=== PATIENT | female | born 1950 | race Caucasian/White ===

== ENCOUNTER 2018-08-27 13:45 | Observation (INO) | payer OTHER, MEDICARE, SELFPAY ==
[2018-08-27] VITALS (12 sets, daily range): BP systolic 111–147; BP diastolic 58–86; PULSE 69–89; RESP 11–21; TEMP 36.6–36.8; O2SAT 93–100; BMI 26.9
--- NOTE | 2018-08-27 15:24 | ED.SYNCOPE ---
HPI - Syncope General Chief Complaint: Syncope Stated Complaint: fainted Time Seen by Provider: 08/27/18 14:19 Source: patient and family Mode of arrival: ambulatory Limitations: no limitations History of Present Illness HPI narrative: Patient comes emergency department complaining of a syncopal episode early this afternoon. Patient states she has not been feeling well for the last 3 weeks, and has been noticing feeling generally more tired, as well as being winded going up stairs. Patient states she has not had any chest pain or generalized shortness of breath, but that the dyspnea with stairs is unusual for her. She denies cough or fevers. No abdominal pain, nausea, or vomiting. No diarrhea. Patient does note that she probably does not drink enough, but that after seeing her provider yesterday, and being told she needed to drink more, she did drink quite a bit of water last night. Related Data Home Medications Medication Instructions Recorded Confirmed Calcium Tablet 1 tab PO DAILY 08/27/18 08/27/18 Unknown Supplements 1 dose PO DAILY 08/27/18 08/27/18 alprazolam 0.25 mg PO Q8H PRN 08/27/18 08/27/18 aspirin 81 mg PO DAILY 08/27/18 08/27/18 atenolol 25 mg PO QPM 08/27/18 08/27/18 clopidogrel 75 mg PO QPM 08/27/18 08/27/18 ezetimibe [Zetia] 10 mg PO DAILY 08/27/18 08/27/18 Allergies Allergy/AdvReac Type Severity Reaction Status Date / Time No Known Allergies Allergy Unknown Unverified 05/28/17 13:04 [NO KNOWN ALLERGIES] Review of Systems Constitutional Reports fatigue Comments: Fatigue Eyes Denies change in vision, Denies eye discharge, Denies irritation and Denies loss of vision ENT Ears, Nose, Mouth, and Throat: Denies change in voice, Denies neck pain and Denies sore throat Cardiovascular Denies chest pain, Reports syncope, Denies irregular heart rhythm, Denies lightheadedness, Denies palpitations, Reports dyspnea on exertion and Denies orthopnea Respiratory Denies cough, Reports dyspnea on exertion and Denies wheezing Gastrointestinal Gastrointestinal: Denies abdominal pain, Denies change in bowel habits, Denies diarrhea, Denies nausea and Denies vomiting Genitourinary Denies hematuria, Denies flank pain, Denies urinary incontinence and Denies urinary urgency Musculoskeletal Denies neck pain Integumentary/Breasts Denies pruritus, Denies erythema, Denies rash and Denies wounds Neurologic Denies confusion, Reports syncope and Denies loss of vision Psychiatric Denies anxiety, Denies confusion, Denies depression, Denies homicidal ideation and Denies suicidal ideation Endocrine Reports fatigue and Denies palpitations Hematologic/Lymphatic Denies easy bruising Allergic/Immunologic Denies wheezing [facility] Medical History Hyperlipidemia (Acute) TIA (transient ischemic attack) (Acute) HTN (hypertension) (Acute) Surgical History No pertinent past surgical history (Acute) Social History Smoking Status: Never smoker Social History Smoking Status: Never smoker Exam Initial Vital Signs Initial Vital Signs: Vital Signs Temperature 98.2 F 08/27/18 13:50 Pulse Rate 77 08/27/18 13:50 Respiratory Rate 15 08/27/18 13:50 Blood Pressure 146/77 H 08/27/18 13:50 Pulse Oximetry 99 08/27/18 13:50 Const General: cooperative and well developed Nutritional Appearance: well nourished Orientation: alert, awake, oriented x3 and not confused [facility] Head: normocephalic and atraumatic Ears: external ears normal Nose: external nose normal and No nasal discharge Face and sinus: face symmetric and No dry mucous membranes Mouth: oral mucosae normal and moist mucous membranes Teeth and gingiva: dentition normal Eyes General: appearance normal, both eyes and all related structures Eyelids: eyelids normal Conjunctivae: conjunctivae normal Sclera: sclerae normal Pupils: PERRL EOM: EOM intact bilaterally Neck Neck: normal visual inspection, trachea midline, No lymphadenopathy, No midline deformity and No JVD Lymphatic: No lymphedema Chest Chest: normal inspection of the chest Resp Effort & Inspection: normal respiratory effort, able to speak in complete sentences, no respiratory distress and no use of accessory muscles Auscultation: clear to auscultation bilaterally, no rales, no rhonchi and no wheezes Cardio Rate: regular rate Rhythm: regular rhythm Heart Sounds: no click, no gallops, no murmurs and no rubs Pulses: normal peripheral pulses GI Inspection: non-distended Palpation: soft, no hepatosplenomegaly, No guarding, No pulsatile mass and No tender Auscultation: normal bowel sounds Back/Spine/Pelvis Back: No CVA tenderness Cervical Spine: cervical ROM normal and No pain with cervical ROM Thoracic/Lumbar Spine: thoracic and lumbar spine normal to inspection Skin General: no rashes or lesions noted, No jaundice and No petechiae Neuro General: alert, oriented x3, gait normal and no focal motor deficits Speech: speech normal Extrem General: full ROM, no clubbing, cyanosis or edema, no pedal edema and no calf tenderness Psych Appearance: well kempt Mental Status: mental status grossly normal Attitude: cooperative Thought Content: normal and suicidality Judgment: judgment good Course Course Narrative: Patient is worked up in the emergency department, and workup was found to be negative. I consulted with Dr. Alberto of Cardiology, and he did state that the patient could be observed on telemetry overnight here at our hospital and ruled out. He stated that Cardiology would follow up the patient in an expedited fashion after her discharge. I spoke with Dr. Penn, who felt that this was reasonable, and agree to admit the patient to his service. He stated that the patient could have a stress test tomorrow after her rule out. Patient was agreeable to this plan. Orders Ordered: ED Orders 08/27/18 14:03 EKG-12 Lead Routine 08/27/18 14:35 B Type Natriuretic Peptide Stat Complete Blood Count AUTO DIFF Stat Comprehensive Metabolic Panel Stat Free T4 Free Thyroxine Stat T4 Total Thyroxine Stat Thyroid Stimulating Hormone Stat Triiodothyronine T3 Free Stat 08/27/18 16:53 Urinalysis and Microscopic Stat 08/27/18 18:27 Troponin & CK Cardiac Panel Stat Discontinued Medications Sodium Chloride (Normal Saline 0.9%) 1,000 mls @ 1,000 mls/hr IV BOLUS ONE Stop: 08/27/18 16:19 Last Infusion: 08/27/18 16:46 Dose: 0 mls/hr Admin: 08/27/18 15:38 Dose: 1,000 mls/hr Vital Signs - 8 hr 08/27/18 13:50 08/27/18 14:02 08/27/18 15:30 Temperature 98.2 F Pulse Rate 77 77 72 Respiratory Rate 15 15 18 Blood Pressure 146/77 H Blood Pressure [Left Arm] 146/77 H 122/70 Pulse Oximetry 99 99 100 08/27/18 16:00 08/27/18 16:44 08/27/18 17:00 Temperature Pulse Rate 69 74 75 Respiratory Rate 11 L 19 14 Blood Pressure Blood Pressure [Left Arm] 132/71 129/73 127/65 Pulse Oximetry 99 97 93 08/27/18 17:30 08/27/18 18:00 08/27/18 18:30 Temperature Pulse Rate 73 72 70 Respiratory Rate 12 15 20 Blood Pressure Blood Pressure [Left Arm] 128/66 147/66 H 129/86 Pulse Oximetry 97 98 98 08/27/18 20:30 Temperature Pulse Rate 89 Respiratory Rate 21 Blood Pressure Blood Pressure [Left Arm] 132/67 Pulse Oximetry 94 MDM - Syncope Medical Records Attestation: I reviewed the patient's medical records. Lab Data Attestation: I reviewed the patient's lab results. Result diagrams: 08/27/18 14:35 08/27/18 14:35 Lab Results 08/27/18 08/27/18 08/27/18 Range/Units 14:35 14:35 14:35 WBC 2.8 L (4.5-11.0) X10^3/uL RBC 3.79 L (4.0-5.2) X10^6/uL Hgb 13.2 (12.0-16.0) g/dL Hct 38.2 (36-46) % MCV 100.8 H (80-100) fL MCH 34.9 H (26-34) PG MCHC 34.7 (30-36) % RDW 14.3 (11.6-14.8) % Plt Count 42 L (150-400) X10^3/uL Neut % (Auto) 43.1 L (50-75) % Lymph % (Auto) 48.4 H (25-40) % [place] % (Auto) 7.5 (3-14) % Eos % (Auto) 0.7 L (2-4) % Baso % (Auto) 0.3 (0-2) % Neut # (Auto) 1200 L (9611-3604) /uL Lymph # (Auto) 1400 (1252-3250) /uL [place] # (Auto) 200 (0-900) /uL Eos # (Auto) 0 (0-450) /uL Baso # (Auto) 0 (0-100) /uL Sodium 141 (137-145) mmol/L Potassium 4.3 (3.4-5.1) mmol/L Chloride 105 (98-107) mmol/L Carbon Dioxide 25 (22-32) mmol/L BUN 22 H (7-17) mg/dL Creatinine 0.90 (0.52-1.04) mg/dL Estimated GFR > 60.0 (>60) mL/min BUN/Creatinine Ratio 24.4 H (6-22) Glucose 85 (80-110) mg/dL Calcium 9.8 (8.4-10.2) mg/dL Total Bilirubin 0.8 (0.2-1.3) mg/dL AST 42 H (14-36) IU/L ALT 57 H (9-52) IU/L Alkaline Phosphatase 83 (38-126) U/L Total Creatine Kinase (30-135) U/L CK-MB (CK-2) CK-MB (CK-2) Rel Index Troponin I (0.01-0.034) ng/mL B-Natriuretic Peptide < 100 (<100) Total Protein 7.9 (6.3-8.2) g/dL Albumin 4.8 (3.5-5.0) g/dL Globulin 3.1 (1.7-4.1) g/dL Albumin/Globulin Ratio 1.5 (1.0-2.8) TSH 2.55 (0.47-4.68) uIU/mL Free T4 0.98 (0.78-2.19) ng/dL Thyroxine (T4) 8.18 (5.5-11.0) ug/dL Free T3 3.96 (2.77-5.27) pg/mL Urine Color Urine Appearance Urine pH (4.5-8.0) Ur Specific [place] (1.000-1.035) Urine Protein (Negative) Urine Glucose (UA) (Negative) g/dL Urine Ketones (NEGATIVE) Urine Occult Blood (Negative) Urine Nitrate (Negative) Urine Bilirubin (NEGATIVE) Urine Urobilinogen (0.2) E.U./dL Ur Leukocyte Esterase (NEGATIVE) Urine RBC (0-5/HPF) Urine WBC (0-5/HPF) Ur Squamous Epith Cells (0-5/HPF) Urine Bacteria (None) Ur Culture Indicated? 08/27/18 08/27/18 Range/Units 16:53 18:27 WBC (4.5-11.0) X10^3/uL RBC (4.0-5.2) X10^6/uL Hgb (12.0-16.0) g/dL Hct (36-46) % MCV (80-100) fL MCH (26-34) PG MCHC (30-36) % RDW (11.6-14.8) % Plt Count (150-400) X10^3/uL Neut % (Auto) (50-75) % Lymph % (Auto) (25-40) % [place] % (Auto) (3-14) % Eos % (Auto) (2-4) % Baso % (Auto) (0-2) % Neut # (Auto) (3178-5551) /uL Lymph # (Auto) (6875-0324) /uL [place] # (Auto) (0-900) /uL Eos # (Auto) (0-450) /uL Baso # (Auto) (0-100) /uL Sodium (137-145) mmol/L Potassium (3.4-5.1) mmol/L Chloride (98-107) mmol/L Carbon Dioxide (22-32) mmol/L BUN (7-17) mg/dL Creatinine (0.52-1.04) mg/dL Estimated GFR (>60) mL/min BUN/Creatinine Ratio (6-22) Glucose (80-110) mg/dL Calcium (8.4-10.2) mg/dL Total Bilirubin (0.2-1.3) mg/dL AST (14-36) IU/L ALT (9-52) IU/L Alkaline Phosphatase (38-126) U/L Total Creatine Kinase 46 (30-135) U/L CK-MB (CK-2) TNP CK-MB (CK-2) Rel Index TNP Troponin I < 0.012 (0.01-0.034) ng/mL B-Natriuretic Peptide (<100) Total Protein (6.3-8.2) g/dL Albumin (3.5-5.0) g/dL Globulin (1.7-4.1) g/dL Albumin/Globulin Ratio (1.0-2.8) TSH (0.47-4.68) uIU/mL Free T4 (0.78-2.19) ng/dL Thyroxine (T4) (5.5-11.0) ug/dL Free T3 (2.77-5.27) pg/mL Urine Color Yellow Urine Appearance Clear Urine pH 6.5 (4.5-8.0) Ur Specific [place] <=1.005 (1.000-1.035) Urine Protein Negative (Negative) Urine Glucose (UA) Negative (Negative) g/dL Urine Ketones Negative (NEGATIVE) Urine Occult Blood 1+ H (Negative) Urine Nitrate Negative (Negative) Urine Bilirubin Negative (NEGATIVE) Urine Urobilinogen 0.2 (0.2) E.U./dL Ur Leukocyte Esterase Negative (NEGATIVE) Urine RBC 0-1/hpf (0-5/HPF) Urine WBC None seen (0-5/HPF) Ur Squamous Epith Cells 1-5 /hpf (0-5/HPF) Urine Bacteria None seen (None) Ur Culture Indicated? Cult not indicated ECG Data Attestation: I personally reviewed and interpreted this ECG as follows: (See below) Interpretation: Twelve lead EKG performed August 27, 2018, at 2:03 p.m., as follows: Regular ventricular rhythm with a rate of 72 beats per minute Peer interval 172 millisecond QRS duration 74 millisecond QTC interval [address] T wave changes No ectopy Interpretation: Normal sinus rhythm; no signs of acute ischemia; normal EKG as interpreted by ED MD. Discharge Plan Departure Patient Disposition: Admitted as Observation Clinical Impression: Syncope Qualifiers: Syncope type: unspecified Qualified Code(s): R55 - Syncope and collapse Interventions: ED Discharge Assessment Last Done: 08/27/18 20:02 Admit Date/Time: 08/27/18 20:06 Admit Provider: Beau Stacy
[2018-08-27 15:30] LABS: Add Manual Diff / Slide Review NO; Basophils Absolute Auto 0 /uL (0-100); Basophils Percent Auto 0.3 % (0-2); Eosinophils Absolute Auto 0 /uL (0-450); Eosinophils Percent Auto 0.7 % (2-4); Hematocrit 38.2 % (36-46); Hemoglobin 13.2 g/dL (12.0-16.0); Lymphocytes Absolute Auto 1400 /uL (1100-4500); Lymphocytes Percent Auto 48.4 % (25-40); Mean Corpuscular HGB Conc 34.7 % (30-36); Mean Corpuscular Hemoglobin 34.9 PG (26-34); Mean Corpuscular Volume 100.8 fL (80-100); Monocytes Absolute Auto 200 /uL (0-900); Monocytes Percent Auto 7.5 % (3-14); Neutrophils Absolute Auto 1200 /uL (1500-7000); Neutrophils Percent Auto 43.1 % (50-75); Platelet Count 42 X10^3/uL (150-400); Red Blood Cell Count 3.79 X10^6/uL (4.0-5.2); Red Cell Distribution Width 14.3 % (11.6-14.8); White Blood Cell Count 2.8 X10^3/uL (4.5-11.0)
[2018-08-27 15:38] LABS: Alanine Aminotransferase 57 IU/L (9-52); Albumin 4.8 g/dL (3.5-5.0); Albumin Globulin Ratio 1.5 (1.0-2.8); Alkaline Phosphatase 83 U/L (38-126); Aspartate Aminotransferase 42 IU/L (14-36); BUN Creatinine Ratio 24.4 (6-22); Bilirubin Total 0.8 mg/dL (0.2-1.3); Blood Urea Nitrogen 22 mg/dL (7-17); Calcium 9.8 mg/dL (8.4-10.2); Carbon Dioxide 25 mmol/L (22-32); Chloride 105 mmol/L (98-107); Estimated Glomerular Filt Rate > 60.0 mL/min (>60); Globulin 3.1 g/dL (1.7-4.1); Glucose 85 mg/dL (80-110); HEMOLYSIS 23 (0-50); Potassium 4.3 mmol/L (3.4-5.1); Sodium 141 mmol/L (137-145); Total Protein 7.9 g/dL (6.3-8.2)
[2018-08-27] MEDS: SODIUM CHLORIDE 0.9% 1,000 ML 1000 ML IV (15:38)
[2018-08-27 15:54] LABS: B Type Natriuretic Peptide < 100 (<100)
[2018-08-27 15:55] LABS: Free T3, Triiodothyronine Free 3.96 pg/mL (2.77-5.27); Free T4, Direct Thyroxine 0.98 ng/dL (0.78-2.19); T4 Total Thyroxine 8.18 ug/dL (5.5-11.0)
[2018-08-27 16:08] LABS: Thyroid Stimulating Hormone 2.55 uIU/mL (0.47-4.68)
[2018-08-27 18:40] LABS: Creatine Kinase 46 U/L (30-135)
[2018-08-27 18:53] LABS: Troponin I < 0.012 ng/mL (0.01-0.034)
[2018-08-27 19:53] LABS: Bacteria Urine None Seen; WBC Urine None Seen (0-5/HPF)
[2018-08-27 19:54] LABS: Appearance Urine UA CLEAR; Bilirubin Urine UA NEGATIVE (NEGATIVE); Color Urine UA YELLOW; Glucose Urine UA NEGATIVE (Negative); Ketones Urine UA NEGATIVE (NEGATIVE); Leukocyte Esterase Urine UA NEGATIVE (NEGATIVE); Nitrite Urine UA NEGATIVE (Negative); Occult Blood Urine UA 1+ (Negative); Protein Urine UA NEGATIVE (Negative); Specific Gravity Urine UA <=1.005 (1.000-1.035); Urobilinogen Urine UA 0.2 E.U./dL (0.2); pH Urine UA 6.5 (4.5-8.0)
[2018-08-27 20:07] LABS: Culture Indicated Urine Cult Not Indicated; RBC Urine 0-1/HPF (0-5/HPF); Squamous Epithelial Cell Urine 1-5 /HPF (0-5/HPF)
[2018-08-27] MEDS: SODIUM CHLORIDE 0.9% 1,000 ML 100 ML IV (21:54)
--- NOTE | 2018-08-27 22:04 | PC.ADMIT ---
[id number] Admission Note: The patient,Kristen Cho,68 y/o, was given written information regarding hospital policies, unit procedures and contact persons. Patient's smoking status: Never smoker. Vital Signs - 8 hr 08/27/18 15:30 08/27/18 16:00 08/27/18 16:44 Pulse Rate 72 69 74 Respiratory Rate 18 11 L 19 Blood Pressure [Left Arm] 122/70 132/71 129/73 Pulse Oximetry 100 99 97 08/27/18 17:00 08/27/18 17:30 08/27/18 18:00 Pulse Rate 75 73 72 Respiratory Rate 14 12 15 Blood Pressure [Left Arm] 127/65 128/66 147/66 H Pulse Oximetry 93 97 98 08/27/18 18:30 08/27/18 20:30 Pulse Rate 70 89 Respiratory Rate 20 21 Blood Pressure [Left Arm] 129/86 132/67 Pulse Oximetry 98 94 Admit to room 226 from ED, awake, pleasant and cooperative. No c/o chest pain, SOB, or dizziness. Neurological check WNL. Oriented to room, environment, and plan of care. Aware of NPO status after midnight. Call light within reach.
--- NOTE | 2018-08-27 22:57 | PC.NURSE ---
Camilla shift note: Refused SCD's.
--- NOTE | 2018-08-27 23:21 | PM.HP.1 ---
History of Present Illness Date Patient Seen: 08/27/18 Time Patient Seen: 19:50 Chief complaint: fainted Narrative: Ms. Kristen Cho is a 68-year-old female patient with history significant for hypertension, hyperlipidemia, small stroke, breast cancer and chemo related neuropathy who presents to the ER today following a syncopal episode. The patient was at the pharmacy standing in line when she suddenly began feeling warm than hot. She states she turned to her daughter telling her that she needed to go outside under daughter describes that she became altered with garbled speech and began to fall and was caught by her daughter and helped to the ground. Her daughter states that she does not believe she actually loss consciousness but became briefly unresponsive. The patient states that she does not recall being helped to the floor. The patient had been to see her primary care provider yesterday and was to have laboratory studies today. The patient's daughter stayed with her and encouraged to drink fluids for her lab draw today. The patient had been complaining of multiple nonspecific symptoms that had developed since early July. The patient describes left headache with no visual changes but has been having disequilibrium. She reports insomnia, increased fatigue and shortness of breath with bilateral thigh pain but no chest pain when ascending stairs at home when she had previously had no exertional dyspnea. She denies recent illness, fevers or chills, diaphoresis or visual changes. She denies cough or wheezing. She reports no abdominal pain nausea vomiting, diarrhea or constipation or dysuria. Upon arrival in the ER the patient was afebrile with a temperature of 98.2? heart rate 77, blood pressure of 146/77, respirations of 15 and oxygen saturation 98% on room air. An EKG was obtained viewed by myself which shows sinus rhythm with a heart rate of 72 without ectopy, block, ST or T-wave changes. She had laboratory studies completed which showed a white blood cell count low at 2.8 hemoglobin 13.2 and hematocrit 38.2 with platelets of 42. On chemistries her electrolytes are within normal range however her BUN is 22 with a creatinine 0.9 with BUN creatinine ratio of 24.9 with an EGFR of greater than 60. She has a nonfasting glucose of 85. Liver function is within normal limits with a total bilirubin of 0.8, AST of 42, ALT of 57 and alkaline phosphatase of 83. CK and troponin are both negative at 46 and less than 0.012 respectively. BNP is negative at less than 100 and thyroid panel was evaluated which was unremarkable. The patient was give 1 L saline in the emergency department and Cardiology was consulted by the ER provider. The patient is admitted the hospital for further evaluation and monitoring. Patient History Medical History (Updated 08/27/18 @ 23:39 by POOJA Lindsey) Hyperlipidemia (Acute) TIA (transient ischemic attack) (Acute) HTN (hypertension) (Acute) Breast cancer (Acute) CVA (cerebrovascular accident) (Acute) Neuropathy (Acute) Sinus headache (Acute) Surgical History (Updated 08/27/18 @ 23:39 by POOJA Lindsey) History of appendectomy (Acute) History of bilateral cataract extraction (Acute) No pertinent past surgical history (Acute) S/P breast lumpectomy (Acute) Family History (Updated 08/27/18 @ 23:42 by POOJA Lindsey) Father Coronary artery disease Mother Stroke Coronary artery disease Brother Coronary artery disease Social History household members: none Smoking Status: Never smoker alcohol intake: current Family & Social History Family History (Updated 08/27/18 @ 23:42 by POOJA Lindsey) Father Coronary artery disease Mother Stroke Coronary artery disease Brother Coronary artery disease Social History: household members none Prior Living Arrangements House Safety & Behavioral: Feels Safe in Current Yes Environment Been Physically Hurt or No Threatened By a Person Suicide Plan Description No Plan Tobacco & Substance use: Smoking Status Never smoker alcohol intake current alcohol intake frequency 0-2 drinks per day Substance Use Type does not use Comment: The patient presently lives alone on [address]. She was for 25 years and 10 years ago. [place] Her parents are both and she has 1 brother. 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 Alcohol: Patient typically will consume 1 drink per night. Substance use: Patient denies recreation pharmaceuticals does use tincture of cannabis nightly to help her sleep. Advanced directives: In a lengthy discussion with the patient she chooses to be a full code but expresses wishes to not have life support or feeding tubes. She states she does not want to burden her children with making a life or physician for her and is unable to state a surrogate decision maker at this time. Meds Home Medications Medication Instructions Recorded Confirmed Type Calcium Tablet 1 tab PO DAILY 08/27/18 08/27/18 History Unknown Supplements 1 dose PO DAILY 08/27/18 08/27/18 History alprazolam 0.25 mg PO Q8H PRN 08/27/18 08/27/18 History aspirin 81 mg PO DAILY 08/27/18 08/27/18 History atenolol 25 mg PO QPM 08/27/18 08/27/18 History clopidogrel 75 mg PO QPM 08/27/18 08/27/18 History ezetimibe [Zetia] 10 mg PO DAILY 08/27/18 08/27/18 History Allergies Allergy/AdvReac Type Severity Reaction Status Date / Time No Known Allergies Allergy Unknown Unverified 05/28/17 13:04 [NO KNOWN ALLERGIES] Review of Systems Review of Systems All systems reviewed & are unremarkable except as noted in HPI and below Exam Vital Signs (past 8 hours): - 08/27/18 15:30 08/27/18 16:00 08/27/18 16:44 Temperature Pulse Rate 72 69 74 Respiratory Rate 18 11 L 19 Blood Pressure Blood Pressure [Left Arm] 122/70 132/71 129/73 Pulse Oximetry 100 99 97 08/27/18 17:00 08/27/18 17:30 08/27/18 18:00 Temperature Pulse Rate 75 73 72 Respiratory Rate 14 12 15 Blood Pressure Blood Pressure [Left Arm] 127/65 128/66 147/66 H Pulse Oximetry 93 97 98 08/27/18 18:30 08/27/18 20:30 08/27/18 21:50 Temperature 98 F Pulse Rate 70 89 78 Respiratory Rate 20 21 18 Blood Pressure 111/58 L Blood Pressure [Left Arm] 129/86 132/67 Pulse Oximetry 98 94 95 Oxygen Delivery Method Room Air Narrative Exam Narrative: GENERAL APPEARANCE: Well kempt, articulate well developed, well nourished, in no acute distress. HEAD: Normocephalic, atraumatic, no scalp lesions. EYES: pupils equal, round, reactive to light and accommodation, sclera non-icteric, extraocular movement intact without nystagmus. EARS: normal external structures, no ear pain NOSE: sinuses non tender to percussion, no rhinorrhea ORAL CAVITY: mucosa moist without lesions or exudate, own dentition, palate normal, tongue in midline. THROAT: normal, no erythema, no exudate, posterior pharynx normal, uvula midline. NECK/THYROID: neck supple, no jugular venous distention, no carotid bruit, no thyromegaly, trachea midline. LYMPH NODES: no cervical or supraclavicular lymphadenopathy. SKIN: warm and dry, no suspicious lesions, no rashes, good turgor. HEART: regular rate and rhythm, S1-S2 without murmur, no rubs or gallops, brisk capillary refill, no edema LUNGS: clear to auscultation bilaterally, no coarseness crackles or wheezing, no cough present CHEST: Symmetrical movement, no accessory muscle use, no pain to AP and lateral compression. ABDOMEN: Soft, no distention, no epigastric or abdominal tenderness on palpation, no guarding or peritoneal signs, no organomegaly, no flank or suprapubic tenderness, active bowel tones. BACK: Normal curvature, nontender to palpation, no CVA tenderness on percussion EXTREMITIES: moves all extremities, strength is 5/5 and symmetrical, no deformities or joint effusions. NEUROLOGIC: AAO x4, no focal neurologic deficits, cranial nerves II-XII grossly intact, NIH score 0, ABCD2 score is 2, motor strength normal upper and lower extremities, neuropathy fingertips and toes, hearing grossly normal to speech. PSYCH: alert, articulate, cognitive function intact, good eye contact, appropriate with stable behavior Objective Labs Result Diagrams: 08/27/18 14:35 08/27/18 14:35 Labs: Laboratory Results - last 24 hr 08/27/18 08/27/18 08/27/18 14:35 14:35 14:35 WBC 2.8 L RBC 3.79 L Hgb 13.2 Hct 38.2 MCV 100.8 H MCH 34.9 H MCHC 34.7 RDW 14.3 Plt Count 42 L Neut % (Auto) 43.1 L Lymph % (Auto) 48.4 H Story % (Auto) 7.5 Eos % (Auto) 0.7 L Baso % (Auto) 0.3 Neut # (Auto) 1200 L Lymph # (Auto) 1400 Story # (Auto) 200 Eos # (Auto) 0 Baso # (Auto) 0 Sodium 141 Potassium 4.3 Chloride 105 Carbon Dioxide 25 BUN 22 H Creatinine 0.90 Estimated GFR > 60.0 BUN/Creatinine Ratio 24.4 H Glucose 85 Calcium 9.8 Total Bilirubin 0.8 AST 42 H ALT 57 H Alkaline Phosphatase 83 Total Creatine Kinase CK-MB (CK-2) CK-MB (CK-2) Rel Index Troponin I B-Natriuretic Peptide < 100 Total Protein 7.9 Albumin 4.8 Globulin 3.1 Albumin/Globulin Ratio 1.5 TSH 2.55 Free T4 0.98 Thyroxine (T4) 8.18 Free T3 3.96 Urine Color Urine Appearance Urine pH Ur Specific [place] Urine Protein Urine Glucose (UA) Urine Ketones Urine Occult Blood Urine Nitrate Urine Bilirubin Urine Urobilinogen Ur Leukocyte Esterase Urine RBC Urine WBC Ur Squamous Epith Cells Urine Bacteria Ur Culture Indicated? 08/27/18 08/27/18 16:53 18:27 WBC RBC Hgb Hct MCV MCH MCHC RDW Plt Count Neut % (Auto) Lymph % (Auto) Story % (Auto) Eos % (Auto) Baso % (Auto) Neut # (Auto) Lymph # (Auto) Story # (Auto) Eos # (Auto) Baso # (Auto) Sodium Potassium Chloride Carbon Dioxide BUN Creatinine Estimated GFR BUN/Creatinine Ratio Glucose Calcium Total Bilirubin AST ALT Alkaline Phosphatase Total Creatine Kinase 46 CK-MB (CK-2) TNP CK-MB (CK-2) Rel Index TNP Troponin I < 0.012 B-Natriuretic Peptide Total Protein Albumin Globulin Albumin/Globulin Ratio TSH Free T4 Thyroxine (T4) Free T3 Urine Color Yellow Urine Appearance Clear Urine pH 6.5 Ur Specific [place] <=1.005 Urine Protein Negative Urine Glucose (UA) Negative Urine Ketones Negative Urine Occult Blood 1+ H Urine Nitrate Negative Urine Bilirubin Negative Urine Urobilinogen 0.2 Ur Leukocyte Esterase Negative Urine RBC 0-1/hpf Urine WBC None seen Ur Squamous Epith Cells 1-5 /hpf Urine Bacteria None seen Ur Culture Indicated? Cult not indicated Assessment & Plan Assessment & Plan narrative: The patient is admitted to the hospital following is syncopal episode of unclear etiology. 1. Witnessed syncopal episode, resolved upon arrival -patient has sustained a syncopal episode witnessed by her daughter to which she is amnesic to some events -no prior history of syncope but recent change in health status over the last 3 weeks. -differential diagnosis: -neurologic: patient with history of prior left hemispheric CVA treated at [facility], recent disequilibrium and headache and mumbling speech at onset of syncope. -neurochecks every 4 hours -will obtain MRI stroke protocol -cardiogenic, arrhythmia: Patient with strong family history cardiac disease, risk factors of hypertension and hyperlipidemia, no complaints of chest pain or palpitations. -troponin the ER is negative, no complaints of chest pain will recheck troponin. -NPO at midnight for cardiac stress test. -dehydration: Patient reports being told she needs to drink more when seen by primary care yesterday. Patient presents dehydrated with BUN of 22 and creatinine 0.9 with BUN creatinine ratio of 24.4. -patient given saline 1 L in the ER, no complaints of orthostatic dizziness. -IV normal saline 100 cc/hour -will continue home medications of aspirin 81 mg daily and clopidogrel 75 mg nightly. 2. Chronic hypertension, active -patient with a blood pressure 146/77 upon admission to the ER. -will continue home medication of atenolol 25 mg nightly. 3. Hyperlipidemia, active -patient reports intolerant to statins and recently started on Zetia -will continue home dose of Zetia 10 mg daily. 4. Left hemispheric CVA, stable. -patient reports having right-sided deficits and being treated at [facility] with MRI showing left hemisphere stroke. 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 5. Breast cancer, stable -patient has residual neuropathy post chemotherapy and has completed tamoxifen therapy. -no evidence of recurrence The patient is admitted to the hospital due to the severity of her symptoms and need for further monitoring, evaluation and risk of adverse events. Patient will be observation status with expected length of stay to be less than 2 midnights. Scores GCS [place] coma scale eye opening: Spontaneous [place] coma scale verbal response: Orientated [place] coma scale motor response: Obey commands Adrienne coma scale total score: 15 ABCD2 Age >= 60 years: yes Initial BP. Either SBP >= 140 or DBP >= 90.: yes Clinical features of the TIA: other symptoms Duration of symptoms: < 10 minutes History of diabetes: no ABCD2 Score: 2 NIHSS Level of Conciousness: Alert, keenly responsive Ask month/age: Answers both questions correctly. Open/close eyes, close hand: Performs both tasks correctly Best gaze horizontal: Normal Visual bhandari: No visual loss Facial palsy: Normal symetrical movement Left arm drift: No drift for full 10 sec Right arm drift: No drift for full 10 sec Left leg drift: No drift for full 10 sec Right leg drift: No drift for full 10 sec Limb ataxia: Absent Sensory on face/arms/legs: Normal, no sensory loss (Patient with baseline neuropathy secondary to chemotherapy without change) Best language: No aphasia, normal Dysarthria: Normal Extinction or inattention: No abnormality Total NIH Stroke scale score: 0 Quality VTE Deep Vein Thrombosis/Pulmonary Embolism Present on Admission: No
[2018-08-28] VITALS (10 sets, daily range): BP systolic 121–148; BP diastolic 66–82; PULSE 73–84; RESP 15–18; TEMP 36.6–36.9; O2SAT 96–99
[2018-08-28 05:53] LABS: Add Manual Diff / Slide Review NO; Basophils Absolute Auto 0 /uL (0-100); Basophils Percent Auto 0.2 % (0-2); Eosinophils Absolute Auto 0 /uL (0-450); Eosinophils Percent Auto 1.2 % (2-4); Hematocrit 30.1 % (36-46); Hemoglobin 10.7 g/dL (12.0-16.0); Lymphocytes Absolute Auto 1400 /uL (1100-4500); Lymphocytes Percent Auto 63.2 % (25-40); Mean Corpuscular HGB Conc 35.5 % (30-36); Mean Corpuscular Volume 101.3 fL (80-100); Monocytes Absolute Auto 200 /uL (0-900); Monocytes Percent Auto 7.7 % (3-14); Neutrophils Absolute Auto 600 /uL (1500-7000); Neutrophils Percent Auto 27.7 % (50-75); Red Blood Cell Count 2.97 X10^6/uL (4.0-5.2); Red Cell Distribution Width 14.3 % (11.6-14.8); White Blood Cell Count 2.2 X10^3/uL (4.5-11.0)
[2018-08-28 05:54] LABS: BUN Creatinine Ratio 23.3 (6-22); Blood Urea Nitrogen 21 mg/dL (7-17); Calcium 8.7 mg/dL (8.4-10.2); Carbon Dioxide 24 mmol/L (22-32); Chloride 113 mmol/L (98-107); Cholesterol 268 mg/dL (140-199); Estimated Glomerular Filt Rate > 60.0 mL/min (>60); Glucose 100 mg/dL (80-110); HDL Cholesterol 42 mg/dL (40-60); HEMOLYSIS < 15 (0-50); LDL Cholesterol Calculated 191 mg/dL (<100); Potassium 4.2 mmol/L (3.4-5.1); Sodium 143 mmol/L (137-145); Triglycerides 176 mg/dL (35-150)
[2018-08-28 06:06] LABS: Troponin I < 0.012 ng/mL (0.01-0.034)
[2018-08-28 06:08] LABS: Platelet Count 30 X10^3/uL (150-400)
--- NOTE | 2018-08-28 06:12 | PC.NURSE ---
Critical lab platelet count of 30; advised POOJA Stacy at 0610. Pt slept all shift; denied pain nausea and dizziness.
[2018-08-28 06:43] LABS: RBC Morphology Normal Morphology; Vitamin B12 277 pg/mL (239-931)
--- NOTE | 2018-08-28 08:51 | PM.PN.1 ---
Subjective Date Patient Seen: 08/28/18 Time Patient Seen: 08:51 Interval history: She is seen today to follow up the syncope, anxiety, pancytopenia. Other than the pancytopenia no other direct cause of the syncope has been found. She has been monitored with telemetry, has a normal chest x-ray, has a normal for age MRI, etc. Her white blood count has dropped from 2.8 down to 2.2. The platelets have dropped from 42 down to 30 and hemoglobin has dropped from 13.2 down to 10.7. She describes 2 weeks of vague somewhat random symptoms leading up to this episode of syncope. I have spoken about her case with Hematology today. Exam Vital Signs (past 8 hours): - 08/28/18 04:00 08/28/18 08:28 Temperature 97.9 F 98.0 F Pulse Rate 78 83 Respiratory Rate 18 16 Blood Pressure 121/71 148/76 H Pulse Oximetry 97 98 Oxygen Delivery Method Room Air Oxygen Flow Rate 0 Narrative Exam Narrative: She is alert, oriented x3, quite anxious. Heart is regular rate and rhythm without a murmur. Lungs are clear to auscultation bilaterally. Extremities have no ankle edema. Objective Labs Result Diagrams: 08/28/18 05:20 08/28/18 05:20 Labs: Laboratory Results - last 24 hr 08/27/18 08/27/18 08/27/18 14:35 14:35 14:35 WBC 2.8 L RBC 3.79 L Hgb 13.2 Hct 38.2 MCV 100.8 H MCH 34.9 H MCHC 34.7 RDW 14.3 Plt Count 42 L Neut % (Auto) 43.1 L Lymph % (Auto) 48.4 H [place] % (Auto) 7.5 Eos % (Auto) 0.7 L Baso % (Auto) 0.3 Neut # (Auto) 1200 L Lymph # (Auto) 1400 [place] # (Auto) 200 Eos # (Auto) 0 Baso # (Auto) 0 Platelet Estimate RBC Morphology Sodium 141 Potassium 4.3 Chloride 105 Carbon Dioxide 25 BUN 22 H Creatinine 0.90 Estimated GFR > 60.0 BUN/Creatinine Ratio 24.4 H Glucose 85 Calcium 9.8 Total Bilirubin 0.8 AST 42 H ALT 57 H Alkaline Phosphatase 83 Total Creatine Kinase CK-MB (CK-2) CK-MB (CK-2) Rel Index Troponin I B-Natriuretic Peptide < 100 Total Protein 7.9 Albumin 4.8 Globulin 3.1 Albumin/Globulin Ratio 1.5 Triglycerides Cholesterol LDL Cholesterol, Calc HDL Cholesterol Vitamin B12 TSH 2.55 Free T4 0.98 Thyroxine (T4) 8.18 Free T3 3.96 Urine Color Urine Appearance Urine pH Ur Specific [place] Urine Protein Urine Glucose (UA) Urine Ketones Urine Occult Blood Urine Nitrate Urine Bilirubin Urine Urobilinogen Ur Leukocyte Esterase Urine RBC Urine WBC Ur Squamous Epith Cells Urine Bacteria Ur Culture Indicated? 08/27/18 08/27/18 08/28/18 16:53 18:27 05:20 WBC 2.2 L RBC 2.97 L Hgb 10.7 L Hct 30.1 L MCV 101.3 H MCH 36.0 H MCHC 35.5 RDW 14.3 Plt Count 30 L* Neut % (Auto) 27.7 L Lymph % (Auto) 63.2 H [place] % (Auto) 7.7 Eos % (Auto) 1.2 L Baso % (Auto) 0.2 Neut # (Auto) 600 L Lymph # (Auto) 1400 [place] # (Auto) 200 Eos # (Auto) 0 Baso # (Auto) 0 Platelet Estimate . RBC Morphology Normal morphology Sodium Potassium Chloride Carbon Dioxide BUN Creatinine Estimated GFR BUN/Creatinine Ratio Glucose Calcium Total Bilirubin AST ALT Alkaline Phosphatase Total Creatine Kinase 46 CK-MB (CK-2) TNP CK-MB (CK-2) Rel Index TNP Troponin I < 0.012 B-Natriuretic Peptide Total Protein Albumin Globulin Albumin/Globulin Ratio Triglycerides Cholesterol LDL Cholesterol, Calc HDL Cholesterol Vitamin B12 TSH Free T4 Thyroxine (T4) Free T3 Urine Color Yellow Urine Appearance Clear Urine pH 6.5 Ur Specific [place] <=1.005 Urine Protein Negative Urine Glucose (UA) Negative Urine Ketones Negative Urine Occult Blood 1+ H Urine Nitrate Negative Urine Bilirubin Negative Urine Urobilinogen 0.2 Ur Leukocyte Esterase Negative Urine RBC 0-1/hpf Urine WBC None seen Ur Squamous Epith Cells 1-5 /hpf Urine Bacteria None seen Ur Culture Indicated? Cult not indicated 08/28/18 08/28/18 05:20 05:20 WBC RBC Hgb Hct MCV MCH MCHC RDW Plt Count Neut % (Auto) Lymph % (Auto) [place] % (Auto) Eos % (Auto) Baso % (Auto) Neut # (Auto) Lymph # (Auto) [place] # (Auto) Eos # (Auto) Baso # (Auto) Platelet Estimate RBC Morphology Sodium 143 Potassium 4.2 Chloride 113 H Carbon Dioxide 24 BUN 21 H Creatinine 0.90 Estimated GFR > 60.0 BUN/Creatinine Ratio 23.3 H Glucose 100 Calcium 8.7 Total Bilirubin AST ALT Alkaline Phosphatase Total Creatine Kinase CK-MB (CK-2) CK-MB (CK-2) Rel Index Troponin I < 0.012 B-Natriuretic Peptide Total Protein Albumin Globulin Albumin/Globulin Ratio Triglycerides 176 H Cholesterol 268 H LDL Cholesterol, Calc 191 H HDL Cholesterol 42 Vitamin B12 277 TSH Free T4 Thyroxine (T4) Free T3 Urine Color Urine Appearance Urine pH Ur Specific [place] Urine Protein Urine Glucose (UA) Urine Ketones Urine Occult Blood Urine Nitrate Urine Bilirubin Urine Urobilinogen Ur Leukocyte Esterase Urine RBC Urine WBC Ur Squamous Epith Cells Urine Bacteria Ur Culture Indicated? Assessment & Plan Assessment & Plan narrative: 1. Witnessed syncopal episode, resolved upon arrival -patient has sustained a syncopal episode witnessed by her daughter to which she is amnesic to some events -no prior history of syncope but recent change in health status over the last 3 weeks. -differential diagnosis: -neurologic: MRI brain today is normal for age -cardiogenic, arrhythmia: Patient with strong family history cardiac disease, risk factors of hypertension and hyperlipidemia, no complaints of chest pain or palpitations. -troponin the ER is negative, no complaints of chest pain will recheck troponin. -no current symptoms to suggest stress test. -check a D-dimer -dehydration: Patient reports being told she needs to drink more when seen by primary care yesterday. Patient presents dehydrated with BUN of 22 and creatinine 0.9 with BUN creatinine ratio of 24.4. -patient given saline 1 L in the ER, no complaints of orthostatic dizziness. -IV normal saline 100 cc/hour -will continue home medications of aspirin 81 mg daily and clopidogrel 75 mg nightly. -despite the lack of any easy direct line the finding of pancytopenia, which is new, would appear to suggest some relationship to the syncope. - 2. Chronic hypertension, active -patient with a blood pressure 146/77 upon admission to the ER. -will continue home medication of atenolol 25 mg nightly. 3. Hyperlipidemia, active -patient reports intolerant to statins and recently started on Zetia -will continue home dose of Zetia 10 mg daily. 4. Left hemispheric CVA, stable. -patient reports having right-sided deficits and being treated at [facility] with MRI showing left hemisphere stroke. 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 5. Breast cancer, stable -patient has residual neuropathy post chemotherapy and has completed tamoxifen therapy. -no evidence of recurrence -Her oncologist was Dr. Nicholson at [facility] 6. Significant pancytopenia -discussed with Dr. Walton, who recommends office follow-up next week. He also is doubtful that these numbers are related to the syncope. -will repeat CBC in the morning, which if stabilizing may lead to discharge or if worsening may need platelet transfusion or transfer. Quality VTE Deep Vein Thrombosis/Pulmonary Embolism Present on Admission: No
[2018-08-28] MEDS: ASPIRIN EC 81 MG TABLET PO (10:07)
[2018-08-28] MEDS: ALPRAZolam 0.25 MG TABLET PO ×2 (10:07→22:43)
--- NOTE | 2018-08-28 10:21 | PT.IIE ---
Surgical History (Last Updated 08/27/18 @ 23:39 by POOJA Lindsey) History of appendectomy (Acute) History of bilateral cataract extraction (Acute) No pertinent past surgical history (Acute) S/P breast lumpectomy (Acute) Medical History (Last Updated 08/27/18 @ 23:39 by POOJA Lindsey) Hyperlipidemia (Acute) TIA (transient ischemic attack) (Acute) HTN (hypertension) (Acute) Breast cancer (Acute) CVA (cerebrovascular accident) (Acute) Neuropathy (Acute) Sinus headache (Acute) Physical Therapy Inpatient Evaluation/Re-Eval M1 PT/OT-IP Prior Functional Status Start: 08/28/18 12:23 Freq: NEEDED Status: Active Protocol: Document 08/28/18 10:21 AB (Rec: 08/28/18 12:48 AB [id number]) Medical Review Prior Functional Status Medical History Reviewed Yes Communication able to make needs known Mobility and Gait pt stated that she is independent with all mobilities and ambulation without AD Prior Functional Level (Other details) pt stated that she has not been feeling well for ~ 3 weeks. stated that she has a dull headache since then and feels unsteady when up and walking but is aware of it and able to self correct. Social History Household Members none Living Arrangements House Number of Floors (Floors) 3 or More Floors Number of Stairs To Enter/Railing? pt lives in [facility]. does not use the 2nd floor but goes to the basement for her laundry and gardening. has 3 steps to enter without rails. has 16 steps to get to the basement with R rail descending. pt's daughter stated the steps to the basement are steep. 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 stated that she has ~ 2 flights of steps with bilateral wide rails and can only hold on to one rail at a time to get into the classrooms where she works. M2 PT-IP Current Condition Start: 08/28/18 12:23 Freq: NEEDED Status: Active Protocol: Document 08/28/18 10:21 AB (Rec: 08/28/18 12:48 AB [id number]) Physical Therapy Current Condition Current Condition Evaluation Date 08/28/18 Treatment Diagnosis syncope; difficulty in walking Onset Date 08/27/18 Precautions Other Precautions falls M3 PT-IP Subjective Start: 08/28/18 12:23 Freq: NEEDED Status: Active Protocol: Document 08/28/18 10:21 AB (Rec: 08/28/18 12:48 AB [id number]) Subjective Physical Therapy Visit Type Type Initial Evaluation Visit Start Time 10:21 Visit Stop Time 10:50 Total Visit Minutes 29 Number of DATA WAREHOUSING SPECIALIST Visits 0 Physical Therapy Visit Comments Patient Comments pt agreeable to do PT Therapy Pain Assessment Pain When Pain Assessed At Rest Pain Present Pain Present Pain Reported Location Head Intensity 1 Description Dull M4 PT-IP Mobility and Gait Start: 08/28/18 12:23 Freq: NEEDED Status: Active Protocol: Document 08/28/18 10:21 AB (Rec: 08/28/18 12:48 AB [id number]) PT-Bed Mobility Assessment Supine to Sit Supine to Sit Independent Sit to Supine Sit to Supine Independent PT-Transfer Assessment Sit to and From Stand Sit to and from Stand Contact Guard Assistance Equipment Transfer Assistive Device Gait Belt Orthotic/Prosthetic Devices or Brace: No Transfers Transfer Destination Bed Transfer Technique Stand Step Pivot Transfer Ability Level of Assist Contact Guard Assistance 1 Person Assistance Use of Upper Extremities Gait Assessment Gait Gait Assistance Required: Contact Guard Assist Distance (Feet) 100 Assistive Devices Assistive Device None Gait Belt Straight Cane Front Wheeled Walker Orthotic/Prosthetic Devices or Brace: No Gait Deviations General Gait Pattern Antalgic Decreased Stride Length Decreased Feet Clearance Factors Limiting Gait Function Factors Limiting Gait Function Decreased Strength Poor Balance Comments Gait Comments pt completed ambulation without AD ~ 100 ft requiring CGA. pt with unsteady gait and increase lateral leaning to the L but occasionally to the R as well but pt able to correct. Needs cues to stop and recenter self for rebalancing. educated pt on safety and AD options. assessed mobility using SPC. pt educated on how to use SPC and pt able to ambulate ~ 40 ft with cues. pt is steadier with ambulation using SPC but requires more training for sequencing. Also assessed use of FWW and pt completed SBA ~ 30 ft. pt prefers to use a SPC. PT-Balance Assessment Sitting Balance and Reactions Static Sitting Balance Ability Good Dynamic Sitting Balance Ability Good Standing Balance and Reactions Static Standing Balance Ability Fair Dynamic Standing Balance Ability Fair Device Used without AD M5 PT-IP Objective Assessments Start: 08/28/18 12:23 Freq: NEEDED Status: Active Protocol: Document 08/28/18 10:21 AB (Rec: 08/28/18 12:48 AB [id number]) Orientation Orientation/Cognition Level of Alertness Alert Orientation Name Age Birthday Month Date Year Day of Week Place Situation Language Function Ability No Deficits Noted Safety Awareness Understands Safety Issues Memory Description No Deficits Noted Gross Range of Motion Lower Extremity ROM Assessment Within Functional Limits Strength Lower Extremity Strength Assessment Bilaterally Impaired Hip 4-/5 Knee 3+/5 Coordination Assessment Gross Coordination Gross Coordination WNL Sensation Assessment Sensation Gross Sensation WNL Muscle Tone Muscle Tone WNL Yes M6 PT-IP Treatment Start: 08/28/18 12:23 Freq: NEEDED Status: Active Protocol: Document 08/28/18 10:21 AB (Rec: 08/28/18 12:48 AB [id number]) Physical Therapy Treatment Education Education Provided Safety M7 PT-IP Assessment and Plan Start: 08/28/18 12:23 Freq: NEEDED Status: Active Protocol: Document 08/28/18 10:21 AB (Rec: 08/28/18 12:48 AB [id number]) PT Summary Assessment and Plan Potential Rehabilitation Potential Fair Status of Condition at Evaluation Stable Summary Impairments Strength Balance Bed Mobility Transfers Gait Activity Tolerance Assessment Summary pt requiring CGA with mobility and presents with decrease standing balance affecting transfers and ambulation. pt and pt's daughter stated that they do not have a d/c plan for right now and is awaiting for diagnosis and what procedures/test to be done. will continue to assess pt and work on balance, ambulation and stair climbing. Goals Bed Mobility Goal Independent Transfer Goal Independent Cane Gait Goal Independent Cane Gait Distance 200 Other Goals up/down 3 steps without rails SBA up/down 16 steps with R rail descending SBA Days to Meet Goals 5 Frequency of Treatment Frequency Of Treatment Once a Day Treatment Plan Physical Therapy Treatment Plan Bed Mobility Training Transfer Training Gait Training Therapeutic Exercise Balance Retraining Discharge Planning Hot or Cold Pack Neuromuscular Re-ed Coordination Retraining Manual Therapy Recommendations To Nursing Amount of Assist Needed 1 Person Assist Discharge Recommendations PT Discharge Recommendations Home with Assistance Equipment Needed for Home Before SPC Discharge
--- NOTE | 2018-08-28 10:41 | DI.RAD.S_ITS ---
PROCEDURE: XR CHEST 2V INDICATIONS: Syncope TECHNIQUE: 2 views of the chest were acquired. COMPARISON: None. FINDINGS: Surgical changes and devices: Clips are present overlying the lateral chest meyer bilaterally. Lungs and pleura: Lungs are clear. No pleural effusions or pneumothorax. Mediastinum: Mediastinal contours are normal. Heart size is normal. Bones and chest wall: No suspicious bony abnormalities. Soft tissues appear unremarkable. IMPRESSION: No acute pulmonary process. Dictated by: Kim Cardoza M.D. on 08/28/2018 at 11:22 Approved by: Kim Cardoza M.D. on 08/28/2018 at 11:23
--- NOTE | 2018-08-28 10:42 | DI.MRI.S_ITS ---
PROCEDURE: MR HEAD/BRAIN WO CON INDICATIONS: Syncope TECHNIQUE: Non-contrast axial T1 spin echo, axial T2 fast spin echo, sagittal and axial FLAIR, coronal T2 fast spin echo, axial gradient echo, axial diffusion and ADC through the brain. COMPARISON: None. FINDINGS: Image quality: Artifact is present obscuring portions of the brainstem and cervical cord. CSF spaces: Ventricles appear symmetric in size and shape. Basal cisterns are patent. No extra-axial fluid collections. Brain: No intracranial bleeds or mass effects. There is cerebral volume loss for age. There are periventricular and deep white matter chronic small vessel ischemic changes. Brainstem appears normal. Diffusion-weighted images show no acute ischemic insults. No chronic ischemic insults. Normal intravascular flow voids are present. Skull and face: Calvarial bone marrow is normal in signal. Orbits are normal. Sinuses: Sinuses demonstrate minimal scattered areas of mucosal thickening. Minimal fluid is present within the right mastoid air cells. IMPRESSION: 1. No acute intracranial process. 2. Moderate atrophy and chronic microvascular ischemic changes. Dictated by: Kim Cardoza M.D. on 08/28/2018 at 11:24 Approved by: Kim Cardoza M.D. on 08/28/2018 at 11:26
[2018-08-28] MEDS: ATENOLOL 25 MG TABLET PO (11:26)
--- NOTE | 2018-08-28 15:06 | CM.DPC ---
Discharge Planning/Care Management DCP: assessment: case received, EMR reviewed, discussed this morning in Team Rounds. Dr. Cárdenas's progress note is now available. Reviewed this and then met with pt, her daughter Valencia/[place] and son Vazquez/[place]. Son Asif is also in [place] but at work today. 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 She lives independently but daughter Valencia lives about 5 minutes away and will stay with her mother for a few days when she is ok'd for d/c home. Pt wondering about her POC going forward: Went over the information re this that Dr. Cárdenas outlined in his note today and she and her family said they found this very helpful. Pt is aware that Dr. Cárdenas did speak with Dr. Walton re her case and she says she expects to followup on the hematology issues as an outpt. P: Labs will be checked again tomorrow and with probable d/c if pt is stable vs a need for a transfusion vs consideration of a transfer... Pt and family at this point appear at ease with the POC and uncertainty re tomorrow. PT Anca saw pt today and they trialed a FWW and a SP cane. Pt says she prefers the cane if an AD is needed. She has access to an old wooden one that her mother had but says it is not likely the right size. Will check in with Anca to see if one can be issued from the consignment closet or what her recommendation might be. Will follow up tomorrow. CM Discharge Assessment Start: 08/28/18 15:02 Freq: Status: Active Protocol: Document 08/28/18 15:02 ITV (Rec: 08/28/18 15:05 IT [id number]) Discharge Planning Assessment Advance Directives? No History Provided By Patient Family Member Medical Record Has Patient been admitted in last 30 No days? Prior Living Arrangements House Household Members none Comment daughter Valencia lives close by and plans to stay with pt after d/c for a few days. Independent with ADL's Yes Is patient alert and oriented? Yes Whiteboard Updated in Patient Room with Yes name and ext. # of Rn Medical Inpatient Services Review Status In Process
[2018-08-28] MEDS: CLOPIDOGREL 75 MG TABLET PO (16:55)
--- NOTE | 2018-08-28 18:23 | OT.IP.EVAL ---
Past Medical History (Last Updated 08/27/18 @ 23:39 by POOJA Lindsey) Hyperlipidemia (Acute) TIA (transient ischemic attack) (Acute) HTN (hypertension) (Acute) Breast cancer (Acute) CVA (cerebrovascular accident) (Acute) Neuropathy (Acute) Sinus headache (Acute) Surgical History (Last Updated 08/27/18 @ 23:39 by POOJA Lindsey) History of appendectomy (Acute) History of bilateral cataract extraction (Acute) No pertinent past surgical history (Acute) S/P breast lumpectomy (Acute) Occupational Therapy Inpatient Evaluation/Re-Eval M1 PT/OT-IP Prior Functional Status Start: 08/28/18 18:02 Freq: NEEDED Status: Active Protocol: Document 08/28/18 18:03 [facility] (Rec: 08/28/18 18: [facility] [id number]) Medical Review Prior Functional Status Medical History Reviewed Yes Diet/Fluid Consistency Regular Thin Liquids Communication able to make needs known Mobility and Gait pt stated that she is independent with all mobilities and ambulation without AD Activities of Daily Living and IADL's Completely independent with ADL's, IADL's, 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 Prior Functional Level (Other details) pt stated that she has not been feeling well for ~ 3 weeks. stated that she has a dull headache since then and feels unsteady when up and walking but is aware of it and able to self correct. Social History Household Members none Living Arrangements House Number of Floors (Floors) 3 or More Floors Number of Stairs To Enter/Railing? pt lives in [facility]. does not use the 2nd floor but goes to the basement for her laundry and gardening. has 3 steps to enter without rails. has 16 steps to get to the basement with R rail descending. pt's daughter stated the steps to the basement are steep. 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 M2 OT-IP Current Condition Start: 08/28/18 18:02 Freq: Status: Active Protocol: Document 08/28/18 18:03 [facility] (Rec: 08/28/18 18:23 [facility] [id number]) Occupational Therapy Current Condition Current Condition Evaluation Date 08/28/18 Treatment Diagnosis Syncope, weakness Diagnosis Onset Date 08/27/18 Weight Bearing Status Weight Bearing Status Weight Bear as Tolerated M3 OT- IP Subjective and Pain Start: 08/28/18 18:02 Freq: Status: Active Protocol: Document 08/28/18 18:03 [facility] (Rec: 08/28/18 18:23 [facility] [id number]) OT- Subjective Occupational Therapy Visit Type Type Initial Evaluation Visit Start Time 17:00 Visit Stop Time 17:45 Total Visit Minutes 45 Occupational Therapy Visit Comments Patient Comments Pt agreeable to do OT eval, pt 's son present and in the room. Patient/Caregiver Goals To go home. M4 OT- IP ADL's Start: 08/28/18 18:02 Freq: Status: Active Protocol: Document 08/28/18 18:03 [facility] (Rec: 08/28/18 18:23 [facility] [id number]) OT OGM-Tgyz-[id number] General Evaluation Self-Feeding Ability Independent OT ADL-Bathing Comments OT Bathing Comments To assess tomorrow. Pt states uses towel fowler edge to help to hold onto in order to step into the tub and does not feel that she needs a shower chair yet or grab bar placed M5 OT- IP IADL's Start: 08/28/18 18:02 Freq: Status: Active Protocol: Document 08/28/18 18:03 [facility] (Rec: 08/28/18 18:23 [facility] [id number]) OT-Instrumental Activities of Daily Living Home Safety Awareness Ability to Problem Solve Emergency Able to Problem Solve Situations Home Safety Comments Pt able to answer all safety questions accurately, however at times needing extra time to come up with her answers or narrow down to the correct answer. Medication Management Medication Management No Deficits Identified Money Management Money Management No Deficits Identified M6 OT- IP Functional Cognition Start: 08/28/18 18:02 Freq: Status: Active Protocol: Document 08/28/18 18:03 [facility] (Rec: 08/28/18 18:23 [facility] [id number]) Cognitive Factors Limiting Selfcare Function Cognitive Ability Level of Alertness Alert Patient Orientation Name Age Birthday Month Date Year Day of Week Place Situation Attention Span Ability Capable of Focused Attention Capable of Sustained Attention Ability to Follow Commands Able to Follow Multi-Step Commands Memory Description Short Term Impaired Safety Awareness Underestimates Need for Assistance Problem Solving Ability Needs Assist to Identify Solutions Cognitive Tests SLUMS Pt scored 22 /30 , normal score is 27/30. Pt having most difficulty with short term memory items, able to recall 2 /5 words, unable to state 4 digit number backwards, and not able to recall answers to 2/4 question safter short paragraph read. Pt states that she has to wrist things down often at home. Prior to assessments, pt tends to say, Oh I am not good at this, I will not get this right ,and needing encouragement to try. Cognitive Comments Cognitive Assessment Comments Pt score 153 seconds on [place] [employer] and needing a cue to identify half way that she missed a sequence, connecting the number 6-H versus 6-F. [place] [employer] assesses visual attention, executive thinking, mental flexibility and her time implies significant deficits at this time and suggest not to drive at this time. OT- Vision and Hearing OT- Hearing Assessment OT- Hearing Assessment WFL OT- Vision Assessment Visual Acuity WFL Visual Attentiveness WFL Occular Pursuits WFL M7 OT- IP Mobility and Balance Start: 08/28/18 18:02 Freq: Status: Active Protocol: Document 08/28/18 18:03 [facility] (Rec: 08/28/18 18:23 [facility] [id number]) OT- Bed Mobility Assessment Rolling Type of Rolling Roll to Left Supine to Sit Supine to Sit Assist Independent Sit to Supine Sit to Supine Assist Independent OT-Transfer Assessment Sit to and From Stand Sit to and from Stand Standby Assistance OT- Balance Assessment Sitting Balance and Reactions Static Sitting Balance Ability Normal M8 OT- IP Objective Assessments Start: 08/28/18 18:02 Freq: Status: Active Protocol: Document 08/28/18 18:03 [facility] (Rec: 08/28/18 18:23 [facility] [id number]) OT Gross Range of Motion Upper Extremity Range of Motion Assessment Within Functional Limits OT Strength Comments Strength Comments BUE 4/5 OT- Coordination Assessment Upper Extremity Finger to Nose Test Left UE Impaired Comments Coordination Comments Intact for finger-thumb coordination and able to open all items on her tray. OT-Muscle Tone Assessment Muscle Tone WNL Yes OT Sensation Assessment Comments Summary Comments To assess sensation tomorrow. M9 OT- IP Assessment and Plan Start: 08/28/18 18:02 Freq: Status: Active Protocol: Document 08/28/18 18:03 [facility] (Rec: 08/28/18 18:23 [facility] [id number]) OT Summary Assessment and Plan Potential Rehabilitation Potential Good Analytic Complexity at Evaluation Moderate Summary OT Impairments Functional Cognition Dressing Toileting Bathing Toilet Transfers Shower Transfers Progress Towards Goals Slow Progress due to Medical Issues Slow Progress due to Cognition Assessment Summary Pt MOD complexity, still awaiting a diagnosis, per PT pt needing CGA with SPC, per cognitive assessments pt having difficulty with STM implying mild cognitive deficits. Suggest if going home to have assist and someone to stay with her initially. Goals Grooming Goal Independent Dressing Goal Independent Toileting Goal Independent Bathing Goal Standby Assistance Toilet Transfer Goal Independent Shower Transfer Goal Standby Assistance Patient/Caregiver Education Goal Demonstrate Energy Conservation and Pacing Caregiver Independent Assisting Patient Days to Meet Goals 5 Frequency of Treatment Frequency Of Treatment Once a Day Treatment Plan OT Treatment Plan ADL Training Functional Cognition Training Functional Mobility Patient/Family Education Discharge Planning Other Treatment Recommendations and Next Shower, ACL Treatment Focus Discharge Recommendations OT Discharge Recommendations Home with 24/7 Assist Home Equipment Needs SPC, shower chair
[2018-08-28] MEDS: EZETIMIBE 10 MG TABLET PO (20:55)
[2018-08-29 05:09] VITALS: BP 143/83; PULSE 61; RESP 15; TEMP 36.3; O2SAT 97
[2018-08-29 05:16] LABS: Hematocrit 32.4 % (36-46); Hemoglobin 11.4 g/dL (12.0-16.0); Mean Corpuscular HGB Conc 35.3 % (30-36); Mean Corpuscular Hemoglobin 35.7 PG (26-34); Mean Corpuscular Volume 101.1 fL (80-100); Red Cell Distribution Width 14.3 % (11.6-14.8); White Blood Cell Count 2.7 X10^3/uL (4.5-11.0)
[2018-08-29 05:24] LABS: Add Manual Diff / Slide Review YES
[2018-08-29 05:25] LABS: Platelet Count 30 X10^3/uL (150-400)
--- NOTE | 2018-08-29 05:34 | PC.NURSE ---
Advised Verónica Garner that patient's platelet count from this am lab draw is 30.
[2018-08-29 05:52] LABS: Neutrophils Absolute Manual 513 /uL (3000-5900); Total Cells Counted 100
[2018-08-29 05:53] LABS: RBC Morphology Normal Morphology
[2018-08-29 07:58] VITALS: BP 147/75; PULSE 68; RESP 15; TEMP 36.4; O2SAT 97
[2018-08-29] MEDS: ATENOLOL 25 MG TABLET PO (08:27)
[2018-08-29] MEDS: ASPIRIN EC 81 MG TABLET PO (08:27)
--- NOTE | 2018-08-29 09:02 | P.DS_ITS ---
History of Present Illness Date Patient Seen: 08/29/18 Time Patient Seen: 10:37 Chief complaint: fainted Narrative: Ms. Kristen Cho is a 68-year-old female patient with history significant for hypertension, hyperlipidemia, small stroke, breast cancer and chemo related neuropathy who presents to the ER today following a syncopal episode. The patient was at the pharmacy standing in line when she suddenly began feeling warm than hot. She states she turned to her daughter telling her that she needed to go outside under daughter describes that she became altered with garbled speech and began to fall and was caught by her daughter and helped to the ground. Her daughter states that she does not believe she actually loss consciousness but became briefly unresponsive. The patient states that she does not recall being helped to the floor. The patient had been to see her primary care provider yesterday and was to have laboratory studies today. The patient's daughter stayed with her and encouraged to drink fluids for her lab draw today. The patient had been complaining of multiple nonspecific symptoms that had developed since early July. The patient describes left headache with no visual changes but has been having disequilibrium. She reports insomnia, increased fatigue and shortness of breath with bilateral thigh pain but no chest pain when ascending stairs at home when she had previously had no exertional dyspnea. She denies recent illness, fevers or chills, diaphoresis or visual changes. She denies cough or wheezing. She reports no abdominal pain nausea vomiting, diarrhea or constipation or dysuria. Upon arrival in the ER the patient was afebrile with a temperature of 98.2? heart rate 77, blood pressure of 146/77, respirations of 15 and oxygen saturatio n 98% on room air. An EKG was obtained viewed by myself which shows sinus rhythm with a heart rate of 72 without ectopy, block, ST or T-wave changes. She had laboratory studies completed which showed a white blood cell count low at 2.8 hemoglobin 13.2 and hematocrit 38.2 with platelets of 42. On chemistries her electrolytes are within normal range however her BUN is 22 with a creatinine 0.9 with BUN creatinine ratio of 24.9 with an EGFR of greater than 60. She has a nonfasting glucose of 85. Liver function is within normal limits with a total bilirubin of 0.8, AST of 42, ALT of 57 and alkaline phosphatase of 83. CK and troponin are both negative at 46 and less than 0.012 respectively. BNP is negative at less than 100 and thyroid panel was evaluated which was unremarkable. The patient was give 1 L saline in the emergency department and Cardiology was consulted by the ER provider. The patient is admitted the hospital for further evaluation and monitoring. Discharge Providers Date of admission: 08/27/18 20:06 Discharge Date: 08/29/18 Primary care physician: Abhinav Forte MD Consults: 08/27/18 21:05 Consult to Discharge Planning Routine Comment: Consult to Physical Therapy Evaluate & Treat Comment: Dysequalibrium, hx CVA Physician Instructions: Evaluate and Treat 08/27/18 21:08 Consult to Occupational Therapy Evaluate & Treat Comment: dysequilibrium, Hx CVA Physician Instructions: Evaluate and treat Discharge provider: Sanjana Cárdenas MD Summary Discharge Diagnosis: 1. Witnessed syncopal episode, resolved upon arrival 2. Chronic hypertension, active 3. Hyperlipidemia, active 4. Left hemispheric CVA, stable. 5. Breast cancer, stable 6. Significant pancytopenia Hospital Course: 1. Witnessed syncopal episode, resolved upon arrival -she sustained a syncopal episode that was witnessed by her daughter -no prior history of syncope but recent change in health status over the last 3 weeks. -differential diagnosis: -neurologic: MRI brain is normal for age -cardiogenic, arrhythmia: No arrythmia reported on Telemetry -no current symptoms to suggest stress test. -D-dimer ordered yesterday but no results found. No symptoms to suggest an occult PE. -dehydration: She came in mildly dehydrated with BU of 22 and a creatinine 0.9 with BUN creatinine ratio of 24.4. -patient given saline 1 L in the ER, no complaints of orthostatic dizziness. -despite the lack of any easy direct line, the finding of pancytopenia, which is new, would appear to suggest some relationship to the syncope. 2. Chronic hypertension, active -patient with a blood pressure 146/77 upon admission to the ER. -continue atenolol 25 mg nightly. 3. Hyperlipidemia, active -patient reports intolerant to statins and recently started on Zetia -will continue home dose of Zetia 10 mg daily. 4. Left hemispheric CVA, stable. -patient reports having right-sided deficits and being treated at [facility] with MRI showing left hemisphere stroke. 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 -PT reports mild instability that is apparently near her baseline and will be treated with a cane. -ST reports mild cognitive problems on SLUMS testing 5. Breast cancer, stable -patient has residual neuropathy post chemotherapy and has completed tamoxifen therapy. -no evidence of recurrence -Her oncologist was Dr. Nicholson at [facility] 6. Significant pancytopenia -discussed with Dr. Walton, who recommends office follow-up next week. He also is doubtful that these numbers are related to the syncope. -CBC this morning is stable with a HGB of 12.1, WBC of 2.7 and Platelets of 30. -she will repeat the CBC in 2 days, see the plan below, and will follow up with Oncology soon. This is coordinated extensively with her family. The aspirin and the Plavix will be held. Consider holding Ezetimibe due to possible relationship to Thrombocytopenia. Status at Discharge Cognitive/behavioral status at discharge: at baseline, oriented Functional status at discharge: uses cane/walker Overall status at discharge: patient is back to baseline Time Spent with Patient Greater than 30 minutes Exam Vital Signs (past 8 hours): - 08/29/18 05:09 08/29/18 07:58 Temperature 97.3 F L 97.5 F L Pulse Rate 61 68 Respiratory Rate 15 15 Blood Pressure 143/83 H 147/75 H Pulse Oximetry 97 97 Oxygen Delivery Method Room Air Oxygen Flow Rate 0 Narrative Exam Narrative: Alert and oriented x3, in no apparent distress. She is much calmer today as the details of her situation have begun to sink in and the plans for moving forward with the diagnosis and treatment have coalesced. She is also receiving a lot of support from her son and daughter. Speech therapy reports that she has cognitive problems that are not immediately evident. On a slums testing her decision-making deteriorated rapidly Heart is regular rate and rhythm without murmur. Lungs are clear to auscultation bilaterally. Abdomen is nontender Extremities have no ankle edema. Objective Labs Result Diagrams: 08/29/18 04:44 08/28/18 05:20 Labs: Laboratory Results - last 24 hr 08/29/18 04:44 WBC 2.7 L RBC 3.20 L Hgb 11.4 L Hct 32.4 L MCV 101.1 H MCH 35.7 H MCHC 35.3 RDW 14.3 Plt Count 30 L* Neut % (Auto) Not Reportable Lymph % (Auto) Not Reportable Harrison % (Auto) Not Reportable Eos % (Auto) Not Reportable Baso % (Auto) Not Reportable Lymph # (Auto) Not Reportable Harrison # (Auto) Not Reportable Baso # (Auto) Not Reportable Total Counted 100 Seg Neutrophils % 19.0 L Lymphocytes % (Manual) 69.0 H Atypical Lymphs % 4.0 H Monocytes % (Manual) 7.0 Eosinophils % (Manual) 1.0 L Neutrophils # (Manual) 513 L Platelet Estimate . RBC Morphology Normal morphology Discharge Plan Discharge Plan Patient Disposition: Home Discharge comment: Return to the lab on Friday for a repeat CBC, stay in the area until you get clearance from Dr. Forte that your platelets are stable. Make appointment with Dr. Walton as soon as possible. Discharge Med Rec/Prescriptions Prescriptions: Continued atenolol 50 mg tablet 25 mg PO QPM RF: 0 alprazolam 0.25 mg Tablet 0.25 mg PO Q8H PRN (Reason: Anxiety) RF: 0 ezetimibe [Zetia] 10 mg Tablet 10 mg PO DAILY RF: 0 Calcium Tablet 1 tab PO DAILY RF: 0 Unknown Supplements 1 dose PO DAILY RF: 0 Discontinued clopidogrel 75 mg tablet 75 mg PO QPM RF: 0 aspirin 81 mg Tablet,Delayed Release (Dr/Ec) 81 mg PO DAILY RF: 0 Other Ambulatory Orders: Complete Blood Count MAN DIFF (Routine) Timeframe: 2 Days Location: Laboratory Ordered By: Sanjana Cárdenas Follow up/Referrals: Edgar Walton MD [Physician] - 1 Week Abhinav Forte MD [Primary Care Provider] - Visit Report/Discharge Packet Instructions: DI for Syncope in Adults (Fainting), DI for Pancytopenia Discharge Data Primary Care Provider: Abhinav Forte Attending Provider: Beau Stacy Admit Date/Time: 08/27/18 20:06 Quality VTE Deep Vein Thrombosis/Pulmonary Embolism Present on Admission: No
[2018-08-29 09:10] VITALS: O2SAT 94
--- NOTE | 2018-08-29 10:22 | PT.IPTN ---
Current Diagnoses Other pancytopenia (08/27/18) Physical Therapy Treatment Note M2 PT-IP Current Condition Start: 08/28/18 12:23 Freq: NEEDED Status: Active Protocol: Document 08/28/18 10:21 AB (Rec: 08/28/18 12:48 AB [id number]) Physical Therapy Current Condition Current Condition Evaluation Date 08/28/18 Treatment Diagnosis syncope; difficulty in walking Onset Date 08/27/18 Precautions Other Precautions falls M3 PT-IP Subjective Start: 08/28/18 12:23 Freq: NEEDED Status: Active Protocol: Document 08/29/18 10:18 GGD (Rec: 08/29/18 10:22 GGD [id number]) Subjective Physical Therapy Visit Type Type Treatment Note Visit Start Time 10:00 Visit Stop Time 10:15 Total Visit Minutes 15 Number of [employer] Visits 1 Physical Therapy Visit Comments Patient Comments Pt feels much better. M4 PT-IP Mobility and Gait Start: 08/28/18 12:23 Freq: NEEDED Status: Active Protocol: Document 08/29/18 10:18 GGD (Rec: 08/29/18 10:22 GGD [id number]) PT-Transfer Assessment Sit to and From Stand Sit to and from Stand Independent Equipment Transfer Assistive Device Gait Belt Orthotic/Prosthetic Devices or Brace: No Transfers Transfer Destination Chair Transfer Ability Level of Assist Standby Assistance Use of Upper Extremities Gait Assessment Gait Gait Assistance Required: Standby Assistance Contact Guard Assist Distance (Feet) 250 Assistive Devices Assistive Device None Gait Belt Orthotic/Prosthetic Devices or Brace: No Gait Deviations General Gait Pattern Antalgic Decreased Stride Length Decreased Feet Clearance Factors Limiting Gait Function Factors Limiting Gait Function Decreased Strength Poor Balance Comments Gait Comments Pt ambulated with dynamic gait WNL, except with right head turn she had mild gait deviation. M5 PT-IP Objective Assessments Start: 08/28/18 12:23 Freq: NEEDED Status: Active Protocol: Document 08/28/18 10:21 AB (Rec: 08/28/18 12:48 AB [id number]) Orientation Orientation/Cognition Level of Alertness Alert Orientation Name Age Birthday Month Date Year Day of Week Place Situation Language Function Ability No Deficits Noted Safety Awareness Understands Safety Issues Memory Description No Deficits Noted Gross Range of Motion Lower Extremity ROM Assessment Within Functional Limits Strength Lower Extremity Strength Assessment Bilaterally Impaired Hip 4-/5 Knee 3+/5 Coordination Assessment Gross Coordination Gross Coordination WNL Sensation Assessment Sensation Gross Sensation WNL Muscle Tone Muscle Tone WNL Yes M6 PT-IP Treatment Start: 08/28/18 12:23 Freq: NEEDED Status: Active Protocol: Document 08/28/18 10:21 AB (Rec: 08/28/18 12:48 AB [id number]) Physical Therapy Treatment Education Education Provided Safety M7 PT-IP Assessment and Plan Start: 08/28/18 12:23 Freq: NEEDED Status: Active Protocol: Document 08/29/18 10:18 GGD (Rec: 08/29/18 10:22 GGD [id number]) PT Summary Assessment and Plan Summary Assessment Summary Pt improving with mobility, gait and balance. She was able to progress gait without LOB or unsteadiness. She is safe for home D/C when medically stable. Frequency of Treatment Frequency Of Treatment Once a Day Recommendations To Nursing Amount of Assist Needed 1 Person Assist Discharge Recommendations PT Discharge Recommendations Home with Assistance
--- NOTE | 2018-08-29 10:39 | PC.NURSE ---
Day shift: Pt left unit at approx 1045. Paperwork signed and all questions answered. 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 Have PB for [employer]. Has all personal belongings. No new MD scrips. Pt told to not take her Plavix or baby asprin. Has F/U on Friday here at hospital. Script to have labs drawn is with Pt as well.
--- NOTE | 2018-08-29 10:43 | CM.DPC ---
DCP: continued: case discussed in Team Rounds. Dr. Cárdenas noted pt doing well for a d/c to home and will be following up with Dr. Marquez and making an appt with Dr. Walton/oncology. PT Anca confirms that pt did well today, no assistive device is recommended.
--- NOTE | 2018-08-29 12:59 | OT.IP.TRT ---
Current Diagnoses Other pancytopenia (08/27/18) Occupational Therapy Treatment Note M3 OT- IP Subjective and Pain Start: 08/28/18 18:02 Freq: Status: Active Protocol: Document 08/29/18 12:42 [facility] (Rec: 08/29/18 12:58 [facility] [id number]) OT- Subjective Occupational Therapy Visit Type Type Treatment Note Visit Start Time 09:15 Visit Stop Time 09:45 Total Visit Minutes 30 Occupational Therapy Visit Comments Patient Comments Pt agreeable to shower. OT Pain Assessment Pain When Pain Assessed At Rest Pain Present Pain Present Denied Pain M4 OT- IP ADL's Start: 08/28/18 18:02 Freq: Status: Active Protocol: Document 08/29/18 12:42 [facility] (Rec: 08/29/18 12:58 [facility] [id number]) OT ADL-Dressing General Eval Upper Body Dressing Ability Independent Lower Body Dressing Ability Independent Comments OT Dressing Comments Good safety to sit to do LB dressing needs. Independent with dressing. OT ADL-Toileting General Evaluation Toileting Ability Independent OT ADL-Bathing Bathing Type Bathing Type Shower General Evaluation Bathing Ability Standby Assistance Comments OT Bathing Comments Distant SBA for showering, and occasional use of hand on the walk for balance. Pt tripped over threshold of shower but able to catch herself. M6 OT- IP Functional Cognition Start: 08/28/18 18:02 Freq: Status: Active Protocol: Document 08/29/18 12:42 [facility] (Rec: 08/29/18 12:58 [facility] [id number]) Cognitive Factors Limiting Selfcare Function Cognitive Ability Level of Alertness Alert Patient Orientation Name Age Birthday Month Date Year Day of Week Place Situation Attention Span Ability Capable of Focused Attention Capable of Sustained Attention Ability to Follow Commands Able to Follow Multi-Step Commands Memory Description Short Term Impaired Safety Awareness No Deficits Noted Cognitive Comments Cognitive Assessment Comments Today [place] Making B score of 109 seconds which implies mild to moderate deficits greatly improved from yesterday. Still recommend overall initially to have someone stay with her to mainly provide supervision and assist as needed. M7 OT- IP Mobility and Balance Start: 08/28/18 18:02 Freq: Status: Active Protocol: Document 08/29/18 12:42 [facility] (Rec: 08/29/18 12:58 [facility] [id number]) OT- Bed Mobility Assessment Rolling Type of Rolling Roll to Left Supine to Sit Supine to Sit Assist Independent Sit to Supine Sit to Supine Assist Independent OT-Transfer Assessment Sit to and From Stand Sit to and from Stand Independent Transfers Transfer Ability Independent Technique Transfer Destination Bed Chair Shower Stall Comments Mobility Comments Pt moving much better today and not needing a device to walk around the room and into the shower. Pt also able to reach the floor to pick her shoes. OT- Balance Assessment Sitting Balance and Reactions Static Sitting Balance Ability Normal Dynamic Sitting Balance Ability Normal Standing Balance and Reactions Static Standing Balance Ability Normal Dynamic Standing Balance Ability Good M9 OT- IP Assessment and Plan Start: 08/28/18 18:02 Freq: Status: Active Protocol: Document 08/29/18 12:42 [facility] (Rec: 08/29/18 12:58 [facility] [id number]) OT Summary Assessment and Plan Summary Progress Towards Goals Safe For Discharge Assessment Summary Pt doing much better today and going home, pt given energy conservaton and work simplification suggestions. Pt has very supportive family to be able to assist pt as needed. Frequency of Treatment Frequency Of Treatment Discharge Discharge Recommendations OT Discharge Recommendations Home with Assistance Other Discharge Recommendations Suggest to have someone stay with her initially.
[2018-08-31 10:21] LABS: Hepatitis A Antibody IgM NONREACTIVE (NONREACTIVE); Hepatitis B Core Antibody IgM NONREACTIVE (NONREACTIVE); Hepatitis B Surface Antigen NONREACTIVE (NONREACTIVE); Hepatitis C Antibody NONREACTIVE
--- NOTE | 2018-09-01 08:21 | PC.NURSE ---
Late entry: Sodium chloride 0.9% stopped 08/28 629
== END 2018-08-29 11:31 | disposition home or self-care (01) ==
LOC: ED 14:19 → AC 20:07
PROVIDERS: Family Medicine; Admitting Provider Nurse Practitioner Adult Health; Emergency Provider Emergency Medicine; PCP Family Medicine; Visit Provider Nurse Practitioner Adult Health
DX: R55 Syncope and collapse (principal); D61.818 Other pancytopenia; I10 Essential (primary) hypertension; E78.5 Hyperlipidemia, unspecified; Z86.73 Personal history of transient ischemic attack (TIA), and cerebral infarction without residual deficits; E86.0 Dehydration; F41.9 Anxiety disorder, unspecified
CPT/HCPCS: 36415; 36591; 70551; 71046; 80048; 80053; 80061; 80074; 81001; 82550; 82607; 83880; 84436; 84439; 84443; 84481; 84484; 85025; 93005; 93041; 96360; 96361; 97116; 97161; 97166; 97530; 97535; 99284; 99285; G0378

== ENCOUNTER → 2018-08-31 09:16 | Outpatient (CLI) | payer OTHER, MEDICARE, SELFPAY ==
[2018-08-27 21:14] VITALS: BMI 26.9
[2018-08-31 09:52] LABS: Hematocrit 36.9 % (36-46); Hemoglobin 12.7 g/dL (12.0-16.0); Mean Corpuscular HGB Conc 34.5 % (30-36); Mean Corpuscular Volume 101.4 fL (80-100); Platelet Count 37 X10^3/uL (150-400); Red Blood Cell Count 3.64 X10^6/uL (4.0-5.2); Red Cell Distribution Width 14.4 % (11.6-14.8); White Blood Cell Count 3.2 X10^3/uL (4.5-11.0)
[2018-08-31 10:32] LABS: Neutrophils Absolute Manual 1280 /uL (3000-5900); Total Cells Counted 100
[2018-08-31 10:33] LABS: RBC Morphology Normal Morphology
[2018-08-31 10:34] LABS: Platelet Estimate Decreased on smear
--- NOTE | 2018-08-31 12:07 | PC.NURSE ---
This nurse contacted office of Dr. Forte with today's CBC results. Dr. Forte's instructions that no transfusion necessary today and patient could return home was communicated to patient and daughter in person. They were also instructed to make an appt with one of our oncologist's at the next available time for follow up to the results of labs at the ER visit and hospitalization of this past weekend.
== END ==
PROVIDERS: PCP Family Medicine; Visit Provider Family Medicine
DX: D61.818 Other pancytopenia (principal)
CPT/HCPCS: 36415; 85025

== ENCOUNTER → 2018-09-16 13:11 | Outpatient (CLI) | payer OTHER, SELFPAY ==
[2018-08-27 21:14] VITALS: BMI 26.9
[2018-09-16 13:34] LABS: Hematocrit 33.2 % (36-46); Hemoglobin 11.5 g/dL (12.0-16.0); Mean Corpuscular HGB Conc 34.5 % (30-36); Mean Corpuscular Hemoglobin 35.7 PG (26-34); Mean Corpuscular Volume 103.2 fL (80-100); Red Blood Cell Count 3.22 X10^6/uL (4.0-5.2); Red Cell Distribution Width 14.2 % (11.6-14.8); White Blood Cell Count 2.6 X10^3/uL (4.5-11.0)
[2018-09-16 13:37] LABS: Add Manual Diff / Slide Review YES; Platelet Count 30 X10^3/uL (150-400)
[2018-09-16 14:30] LABS: Neutrophils Absolute Manual 546 /uL (3000-5900); Total Cells Counted 100
[2018-09-16 14:31] LABS: Anisocytosis 1+; Macrocytosis 1+; Platelet Estimate Decreased on smear
== END ==
PROVIDERS: PCP Family Medicine
DX: D69.6 Thrombocytopenia, unspecified (principal)
CPT/HCPCS: 36415; 85025

== ENCOUNTER 2018-10-29 15:16 | Emergency (ER) | payer OTHER, SELFPAY ==
[2018-08-27 21:14] VITALS: BMI 26.9
[2018-10-29 15:20] VITALS: BP 115/95; PULSE 77; RESP 12; TEMP 36.4; O2SAT 100; BMI 24.5
[2018-10-29 16:00] VITALS: BP 114/52; PULSE 72; RESP 12; O2SAT 100
--- NOTE | 2018-10-29 16:29 | DI.RAD.S_ITS ---
PROCEDURE: XR CHEST 1V INDICATIONS: dyspnea TECHNIQUE: One view of the chest was acquired. COMPARISON: [facility], CR, XR CHEST 2V, 08/28/2018, 11:10. FINDINGS: Surgical changes and devices: Bilateral axillary clips. Lungs and pleura: Mild appearance of increased pulmonary vascularity. Mediastinum: Mediastinal contours appear normal. Heart size is normal. Bones and chest wall: No suspicious bony lesions. Overlying soft tissues appear unremarkable. IMPRESSION: Mild increased vascularity suggestive of edema. Dictated by: Kim Cardoza M.D. on 10/29/2018 at 16:49 Approved by: Kim Cardoza M.D. on 10/29/2018 at 16:50
--- NOTE | 2018-10-29 16:32 | ED.SOB ---
HPI - SOB/Dyspnea General Chief Complaint: Shortness of Breath/Dyspnea Stated Complaint: SOB and not feeling right after infusion Time Seen by Provider: 10/29/18 15:27 Source: patient and family Mode of arrival: ambulatory Limitations: no limitations History of Present Illness HPI Narrative: Patient comes emergency department complaining of progressive generalized weakness, shortness of breath, and deconditioning over the last month or so. Patient was diagnosed with leukemia approximately a month ago, and states that since then, she has noticed a steady decline in her ability to tolerate simple activity. 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 Patient states she has not been very active, and does not know if her weakness is simply due to deconditioning from this. Patient states that is gotten to the point where she often has to sit down in his stool and rest when walking between the living room in kitchen. However, she states she does not feel short of breath just sitting in the bed. Patient denies any bleeding from anywhere. She has not had any chest pain. No nausea vomiting. She has not yet on chemotherapy, though she is scheduled to start in several days. Patient was seen by Dr. Walton yesterday and he recommended a transfusion of platelets and a unit of packed red cells. Patient was transfused yesterday, and stayed in a hotel here in town last night. The patient seemed to be doing better, according to her daughter, after the transfusion, but today, seemed as though she was right back to where she had been before the transfusion. Daughter states they called the oncology clinic, who told them to come to the emergency department and get ?checked out?. Patient denies any swelling in her calves. No calf pain. No other complaints at this time. Related Data Home Medications Medication Instructions Recorded Confirmed Calcium Tablet 1 tab PO DAILY 08/27/18 09/16/18 Unknown Supplements 1 dose PO DAILY 08/27/18 09/16/18 alprazolam 0.25 mg PO Q8H PRN 08/27/18 09/16/18 atenolol 25 mg PO QPM 08/27/18 09/16/18 ezetimibe [Zetia] 10 mg PO DAILY 08/27/18 09/16/18 Previous Rx's Medication Instructions Recorded venetoclax [Venclexta] See Rx Instructions .ROUTE 10/14/18 .COMPLEX #120 tab Allergies Allergy/AdvReac Type Severity Reaction Status Date / Time No Known Allergies Allergy Unknown Verified 10/29/18 15:29 [NO KNOWN ALLERGIES] Review of Systems Constitutional Constitutional: Denies chills, Denies fatigue, Denies fever(s), Denies frequent falls and Denies lethargy Eyes Eyes: Denies change in vision, Denies eye discharge, Denies irritation and Denies loss of vision ENT Ears, Nose, Mouth, and Throat: Denies change in voice, Denies dizziness, Denies neck pain, Denies sore throat and Denies throat swelling Cardiovascular Cardiovascular: Denies chest pain, Denies irregular heart rhythm, Denies lightheadedness, Denies palpitations, Reports dyspnea, Reports dyspnea on exertion and Denies orthopnea Respiratory Respiratory: Denies cough, Reports dyspnea, Reports dyspnea on exertion and Denies wheezing Gastrointestinal Gastrointestinal: Denies abdominal pain, Denies change in bowel habits, Denies diarrhea, Denies nausea and Denies vomiting Genitourinary Genitourinary: Denies hematuria, Denies flank pain, Denies urinary incontinence and Denies urinary urgency Musculoskeletal Musculoskeletal: Denies back pain, Denies muscle weakness, Denies neck pain, Denies numbness and Denies tingling Integumentary/Breasts Skin/Breast: Denies pruritus, Denies erythema, Denies rash and Denies wounds Neurologic Neurologic: Denies behavioral changes, Denies confusion, Denies dizziness, Denies frequent falls, Denies loss of vision, Denies numbness and Denies tingling Comments: Generalized weakness Psychiatric Psychiatric: Denies anxiety, Denies behavioral changes, Denies confusion, Denies depression, Denies homicidal ideation and Denies suicidal ideation Endocrine Endocrine: Denies fatigue, Denies flushing and Denies palpitations Hematologic/Lymphatic Hematologic/Lymphatic: Denies easy bruising Allergic/Immunologic Allergic/Immunologic: Denies urticaria, Denies throat swelling and Denies wheezing [facility] Medical History Breast cancer (Acute) CVA (cerebrovascular accident) (Acute) HTN (hypertension) (Acute) Hyperlipidemia (Acute) Neuropathy (Acute) Sinus headache (Acute) TIA (transient ischemic attack) (Acute) Surgical History History of appendectomy (Acute) History of bilateral cataract extraction (Acute) No pertinent past surgical history (Acute) S/P breast lumpectomy (Acute) Family History (Updated 08/27/18 @ 23:42 by POOJA Lindsey) Father Coronary artery disease Mother Stroke Coronary artery disease Brother Coronary artery disease Social History household members: none Smoking Status: Never smoker alcohol intake: current Family History Father Coronary artery disease Mother Stroke Coronary artery disease Brother Coronary artery disease Social History household members: none Smoking Status: Never smoker alcohol intake: current Exam Initial Vital Signs Initial Vital Signs: Vital Signs Temperature 97.5 F L 10/29/18 15:20 Pulse Rate 77 10/29/18 15:20 Respiratory Rate 12 10/29/18 15:20 Blood Pressure 115/95 H 10/29/18 15:20 Pulse Oximetry 100 10/29/18 15:20 Const General: cooperative and well developed Nutritional Appearance: well nourished Orientation: alert, awake, oriented x3 and not confused [facility] Head: normocephalic and atraumatic Ears: external ears normal Nose: external nose normal and No nasal discharge Face and sinus: face symmetric and No dry mucous membranes Mouth: oral mucosae normal and moist mucous membranes Teeth and gingiva: dentition normal Eyes General: appearance normal, both eyes and all related structures Eyelids: eyelids normal Conjunctivae: conjunctivae normal Sclera: sclerae normal Pupils: PERRL EOM: EOM intact bilaterally Neck Neck: normal visual inspection, trachea midline, No lymphadenopathy, No midline deformity and No JVD Lymphatic: No lymphedema Chest Chest: normal inspection of the chest Resp Effort & Inspection: normal respiratory effort, able to speak in complete sentences, no respiratory distress and no use of accessory muscles Auscultation: clear to auscultation bilaterally, no rales, no rhonchi and no wheezes Cardio Rate: regular rate Rhythm: regular rhythm Heart Sounds: no click, no gallops, no murmurs and no rubs Pulses: normal peripheral pulses GI Inspection: non-distended Palpation: soft, no hepatosplenomegaly, No guarding, No pulsatile mass and No tender Auscultation: normal bowel sounds Back/Spine/Pelvis Back: No CVA tenderness Cervical Spine: cervical ROM normal and No pain with cervical ROM Thoracic/Lumbar Spine: thoracic and lumbar spine normal to inspection Skin General: no rashes or lesions noted, No jaundice and No petechiae Neuro General: alert, oriented x3, gait normal and no focal motor deficits Speech: speech normal Extrem General: full ROM, no clubbing, cyanosis or edema, no pedal edema and no calf tenderness Psych Appearance: well kempt Mental Status: mental status grossly normal Attitude: cooperative Thought Content: normal and suicidality Judgment: judgment good Course Course Course Narrative: Patient was worked up with laboratory studies, EKG, and chest x-ray. The patient was fairly well-appearing in the emergency department. Her labs showed drastic improvement of her platelet count after transfusion, though platelets were still low at 82. Post transfusion hemoglobin was 9.2, which was 0.8 higher than her previous level. White blood cell count was at baseline at 1.8. I spoke with the patient her daughter further and advised her that her blood counts have not worsened, and in the case of her hemoglobin and platelets, have improved. The patient upon questioning did state that her oncologist has informed her that she has an acute form of leukemia. This was not readily evident in the notes, as Dr. Walton is most recent visit note was not available in [facility]. The patient stated that she may want to delay chemo and till she is feeling better. However, I have discussed with her that she should discuss this with Dr. Walton 1st, as acute leukemia tends to be more aggressive. We have discussed that this may be the reason that she has noticed steady decline in her energy level. I have advised her strongly to continue her plans to at least go to her appointment on Friday, and if she has any further questions she may ask Dr. Walton. We have discussed the usual indications for return, including severe shortness of breath, fever, or any other severe worsening of symptoms or concerns. Patient and daughter are agreeable to this plan. Orders Ordered: ED Orders 10/29/18 15:27 EKG-12 Lead Routine 10/29/18 16:29 XR chest 1V Stat Complete Blood Count AUTO DIFF Stat 10/29/18 16:32 Comprehensive Metabolic Panel Stat Vital Signs Vital signs: Vital Signs - 8 hr 10/29/18 15:20 10/29/18 16:00 Temperature 97.5 F L Pulse Rate 77 72 Respiratory Rate 12 12 Blood Pressure 115/95 H Blood Pressure [Right Arm] 114/52 L Pulse Oximetry 100 100 MDM - SOB/Dyspnea Medical Records Attestation: I reviewed the patient's medical records. Lab Data Attestation: I reviewed the patient's lab results. Result diagrams: 10/29/18 16:50 10/29/18 16:50 Labs: Lab Results 10/29/18 10/29/18 10/29/18 Range/Units 16:50 16:50 16:50 WBC 1.8 L* (4.5-11.0) X10^3/uL RBC 2.49 L (4.0-5.2) X10^6/uL Hgb 9.2 L (12.0-16.0) g/dL Hct 26.0 L (36-46) % MCV 104.5 H D (80-100) fL MCH 36.8 H (26-34) PG MCHC 35.2 (30-36) % RDW 18.0 H (11.6-14.8) % Plt Count 82 L (150-400) X10^3/uL Neut % (Auto) Not Reportable Lymph % (Auto) Not Reportable [place] % (Auto) Not Reportable Eos % (Auto) Not Reportable Baso % (Auto) Not Reportable Lymph # (Auto) Not Reportable [place] # (Auto) Not Reportable Baso # (Auto) Not Reportable Total Counted 50 Seg Neutrophils % 12.0 L D (38-70) % Lymphocytes % (Manual) 72.0 H (25-45) % Atypical Lymphs % 10.0 H ( - 0) % Monocytes % (Manual) 6.0 (2-11) % Neutrophils # (Manual) 216 L (3516-5411) /uL RBC Morphology See below Polychromasia 1+ H Anisocytosis 1+ H Macrocytosis 1+ H Sodium 139 (137-145) mmol/L Potassium 3.9 (3.4-5.1) mmol/L Chloride 106 (98-107) mmol/L Carbon Dioxide 25 (22-32) mmol/L BUN 18 H (7-17) mg/dL Creatinine 0.70 (0.52-1.04) mg/dL Estimated GFR > 60.0 (>60) mL/min BUN/Creatinine Ratio 25.7 H (6-22) Glucose 80 (80-110) mg/dL Calcium 9.3 (8.4-10.2) mg/dL Total Bilirubin 0.6 (0.2-1.3) mg/dL AST 27 (14-36) IU/L ALT 20 (9-52) IU/L Alkaline Phosphatase 54 (38-126) U/L Total Protein 7.3 (6.3-8.2) g/dL Albumin 4.4 (3.5-5.0) g/dL Globulin 2.9 (1.7-4.1) g/dL Albumin/Globulin Ratio 1.5 (1.0-2.8) Blood Type A Positive Antibody Screen Negative Imaging Data Chest x-ray: Radiologist's impression: PROCEDURE: XR CHEST 1V INDICATIONS: dyspnea TECHNIQUE: One view of the chest was acquired. COMPARISON: [facility], , XR CHEST 2V, 08/28/2018, 11:10. FINDINGS: Surgical changes and devices: Bilateral axillary clips. Lungs and pleura: Mild appearance of increased pulmonary vascularity. Mediastinum: Mediastinal contours appear normal. Heart size is normal. Bones and chest wall: No suspicious bony lesions. Overlying soft tissues appear unremarkable. IMPRESSION: Mild increased vascularity suggestive of edema. Dictated by: Kim Cardoza M.D. on 10/29/2018 at 16:49 Approved by: Kim Cardoza M.D. on 10/29/2018 at 16:50 ECG Data Attestation: I personally reviewed and interpreted this ECG as follows: (See below) Interpretation: Twelve lead EKG performed October 29, 2018 1527, follows: Regular ventricular rhythm with a rate of 71 beats per minute ME interval 163 millisecond QRS duration 78 milliseconds QTC interval 412 millisecond No ectopy No significant ST T wave changes Interpretation: Normal sinus rhythm; no signs acute ischemia; normal EKG as interpreted by ED MD. Discharge Plan Departure Patient Disposition: Home Clinical Impression: Weakness Chronic CHF Qualifiers: Heart failure type: unspecified Qualified Code(s): I50.9 - Heart failure, unspecified Discharge Date/Time: 10/29/18 18:51 Instructions: Leukemia -- Adult Activity Restrictions/Additional Instructions: Your labs show improved platelets and red blood cell indices. Your chest x-ray shows findings consistent with chronic congestive heart failure, but no acute abnormalities. Please call Dr. Walton office tomorrow morning to see if he needs see you in before your chemotherapy initiation, and to discuss further concerns about your weakness with him. Prescriptions: No Action atenolol 50 mg tablet 25 mg PO QPM RF: 0 alprazolam 0.25 mg Tablet 0.25 mg PO Q8H PRN (Reason: Anxiety) RF: 0 ezetimibe [Zetia] 10 mg Tablet 10 mg PO DAILY RF: 0 Calcium Tablet 1 tab PO DAILY RF: 0 Unknown Supplements 1 dose PO DAILY RF: 0 Venclexta 100 mg Tablet See Rx Instructions .ROUTE .COMPLEX Qty: 120 RF: 0 Referrals: Edgar Walton MD [Physician] - Abhinav Forte MD [Primary Care Provider] -
[2018-10-29 17:00] LABS: Hemoglobin 9.2 g/dL (12.0-16.0); Mean Corpuscular HGB Conc 35.2 % (30-36); Mean Corpuscular Hemoglobin 36.8 PG (26-34); Mean Corpuscular Volume 104.5 fL (80-100); Platelet Count 82 X10^3/uL (150-400); Red Blood Cell Count 2.49 X10^6/uL (4.0-5.2)
[2018-10-29 17:06] LABS: Add Manual Diff / Slide Review YES; White Blood Cell Count 1.8 X10^3/uL (4.5-11.0)
[2018-10-29 17:12] LABS: Alanine Aminotransferase 20 IU/L (9-52); Albumin 4.4 g/dL (3.5-5.0); Albumin Globulin Ratio 1.5 (1.0-2.8); Alkaline Phosphatase 54 U/L (38-126); Aspartate Aminotransferase 27 IU/L (14-36); BUN Creatinine Ratio 25.7 (6-22); Bilirubin Total 0.6 mg/dL (0.2-1.3); Blood Urea Nitrogen 18 mg/dL (7-17); Calcium 9.3 mg/dL (8.4-10.2); Carbon Dioxide 25 mmol/L (22-32); Chloride 106 mmol/L (98-107); Estimated Glomerular Filt Rate > 60.0 mL/min (>60); Globulin 2.9 g/dL (1.7-4.1); Glucose 80 mg/dL (80-110); HEMOLYSIS 15 (0-50); Potassium 3.9 mmol/L (3.4-5.1); Sodium 139 mmol/L (137-145); Total Protein 7.3 g/dL (6.3-8.2)
[2018-10-29 17:27] LABS: Neutrophils Absolute Manual 216 /uL (3000-5900); Total Cells Counted 50
[2018-10-29 17:28] LABS: Anisocytosis 1+; Macrocytosis 1+
[2018-10-29 17:29] LABS: Polychromasia 1+
[2018-10-29 18:40] VITALS: BP 110/58; PULSE 75; RESP 15; O2SAT 99
== END 2018-10-29 18:51 | disposition home or self-care (01) ==
PROVIDERS: Emergency Provider Emergency Medicine; PCP Family Medicine
DX: I50.9 Heart failure, unspecified (principal); R53.1 Weakness
CPT/HCPCS: 36591; 71045; 80053; 85025; 86850; 86900; 86901; 93005; 93010; 99282; 99285

== ENCOUNTER 2018-11-02 10:12 | Inpatient (IN) | payer OTHER, MEDICARE, SELFPAY ==
[2018-08-27 21:14] VITALS: BMI 26.9
[2018-11-02 10:15] VITALS: BP 139/77; PULSE 78; RESP 18; TEMP 36.1; O2SAT 100
--- NOTE | 2018-11-02 11:40 | DI.RAD.S_ITS ---
PROCEDURE: XR CHEST FOR PICC 1V INDICATIONS: PICC placement COMPARISON: [facility], , XR CHEST 1V, 10/29/2018, 16:35. FINDINGS: PICC was placed by the intravenous therapy team from the right side. Fluoroscopic spot film demonstrates the tip of PICC projecting to the area of cavoatrial junction. IMPRESSION: Tip of PICC projects to the area of the cavoatrial junction.. Dictated by: Brie James M.D. on 11/02/2018 at 13:18 Approved by: Brie James M.D. on 11/02/2018 at 13:18
[2018-11-02 12:00] VITALS: BMI 26.7
[2018-11-02 12:27] LABS: Hemoglobin 8.3 g/dL (12.0-16.0); Mean Corpuscular HGB Conc 36.1 % (30-36); Mean Corpuscular Hemoglobin 37.3 PG (26-34); Mean Corpuscular Volume 103.5 fL (80-100); Red Blood Cell Count 2.22 X10^6/uL (4.0-5.2); Red Cell Distribution Width 16.9 % (11.6-14.8)
[2018-11-02 12:30] LABS: Add Manual Diff / Slide Review YES; Platelet Count 33 X10^3/uL (150-400); White Blood Cell Count 1.4 X10^3/uL (4.5-11.0)
[2018-11-02 12:44] LABS: Alanine Aminotransferase 23 IU/L (9-52); Albumin Globulin Ratio 1.7 (1.0-2.8); Alkaline Phosphatase 56 U/L (38-126); Aspartate Aminotransferase 21 IU/L (14-36); BUN Creatinine Ratio 21.7 (6-22); Bilirubin Total 0.4 mg/dL (0.2-1.3); Blood Urea Nitrogen 13 mg/dL (7-17); Carbon Dioxide 24 mmol/L (22-32); Chloride 105 mmol/L (98-107); Estimated Glomerular Filt Rate > 60.0 mL/min (>60); Globulin 2.4 g/dL (1.7-4.1); Glucose 76 mg/dL (80-110); HEMOLYSIS < 15 (0-50); Potassium 3.6 mmol/L (3.4-5.1); Sodium 140 mmol/L (137-145); Total Protein 6.4 g/dL (6.3-8.2)
[2018-11-02 12:49] LABS: Magnesium 1.9 mg/dL (1.6-2.3); Uric Acid 4.7 mg/dL (2.5-6.2)
[2018-11-02 12:50] LABS: Neutrophils Absolute Manual 126 /uL (3000-5900); Total Cells Counted 100
[2018-11-02 12:51] LABS: Anisocytosis 1+; Rouleaux 1+
[2018-11-02] MEDS: SODIUM CHLORIDE 0.9% 1,000 ML 75 ML IV (13:31)
[2018-11-02] MEDS: RASBURICASE 7.5 MG in SODIUM CHLORIDE 0.9% 50 ML 100 ML IV (13:32)
--- NOTE | 2018-11-02 13:48 | PC.NURSE ---
Chemotherapy Education: Pt provided written information on all topics discussed. Written materials printed from www.[facility].com and www.[facility].org. Pt was given an overview of cancer and mechanism of action of cancer cells, that cancer is caused by cells that are dividing rapidly, and out of control. Traditional chemotherapy works by targeting the fast dividing cells and killing them. Chemotherapy affecting healthy cells dividing quickly causes many of the side effects (hair follicles, bone marrow, mucus membranes). Overview of blood cell functions of white cells to fight infection, red cells to carry oxygen, and platelets to stop bleeding was discussed, and that when bone marrow is affected by chemo, there is a decrease in production of these cells. Home care of the patient following chemotherapy was discussed. Body fluids will be contaminated for 48 hours following treatment, and any body fluids handled by caregivers should be handled wearing gloves, surfaces need to be cleaned with soap and water, any soiled linens or clothing need to be washed separately in hot water, toilet lid should be closed when flushing, person cleaning the toilet should wear gloves. How chemotherapy is administered by the RN?s in the clinic, that orders are double checked by pharmacy and checked again by two RN?s prior to administration. Nurses wear protective gear to prevent exposure to them of the chemotherapy agents which can also cause cancer. Cancer center information discussed and written hand out provided listing on-call oncologist available weekends and after hours triage R.N. hours and infusion room guide. New patient folder given to pt, which includes clinic names, phone numbers, clinic information, calendar, cancer glossary, and list of resources. Handout on advanced directives Common side effects of chemotherapy were discussed with self care tips for prevention of complications. Information also provided in writing. These included: Low blood counts (anemia, thrombocytopenia, neutropenia) Hair loss (alopecia) Nausea and vomiting Decreased appetite Loss of fertility Diarrhea Mouth sores Constipation Peripheral neuropathy Chemo brain/cognitive changes Fatigue Instructions on when to call your healthcare team or on-call physician immediately: Fever of 100.4 or higher, chills, any signs of infection Shortness of breath, wheezing, difficulty breathing, closing of throat, swelling of face, hives (signs of possible allergic reaction) Chest pain, fast heart beat or feelings of a different heart rhythm Swelling of an extremity with or without pain signs of stroke Instructions on when to call your healthcare team within the next 24 hours Nausea that interferes with ability to eat and unrelieved with prescribed medication Diarrhea (4-6 episodes in 24 hour period). Unusual bleeding or bruising Black or tarry stools, or blood in your stools Blood in the urine pain or burning with urination Extreme fatigue (unable to perform self-care activities) Mouth sores or sore areas in your mouth Bad headache Dizziness or lightheadedness Large weight gain over a short period of time General self-care tips while undergoing treatment discussed were as follows. Written materials were provided covering in detail and additional self care tips. Drink at least 2-3 quarts (8-10 glasses) of no-caffeinated beverages daily unless you are instructed otherwise and empty your bladder frequently Report any concerning symptoms to your healthcare team Avoid crowds and sick people, wash your hands frequently Use a soft bristled toothbrush, rinse three times a day with 1 tsp baking soda or 1 tsp salt mixed with warm water Avoid any mouthwashes or oral and skin products containing alcohol or fragrances Use electric razors to avoid cutting yourself Avoid contact sports or activities that could cause head injury or bleeding Avoid sun exposure, wear SPF 15 or higher, wear protective clothing Get plenty of rest, meter your activities Maintain good nutrition Avoid alcoholic beverages Attend your scheduled appointments and lab draws Treatment regimen reviewed and medications were discussed with attention to specific side effects and self care for the pt?s treatment regimen. Pt encouraged to keep a list of questions that may arise after this teaching session and bring back to next clinic visit to address. All pt's questions answered at this time. Pt verbalizes understanding of treatment plan.
[2018-11-02] MEDS: ONDANSETRON 16 MG in SODIUM CHLORIDE 0.9% 50 ML 232 ML IV (14:38)
[2018-11-02] MEDS: AZACITIDINE IV (15:19)
[2018-11-02] MEDS: SODIUM CHLORIDE 0.9% IV (15:19)
[2018-11-02 15:58] VITALS: BP 136/69; PULSE 87; RESP 18; TEMP 36.1; O2SAT 99
[2018-11-02 16:17] VITALS: BMI 26.7
--- NOTE | 2018-11-02 17:21 | P.HP_ITS ---
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 The patient recently was diagnosed with myelodysplastic syndrome after presenting with new onset pancytopenia in August 2018. She reports her symptoms began in mid July in which she noticed increasing fatigue, weakness, and dyspnea on exertion. She also had poor appetite and began to lose weight approximately 10-15 lbs. 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 She was found to have pancytopenia but did not receive transfusions. She followed up with Oncology and had a bone marrow biopsy performed with aspiration which demonstrated myelodysplastic syndrome. [facility] who she reports have told her that she has converted to AML, however, outside notes refer to her having MDS. The patient was admitted for i nduction chemotherapy and to observe for tumor lysis syndrome. Today the patient is resting in bed comfortably. She has no complaints other than fatigue and generalized weakness in which her knees feel that they are going to give out at times. She denies headache, chest pain, shortness of breath, abdominal pain, nausea, vomiting, fever, chills, dysuria, diarrhea or constipation. Patient History Medical History Breast cancer (Acute) CVA (cerebrovascular accident) (Acute) HTN (hypertension) (Acute) Hyperlipidemia (Acute) Neuropathy (Acute) Sinus headache (Acute) TIA (transient ischemic attack) (Acute) Surgical History History of appendectomy (Acute) History of bilateral cataract extraction (Acute) No pertinent past surgical history (Acute) S/P breast lumpectomy (Acute) Family History Father Coronary artery disease Mother Stroke Coronary artery disease Brother Coronary artery disease Social History household members: none Smoking Status: Never smoker alcohol intake: current Family & Social History Family History Father Coronary artery disease Mother Stroke Coronary artery disease Brother Coronary artery disease Social History: household members none Prior Living Arrangements House Safety & Behavioral: Feels Safe in Current Yes Environment Been Physically Hurt or No Threatened By a Person Suicidal Ideation Description None Suicide Plan Description No Plan Tobacco & Substance use: Smoking Status Never smoker alcohol intake current alcohol intake frequency 0-2 drinks per day Substance Use Type does not use Meds Home Medications and Allergies Home Medications Medication Instructions Recorded Confirmed Type alprazolam 0.25 mg PO Q8H PRN 08/27/18 11/02/18 History atenolol 25 mg PO QPM 08/27/18 11/02/18 History ezetimibe [Zetia] 10 mg PO DAILY 08/27/18 11/02/18 History venetoclax [Venclexta] See Rx Instructions .ROUTE 10/14/18 Rx .COMPLEX #120 tab Allergies Allergy/AdvReac Type Severity Reaction Status Date / Time No Known Allergies Allergy Unknown Verified 10/29/18 15:29 [NO KNOWN ALLERGIES] Review of Systems Review of Systems Narrative: A 10 system comprehensive review of systems was conducted with the patient and found to be negative except as above in the History of Present Illness. Exam Vital Signs (past 8 hours): - 11/02/18 10:15 11/02/18 15:58 Temperature 96.9 F L 97.0 F L Pulse Rate 78 87 Respiratory Rate 18 18 Blood Pressure 139/77 136/69 Pulse Oximetry 100 99 Narrative Exam Narrative: General: Older female sitting in bed and in no acute distress, well-developed, well-nourished, appropriately interactive. HEENT: Normocephalic, atraumatic. External ears without defect. Pupils equal, round, and reactive to light. Anicteric sclerae, moist conjunctivae, and no lid lag. Oropharynx free of erythema and cobble stoning with moist mucosa. Neck: Supple with full range of motion. No jugular venous distension. No bruits. No lymphadenopathy or thyromegaly. Cardiovascular: Regular rate and rhythm without murmurs, rubs, or gallops appreciated. Pulmonary: Clear to auscultation bilaterally without crackles, wheezes, or rhonchi. Normal respiratory effort with no use of accessory muscles. Abdomen: Soft, bowel sounds present, nontender, nondistended. No hepatosplenomegaly or masses appreciated. Extremities: No clubbing, cyanosis, or edema. Skin: Normal temperature, turgor, and texture; no rash, ulcers, or subcutaneous nodules appreciated. Neurological: Cranial nerves grossly intact. Normal muscle strength, tone, and bulk. Reflexes, coordination, and sensory function within normal limits. No known gait impairment. Psychiatric: Normal mood and affect. Alert and oriented to person, place, and time. Objective Labs Result Diagrams: 11/02/18 12:00 11/02/18 12:00 Labs: Laboratory Results - last 24 hr 11/02/18 11/02/18 11/02/18 12:00 12:00 12:00 WBC 1.4 L* RBC 2.22 L Hgb 8.3 L Hct 23.0 L MCV 103.5 H MCH 37.3 H MCHC 36.1 H RDW 16.9 H Plt Count 33 L* Neut % (Auto) Not Reportable Lymph % (Auto) Not Reportable [place] % (Auto) Not Reportable Eos % (Auto) Not Reportable Baso % (Auto) Not Reportable Lymph # (Auto) Not Reportable [place] # (Auto) Not Reportable Baso # (Auto) Not Reportable Total Counted 100 Seg Neutrophils % 9.0 L Lymphocytes % (Manual) 72.0 H Atypical Lymphs % 18.0 H Eosinophils % (Manual) 1.0 L Neutrophils # (Manual) 126 L RBC Morphology Not Reportable Anisocytosis 1+ H Rouleaux 1+ H Sodium 140 Potassium 3.6 Chloride 105 Carbon Dioxide 24 BUN 13 Creatinine 0.60 Estimated GFR > 60.0 BUN/Creatinine Ratio 21.7 Glucose 76 L Uric Acid 4.7 Calcium 9.0 Magnesium 1.9 Total Bilirubin 0.4 AST 21 ALT 23 Alkaline Phosphatase 56 Total Protein 6.4 Albumin 4.0 Globulin 2.4 Albumin/Globulin Ratio 1.7 Assessment & Plan Assessment & Plan narrative: Kristen Cho is a 68-year-old female with a past medical history significant for hypertension, hyperlipidemia, bilateral breast cancer status post lumpectomy, chemo and radiation, 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 1. AML undergoing induction chemotherapy, present on admission. Active. -Patient was admitted for induction chemotherapy and to observe for tumor lysis syndrome. -Oncology consulted and will perform induction chemotherapy with vidaza and venetoclax over the next week. -Continue to monitor CBC, CMP, and uric acid every 6 hours for 24 hours then may decrease to every 12 hours if no change. -Continue IV fluids with normal saline at 75 mL/hr. -Ordered Zofran every 6 hours as needed for nausea. May consider lorazepam and/or dexamethasone if nausea persistent and not amenable to Zofran. -Ordered Tylenol 625 mg every 6 hours as needed for fever, pain, or headache. 2. Pancytopenia, secondary to AML, present on admission. Active. -Initial WBC 1.4, hemoglobin 8.3 and hematocrit 23.0, and platelets 33. -Continue to monitor CBC daily. If platelets less than 20 will plan to transfuse. 3. Hypertension, chronic, present on admission. Stable. -Continue atenolol 25 mg daily at bedtime. 4. Hyperlipidemia, chronic, present on admission. Stable. -Continue ezetimibe 10 mg daily. 5. Anxiety, chronic, present on admission. Stable. -Continue alprazolam 0.25 mg every 8 hours as needed for anxiety. Patient is admitted under inpatient status with expected length of stay greater than 2 midnights due to severity of presenting symptoms, risk of adverse event, and complexity of treatment plan.
[2018-11-02 18:30] VITALS: O2SAT 97
[2018-11-02] MEDS: ACETAMINOPHEN 325 MG TABLET 650 MG PO (19:01)
[2018-11-02 19:07] LABS: Alanine Aminotransferase 15 IU/L (9-52); Albumin 3.8 g/dL (3.5-5.0); Albumin Globulin Ratio 1.5 (1.0-2.8); Alkaline Phosphatase 57 U/L (38-126); Aspartate Aminotransferase 26 IU/L (14-36); BUN Creatinine Ratio 16.7 (6-22); Bilirubin Total 0.3 mg/dL (0.2-1.3); Blood Urea Nitrogen 15 mg/dL (7-17); Calcium 8.7 mg/dL (8.4-10.2); Carbon Dioxide 24 mmol/L (22-32); Chloride 106 mmol/L (98-107); Estimated Glomerular Filt Rate > 60.0 mL/min (>60); Globulin 2.6 g/dL (1.7-4.1); Glucose 154 mg/dL (80-110); HEMOLYSIS < 15 (0-50); Potassium 3.7 mmol/L (3.4-5.1); Sodium 138 mmol/L (137-145); Total Protein 6.4 g/dL (6.3-8.2)
[2018-11-02 19:10] LABS: Hematocrit 22.6 % (36-46); Hemoglobin 7.9 g/dL (12.0-16.0); Mean Corpuscular Hemoglobin 36.8 PG (26-34); Mean Corpuscular Volume 105.2 fL (80-100); Red Blood Cell Count 2.15 X10^6/uL (4.0-5.2); Red Cell Distribution Width 17.2 % (11.6-14.8)
[2018-11-02 19:18] LABS: White Blood Cell Count 0.6 X10^3/uL (4.5-11.0)
[2018-11-02 19:19] LABS: Add Manual Diff / Slide Review YES
[2018-11-02 19:37] LABS: Neutrophils Absolute Manual 192 /uL (3000-5900); Total Cells Counted 25
[2018-11-02 19:38] LABS: Anisocytosis 1+; Macrocytosis 1+
[2018-11-02 19:40] LABS: Platelet Count 28 X10^3/uL (150-400)
[2018-11-02 19:44] LABS: Uric Acid < 0.5 mg/dL (2.5-6.2)
[2018-11-02 20:05] VITALS: BP 140/66; PULSE 90; RESP 18; TEMP 36.3; O2SAT 94
--- NOTE | 2018-11-02 20:31 | PC.NURSE ---
Addendum entered by Monique De Oliveira R.N. 11/03/18 00:22: New order for one unit of PRBC's. I called lab to see if blood was ready, they said the patient needs irradiated cells and that [facility] would have to deliver them which will take 2-3 hours. I notified patient of order for transfusion, I also notified her of her 1800 lab draw results. Teaching explained regarding Neutropenic Precautions in addition to Chemo Precautions. Patient given alprazolam 0.25 mg tonight to help her sleep. She is ambulating to with SBA, continues to deny dizziness, lightheadedness or any new symptoms. She reports dull BATRES pain tonight 04/26, given TYlenol which she said helped for a while--but it's back. Said she is tolerating the pain, refused ice pack or other intervention. Full patient report handed off to NOC RN, they are aware of precautions & new order for PRBC transfusion. Original Note: Evening notes: Kristen is awake, alert, ox3 and situation. VS are stable, RA oxygen 97% Denies SOB when ambulating to , told me she gets really winded if I take too long of a walk. Skin very pale. She denies dizziness or lightheadedness. Had IV and PO chemo at 1530, infused/given by Oncology radiology services manager Deisy. Since that time patient denies new symptoms except for feeling gassy but I am wondering if that isn't from eating meal. Blood drawn from RUE PICC line at 1800--CBC, CMP & Uric acid. Critical results just now called to me by rn hemodialysis charge via Walter in lab, WBC 0.6, platelets 28 and uric acid is <0.5. I immediately told Yusef PATTON. No new verbal orders given at this time. Kristen is somewhat anxious, expressing concerns & needs well. I talked with her about what medications are available for her, she is aware she can have Xanax at any time if needed. She told me she will most likely want it later to help me sleep. Supportive daughter Valencia is rooming in with patient tonight. Patient is on Chemo & Reverse Isolation. I discussed bathroom use & chemo precautions with daughter & instructed her to not use patient bathroom, but to use public bathroom by main nurse station/elevator. Patient & daughter expressed understanding of chemo precautions. Fall precautions in place, pt instructed to call nurse before getting out of bed.
--- NOTE | 2018-11-02 21:01 | PM.EVENT ---
Event Note Date Patient Seen: 11/02/18 Time Patient Seen: 20:23 Event Note: 2019, RN notifying of abnormal/repeat labs Labs reviewed at 6:35 p.m. and at 12:09 a.m. STABLE Patient with a history of AML, undergoing induction chemotherapy w/ vidaza and venetoclax over the next week. Patient is being monitored for tumor lysis syndrome. WBC 1.4 --> 0.6 --> 0.5 Hgb 8.3 --> 7.9 --> 7.6 HCT 23 --> 22.6 --> 21.4 Plt 33 --> 28 --> 27 Na 140 --> 138 --> 137 K 3.6 --> 3.7 --> 4.1 Mg 1.9 --> not repeated Cl 105 --> 106 --> 105 Ca 9.0 --> 8.7 --> 8.8 Phos --> not available, (2.9 @ 1835) Alb 4.0 --> 3.8 --> 3.7 BUN 24 --> 24 --> 19 Cr 0.6 --> 0.9 (baseline 0.6-0.9) --> 0.7 Glu 76 --> 154 --> 152 Uric Acid 4.7 --> < 0.5, < 0.5 AST 21 --> 26 ALT 23 --> 15 Alk Phos 56 --> 57 T.BILI 0.4 --> 0.3 Assessment / Plan - Worsened leukopenia, will continue to monitor Place on neutropenic precautions if not done already - There is a slight decrease in hemoglobin, 8.3 to 7.9 Oncology requested for transfusion of HGB less than 8. Will type and screen and transfuse 1 unit of IRRADIATED PRBCs - Electrolytes are stable. No overt elevation potassium. No phosphorus ordered, will add on and follow up when results are available - Slight decrease in calcium from 9 - 8.7, albumin stable. - Uric acid is DECREASE from 4.7 to less than 0.5 / minimally detectable levels. Patient is not on hypo-uricemia agents. Drastic decrease in uric acid is not entirely clear. Typically there is HYPERURICEMIA in TLS. I will ask lab to repeat via manual stick vs line draw. - No evidence of tumor lysis syndrome at this time. Continue previously outlined plan. Will continue to monitor labs. Next lab due at midnight and 6:00 a.m. Patient received 1 unit of irradiated PRBCs, transfusion finished at approximately 5:30 a.m., tolerated well without complications
[2018-11-02 21:15] LABS: Phosphorous 2.9 mg/dL (2.8-4.1)
[2018-11-02 21:35] LABS: Uric Acid < 0.5 mg/dL (2.5-6.2)
[2018-11-02] MEDS: ALPRAZolam 0.25 MG TABLET PO (22:55)
[2018-11-02 23:00] VITALS: O2SAT 97
[2018-11-03] VITALS (13 sets, daily range): BP systolic 114–138; BP diastolic 60–79; PULSE 69–86; RESP 16–20; TEMP 36.4–37; O2SAT 93–99
[2018-11-03 00:37] LABS: Add Manual Diff / Slide Review NO; Basophils Absolute Auto 0 /uL (0-100); Basophils Percent Auto 0.4 % (0-2); Eosinophils Absolute Auto 0 /uL (0-450); Hematocrit 21.4 % (36-46); Hemoglobin 7.6 g/dL (12.0-16.0); Lymphocytes Absolute Auto 200 /uL (1100-4500); Lymphocytes Percent Auto 49.8 % (25-40); Mean Corpuscular HGB Conc 35.7 % (30-36); Mean Corpuscular Hemoglobin 37.1 PG (26-34); Mean Corpuscular Volume 103.9 fL (80-100); Monocytes Absolute Auto 0 /uL (0-900); Monocytes Percent Auto 8.8 % (3-14); Neutrophils Absolute Auto 200 /uL (1500-7000); Red Blood Cell Count 2.06 X10^6/uL (4.0-5.2); Red Cell Distribution Width 16.9 % (11.6-14.8)
[2018-11-03 00:41] LABS: White Blood Cell Count 0.5 X10^3/uL (4.5-11.0)
[2018-11-03 00:42] LABS: Platelet Count 27 X10^3/uL (150-400)
[2018-11-03 00:43] LABS: Alanine Aminotransferase 20 IU/L (9-52); Albumin 3.7 g/dL (3.5-5.0); Albumin Globulin Ratio 1.4 (1.0-2.8); Alkaline Phosphatase 48 U/L (38-126); Aspartate Aminotransferase 31 IU/L (14-36); BUN Creatinine Ratio 27.1 (6-22); Bilirubin Total 0.4 mg/dL (0.2-1.3); Blood Urea Nitrogen 19 mg/dL (7-17); Calcium 8.8 mg/dL (8.4-10.2); Carbon Dioxide 22 mmol/L (22-32); Chloride 105 mmol/L (98-107); Estimated Glomerular Filt Rate > 60.0 mL/min (>60); Globulin 2.6 g/dL (1.7-4.1); Glucose 152 mg/dL (80-110); HEMOLYSIS < 15 (0-50); Potassium 4.1 mmol/L (3.4-5.1); Sodium 137 mmol/L (137-145); Total Protein 6.3 g/dL (6.3-8.2)
--- NOTE | 2018-11-03 00:43 | PC.NURSE ---
Laboratory called with critical labs WBC 0.5, Platelets 27.
[2018-11-03 00:44] LABS: Uric Acid < 0.5 mg/dL (2.5-6.2)
[2018-11-03 04:36] LABS: Anisocytosis 1+; Macrocytosis 1+; Platelet Estimate Decreased on smear
[2018-11-03] MEDS: ACETAMINOPHEN 325 MG TABLET 650 MG PO (05:17)
[2018-11-03] MEDS: SODIUM CHLORIDE 0.9% 1,000 ML 75 ML IV (05:18)
[2018-11-03 06:17] LABS: Alanine Aminotransferase 23 IU/L (9-52); Albumin 3.7 g/dL (3.5-5.0); Albumin Globulin Ratio 1.4 (1.0-2.8); Alkaline Phosphatase 51 U/L (38-126); Aspartate Aminotransferase 25 IU/L (14-36); BUN Creatinine Ratio 24.3 (6-22); Bilirubin Total 0.7 mg/dL (0.2-1.3); Blood Urea Nitrogen 17 mg/dL (7-17); Carbon Dioxide 23 mmol/L (22-32); Chloride 105 mmol/L (98-107); Estimated Glomerular Filt Rate > 60.0 mL/min (>60); Globulin 2.6 g/dL (1.7-4.1); Glucose 135 mg/dL (80-110); HEMOLYSIS < 15 (0-50); Potassium 3.8 mmol/L (3.4-5.1); Sodium 136 mmol/L (137-145); Total Protein 6.3 g/dL (6.3-8.2)
[2018-11-03 06:21] LABS: Basophils Absolute Auto 0 /uL (0-100); Basophils Percent Auto 0.5 % (0-2); Eosinophils Absolute Auto 0 /uL (0-450); Lymphocytes Absolute Auto 300 /uL (1100-4500); Lymphocytes Percent Auto 51.1 % (25-40); Mean Corpuscular HGB Conc 35.9 % (30-36); Mean Corpuscular Hemoglobin 35.8 PG (26-34); Mean Corpuscular Volume 99.7 fL (80-100); Monocytes Absolute Auto 100 /uL (0-900); Monocytes Percent Auto 8.9 % (3-14); Neutrophils Absolute Auto 200 /uL (1500-7000); Neutrophils Percent Auto 39.5 % (50-75); Red Blood Cell Count 2.52 X10^6/uL (4.0-5.2); Red Cell Distribution Width 19.2 % (11.6-14.8)
[2018-11-03 06:25] LABS: Uric Acid < 0.5 mg/dL (2.5-6.2)
[2018-11-03 06:41] LABS: White Blood Cell Count 0.6 X10^3/uL (4.5-11.0)
[2018-11-03 06:42] LABS: Hematocrit 25.1 % (36-46); Platelet Count 24 X10^3/uL (150-400)
[2018-11-03 06:43] LABS: Add Manual Diff / Slide Review SLIDE REVIEW
[2018-11-03 07:00] LABS: Platelet Estimate Decreased on smear
[2018-11-03 07:01] LABS: Anisocytosis 1+
[2018-11-03] MEDS: EZETIMIBE 10 MG TABLET PO (10:05)
[2018-11-03] MEDS: ONDANSETRON 16 MG in SODIUM CHLORIDE 0.9% 50 ML 232 ML IV (11:20)
[2018-11-03] MEDS: SODIUM CHLORIDE 0.9% IV (12:32)
[2018-11-03] MEDS: AZACITIDINE IV (12:32)
--- NOTE | 2018-11-03 13:02 | PC.NURSE ---
This sports writer administered Chemo to pt on floor today and yesterday. Pt tolerated well, no acute s/s of distress noted. Speech clear, RR equal and unlabored. Denies N/V. Eating well. Tolerated oral chemo w/o issue as well as IV chemo. Pt's daughter in room at time of each infusion. All questions answered during Chemo teaching yesterday. Pt agrees to alert nursing staff with any issue that may present. Call light w/i reach.
[2018-11-03 14:18] LABS: Uric Acid < 0.5 mg/dL (2.5-6.2)
[2018-11-03 15:16] LABS: HEMOLYSIS < 15 (0-50); Potassium 3.8 mmol/L (3.4-5.1)
[2018-11-03 15:18] LABS: Alanine Aminotransferase 24 IU/L (9-52); Albumin Globulin Ratio 1.7 (1.0-2.8); Alkaline Phosphatase 56 U/L (38-126); Aspartate Aminotransferase 35 IU/L (14-36); BUN Creatinine Ratio 22.9 (6-22); Bilirubin Total 0.6 mg/dL (0.2-1.3); Blood Urea Nitrogen 16 mg/dL (7-17); Calcium 9.3 mg/dL (8.4-10.2); Carbon Dioxide 22 mmol/L (22-32); Chloride 105 mmol/L (98-107); Estimated Glomerular Filt Rate > 60.0 mL/min (>60); Globulin 2.4 g/dL (1.7-4.1); Glucose 169 mg/dL (80-110); Sodium 138 mmol/L (137-145); Total Protein 6.4 g/dL (6.3-8.2)
--- NOTE | 2018-11-03 15:20 | PM.PN.1 ---
Subjective Subjective Date Patient Seen: 11/03/18 Interval history: The patient is a delightful 68-year-old female admitted to the hospital for induction therapy for AML. Patient reports having a difficult night sleeping. She did receive a transfusion overnight. In addition she was receiving labs drawn every 6 hours. She continues to have a poor appetite. She reports about a 20 lb weight loss over the past 4 months. She denies any shortness of breath. She has no pain. She is tolerating her treatment and therapy without incident. Exam Vital Signs (past 8 hours): - 11/03/18 08:30 11/03/18 08:42 11/03/18 10:54 Temperature 97.8 F 98.6 F Pulse Rate 69 83 Respiratory Rate 20 16 Blood Pressure 132/65 126/69 Pulse Oximetry 96 95 98 11/03/18 11:04 Temperature 98.6 F Pulse Rate 83 Respiratory Rate 16 Blood Pressure 126/69 Pulse Oximetry 98 Oxygen Delivery Method Room Air Oxygen Flow Rate 0 Narrative Exam Narrative: Pleasant female in no obvious distress Lungs: Clear to auscultation Cardiac exam: Regular rate and rhythm normal S1-S2 Abdomen: Soft nontender nondistended Extremities: No edema Objective Labs Result Diagrams: 11/03/18 05:50 11/03/18 13:40 Labs: Laboratory Results - last 24 hr 11/02/18 11/02/18 11/02/18 18:35 18:35 18:35 WBC 0.6 L* D RBC 2.15 L Hgb 7.9 L Hct 22.6 L MCV 105.2 H MCH 36.8 H MCHC 35.0 RDW 17.2 H Plt Count 28 L* Neut % (Auto) Not Reportable Lymph % (Auto) Not Reportable [place] % (Auto) Not Reportable Eos % (Auto) Not Reportable Baso % (Auto) Not Reportable Neut # (Auto) Lymph # (Auto) Not Reportable [place] # (Auto) Not Reportable Eos # (Auto) Baso # (Auto) Not Reportable Total Counted 25 Seg Neutrophils % 32.0 L D Lymphocytes % (Manual) 60.0 H Monocytes % (Manual) 8.0 Neutrophils # (Manual) 192 L Platelet Estimate RBC Morphology See below Anisocytosis 1+ H Macrocytosis 1+ H Sodium 138 Potassium 3.7 Chloride 106 Carbon Dioxide 24 BUN 15 Creatinine 0.90 Estimated GFR > 60.0 BUN/Creatinine Ratio 16.7 Glucose 154 H Uric Acid < 0.5 L Calcium 8.7 Phosphorus Total Bilirubin 0.3 AST 26 ALT 15 Alkaline Phosphatase 57 Total Protein 6.4 Albumin 3.8 Globulin 2.6 Albumin/Globulin Ratio 1.5 Blood Type Antibody Screen Crossmatch 11/02/18 11/02/18 11/02/18 18:35 21:15 21:15 WBC RBC Hgb Hct MCV MCH MCHC RDW Plt Count Neut % (Auto) Lymph % (Auto) [place] % (Auto) Eos % (Auto) Baso % (Auto) Neut # (Auto) Lymph # (Auto) [place] # (Auto) Eos # (Auto) Baso # (Auto) Total Counted Seg Neutrophils % Lymphocytes % (Manual) Monocytes % (Manual) Neutrophils # (Manual) Platelet Estimate RBC Morphology Anisocytosis Macrocytosis Sodium Potassium Chloride Carbon Dioxide BUN Creatinine Estimated GFR BUN/Creatinine Ratio Glucose Uric Acid < 0.5 L Calcium Phosphorus 2.9 D Total Bilirubin AST ALT Alkaline Phosphatase Total Protein Albumin Globulin Albumin/Globulin Ratio Blood Type A Positive Antibody Screen Negative Crossmatch See Detail 11/03/18 11/03/18 11/03/18 00:09 00:09 00:09 WBC 0.5 L* RBC 2.06 L Hgb 7.6 L Hct 21.4 L MCV 103.9 H MCH 37.1 H MCHC 35.7 RDW 16.9 H Plt Count 27 L* Neut % (Auto) 41.0 L Lymph % (Auto) 49.8 H [place] % (Auto) 8.8 Eos % (Auto) 0.0 L Baso % (Auto) 0.4 Neut # (Auto) 200 L Lymph # (Auto) 200 L [place] # (Auto) 0 Eos # (Auto) 0 Baso # (Auto) 0 Total Counted Seg Neutrophils % Lymphocytes % (Manual) Monocytes % (Manual) Neutrophils # (Manual) Platelet Estimate Decreased on smear RBC Morphology See below Anisocytosis 1+ H Macrocytosis 1+ H Sodium 137 Potassium 4.1 Chloride 105 Carbon Dioxide 22 BUN 19 H Creatinine 0.70 Estimated GFR > 60.0 BUN/Creatinine Ratio 27.1 H Glucose 152 H Uric Acid < 0.5 L Calcium 8.8 Phosphorus Total Bilirubin 0.4 AST 31 ALT 20 Alkaline Phosphatase 48 Total Protein 6.3 Albumin 3.7 Globulin 2.6 Albumin/Globulin Ratio 1.4 Blood Type Antibody Screen Crossmatch 11/03/18 11/03/18 11/03/18 05:50 05:50 05:50 WBC 0.6 L* RBC 2.52 L Hgb 9.0 L Hct 25.1 L MCV 99.7 D MCH 35.8 H MCHC 35.9 RDW 19.2 H Plt Count 24 L* Neut % (Auto) 39.5 L Lymph % (Auto) 51.1 H [place] % (Auto) 8.9 Eos % (Auto) 0.0 L Baso % (Auto) 0.5 Neut # (Auto) 200 L Lymph # (Auto) 300 L [place] # (Auto) 100 Eos # (Auto) 0 Baso # (Auto) 0 Total Counted Seg Neutrophils % Lymphocytes % (Manual) Monocytes % (Manual) Neutrophils # (Manual) Platelet Estimate Decreased on smear RBC Morphology See below Anisocytosis 1+ H Macrocytosis Sodium 136 L Potassium 3.8 Chloride 105 Carbon Dioxide 23 BUN 17 Creatinine 0.70 Estimated GFR > 60.0 BUN/Creatinine Ratio 24.3 H Glucose 135 H Uric Acid < 0.5 L Calcium 9.0 Phosphorus Total Bilirubin 0.7 AST 25 ALT 23 Alkaline Phosphatase 51 Total Protein 6.3 Albumin 3.7 Globulin 2.6 Albumin/Globulin Ratio 1.4 Blood Type Antibody Screen Crossmatch 11/03/18 11/03/18 13:40 13:40 WBC RBC Hgb Hct MCV MCH MCHC RDW Plt Count Neut % (Auto) Lymph % (Auto) [place] % (Auto) Eos % (Auto) Baso % (Auto) Neut # (Auto) Lymph # (Auto) [place] # (Auto) Eos # (Auto) Baso # (Auto) Total Counted Seg Neutrophils % Lymphocytes % (Manual) Monocytes % (Manual) Neutrophils # (Manual) Platelet Estimate RBC Morphology Anisocytosis Macrocytosis Sodium 138 Potassium 3.8 Chloride 105 Carbon Dioxide 22 BUN 16 Creatinine 0.70 Estimated GFR > 60.0 BUN/Creatinine Ratio 22.9 H Glucose 169 H Uric Acid < 0.5 L Calcium 9.3 Phosphorus Total Bilirubin 0.6 AST 35 ALT 24 Alkaline Phosphatase 56 Total Protein 6.4 Albumin 4.0 Globulin 2.4 Albumin/Globulin Ratio 1.7 Blood Type Antibody Screen Crossmatch Assessment & Plan Assessment & Plan narrative: 1. Acute myelogenous leukemia, patient admitted to the hospital for induction chemotherapy. She is being monitor closely for tumor lysis syndrome. She has received CBC, CMP, uric acid every 6 hours. She has had no elevation of her uric acid or change in her renal function. She is continuing on IV fluids at 75 mg daily. She is tolerating treatment accordingly. Given full 24 hours at Q 6 lab draws will decrease to twice daily. 2. Pancytopenia, secondary to AML, patient received 2 units of blood last evening. She has had improvement in her hemoglobin and hematocrit. White count is still markedly low. Will continue to monitor closely. 3. Hypertension, present on admission. Continue her atenolol 4. Hyperlipidemia, present on admission. Will continue CTs 5. Anxiety, continue as needed benzodiazepine. Will continue to monitor the patient closely.
[2018-11-03 15:32] LABS: Add Manual Diff / Slide Review YES; Hematocrit 25.9 % (36-46); Hemoglobin 9.3 g/dL (12.0-16.0); Mean Corpuscular HGB Conc 35.8 % (30-36); Mean Corpuscular Hemoglobin 35.7 PG (26-34); Mean Corpuscular Volume 99.7 fL (80-100); Red Blood Cell Count 2.59 X10^6/uL (4.0-5.2); Red Cell Distribution Width 19.2 % (11.6-14.8)
[2018-11-03 15:37] LABS: Platelet Count 24 X10^3/uL (150-400); White Blood Cell Count 0.7 X10^3/uL (4.5-11.0)
[2018-11-03 15:59] LABS: Neutrophils Absolute Manual 350 /uL (3000-5900); Total Cells Counted 50
[2018-11-03 16:00] LABS: Anisocytosis 1+; Platelet Estimate Decr; Platelet Morphology Comment NOTE
--- NOTE | 2018-11-03 16:29 | CM.DANOTE ---
Discharge Planning/Care Management DCP: assessment: initiated: Case received and discussed in Team Rounds this morning. Dr. Jha noted that pt was expected to be here about a week. She is under care of oncology clinic and clinic RN did come to her hospital room today to administer chemotherapy. 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 She was last here in August and did d/c home with prn family support and a plan to follow up with oncology. At that point she was functionally independent at baseline and ok'd for home by PT without an assistive device. She did live alone with daughter Valencia close by. Payer: Off & Away and Medicare. PCP: Dr. Gage Jha has consulted oncology. RADHA Emerson has been assisting pt in the ONC clinic setting. Due to lateness of hour and expected length of stay will defer the to DCP team tomorrow to continue the assessment process and follow for d/c issues and options as these unfold. CM Discharge Assessment Start: 11/03/18 16:26 Freq: Status: Active Protocol: Document 11/03/18 16:26 ITV (Rec: 11/03/18 16:29 ITV [id number]) Discharge Planning Assessment Advance Directives? Yes History Provided By Medical Record Has Patient been admitted in last 30 No days? Comment last admission here was in 2018 and pt went home to [place] with plan to see oncology. Prior Living Arrangements House Comment daughter Valencia lives 5 minutes away from pt. Independent with ADL's Yes Is patient alert and oriented? Yes Review Status In Process
[2018-11-03] MEDS: ALPRAZolam 0.25 MG TABLET PO (16:42)
[2018-11-03] MEDS: ATENOLOL 25 MG TABLET PO (16:42)
--- NOTE | 2018-11-03 17:44 | PC.NURSE ---
Addendum entered by Monique De Oliveira R.N. 11/03/18 23:27: Lab called senior investigator Jeanne with critical lab results (WBC and Platelets.) Eve Garner notified of critical labs, she said she would look them over. Stat order for one unit of Platelets to be transfused, they are being delivered by [facility], it will be 3-4 hours until they arrive. Patient report handed off to Cheryl MATTHEWS RN, she is aware of this order. PICC drsg changed tonight, small amt sang drainage under old drsg. PICC draws back blood well, infusing NS with no difficulty. Original Note: Evening notes: Kristen resting in bed, Ox3 and to situation. Slightly anxious, very conversive, somewhat hypervigilant about placement of things in her room & of course her new diagnosis & hospitalization. She denies any symptoms post-chemo, saying I expected horrible nausea & diarrhea but so far I feel fine. She denies pain. She is ambulating in room to BR, back to bed with SBA from her daughter. Gait steady & she denies dizziness when up. I talked with her about Alprazolam prn, at first she said yes I will need that tonight, when reminded that she could have a dose now and again at midnight per q8 prn schedule, she looked at her daughter & said well, that might be a good idea. Daughter nodding yes and also verbalized I think you should Mom. Alprazolam 0.25 mg given. She reports ambulating to BR every 1-2 hours to void, denies feeling puffy & has no peripheral edema. IV infusing to PICC RUE which is patent & intact. Fall precautions in place, pt reminded to call nurse for any needs/concerns. I clarified next lab draw times with Dr Jha, she said to do one more of the q6 series & then to go to q12 series. She said to time next lab draw 6 hrs after the actual time it was drawn last which was 1330 per day nurse Abby LOPEZ report. Dr Jha told me she is aware of the 1500 CBC results. I then cancelled previous orders, and reordered CBC w/auto diff, CMP & Uric Acid for 1930 and to continue q12 as series. I clarified this with Davy in the lab as well, he is aware that per handle sander operator instruction we need to put uric acid tube on ice & then deliver to lab.
[2018-11-03 19:50] LABS: Hematocrit 24.5 % (36-46); Hemoglobin 8.6 g/dL (12.0-16.0); Mean Corpuscular HGB Conc 35.2 % (30-36); Mean Corpuscular Hemoglobin 35.4 PG (26-34); Mean Corpuscular Volume 100.6 fL (80-100); Red Blood Cell Count 2.44 X10^6/uL (4.0-5.2); Red Cell Distribution Width 19.2 % (11.6-14.8)
[2018-11-03 19:52] LABS: Add Manual Diff / Slide Review YES
[2018-11-03 19:53] LABS: White Blood Cell Count 0.6 X10^3/uL (4.5-11.0)
[2018-11-03 19:54] LABS: Platelet Count 18 X10^3/uL (150-400)
[2018-11-03 20:04] LABS: Alanine Aminotransferase 29 IU/L (9-52); Albumin 3.8 g/dL (3.5-5.0); Albumin Globulin Ratio 1.6 (1.0-2.8); Alkaline Phosphatase 41 U/L (38-126); Aspartate Aminotransferase 40 IU/L (14-36); BUN Creatinine Ratio 22.5 (6-22); Bilirubin Total 0.5 mg/dL (0.2-1.3); Blood Urea Nitrogen 18 mg/dL (7-17); Calcium 9.3 mg/dL (8.4-10.2); Carbon Dioxide 19 mmol/L (22-32); Chloride 105 mmol/L (98-107); Estimated Glomerular Filt Rate > 60.0 mL/min (>60); Globulin 2.4 g/dL (1.7-4.1); Glucose 164 mg/dL (80-110); HEMOLYSIS < 15 (0-50); Potassium 4.1 mmol/L (3.4-5.1); Sodium 138 mmol/L (137-145); Total Protein 6.2 g/dL (6.3-8.2)
[2018-11-03 20:06] LABS: Uric Acid < 0.5 mg/dL (2.5-6.2)
[2018-11-03 20:23] LABS: Anisocytosis 1+; Macrocytosis 1+; Neutrophils Absolute Manual 288 /uL (3000-5900); Total Cells Counted 50
[2018-11-03 20:24] LABS: Platelet Estimate Decr
--- NOTE | 2018-11-03 20:27 | PM.EVENT ---
Event Note Date Patient Seen: 11/03/18 Time Patient Seen: 20:28 Event Note: Most recent set of labs reviewed. Platelets now down to 18,000 from 24,000. Will order 2 units of irradiated platelets. These come from [facility] and it will take 3-4 hours. Will anticipate to transfuse 1 unit and may potentially need a 2nd unit later in the night.
--- NOTE | 2018-11-03 21:18 | PC.NURSE ---
Pt JESSA PICC dsg changed per protocol. Some bruising noted. Tolerated w/o incidence.
[2018-11-04] VITALS (12 sets, daily range): BP systolic 120–135; BP diastolic 56–69; PULSE 59–77; RESP 16–18; TEMP 36.3–36.8; O2SAT 96–98
[2018-11-04] MEDS: ALPRAZolam 0.25 MG TABLET PO ×2 (00:23→22:25)
--- NOTE | 2018-11-04 06:56 | PC.NURSE ---
Pt VSS, lung sounds clear bilaterally. No complaints of pain or nausea. Pt had 1 unit platelets transfused and finished at 0402. Throughout transfusion vital signs remained stable.
[2018-11-04] MEDS: EZETIMIBE 10 MG TABLET PO (08:04)
[2018-11-04 08:29] LABS: Alanine Aminotransferase 39 IU/L (9-52); Albumin 3.6 g/dL (3.5-5.0); Albumin Globulin Ratio 1.4 (1.0-2.8); Alkaline Phosphatase 47 U/L (38-126); Aspartate Aminotransferase 35 IU/L (14-36); BUN Creatinine Ratio 27.1 (6-22); Bilirubin Total 0.5 mg/dL (0.2-1.3); Blood Urea Nitrogen 19 mg/dL (7-17); Calcium 9.4 mg/dL (8.4-10.2); Carbon Dioxide 22 mmol/L (22-32); Chloride 108 mmol/L (98-107); Estimated Glomerular Filt Rate > 60.0 mL/min (>60); Globulin 2.5 g/dL (1.7-4.1); Glucose 114 mg/dL (80-110); HEMOLYSIS < 15 (0-50); Hemoglobin 8.3 g/dL (12.0-16.0); Mean Corpuscular HGB Conc 36.1 % (30-36); Mean Corpuscular Hemoglobin 35.9 PG (26-34); Mean Corpuscular Volume 99.3 fL (80-100); Platelet Count 65 X10^3/uL (150-400); Potassium 3.7 mmol/L (3.4-5.1); Red Blood Cell Count 2.32 X10^6/uL (4.0-5.2); Red Cell Distribution Width 18.9 % (11.6-14.8); Sodium 138 mmol/L (137-145); Total Protein 6.1 g/dL (6.3-8.2)
[2018-11-04 08:31] LABS: Add Manual Diff / Slide Review YES; White Blood Cell Count 0.6 X10^3/uL (4.5-11.0)
[2018-11-04 08:39] LABS: Uric Acid < 0.5 mg/dL (2.5-6.2)
[2018-11-04 09:04] LABS: Neutrophils Absolute Manual 270 /uL (3000-5900); RBC Morphology Normal Morphology; Rouleaux 1+; Total Cells Counted 100
--- NOTE | 2018-11-04 10:19 | CM.DANOTE ---
Addendum entered by RADHA Lim 11/04/18 14:43: ADD: Per Onc ERICK Idania, she is working on setting up home infusion with [facility] for the pt for her ongoing treatment needs. ERICK updated her that attempt will be made to set up HH through [facility]. Return call from [facility] stating that they can open the pt to service but unsure duration of service but will meet with pt in the home after discharge and requesting the Beatrice, prog note from today, and MD orders. ERICK faxed all 3 to [facility] to review. Plan: SW to follow for likely pt d/c home with [facility] to start pt to service and Oncology working on setting up [facility] in the home. RADHA Lim Original Note: Per , pt is being followed by Dr. Walton at [facility] and is here to be monitored during her initial chemo and likely here through if no complications arise. SW met bedside with pt and adult Dtr Valencia ([phone]) and explained role and updated white board. 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 Pt's Dtr Valencia lives nearby and available for assist quite readily although also has a job of her own. Pt also has 3 other adult children who live down by [place] and are supportive but busy. Pt states that she does not have official DPOA or Living Will but has begun discussing these things with her children and are beginning to identify who would be DPOA and financial POA. Pt denies any hx of HH or SNF but states that she would like HH RN if possible to help with her PICC and new medications and maybe OT if she weakens. ERICK provided the HH Choice List but [facility] is the only agency that covers the [employer] health and pt is agreeable. signed F2F. Pt trying to remain very organized and has already met with Marshal and confirmed that now that she is retired they helped get pt enrolled in Medicare Part B as well as her A. Pt now working on getting supplemental insurance to help cover her 2 new chemo medications and will continue to try to work with the [facility]. Pt also met with Social Security and they state she should start getting monthly checks and back pay from August 2018. Pt had questions regarding transportation for ongoing [facility] appointments and SW discussed possible use of [employer] and pt also has plans to contact the [facility] to determine if their medical van can be utilized for some of her appointments. Pt aware of ERICK Emerson from Oncology, and requests SW to contact her to meet with her bedside or talk over the phone to answer some of her other questions regarding her treatment and resources. ERICK called Idania [phone] and left msg. BETO Thompson kindly faxed referral packet with clinicals to Jeremy DWYER for review. Plan: SW to follow closely to determine how well pt tolerates her new chemo medications to confirm pt will be safe for d/c home via Dtmeghan POV and jammie DWYER RN at d/c. RADHA Lim
[2018-11-04] MEDS: ONDANSETRON 16 MG in SODIUM CHLORIDE 0.9% 50 ML 232 ML IV (11:01)
--- NOTE | 2018-11-04 11:54 | PM.CHAP ---
Good visit w/ patient. Talkative and open in sharing life and health hx. Youngest daughter present. Scripture and encouragement. Pt lupe tamez receptive.
[2018-11-04] MEDS: SODIUM CHLORIDE 0.9% IV (11:59)
[2018-11-04] MEDS: AZACITIDINE IV (11:59)
--- NOTE | 2018-11-04 12:50 | P.PN_ITS ---
Subjective Subjective Date Patient Seen: 11/04/18 Interval history: Patient appears to be tolerating chemotherapy well. She remains pancytopenic. Platelet count dropped to 18,000 last night and she received a 6 pack of platelets. Per her daughter she had complaints of a headache last night. She was somewhat groggy from Xanax. The had Tylenol and did not seem to help. She currently is headache free. She denies any shortness of breath. She was able to get up and ambulate and walk more than she had in some time. She is hopeful that she will be discharged home on . Exam Vital Signs (past 8 hours): - 11/04/18 07:00 11/04/18 08:00 11/04/18 12:21 Temperature 98.2 F 97.8 F Pulse Rate 77 68 Respiratory Rate 18 17 Blood Pressure 135/69 128/68 Pulse Oximetry 96 97 98 Oxygen Delivery Method Room Air Oxygen Flow Rate 0 Narrative Exam Narrative: Pleasant female resting comfortably, cheeks flushed bilaterally Lungs: Clear to auscultation Cardiac exam: Regular rate rhythm normal S1-S2 with a 2/6 systolic ejection Abdomen: Soft nontender nondistended Extremities: No edema Objective Labs Result Diagrams: 11/04/18 08:00 11/04/18 08:00 Labs: Laboratory Results - last 24 hr 11/02/18 11/03/18 11/03/18 21:15 13:40 13:40 WBC 0.7 L* RBC 2.59 L Hgb 9.3 L Hct 25.9 L MCV 99.7 MCH 35.7 H MCHC 35.8 RDW 19.2 H Plt Count 24 L* Neut % (Auto) Not Reportable Lymph % (Auto) Not Reportable [place] % (Auto) Not Reportable Eos % (Auto) Not Reportable Baso % (Auto) Not Reportable Lymph # (Auto) Not Reportable [place] # (Auto) Not Reportable Baso # (Auto) Not Reportable Total Counted 50 Seg Neutrophils % 44.0 Band Neutrophils % 6.0 Lymphocytes % (Manual) 42.0 Atypical Lymphs % 2.0 H Monocytes % (Manual) 6.0 Neutrophils # (Manual) 350 L Platelet Estimate Decr Plt Morphology Comment Note RBC Morphology See below Anisocytosis 1+ H Macrocytosis Rouleaux Sodium Potassium Chloride Carbon Dioxide BUN Creatinine Estimated GFR BUN/Creatinine Ratio Glucose Uric Acid < 0.5 L Calcium Total Bilirubin AST ALT Alkaline Phosphatase Total Protein Albumin Globulin Albumin/Globulin Ratio Blood Type A Positive Antibody Screen Negative Crossmatch See Detail 11/03/18 11/03/18 11/03/18 13:40 19:30 19:30 WBC 0.6 L* RBC 2.44 L Hgb 8.6 L Hct 24.5 L MCV 100.6 H MCH 35.4 H MCHC 35.2 RDW 19.2 H Plt Count 18 L* Neut % (Auto) Not Reportable Lymph % (Auto) Not Reportable [place] % (Auto) Not Reportable Eos % (Auto) Not Reportable Baso % (Auto) Not Reportable Lymph # (Auto) Not Reportable [place] # (Auto) Not Reportable Baso # (Auto) Not Reportable Total Counted 50 Seg Neutrophils % 44.0 Band Neutrophils % 4.0 Lymphocytes % (Manual) 48.0 H Atypical Lymphs % Monocytes % (Manual) 4.0 Neutrophils # (Manual) 288 L Platelet Estimate Decr Plt Morphology Comment RBC Morphology See below Anisocytosis 1+ H Macrocytosis 1+ H Rouleaux Sodium 138 Potassium 3.8 Chloride 105 Carbon Dioxide 22 BUN 16 Creatinine 0.70 Estimated GFR > 60.0 BUN/Creatinine Ratio 22.9 H Glucose 169 H Uric Acid < 0.5 L Calcium 9.3 Total Bilirubin 0.6 AST 35 ALT 24 Alkaline Phosphatase 56 Total Protein 6.4 Albumin 4.0 Globulin 2.4 Albumin/Globulin Ratio 1.7 Blood Type Antibody Screen Crossmatch 11/03/18 11/04/18 11/04/18 19:30 07:30 08:00 WBC 0.6 L* RBC 2.32 L Hgb 8.3 L Hct 23.0 L MCV 99.3 MCH 35.9 H MCHC 36.1 H RDW 18.9 H Plt Count 65 L Neut % (Auto) Not Reportable Lymph % (Auto) Not Reportable [place] % (Auto) Not Reportable Eos % (Auto) Not Reportable Baso % (Auto) Not Reportable Lymph # (Auto) Not Reportable [place] # (Auto) Not Reportable Baso # (Auto) Not Reportable Total Counted 100 Seg Neutrophils % 45.0 Band Neutrophils % Lymphocytes % (Manual) 40.0 Atypical Lymphs % 5.0 H Monocytes % (Manual) 10.0 Neutrophils # (Manual) 270 L Platelet Estimate Plt Morphology Comment RBC Morphology Normal morphology Anisocytosis Macrocytosis Rouleaux 1+ H Sodium 138 Potassium 4.1 Chloride 105 Carbon Dioxide 19 L BUN 18 H Creatinine 0.80 Estimated GFR > 60.0 BUN/Creatinine Ratio 22.5 H Glucose 164 H Uric Acid < 0.5 L Calcium 9.3 Total Bilirubin 0.5 AST 40 H ALT 29 Alkaline Phosphatase 41 Total Protein 6.2 L Albumin 3.8 Globulin 2.4 Albumin/Globulin Ratio 1.6 Blood Type Antibody Screen Crossmatch 11/04/18 08:00 WBC RBC Hgb Hct MCV MCH MCHC RDW Plt Count Neut % (Auto) Lymph % (Auto) [place] % (Auto) Eos % (Auto) Baso % (Auto) Lymph # (Auto) [place] # (Auto) Baso # (Auto) Total Counted Seg Neutrophils % Band Neutrophils % Lymphocytes % (Manual) Atypical Lymphs % Monocytes % (Manual) Neutrophils # (Manual) Platelet Estimate Plt Morphology Comment RBC Morphology Anisocytosis Macrocytosis Rouleaux Sodium 138 Potassium 3.7 Chloride 108 H Carbon Dioxide 22 BUN 19 H Creatinine 0.70 Estimated GFR > 60.0 BUN/Creatinine Ratio 27.1 H Glucose 114 H Uric Acid Calcium 9.4 Total Bilirubin 0.5 AST 35 ALT 39 Alkaline Phosphatase 47 Total Protein 6.1 L Albumin 3.6 Globulin 2.5 Albumin/Globulin Ratio 1.4 Blood Type Antibody Screen Crossmatch Assessment & Plan Assessment & Plan narrative: Impression 1. Acute myelogenous leukemia, here for induction chemotherapy. Continue induction chemotherapy per Oncology. 2. Pancytopenia received 2 units of packed RBCs night before last, and a 6 pack of platelets last night. The patient's platelet count is 65 currently. Will use a transfusion goal of a hemoglobin less than 8 before further packed RBCs. 3. Hypertension, continue atenolol 4. Hyperlipidemia, continue statin 5. Anxiety, continue as needed anxiolytics 6. . Headache Tylenol as needed will monitor closely given thrombocytopenia.
--- NOTE | 2018-11-04 12:54 | ONC.MSW ---
Description: Inpt Care Coordination Activity: WAISTLINE JOINER OVERLOCK spoke with pt earlier on the phone to help with oncology questions relating to traveling to her upcoming outpatient visits, cost and insurance concerns, Medicare plan decision making, and plan after discharge for routine, weekly PICC line flushes and dressing changes. WAISTLINE JOINER OVERLOCK discussed the availability of [facility] here at to assist with her need to choose a Medigap and Plan D plan that would be the most beneficial in covering her current chemotherapy and drug medication needs. Explained the availability of [employer] to garbage pick up man and return her to the [facility], free of charge for our patients who choose to walk-on. Finally, WAISTLINE JOINER OVERLOCK called a few different agencies to determine options for her PICC line needs while she is at home during non-treatment weeks. Her current plan for chemo regime is 7-consecutive days in a row per month, with also titrating up to therapeutic levels with an oral chemo. She will most likely need ongoing blood products transfused as needed while on active treatment. Plan: We will plan to refer to [facility] for initial PICC dressing change and flush, and the plan will be for the RN to teach pt's dtr how to perform this weekly task, per pt/dtr request. This WAISTLINE JOINER OVERLOCK will fax [facility] the referral once a firm d/c plan is in place when she finishes this inpt chemo round. Pt will contact MIKE to schedule an appt.
--- NOTE | 2018-11-04 14:14 | PC.NURSE ---
1335 Pt c/o itching between mfingers, bilat hands. Pt had chemo PO l& IV infusion mthis afternoon. 1340 mCall out to oncology to report. [id number] ,In formed Dr Jha as well of c/o itchiness, Inst pt not to scratch at her hands, I do not see any redness on the hands. 1410 Call back from [facility], oncology, Dr Maravilla wants a one x 50 mg dose benadryl IVP. Pt informed and agrees to TX.
[2018-11-04] MEDS: diphenhydrAMINE 50 MG/ML VIAL IV (14:26)
[2018-11-04] MEDS: MAGNESIUM HYDROXIDE 30 ML UDC PO (14:38)
[2018-11-04] MEDS: ATENOLOL 25 MG TABLET PO (19:32)
[2018-11-04 20:48] LABS: Uric Acid 0.7 mg/dL (2.5-6.2)
[2018-11-04 23:17] LABS: Alanine Aminotransferase 50 IU/L (9-52); Albumin 3.8 g/dL (3.5-5.0); Albumin Globulin Ratio 1.7 (1.0-2.8); Alkaline Phosphatase 53 U/L (38-126); Aspartate Aminotransferase 39 IU/L (14-36); BUN Creatinine Ratio 28.6 (6-22); Bilirubin Total 0.4 mg/dL (0.2-1.3); Blood Urea Nitrogen 20 mg/dL (7-17); Calcium 9.4 mg/dL (8.4-10.2); Carbon Dioxide 21 mmol/L (22-32); Chloride 106 mmol/L (98-107); Estimated Glomerular Filt Rate > 60.0 mL/min (>60); Globulin 2.3 g/dL (1.7-4.1); Glucose 165 mg/dL (80-110); HEMOLYSIS < 15 (0-50); Potassium 4.1 mmol/L (3.4-5.1); Sodium 138 mmol/L (137-145); Total Protein 6.1 g/dL (6.3-8.2)
[2018-11-05] VITALS (8 sets, daily range): BP systolic 108–144; BP diastolic 54–81; PULSE 67–85; RESP 16–20; TEMP 36.3–37; O2SAT 96–99
[2018-11-05 00:35] LABS: White Blood Cell Count 0.5 X10^3/uL (4.5-11.0)
[2018-11-05 00:36] LABS: Hematocrit 22.1 % (36-46); Mean Corpuscular Volume 100.2 fL (80-100); Platelet Count 52 X10^3/uL (150-400); Red Blood Cell Count 2.21 X10^6/uL (4.0-5.2)
[2018-11-05 00:39] LABS: Add Manual Diff / Slide Review NO
--- NOTE | 2018-11-05 00:42 | PC.NURSE ---
Shift note: Received pt from evening shift. Pt AxO, can make needs known, VSS and on RA. Lab requested a re-draw, lab called with critical value WBC: 0.5, FINISHING MACHINE OPERATOR notified. Pt is a moderate fall risk but is independent in the room with daughters assist.
[2018-11-05] MEDS: SODIUM CHLORIDE 0.9% 1,000 ML 75 ML IV (03:12)
[2018-11-05] MEDS: EZETIMIBE 10 MG TABLET PO (09:41)
--- NOTE | 2018-11-05 11:40 | PC.NURSE ---
Addendum entered by Leah Oscar R.N. 11/05/18 14:43: Patient resting post chemo treatment, refuses SCD's at this time, they exacerbate the neuropathy in her legs per patient. IV running at 75mls/hour, patent without redness or swelling. The site has some blood and bruising underneath the dressing, patient denies pain at the site. Patient denies further needs at this time. Original Note: Patient resting in bed with daughter at bedside. A/O x4, amicable and communicative. Patient up to shower, PICC site covered, patient able to ambulate independently. Denies SOB, dizziness, chest pain or pain at this time. Oncology pre meds hung. Will continue to follow.
[2018-11-05] MEDS: diphenhydrAMINE 50 MG/ML VIAL IV (12:00)
[2018-11-05] MEDS: ONDANSETRON 16 MG in SODIUM CHLORIDE 0.9% 50 ML 232 ML IV (12:01)
[2018-11-05] MEDS: SODIUM CHLORIDE 0.9% IV (12:45)
[2018-11-05] MEDS: AZACITIDINE IV (12:45)
--- NOTE | 2018-11-05 13:04 | PC.NURSE ---
Vidaza infusing. pt reported pins and needles increasing in intensity since Friday. This RN checked with maggie LOPEZ prior to Venclexta and Vidaza administration. pt able to ambulate to bathroom without issues. Lab results reviewed with pt and daughter, Valencia. Bottle of Venclexta given to pt/daughter for home use and informed pt's nurse, Shahzad.
[2018-11-05 13:09] LABS: Hematocrit 24.4 % (36-46); Hemoglobin 8.7 g/dL (12.0-16.0); Mean Corpuscular HGB Conc 35.6 % (30-36); Mean Corpuscular Volume 101.1 fL (80-100); Platelet Count 52 X10^3/uL (150-400); Red Blood Cell Count 2.41 X10^6/uL (4.0-5.2); Red Cell Distribution Width 18.8 % (11.6-14.8)
[2018-11-05 13:16] LABS: Add Manual Diff / Slide Review YES; Alanine Aminotransferase 40 IU/L (9-52); Albumin 3.7 g/dL (3.5-5.0); Albumin Globulin Ratio 1.6 (1.0-2.8); Alkaline Phosphatase 45 U/L (38-126); Aspartate Aminotransferase 26 IU/L (14-36); BUN Creatinine Ratio 28.6 (6-22); Bilirubin Total 0.6 mg/dL (0.2-1.3); Blood Urea Nitrogen 20 mg/dL (7-17); Calcium 9.3 mg/dL (8.4-10.2); Carbon Dioxide 22 mmol/L (22-32); Chloride 102 mmol/L (98-107); Estimated Glomerular Filt Rate > 60.0 mL/min (>60); Globulin 2.3 g/dL (1.7-4.1); Glucose 160 mg/dL (80-110); HEMOLYSIS < 15 (0-50); Potassium 3.9 mmol/L (3.4-5.1); Sodium 136 mmol/L (137-145); White Blood Cell Count 0.6 X10^3/uL (4.5-11.0)
[2018-11-05 13:41] LABS: Neutrophils Absolute Manual 324 /uL (3000-5900); Nucleated Red Blood Cells 1 #/Diff; Total Cells Counted 50
[2018-11-05 13:45] LABS: Anisocytosis 1+; Macrocytosis 1+
--- NOTE | 2018-11-05 18:42 | P.PN_ITS ---
Subjective Subjective Date Patient Seen: 11/05/18 Interval history: Patient is a 68-year-old female with acute myelogenous leukemia here for induction chemotherapy. We are observing her to rule out the possibility of tumor lysis syndrome. She has had pt pancytopenia. She has required transfusion of both platelets and packed RBCs. She has no complaints of shortness of breath or pain today. Patient is anxious to discharge home. Exam Vital Signs (past 8 hours): - 11/05/18 17:00 Temperature 97.8 F Pulse Rate 85 Respiratory Rate 20 Blood Pressure 144/81 H Pulse Oximetry 98 Oxygen Delivery Method Room Air Oxygen Flow Rate 0 Narrative Exam Narrative: Pleasant female resting comfortably in no obvious distress Lungs: Clear to auscultation Cardiac exam: Regular rate and rhythm normal S1-S2 Abdomen: Soft nontender nondistended Extremities: No edema Skin: Multiple small bruises on the forearms bilaterally Objective Labs Result Diagrams: 11/05/18 10:05 11/05/18 10:05 Labs: Laboratory Results - last 24 hr 11/04/18 11/04/18 11/04/18 20:17 20:17 23:55 WBC 0.5 L* RBC 2.21 L Hgb 8.0 L Hct 22.1 L MCV 100.2 H MCH 36.0 H MCHC 36.0 RDW 19.0 H Plt Count 52 L Neut % (Auto) Not Reportable Lymph % (Auto) Not Reportable [place] % (Auto) Not Reportable Eos % (Auto) Not Reportable Baso % (Auto) Not Reportable Lymph # (Auto) Not Reportable [place] # (Auto) Not Reportable Baso # (Auto) Not Reportable Total Counted Seg Neutrophils % Band Neutrophils % Lymphocytes % (Manual) Atypical Lymphs % Monocytes % (Manual) Neutrophils # (Manual) Nucleated RBCs RBC Morphology Anisocytosis Macrocytosis Sodium 138 Potassium 4.1 Chloride 106 Carbon Dioxide 21 L BUN 20 H Creatinine 0.70 Estimated GFR > 60.0 BUN/Creatinine Ratio 28.6 H Glucose 165 H Uric Acid 0.7 L Calcium 9.4 Total Bilirubin 0.4 AST 39 H ALT 50 Alkaline Phosphatase 53 Total Protein 6.1 L Albumin 3.8 Globulin 2.3 Albumin/Globulin Ratio 1.7 11/05/18 11/05/18 11/05/18 10:05 10:05 10:05 WBC 0.6 L* RBC 2.41 L Hgb 8.7 L Hct 24.4 L MCV 101.1 H MCH 36.0 H MCHC 35.6 RDW 18.8 H Plt Count 52 L Neut % (Auto) Not Reportable Lymph % (Auto) Not Reportable [place] % (Auto) Not Reportable Eos % (Auto) Not Reportable Baso % (Auto) Not Reportable Lymph # (Auto) Not Reportable [place] # (Auto) Not Reportable Baso # (Auto) Not Reportable Total Counted 50 Seg Neutrophils % 52.0 Band Neutrophils % 2.0 L Lymphocytes % (Manual) 32.0 Atypical Lymphs % 4.0 H Monocytes % (Manual) 10.0 Neutrophils # (Manual) 324 L Nucleated RBCs 1 H RBC Morphology See below Anisocytosis 1+ H Macrocytosis 1+ H Sodium 136 L Potassium 3.9 Chloride 102 Carbon Dioxide 22 BUN 20 H Creatinine 0.70 Estimated GFR > 60.0 BUN/Creatinine Ratio 28.6 H Glucose 160 H Uric Acid 1.0 L Calcium 9.3 Total Bilirubin 0.6 AST 26 ALT 40 Alkaline Phosphatase 45 Total Protein 6.0 L Albumin 3.7 Globulin 2.3 Albumin/Globulin Ratio 1.6 Assessment & Plan Assessment & Plan narrative: Impression 1. 68-year-old female with acute myelogenous leukemia here for induction chemotherapy. Patient has tolerated it well. We have observed her for tumor lysis syndrome with no evidence at this time. 2. Pancytopenia, patient still has a low white count. Her hemoglobin and hematocrit as well as platelet count have been steady since her transfusion e joeer this week 3. Hypertension, continue usual medication 4. Hyperlipidemia, continue Her statin Plan anticipate discharge home tomorrow. The patient lives on [address] therefore will need to determine whether transfusion is warranted prior to discharge. Will Hep-Lock IV fluids this evening.
[2018-11-05] MEDS: ATENOLOL 25 MG TABLET PO (19:05)
[2018-11-05 21:29] LABS: Uric Acid 2.1 mg/dL (2.5-6.2)
[2018-11-05] MEDS: ALPRAZolam 0.25 MG TABLET PO (23:33)
[2018-11-06 05:00] VITALS: BP 142/79; PULSE 63; RESP 18; TEMP 36.7; O2SAT 99
[2018-11-06 08:30] VITALS: O2SAT 99
[2018-11-06] MEDS: EZETIMIBE 10 MG TABLET PO (08:33)
[2018-11-06 08:37] LABS: Hematocrit 25.1 % (36-46); Mean Corpuscular HGB Conc 35.7 % (30-36); Mean Corpuscular Hemoglobin 35.5 PG (26-34); Mean Corpuscular Volume 99.3 fL (80-100); Platelet Count 47 X10^3/uL (150-400); Red Blood Cell Count 2.53 X10^6/uL (4.0-5.2); Red Cell Distribution Width 18.6 % (11.6-14.8)
[2018-11-06 08:41] LABS: Add Manual Diff / Slide Review YES; White Blood Cell Count 0.7 X10^3/uL (4.5-11.0)
[2018-11-06 08:45] LABS: Alanine Aminotransferase 37 IU/L (9-52); Albumin 3.8 g/dL (3.5-5.0); Albumin Globulin Ratio 1.5 (1.0-2.8); Alkaline Phosphatase 44 U/L (38-126); Aspartate Aminotransferase 20 IU/L (14-36); Bilirubin Total 0.7 mg/dL (0.2-1.3); Blood Urea Nitrogen 21 mg/dL (7-17); Calcium 9.1 mg/dL (8.4-10.2); Carbon Dioxide 25 mmol/L (22-32); Chloride 102 mmol/L (98-107); Estimated Glomerular Filt Rate > 60.0 mL/min (>60); Globulin 2.5 g/dL (1.7-4.1); Glucose 101 mg/dL (80-110); HEMOLYSIS < 15 (0-50); Potassium 3.7 mmol/L (3.4-5.1); Sodium 137 mmol/L (137-145); Total Protein 6.3 g/dL (6.3-8.2)
[2018-11-06 08:54] LABS: Uric Acid 2.2 mg/dL (2.5-6.2)
[2018-11-06 08:55] LABS: Neutrophils Absolute Manual 322 /uL (3000-5900); Rouleaux 1+; Total Cells Counted 100
[2018-11-06 09:00] VITALS: BP 150/73; PULSE 61; RESP 16; TEMP 36.4; O2SAT 98
--- NOTE | 2018-11-06 12:18 | PC.NURSE ---
Discharge Pt denied pain. States she took all belongings with her. Daughter packed up her belongings. D/c instructions provided to pt and her daughter. Aware of chemo precautions to continue at home. Pt states she has apt on friday in cancer center. PICC line dressed with gauze netting. PICC line to remain for chemo admin. Daughter states she has an apt with to teach her how to care for line. Pt and daughter state they took all belongings home with them. They did receive bottle of chemo meds to take with them yesterday and they have those. Spoke with pharmacist and she has pt's home xanax. Called pt and let her know, she will pick them up friday when she goes to chemo. Pt left via w/c with RN and PRESERVATIONIST escort.
--- NOTE | 2018-11-06 14:00 | CM.DPC ---
DCP: note: case was received and noted oncology LEATHER COLORER Idania Jenkins involvement with pt. As she is working today in CM dept in role of LEATHER COLORER/Janener she readily agreed to check in on pt and provide information re the ongoing POC collaboration with oncology clinic and need for chemotherapy in the INPT hospital setting due to complexity of her disease process and need for INPT monitoring. She has confirmed now that pt did go home today and is expected to return next week. Her notes are pending and will be available in this section later today. Her expertise in understanding and outlining the POC details is greatly appreciated.
--- NOTE | 2018-11-06 14:17 | CM.SWNOTE ---
Pt was discharged back home today after initial inpt chemo cycle 1. She will require at least a few more inpt chemo administrations over the next couple of months, which consists of 7-days inpt chemo to monitor for high risk tumor lysis syndrome. Pt tolerated this round of treatment very well. She will return next Friday, 11/09 for 3-more inpt chemo treatments, with the plan to d/c most likely next . Oncology staff continue to monitor and oversee her treatment daily. This ENGINE INSTALLER is managing pt's plan for Home Health plan for PICC flush and dressing changes once she is discharged home at the end of next week. She will not need HH to come out until the following week, at which time the plan is for the RN to provide teaching for pt and her dtr to learn how to flush and change the PICC dressings themselves. No other HH needs indicated outside of this. Please contact Oncology should anyone from the inpt team have questions about this process.
--- NOTE | 2018-11-06 19:59 | PM.DS.1 ---
History of Present Illness History of Present Illness Date Patient Seen: 11/06/18 Time Patient Seen: 11:00 Chief complaint: MDS Leukemia Narrative: As Per Dr. 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 The patient recently was diagnosed with myelodysplastic syndrome after presenting with new onset pancytopenia in August 2018. She reports her symptoms began in mid July in which she noticed increasing fatigue, weakness, and dyspnea on exertion. She also had poor appetite and began to lose weight approximately 10-15 lbs. 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 She was found to have pancytopenia but did not receive transfusions. She followed up with Oncology and had a bone marrow biopsy performed with aspiration which demonstrated myelodysplastic syndrome. She was referred to [facility] who she reports have told her that she has converted to AML, however, outside notes refer to her having MDS. The patient was admitted for induction chemotherapy and to observe for tumor lysis syndrome. Today the patient is resting in bed comfortably. She has no complaints other than fatigue and generalized weakness in which her knees feel that they are going to give out at times. She denies headache, chest pain, shortness of breath, abdominal pain, nausea, vomiting, fever, chills, dysuria, diarrhea or constipation. Discharge Providers Provider Date of admission: 11/02/18 10:12 Discharge Date: 11/06/18 Primary care physician: Abhinav Forte MD Consults: 11/02/18 14:00 Consult to Dietitian, Adult Routine Comment: Reason For Exam: mini nutrition score upon admit screening 11/04/18 14:24 Consult to Home Health Routine Comment: Leukemia, low platelets, chem, PICC, med manage Reason For Exam: Set up HH RN/PT or OT for discharge home Discharge provider: Beau Sharif DO Summary Hospital Course Discharge Diagnosis: 1. Acute myelogenous Leukemia, present on admission. 2. Pancytopenia, acute, stable 3. Hypertension, chronic 4. Hyperlipidemia, chronic Hospital Course: 1. 68-year-old female with acute myelogenous leukemia here for induction chemotherapy with Venclexta. Patient has tolerated it well and was taking the full dosage upon discharge. We have observed her for tumor lysis syndrome with no evidence during her hospital stay. Case was discussed with on-call oncologist Dr. Lynne and she can be discharged home. Patient did complain pruritus on her fingers on the full dosage of her oral chemotherapy agent. This improved with Benadryl. It was recommended that she can try udbf-jel-lglceih antihistamines, and if those are ineffective she can resume Benadryl. 2. Pancytopenia, patient still has a low white count. Her hemoglobin and hematocrit as well as platelet count have been steady since her transfusion earlier this week. These were stable upon discharge. 3. Hypertension, no changes were made to her home medications. 4. Hyperlipidemia, continue Her statin Status at Discharge Cognitive/behavioral status at discharge: oriented Functional status at discharge: independent ambulation Overall status at discharge: patient is back to baseline Time Spent with Patient Time spent: Less than 30 minutes Exam Vital Signs (past 8 hours): Oxygen Delivery Method Room Air Oxygen Flow Rate 0 Narrative Exam Narrative: GENERAL APPEARANCE: Well developed, well nourished, in no acute distress. SKIN: Inspection of the skin reveals no rashes, ulcerations or petechiae. HEENT: The sclerae were anicteric and conjunctivae were pink and moist. Extraocular movements were intact and pupils were equal, round with normal accommodation. External inspection of the ears and nose showed no scars, lesions, or masses. Lips, teeth, and gums showed normal mucosa. The oral mucosa, hard and soft palate, tongue and posterior pharynx were unremarkable. NECK: Supple and symmetric. There was no thyroid enlargement, and no tenderness, or masses were felt. CHEST: Normal AP diameter and normal contour without any kyphoscoliosis. LUNGS: Auscultation of the lungs revealed no wheezes, rhonchi, or rales. CARDIOVASCULAR: There was a regular rate and rhythm without any murmurs, gallops, rubs. Peripheral pulses were 2+ and symmetric. ABDOMEN: Soft and nontender with normal bowel sounds. No ascites was noted. MUSCULOSKELETAL: There was no tenderness or effusions noted. Muscle strength and tone were normal. EXTREMITIES: No cyanosis, clubbing or edema. NEUROLOGIC: Alert and oriented x 3. Normal affect. Gait was normal. Strength is +5/5 in the Upper Extremities and Lower Extremities Bilaterally. Sensation to touch was normal. Objective Labs Result Diagrams: 11/06/18 08:15 11/06/18 08:15 Labs: Laboratory Results - last 24 hr 11/05/18 11/06/18 11/06/18 21:05 08:15 08:15 WBC 0.7 L* RBC 2.53 L Hgb 9.0 L Hct 25.1 L MCV 99.3 MCH 35.5 H MCHC 35.7 RDW 18.6 H Plt Count 47 L Neut % (Auto) Not Reportable Lymph % (Auto) Not Reportable [place] % (Auto) Not Reportable Eos % (Auto) Not Reportable Baso % (Auto) Not Reportable Lymph # (Auto) Not Reportable [place] # (Auto) Not Reportable Baso # (Auto) Not Reportable Total Counted 100 Seg Neutrophils % 46.0 Lymphocytes % (Manual) 34.0 Atypical Lymphs % 6.0 H Monocytes % (Manual) 14.0 H Neutrophils # (Manual) 322 L RBC Morphology Not Reportable [place] 1+ H Sodium Potassium Chloride Carbon Dioxide BUN Creatinine Estimated GFR BUN/Creatinine Ratio Glucose Uric Acid 2.1 L 2.2 L Calcium Total Bilirubin AST ALT Alkaline Phosphatase Total Protein Albumin Globulin Albumin/Globulin Ratio 11/06/18 08:15 WBC RBC Hgb Hct MCV MCH MCHC RDW Plt Count Neut % (Auto) Lymph % (Auto) [place] % (Auto) Eos % (Auto) Baso % (Auto) Lymph # (Auto) [place] # (Auto) Baso # (Auto) Total Counted Seg Neutrophils % Lymphocytes % (Manual) Atypical Lymphs % Monocytes % (Manual) Neutrophils # (Manual) RBC Morphology [place] Sodium 137 Potassium 3.7 Chloride 102 Carbon Dioxide 25 BUN 21 H Creatinine 0.70 Estimated GFR > 60.0 BUN/Creatinine Ratio 30.0 H Glucose 101 Uric Acid Calcium 9.1 Total Bilirubin 0.7 AST 20 ALT 37 Alkaline Phosphatase 44 Total Protein 6.3 Albumin 3.8 Globulin 2.5 Albumin/Globulin Ratio 1.5 Discharge Plan Discharge Plan Patient Disposition: Home Discharge comment: You were admitted to the hospital to monitor blood work while starting a new chemotherapy regimen. You were given transfusions during her hospital stay for low blood counts, but these have improved now and are stable. He should follow up with your oncologist as previously scheduled and continue your previous medications. For the itching, you may take [id number]-[id number] Benadryl at 25 mg, or 50 mg. You can also try whai-vmc-aokgcug [place] or Zyrtec daily to see if these help with your symptoms. Discharge Med Rec/Prescriptions Prescriptions: Continued atenolol 50 mg tablet 25 mg PO QPM RF: 0 alprazolam 0.25 mg Tablet 0.25 mg PO Q8H PRN (Reason: Anxiety) RF: 0 ezetimibe [Zetia] 10 mg Tablet 10 mg PO DAILY RF: 0 Venclexta 100 mg Tablet See Rx Instructions .ROUTE .COMPLEX Qty: 120 RF: 0 Follow up/Referrals: Abhinav Forte MD [Primary Care Provider] - Provider Discharge Instructions Diet: Diet as Tolerated Activity: No restrictions Visit Report/Discharge Packet Instructions: DI for Heart Failure, DI for Chemotherapy -- Adult Discharge Data Primary Care Provider: Abhinav Forte Discharges patient from system. Discharge Date/Time: 11/06/18 12:05
--- NOTE | 2018-11-07 18:00 | DI.RAD.S_ITS ---
PROCEDURE: XR ACUTE ABDOMEN SERIES INDICATIONS: Abdominal pain TECHNIQUE: One view chest and two views of the abdomen were acquired. COMPARISON: [facility], CR, XR CHEST 2V, 08/28/2018, 11:10. [facility], CR, XR CHEST 1V, 10/29/2018, 16:35. FINDINGS: Surgical changes and devices: Bilateral breast clips are seen. Chest: An incomplete inspiratory result is noted, causing a crowded appearance to the lung markings. No focal infiltrates are seen. No pneumothorax or significant pleural effusions are seen. Heart size is normal. No pleural effusions. No pneumoperitoneum. Abdomen: Bowel gas pattern is normal. No suspicious calcifications. Visualized solid organ contours appear normal. Bones: No suspicious bony lesions. Age-appropriate bony degenerative changes are seen. IMPRESSION: A nonobstructive bowel gas pattern is seen. As clinically appropriate, please consider a repeat plain film study or a dedicated CT of the abdomen and pelvis, if the patient's symptoms persist or worsen. Dictated by: Cholo Villar M.D. on 11/07/2018 at 19:06 Approved by: Cholo Villar M.D. on 11/07/2018 at 19:07
[2018-11-07 18:03] VITALS: BP 133/66; PULSE 76; RESP 12; O2SAT 98
--- NOTE | 2018-11-07 18:08 | ED_ITS ---
HPI - Abdominal Pain General Chief Complaint: Abdominal Pain Stated Complaint: Fever Time Seen by Provider: 11/07/18 18:06 Source: EMS Mode of arrival: EMS Limitations: no limitations History of Present Illness HPI narrative: Patient is a 68-year-old female who was just discharged from the hospital yesterday after she was admitted for several days for induction chemotherapy secondary to myelodysplastic syndrome that has transitioned into AML. She states that this morning she was feeling relatively well. As the day went on she started have vague abdominal pain. She states that she felt like she had to have a bowel movement but was unable to. She states that she had the urge to go to the bathroom and had an episode where she became very lightheaded. There was a question of whether not she actually lost consciousness. She states she did have an episode of diarrhea however she does not remember this. They then called 911 because she was told that if she ever became lightheaded or dizzy or started not feel well she should return to the emergency department. Related Data Home Medications Medication Instructions Recorded Confirmed alprazolam 0.25 mg PO Q8H PRN 08/27/18 11/07/18 atenolol 25 mg PO QPM 08/27/18 11/07/18 ezetimibe [Zetia] 10 mg PO DAILY 08/27/18 11/07/18 Benadryl 50 mg PO DAILY 11/07/18 11/07/18 Previous Rx's Medication Instructions Recorded Venclexta See Rx Instructions .ROUTE 10/14/18 .COMPLEX #120 tab Allergies Allergy/AdvReac Type Severity Reaction Status Date / Time No Known Allergies Allergy Unknown Verified 11/07/18 18:05 [NO KNOWN ALLERGIES] Review of Systems Constitutional Constitutional: Reports fatigue, Denies fever(s) and Reports lethargy ENT Ears, Nose, Mouth, and Throat: Denies vertigo and Denies dizziness Cardiovascular Cardiovascular: Denies chest pain and Denies dyspnea Respiratory Respiratory: Denies dyspnea Gastrointestinal Gastrointestinal: Reports abdominal pain, Reports diarrhea and Reports nausea Genitourinary Genitourinary: Denies dysuria Musculoskeletal Musculoskeletal: Denies myalgias and Denies arthralgias Integumentary/Breasts Skin/Breast: Denies rash Neurologic Neurologic: Denies vertigo and Denies dizziness Endocrine Endocrine: Reports fatigue Hematologic/Lymphatic Hematologic/Lymphatic: Denies easy bleeding and Denies easy bruising [facility] Medical History Breast cancer (Acute) CVA (cerebrovascular accident) (Acute) HTN (hypertension) (Acute) Hyperlipidemia (Acute) Neuropathy (Acute) Sinus headache (Acute) TIA (transient ischemic attack) (Acute) Surgical History History of appendectomy (Acute) History of bilateral cataract extraction (Acute) No pertinent past surgical history (Acute) S/P breast lumpectomy (Acute) Family History Father Coronary artery disease Mother Stroke Coronary artery disease Brother Coronary artery disease Social History household members: none Smoking Status: Never smoker alcohol intake: current Family History Father Coronary artery disease Mother Stroke Coronary artery disease Brother Coronary artery disease Social History household members: none Smoking Status: Never smoker alcohol intake: current Exam Initial Vital Signs Initial Vital Signs: Vital Signs Pulse Rate 76 11/07/18 18:03 Respiratory Rate 12 11/07/18 18:03 Blood Pressure 133/66 11/07/18 18:03 Pulse Oximetry 98 11/07/18 18:03 Const General: cooperative, comfortable, well developed and well groomed Orientation: alert, awake and oriented x3 HENMT Head: normal to inspection and normocephalic Resp Effort & Inspection: normal respiratory effort Auscultation: clear to auscultation bilaterally Cardio Rate: regular rate Rhythm: regular rhythm GI Inspection: non-distended Palpation: soft, No firm and tender (Diffuse tenderness) Skin Lesions: no lesions Rashes: no rashes Neuro General: alert and awake Extrem General: normal to inspection and capillary refill normal Psych Appearance: grossly normal and well kempt Course Orders Ordered: ED Orders 11/07/18 18:00 XR acute abdomen series Stat 11/07/18 18:20 Blood Culture Stat Complete Blood Count AUTO DIFF Stat Comprehensive Metabolic Panel Stat Lactate (Lactic Acid) Stat Procalcitonin Stat 11/07/18 19:23 CT abdomen pelvis w con Stat Acetaminophen (Tylenol) 650 mg PO Q6HR PRN PRN Reason: As Needed for Fever/Mild Pain Al Hydrox/Mg Hydrox/Simethicone (Maalox Plus) 30 ml PO Q6HR PRN PRN Reason: Dyspepsia Alprazolam (Xanax) 0.25 mg PO Q8H PRN PRN Reason: Anxiety Atenolol (Tenormin) 12.5 mg PO QPM [facility] Bisacodyl (Dulcolax) 10 mg NE DAILY PRN PRN Reason: Constipation Calcium Carbonate (Tums) 1,000 mg PO Q4HR PRN PRN Reason: Dyspepsia Diphenhydramine HCl (Benadryl) 25 mg PO DAILY [facility] Docusate Sodium (Colace) 100 mg PO BID [facility] Ezetimibe (Zetia) 10 mg PO DAILY [facility] Hydromorphone HCl (Dilaudid) 0.5 mg IV Q6H PRN PRN Reason: Pain, Moderate (4-6) Hydromorphone HCl (Dilaudid) 1 mg IV Q6HR PRN PRN Reason: Pain, Severe (7-10) Lactated Ringer's (Lactated Ringers) 1,000 mls @ 150 mls/hr IV CONT [facility] Last Admin: 11/07/18 23:35 Dose: 150 mls/hr Documented by: JAMILAH Cefepime HCl 2 gm/ Sodium (Chloride) 100 mls @ 200 mls/hr IV Q12H [facility] Metronidazole (Flagyl) 500 mg in 100 mls @ 100 mls/hr IV Q6H [facility] Magnesium Hydroxide (Milk Of Magnesia) 30 ml PO DAILY PRN PRN Reason: Constipation Non-Formulary Medication (Venetoclax [Venclexta]) 4 tab PO DAILY [facility] Ondansetron HCl (Zofran) 4 mg IV Q6HR PRN PRN Reason: Nausea And Vomiting Pantoprazole Sodium (Protonix) 20 mg PO 0700 [facility] Sennosides (Senna) 17.2 mg PO BEDTIME PRN PRN Reason: Constipation Discontinued Medications Atenolol (Tenormin) 25 mg PO QPM [facility] Sodium Chloride (Normal Saline 0.9%) 1,000 mls @ 200 mls/hr IV CONT [facility] Last Infusion: 11/07/18 22:35 Dose: 200 mls/hr Documented by: Admin: 11/07/18 18:39 Dose: 200 mls/hr Documented by: KAT Sodium Chloride (Normal Saline 0.9%) 1,000 mls @ 150 mls/hr IV CONT [facility] Last Admin: 11/07/18 19:27 Dose: Not Given Documented by: JUAN JOSE Cefepime HCl 2 gm/ Sodium (Chloride) 100 mls @ 200 mls/hr IV NOW ONE Stop: 11/07/18 19:24 Last Infusion: 11/07/18 20:23 Dose: 0 mls/hr Documented by: Admin: 11/07/18 19:50 Dose: 200 mls/hr Documented by: JUAN JOSE Metronidazole (Flagyl) 500 mg in 100 mls @ 100 mls/hr IV NOW ONE Stop: 11/07/18 22:28 Last Infusion: 11/07/18 22:08 Dose: 0 mls/hr Documented by: JUAN JOSE Admin: 11/07/18 21:34 Dose: 100 mls/hr Documented by: JUAN JOSE Morphine Sulfate (Morphine) 4 mg IV NOW ONE Stop: 11/07/18 18:26 Last Admin: 11/07/18 18:39 Dose: 4 mg Documented by: KAT Vital Signs Vital signs: Vital Signs - 8 hr 11/07/18 18:03 11/07/18 18:22 11/07/18 20:17 Temperature 97.9 F Pulse Rate 76 55 L Respiratory Rate 12 18 Blood Pressure 133/66 Blood Pressure [Left Arm] 136/56 L Pulse Oximetry 98 99 11/07/18 21:17 11/07/18 22:00 Temperature Pulse Rate 79 75 Respiratory Rate 13 13 Blood Pressure Blood Pressure [Left Arm] 129/63 121/58 L Pulse Oximetry 97 99 MDM - Abdominal Pain Medical Records Attestation: I reviewed the patient's medical records. Lab Data Attestation: I reviewed the patient's lab results. Result diagrams: 11/07/18 18:20 11/07/18 18:20 Labs: Lab Results 11/07/18 11/07/18 11/07/18 Range/Units 18:20 18:20 18:20 WBC 0.9 L* (4.5-11.0) X10^3/uL RBC 2.82 L (4.0-5.2) X10^6/uL Hgb 9.9 L (12.0-16.0) g/dL Hct 28.1 L (36-46) % MCV 99.7 (80-100) fL MCH 35.2 H (26-34) PG MCHC 35.3 (30-36) % RDW 18.5 H (11.6-14.8) % Plt Count 39 L (150-400) X10^3/uL Neut % (Auto) Not Reportable Lymph % (Auto) Not Reportable [place] % (Auto) Not Reportable Eos % (Auto) Not Reportable Baso % (Auto) Not Reportable Lymph # (Auto) Not Reportable [place] # (Auto) Not Reportable Baso # (Auto) Not Reportable Total Counted 100 Seg Neutrophils % 33.0 L (38-70) % Lymphocytes % (Manual) 62.0 H (25-45) % Monocytes % (Manual) 5.0 (2-11) % Neutrophils # (Manual) 297 L (4672-9825) /uL RBC Morphology See below Poikilocytosis 1+ H Anisocytosis 2+ H Sodium 136 L (137-145) mmol/L Potassium 3.4 (3.4-5.1) mmol/L Chloride 101 (98-107) mmol/L Carbon Dioxide 23 (22-32) mmol/L BUN 30 H (7-17) mg/dL Creatinine 0.90 (0.52-1.04) mg/dL Estimated GFR > 60.0 (>60) mL/min BUN/Creatinine Ratio 33.3 H (6-22) Glucose 99 (80-110) mg/dL Lactate (0.7-2.1) mmol/L Calcium 9.2 (8.4-10.2) mg/dL Total Bilirubin 0.7 (0.2-1.3) mg/dL AST 24 (14-36) IU/L ALT 35 (9-52) IU/L Alkaline Phosphatase 57 (38-126) U/L Total Protein 6.1 L (6.3-8.2) g/dL Albumin 3.7 (3.5-5.0) g/dL Globulin 2.4 (1.7-4.1) g/dL Albumin/Globulin Ratio 1.5 (1.0-2.8) Procalcitonin 0.78 H (<0.5) ng/mL 11/07/18 11/07/18 Range/Units 18:20 21:10 WBC (4.5-11.0) X10^3/uL RBC (4.0-5.2) X10^6/uL Hgb (12.0-16.0) g/dL Hct (36-46) % MCV (80-100) fL MCH (26-34) PG MCHC (30-36) % RDW (11.6-14.8) % Plt Count (150-400) X10^3/uL Neut % (Auto) Lymph % (Auto) [place] % (Auto) Eos % (Auto) Baso % (Auto) Lymph # (Auto) [place] # (Auto) Baso # (Auto) Total Counted Seg Neutrophils % (38-70) % Lymphocytes % (Manual) (25-45) % Monocytes % (Manual) (2-11) % Neutrophils # (Manual) (6722-6123) /uL RBC Morphology Poikilocytosis Anisocytosis Sodium (137-145) mmol/L Potassium (3.4-5.1) mmol/L Chloride (98-107) mmol/L Carbon Dioxide (22-32) mmol/L BUN (7-17) mg/dL Creatinine (0.52-1.04) mg/dL Estimated GFR (>60) mL/min BUN/Creatinine Ratio (6-22) Glucose (80-110) mg/dL Lactate 3.6 H 2.6 H (0.7-2.1) mmol/L Calcium (8.4-10.2) mg/dL Total Bilirubin (0.2-1.3) mg/dL AST (14-36) IU/L ALT (9-52) IU/L Alkaline Phosphatase (38-126) U/L Total Protein (6.3-8.2) g/dL Albumin (3.5-5.0) g/dL Globulin (1.7-4.1) g/dL Albumin/Globulin Ratio (1.0-2.8) Procalcitonin (<0.5) ng/mL Point of care testing: Urine Dip Bedside Urine Glucose Negative Bedside Urine Bilirubin - Negative Bedside Urine Ketone - Negative Urine Specific [place] 1.005 Bedside Urine Occult Blood - Negative Bedside Urine pH 7.0 Bedside Urine Protein - Negative Bedside Urine Urobilinogen - Negative Bedside Urine Nitrite - Negative Bedside Urine Leukocytes - Negative Esterase Imaging Data CT scan - abdomen: Radiologist's impression: [address] [address] [address] Scan Report Signed Patient: Kristen Cho [facility]#: [id number] : 9Acct:[id number] Age/Sex: 68 / FDate of Service: 11/07/18 Loc: ED Accession Number: [id number] Procedure: CT abdomen pelvis w con Ordering Provider: Shemar East D.O. PROCEDURE: CT ABDOMEN PELVIS W CON INDICATIONS: Abdominal pain TECHNIQUE: After the administration of intravenous contrast, 5 mm thick sections acquired from the diaphragm to the symphysis. 5 mm coronal and sagittal reformats were acquired. For radiation dose reduction, the following was used: automated exposure control, adjustment of mA and/or kV according to patient size. COMPARISON: [facility], CR, XR ACUTE ABDOMEN SERIES, 11/07/2018, 18:49. FINDINGS: Image quality: Excellent. ABDOMEN: Lung bases: Lung bases are clear. Heart size is normal. Right breast clips are seen. Solid organs: Liver is normal in size and enhancement. Diffuse fatty liver infiltration is noted. Gallbladder has been removed. Biliary system is non dilated. Pancreas enhances normally. Spleen is normal in size and enhancement. No adrenal nodules. Kidneys demonstrate normal size and enhancement, without hydronephrosis. Peritoneum and bowel: Diffuse colonic wall thickening is seen, which begins at the level of the distal transverse colon continues through at least the mid sigmoid colon. There is mild surrounding inflammatory change. No findings of perforation or abscess can be seen. Liquid stool can be seen within the proximal colon. No dilated loops of small bowel are seen. No significant free fluid can be seen. Nodes and vessels: No retroperitoneal or mesenteric adenopathy by size criteria. Aorta and inferior vena cava are normal in size. Miscellaneous: No ventral hernias. PELVIS: Genitourinary: Bladder wall thickness is normal. Miscellaneous: No inguinal hernias or adenopathy. Bones: No suspicious bony lesions. No vertebral body compression fractures. Age-appropriate bony degenerative changes are seen. IMPRESSION: Diffuse distal colitis. Please correlate with potential infectious and inflammatory causes. Ischemia is possible, yet considered to be less likely. No findings of perforation or abscess can be seen. Incidental note is made of: Right breast postoperative change Cholecystectomy Fatty liver infiltration Dictated by: Cholo Villar M.D. on 11/07/2018 at 20:25 Approved by: Cholo Villar M.D. on 11/07/2018 at 20:29 [place] Narrative Medical decision making narrative: Patient is relatively well-appearing however has diffuse abdominal tenderness. She is leukopenic and thrombocytopenic. CT scan does show distal colitis. She is afebrile does have an elevated lactate elevated procalcitonin. She was given antibiotics here in the emergency department. I did discuss the case with on-call Oncology who recommended adding Flagyl and admitting the patient for IV antibiotics and fluids until the cultures are resulted. I did discuss the case with DAVID Stacy the [facility] spitalist who accepts the patient. Discussed admission with the patient expressed understanding and agreement. Discharge Plan Departure Patient Disposition: Admitted As Inpatient Clinical Impression: Neutropenia Qualifiers: Neutropenia type: unspecified Qualified Code(s): D70.9 - Neutropenia, unspecified Syncope Qualifiers: Syncope type: unspecified Qualified Code(s): R55 - Syncope and collapse AML (acute myeloblastic leukemia) Qualifiers: Leukemia Active/Remission status: without remission Qualified Code(s): C92.00 - Acute myeloblastic leukemia, not having achieved remission Discharge Date/Time: 11/07/18 22:37 Admit Date/Time: 11/07/18 22:06 Admit Provider: Beau Stacy
[2018-11-07 18:22] VITALS: TEMP 36.6
[2018-11-07] MEDS: SODIUM CHLORIDE 0.9% 1,000 ML 200 ML IV (18:39)
[2018-11-07] MEDS: MORPHINE 4 MG/ML INJ IV (18:39)
[2018-11-07 18:41] LABS: Alanine Aminotransferase 35 IU/L (9-52); Albumin 3.7 g/dL (3.5-5.0); Albumin Globulin Ratio 1.5 (1.0-2.8); Alkaline Phosphatase 57 U/L (38-126); Aspartate Aminotransferase 24 IU/L (14-36); BUN Creatinine Ratio 33.3 (6-22); Bilirubin Total 0.7 mg/dL (0.2-1.3); Blood Urea Nitrogen 30 mg/dL (7-17); Calcium 9.2 mg/dL (8.4-10.2); Carbon Dioxide 23 mmol/L (22-32); Chloride 101 mmol/L (98-107); Estimated Glomerular Filt Rate > 60.0 mL/min (>60); Globulin 2.4 g/dL (1.7-4.1); Glucose 99 mg/dL (80-110); HEMOLYSIS < 15 (0-50); Potassium 3.4 mmol/L (3.4-5.1); Sodium 136 mmol/L (137-145); Total Protein 6.1 g/dL (6.3-8.2)
[2018-11-07 18:42] LABS: Lactate (Lactic Acid) 3.6 mmol/L (0.7-2.1)
[2018-11-07 19:02] LABS: Hematocrit 28.1 % (36-46); Hemoglobin 9.9 g/dL (12.0-16.0); Mean Corpuscular HGB Conc 35.3 % (30-36); Mean Corpuscular Hemoglobin 35.2 PG (26-34); Mean Corpuscular Volume 99.7 fL (80-100); Red Blood Cell Count 2.82 X10^6/uL (4.0-5.2); Red Cell Distribution Width 18.5 % (11.6-14.8)
[2018-11-07 19:07] LABS: Add Manual Diff / Slide Review YES; Platelet Count 39 X10^3/uL (150-400); White Blood Cell Count 0.9 X10^3/uL (4.5-11.0)
[2018-11-07 19:10] LABS: Procalcitonin 0.78 ng/mL (<0.5)
--- NOTE | 2018-11-07 19:10 | PC.NURSE ---
Critical Lab WBC 0.[address] East notified
--- NOTE | 2018-11-07 19:23 | DI.CT.S_ITS ---
PROCEDURE: CT ABDOMEN PELVIS W CON INDICATIONS: Abdominal pain TECHNIQUE: After the administration of intravenous contrast, 5 mm thick sections acquired from the diaphragm to the symphysis. 5 mm coronal and sagittal reformats were acquired. For radiation dose reduction, the following was used: automated exposure control, adjustment of mA and/or kV according to patient size. COMPARISON: [facility], CR, XR ACUTE ABDOMEN SERIES, 11/07/2018, 18:49. FINDINGS: Image quality: Excellent. ABDOMEN: Lung bases: Lung bases are clear. Heart size is normal. Right breast clips are seen. Solid organs: Liver is normal in size and enhancement. Diffuse fatty liver infiltration is noted. Gallbladder has been removed. Biliary system is non dilated. Pancreas enhances normally. Spleen is normal in size and enhancement. No adrenal nodules. Kidneys demonstrate normal size and enhancement, without hydronephrosis. Peritoneum and bowel: Diffuse colonic wall thickening is seen, which begins at the level of the distal transverse colon continues through at least the mid sigmoid colon. There is mild surrounding inflammatory change. No findings of perforation or abscess can be seen. Liquid stool can be seen within the proximal colon. No dilated loops of small bowel are seen. No significant free fluid can be seen. Nodes and vessels: No retroperitoneal or mesenteric adenopathy by size criteria. Aorta and inferior vena cava are normal in size. Miscellaneous: No ventral hernias. PELVIS: Genitourinary: Bladder wall thickness is normal. Miscellaneous: No inguinal hernias or adenopathy. Bones: No suspicious bony lesions. No vertebral body compression fractures. Age-appropriate bony degenerative changes are seen. IMPRESSION: Diffuse distal colitis. Please correlate with potential infectious and inflammatory causes. Ischemia is possible, yet considered to be less likely. No findings of perforation or abscess can be seen. Incidental note is made of: Right breast postoperative change Cholecystectomy Fatty liver infiltration Dictated by: Cholo Villar M.D. on 11/07/2018 at 20:25 Approved by: Cholo Villar M.D. on 11/07/2018 at 20:29
[2018-11-07] MEDS: CEFEPIME 2 GM in SODIUM CHLORIDE 0.9% 100 ML 200 ML IV (19:50)
[2018-11-07 20:17] VITALS: BP 136/56; PULSE 55; RESP 18; O2SAT 99
[2018-11-07 20:26] LABS: Neutrophils Absolute Manual 297 /uL (3000-5900); Reflexed Lactate in 2 Hours Y; Total Cells Counted 100
[2018-11-07 20:27] LABS: Anisocytosis 2+; Poikilocytosis 1+
[2018-11-07 21:17] VITALS: BP 129/63; PULSE 79; RESP 13; O2SAT 97
[2018-11-07 21:27] LABS: Lactate 2HR (Lactic Acid Rflx) 2.6 mmol/L (0.7-2.1)
[2018-11-07] MEDS: metroNIDAZOLE 500 MG/100 ML PIGGYBACK 100 MG IV (21:34)
[2018-11-07 22:00] VITALS: BP 121/58; PULSE 75; RESP 13; O2SAT 99
--- NOTE | 2018-11-07 22:30 | PC.NURSE ---
report called to domonique khan
--- NOTE | 2018-11-07 22:43 | P.HP_ITS ---
History of Present Illness History of Present Illness Date Patient Seen: 11/07/18 Time Patient Seen: 22:09 Chief complaint: Fever Narrative: Ms. Kristen Cho is a 68-year-old female with a history significant for breast cancer, AML, breast cancer, hypertension, CVA, TIA, hyperlipidemia and neuropathy who presents today following discharge from the hospital yeste rday with a syncopal episode. Patient admitted to the hospital for induction of chemotherapy for treatment AML. The patient had been pancytopenic however her blood counts stabilized following transfusion during her previous previous hospitalization and demonstrated blood count stability upon discharge. Today the patient states she woke up today she was feeling ?pretty good?. She subsequently developed abdominal discomfort that she felt was gas and that she would feel better passing gas or moving her bowels. Patient was on the commode and she states that her discomfort escalated in intensity becoming painful over span of approximately 20 minutes. She called for her daughter with whom she is staying to help her at which time her daughter reports noting her mother slumping over and being briefly unresponsive with no breathing and when she did was more of a gurgling gasp. The patient recovered spontaneously. She passed a diarrhea stool. She describes no prodromal symptoms with no fevers or chills, headaches or dizziness. She reports no nasal congestion or sore throat. She has had no chest pain or palpitations and denies shortness of breath cough or wheezing. She complains of lower abdominal pain with no nausea vomiting. She reports no difficulty ambulating but does acknowledge neuropathy bilateral toes. The patient was transported from the [facility] via helicopter arriving in the ER and found to be afebrile with temperature 97.9?, heart rate 55, blood pressure 136/56, respirations of 18 with an oxygen saturation 99% room air. Twelve lead EKG finds normal sinus rhythm with a ventricular rate of [address] or T-wave changes. X-ray of the chest and abdomen is taking which shows nonobstructive gas pattern. Abdominal CT finds diffuse fatty liver infiltrates, diffuse colonic wall thickening in the transverse to mid sigmoid colon with mild surrounding inflammatory changes, thickening of the bladder wall. On laboratory analysis the patient has a white count of 0.9, hemoglobin of 9.9 and hematocrit of 28.1 and platelets of 39. On chemistry she has a borderline potassium of 3.4 and has a BUN of 30 and creatinine of 0.9. Her nonfasting glucose is 99. She h ad a procalcitonin of 0.78 and lactic acid initially of 3.6 reduced to 2.6 with IV fluid. The ER physician spoke with Dr. Walton, on-call oncologist for Dr. Lynne who recommended admitting the patient for antibiotic therapy as well as rehydration. He recommends transfusion for an H&H less than 8 and 24 or platelets less than 20. Patient History Medical History Breast cancer (Acute) CVA (cerebrovascular accident) (Acute) HTN (hypertension) (Acute) Hyperlipidemia (Acute) Neuropathy (Acute) Sinus headache (Acute) TIA (transient ischemic attack) (Acute) Surgical History History of appendectomy (Acute) History of bilateral cataract extraction (Acute) No pertinent past surgical history (Acute) S/P breast lumpectomy (Acute) Family History Father Coronary artery disease Mother Stroke Coronary artery disease Brother Coronary artery disease Social History household members: none Smoking Status: Never smoker alcohol intake: current Family & Social History Family History Father Coronary artery disease Mother Stroke Coronary artery disease Brother Coronary artery disease Social History: household members none Safety & Behavioral: Feels Safe in Current Yes Environment Been Physically Hurt or No Threatened By a Person Tobacco & Substance use: Smoking Status Never smoker alcohol intake current alcohol intake frequency 0-2 drinks per day Substance Use Type does not use Meds Home Medications and Allergies Home Medications Medication Instructions Recorded Confirmed Type alprazolam 0.25 mg PO Q8H PRN 08/27/18 11/07/18 History atenolol 25 mg PO QPM 08/27/18 11/07/18 History ezetimibe [Zetia] 10 mg PO DAILY 08/27/18 11/07/18 History Venclexta See Rx Instructions .ROUTE 10/14/18 11/07/18 Rx .COMPLEX #120 tab Benadryl 50 mg PO DAILY 11/07/18 11/07/18 History Allergies Allergy/AdvReac Type Severity Reaction Status Date / Time No Known Allergies Allergy Unknown Verified 11/07/18 18:05 [NO KNOWN ALLERGIES] Review of Systems Review of Systems ROS Unobtainable: All systems reviewed & are unremarkable except as noted in HPI and below Exam Vital Signs (past 8 hours): - 11/07/18 18:03 11/07/18 18:22 11/07/18 20:17 Temperature 97.9 F Pulse Rate 76 55 L Respiratory Rate 12 18 Blood Pressure 133/66 Blood Pressure [Left Arm] 136/56 L Pulse Oximetry 98 99 11/07/18 21:17 11/07/18 22:00 Temperature Pulse Rate 79 75 Respiratory Rate 13 13 Blood Pressure Blood Pressure [Left Arm] 129/63 121/58 L Pulse Oximetry 97 99 Oxygen Delivery Method Room Air Narrative Exam Narrative: GENERAL APPEARANCE: Well developed, well nourished, in no acute distress. SKIN: Inspection of the skin reveals no rashes, ulcerations or petechiae. HEENT: PERRL, conjunctiva and sclera are clear and anicteric, EOMs intact without nystagmus, no rhinorrhea, oral mucosa is pink and moist without erythema or lesions, posterior pharynx is unremarkable. NECK: Supple, nontender, no thyromegaly, trachea midline. LYMPH NODES: no cervical or supraclavicular lymphadenopathy. HEART: regular rate and rhythm, S1-S2, no murmur, no rubs or gallops, brisk capillary refill, trace bilateral lower extremity edema LUNGS: clear to auscultation bilaterally, no coarseness crackles or wheezing, no cough present CHEST: Symmetrical movement, no accessory muscle use, no pain to AP and lateral compression. ABDOMEN: Soft, no distention, no epigastric or abdominal tenderness on palpation, no guarding or peritoneal signs, no organomegaly, no flank or suprapubic tenderness, active bowel tones. BACK: Normal curvature, bilateral lumbar paraspinal tenderness on palpation without bruising or muscle spasms, no CVA tenderness EXTREMITIES: moves all extremities, strength is 5/5 and symmetrical, no deformi ties or joint effusions. NEUROLOGIC: AAO x4, no focal neurologic deficits, cranial nerves II-XII grossly intact, neuropathy bilateral lower toes. PSYCH: alert, cognitive function intact, good eye contact, appropriate with stable behavior Objective Labs Result Diagrams: 11/07/18 18:20 11/07/18 18:20 Labs: Laboratory Results - last 24 hr 11/07/18 11/07/18 11/07/18 18:20 18:20 18:20 WBC 0.9 L* RBC 2.82 L Hgb 9.9 L Hct 28.1 L MCV 99.7 MCH 35.2 H MCHC 35.3 RDW 18.5 H Plt Count 39 L Neut % (Auto) Not Reportable Lymph % (Auto) Not Reportable Sherman % (Auto) Not Reportable Eos % (Auto) Not Reportable Baso % (Auto) Not Reportable Lymph # (Auto) Not Reportable Sherman # (Auto) Not Reportable Baso # (Auto) Not Reportable Total Counted 100 Seg Neutrophils % 33.0 L Lymphocytes % (Manual) 62.0 H Monocytes % (Manual) 5.0 Neutrophils # (Manual) 297 L RBC Morphology See below Poikilocytosis 1+ H Anisocytosis 2+ H Sodium 136 L Potassium 3.4 Chloride 101 Carbon Dioxide 23 BUN 30 H Creatinine 0.90 Estimated GFR > 60.0 BUN/Creatinine Ratio 33.3 H Glucose 99 Lactate Calcium 9.2 Total Bilirubin 0.7 AST 24 ALT 35 Alkaline Phosphatase 57 Total Protein 6.1 L Albumin 3.7 Globulin 2.4 Albumin/Globulin Ratio 1.5 Procalcitonin 0.78 H 11/07/18 11/07/18 18:20 21:10 WBC RBC Hgb Hct MCV MCH MCHC RDW Plt Count Neut % (Auto) Lymph % (Auto) Sherman % (Auto) Eos % (Auto) Baso % (Auto) Lymph # (Auto) Sherman # (Auto) Baso # (Auto) Total Counted Seg Neutrophils % Lymphocytes % (Manual) Monocytes % (Manual) Neutrophils # (Manual) RBC Morphology Poikilocytosis Anisocytosis Sodium Potassium Chloride Carbon Dioxide BUN Creatinine Estimated GFR BUN/Creatinine Ratio Glucose Lactate 3.6 H 2.6 H Calcium Total Bilirubin AST ALT Alkaline Phosphatase Total Protein Albumin Globulin Albumin/Globulin Ratio Procalcitonin Assessment & Plan Assessment & Plan narrative: This is an 68-year-old female patient who returns to the hospital following discharge yesterday having had a syncopal episode witnessed by her daughter while on the commode with chief complaint of abdominal pain. 1. Syncopal episode, acute, resolved upon arrival, active. -patient had witnessed syncopal episode while on the commode complaining of abdominal pain. -the patient was found to be unresponsive with what sounds to be in agonal respiration that recovered spontaneously. -12 lead EKG finds sinus rhythm with ventricular rate of 71 without ectopy, block, ST or T-wave changes. -syncope appears pain mediated and most likely represents a vasovagal response with bradycardic syncope. -will continue atenolol but a reduced dose 12.5 mg daily. -will monitor the patient on telemetry. 2. AML undergoing chemotherapy, present on admission. Active. -Patient had been admitted to the hospital for induction chemotherapy and discharged with stable blood counts -the patient is on escalating dose of venclexta and yesterday started her maintenance dose off 4 tablets daily. Continue present dose of venclexta. -CT finds diffuse colonic wall thickening in the transverse and mid sigmoid colon with mild surrounding inflammatory changes. -the ER physician discussed these findings with Oncology who indicates this is not an unexpected finding. 3. Colitis, acute, present on admission, active -findings of colonic inflammation in the transverse to mid sigmoid colon surrounding inflammation on CT. Patient with ongoing abdominal pain. -patient is unable to Iker inflammatory response with neutropenia at 0.9 but presents with a procalcitonin of 0.78 and initial lactic acid of 3.6 improved to 2.6. -patient started on cefepime 2 g q.12 hours and metronidazole 500 mg every 6 hours. -patient with an elevated BUN of 30 and creatinine 0.9 will continue rehydration with lactated Ringer's at 150 cc/hour. -Ordered Zofran every 6 hours as needed for nausea. -pain marginally controlled with morphine will escalate to hydromorphone 0.5-1 mg IV every 4 hours as needed for abdominal pain 4. Pancytopenia, secondary to AML, present on admission. Active. -WBCs 0.9, hemoglobin 9.9 and hematocrit 28.1, and platelets 39. No no reports of or evidence of bleeding. -Continue to monitor CBC daily. If H&H is less than 8 or 24, or platelets less than 20 will plan to transfuse. 5. Hypertension, chronic, present on admission. Stable. -will reduce atenolol 12.5 mg daily at bedtime do to prevent possible potentiate solorzano of syncope. -will trend blood pressures 6. Hyperlipidemia, chronic, present on admission. Stable. -Continue ezetimibe 10 mg daily. 7. Anxiety, chronic, present on admission. Stable. -Continue alprazolam 0.25 mg every 8 hours as needed for anxiety. Patient is admitted to the hospital related to severity of complaints, risk of complications and adverse events. The patient will be admitted as inpatient with expected length of stay greater than 2 midnights.
[2018-11-07 22:45] VITALS: BP 135/69; PULSE 71; RESP 17; TEMP 36.9; O2SAT 98
[2018-11-07 23:17] VITALS: BMI 26.2
[2018-11-07] MEDS: LACTATED RINGERS 1,000 ML 150 ML IV (23:35)
[2018-11-08] MEDS: metroNIDAZOLE 500 MG/100 ML PIGGYBACK 100 MG IV ×3 (03:54→17:53)
[2018-11-08 03:58] VITALS: BP 134/67; PULSE 70; RESP 16; TEMP 36.7; O2SAT 98
[2018-11-08 05:41] LABS: Blood Urea Nitrogen 21 mg/dL (7-17); Calcium 8.3 mg/dL (8.4-10.2); Carbon Dioxide 23 mmol/L (22-32); Chloride 105 mmol/L (98-107); Estimated Glomerular Filt Rate > 60.0 mL/min (>60); Glucose 73 mg/dL (80-110); HEMOLYSIS < 15 (0-50); Potassium 3.2 mmol/L (3.4-5.1); Sodium 136 mmol/L (137-145)
[2018-11-08 05:58] LABS: Procalcitonin 0.67 ng/mL (<0.5)
[2018-11-08 06:13] LABS: Hemoglobin 8.4 g/dL (12.0-16.0); Mean Corpuscular HGB Conc 34.7 % (30-36); Mean Corpuscular Hemoglobin 34.9 PG (26-34); Mean Corpuscular Volume 100.4 fL (80-100); Red Blood Cell Count 2.42 X10^6/uL (4.0-5.2); Red Cell Distribution Width 18.6 % (11.6-14.8)
[2018-11-08 06:14] LABS: Add Manual Diff / Slide Review YES; Hematocrit 24.3 % (36-46)
[2018-11-08 06:23] LABS: Platelet Count 28 X10^3/uL (150-400)
[2018-11-08 07:07] LABS: Neutrophils Absolute Manual 160 /uL (3000-5900); Platelet Estimate N; Total Cells Counted 100
[2018-11-08 07:08] LABS: Anisocytosis 1+
[2018-11-08 08:00] VITALS: BP 134/76; PULSE 80; RESP 16; TEMP 36.5; O2SAT 98
[2018-11-08] MEDS: POTASSIUM CHLORIDE 20 MEQ/15 ML UDC 40 MEQ PO (08:28)
[2018-11-08] MEDS: PANTOPRAZOLE 20 MG TABLET PO (08:28)
[2018-11-08] MEDS: DOCUSATE 100 MG CAPSULE PO (08:29)
[2018-11-08] MEDS: CEFEPIME 2 GM in SODIUM CHLORIDE 0.9% 100 ML 200 ML IV ×2 (08:57→20:40)
[2018-11-08] MEDS: EZETIMIBE 10 MG TABLET PO (08:59)
[2018-11-08] MEDS: LACTATED RINGERS 1,000 ML 150 ML IV (09:01)
--- NOTE | 2018-11-08 11:36 | PC.NURSE ---
Day Shift- Primary RN requested the removal of LEft AC PIV, not using at this time, IVF infusing to [facility] PICC. Groshong with blue line dressing dated for 11/03, pt stated was inserted on Thursday 11/02. Dressing is bloody at insertion site, no leaking noted. Pt's daughter at bedside questioned and hesitant to have PIV removed due to pt having a hard time with IV starts. Pt stated she did not know what is the best to do. Instructed pt and her daughter and son that the PIV can be another source of infection, we are not using at this time. Family wanted to leave in at his time while the plan of care is decided. Explained to pt the RN will re-assess the need. Primary RN Abby aware. Left AC PIV flushed with NS, S/L'd, mesh netting placed over.
[2018-11-08 12:00] VITALS: BP 125/68; PULSE 85; RESP 16; TEMP 36.7; O2SAT 98
--- NOTE | 2018-11-08 13:41 | P.PN_ITS ---
Subjective Subjective Date Patient Seen: 11/08/18 Time Patient Seen: 10:15 Interval history: Kristen Cho is a 68-year-old female with a history significant for breast cancer, AML, breast cancer, hypertension, CVA, TIA, hyperlipidemia and neuropathy who presented with a syncopal episode yesterday but also complained of abdominal pain and an episode of diarrhea. She was noted to have some distal colonic wall thickening and her neutrophil count was low. She was started empirically on antibiotics of cefepime and flagyl. Her labs are similar to discharge labs from a few days ago. Exam Vital Signs (past 8 hours): - 11/08/18 08:00 11/08/18 12:00 Temperature 97.7 F 98.1 F Pulse Rate 80 85 Respiratory Rate 16 16 Blood Pressure 134/76 125/68 Pulse Oximetry 98 98 Oxygen Delivery Method Room Air Oxygen Flow Rate 0 Narrative Exam Narrative: GENERAL APPEARANCE: Well developed, well nourished, in no acute distress. SKIN: Inspection of the skin reveals no rashes, ulcerations or petechiae. HEENT: The sclerae were anicteric and conjunctivae were pink and moist. Extraocular movements were intact and pupils were equal, round with normal accommodation. External inspection of the ears and nose showed no scars, lesions, or masses. Lips, teeth, and gums showed normal mucosa. The oral mucosa, hard and soft palate, tongue and posterior pharynx were unremarkable. NECK: Supple and symmetric. There was no thyroid enlargement, and no tenderness, or masses were felt. CHEST: Normal AP diameter and normal contour without any kyphoscoliosis. LUNGS: Auscultation of the lungs revealed no wheezes, rhonchi, or rales. CARDIOVASCULAR: There was a regular rate and rhythm without any murmurs, gallops, rubs. Peripheral pulses were 2+ and symmetric. ABDOMEN: Soft and nontender with normal bowel sounds. No ascites was noted. MUSCULOSKELETAL: There was no tenderness or effusions noted. Muscle strength and tone were normal. EXTREMITIES: No cyanosis, clubbing or edema. NEUROLOGIC: Alert and oriented x 3. Normal affect. Gait was normal. Strength is +5/5 in the Upper Extremities and Lower Extremities Bilaterally. Sensation to touch was normal. Objective Labs Result Diagrams: 11/08/18 05:14 11/08/18 05:14 Labs: Laboratory Results - last 24 hr 11/07/18 11/07/18 11/07/18 18:20 18:20 18:20 WBC 0.9 L* RBC 2.82 L Hgb 9.9 L Hct 28.1 L MCV 99.7 MCH 35.2 H MCHC 35.3 RDW 18.5 H Plt Count 39 L Neut % (Auto) Not Reportable Lymph % (Auto) Not Reportable Otero % (Auto) Not Reportable Eos % (Auto) Not Reportable Baso % (Auto) Not Reportable Lymph # (Auto) Not Reportable Otero # (Auto) Not Reportable Baso # (Auto) Not Reportable Total Counted 100 Seg Neutrophils % 33.0 L Lymphocytes % (Manual) 62.0 H Monocytes % (Manual) 5.0 Eosinophils % (Manual) Neutrophils # (Manual) 297 L Platelet Estimate RBC Morphology See below Poikilocytosis 1+ H Anisocytosis 2+ H Sodium 136 L Potassium 3.4 Chloride 101 Carbon Dioxide 23 BUN 30 H Creatinine 0.90 Estimated GFR > 60.0 BUN/Creatinine Ratio 33.3 H Glucose 99 Lactate Calcium 9.2 Total Bilirubin 0.7 AST 24 ALT 35 Alkaline Phosphatase 57 Total Protein 6.1 L Albumin 3.7 Globulin 2.4 Albumin/Globulin Ratio 1.5 Procalcitonin 0.78 H 11/07/18 11/07/18 11/08/18 18:20 21:10 05:14 WBC 1.0 L* RBC 2.42 L Hgb 8.4 L Hct 24.3 L MCV 100.4 H MCH 34.9 H MCHC 34.7 RDW 18.6 H Plt Count 28 L* Neut % (Auto) Not Reportable Lymph % (Auto) Not Reportable Otero % (Auto) Not Reportable Eos % (Auto) Not Reportable Baso % (Auto) Not Reportable Lymph # (Auto) Not Reportable Otero # (Auto) Not Reportable Baso # (Auto) Not Reportable Total Counted 100 Seg Neutrophils % 16.0 L D Lymphocytes % (Manual) 82.0 H Monocytes % (Manual) Eosinophils % (Manual) 2.0 Neutrophils # (Manual) 160 L Platelet Estimate N RBC Morphology See below Poikilocytosis Anisocytosis 1+ H Sodium Potassium Chloride Carbon Dioxide BUN Creatinine Estimated GFR BUN/Creatinine Ratio Glucose Lactate 3.6 H 2.6 H Calcium Total Bilirubin AST ALT Alkaline Phosphatase Total Protein Albumin Globulin Albumin/Globulin Ratio Procalcitonin 11/08/18 11/08/18 05:14 05:14 WBC RBC Hgb Hct MCV MCH MCHC RDW Plt Count Neut % (Auto) Lymph % (Auto) Otero % (Auto) Eos % (Auto) Baso % (Auto) Lymph # (Auto) Otero # (Auto) Baso # (Auto) Total Counted Seg Neutrophils % Lymphocytes % (Manual) Monocytes % (Manual) Eosinophils % (Manual) Neutrophils # (Manual) Platelet Estimate RBC Morphology Poikilocytosis Anisocytosis Sodium 136 L Potassium 3.2 L Chloride 105 Carbon Dioxide 23 BUN 21 H Creatinine 0.70 Estimated GFR > 60.0 BUN/Creatinine Ratio 30.0 H Glucose 73 L Lactate Calcium 8.3 L Total Bilirubin AST ALT Alkaline Phosphatase Total Protein Albumin Globulin Albumin/Globulin Ratio Procalcitonin 0.67 H Assessment & Plan Assessment & Plan narrative: This is an 68-year-old female patient who returns to the hospital following discharge yesterday having had a syncopal episode witnessed by her daughter while on the commode with chief complaint of abdominal pain admitted for colonic thickening in setting of recent chemotherapy concerning for infectious etiology. 1. Syncopal episode, acute, resolved upon arrival, active. - from history syncopal episode consistent with reflex syncope. -patient had witnessed syncopal episode while on the commode complaining of abdominal pain and diarrheal episode. -the patient was found to be unresponsive with what sounds to be in agonal respiration that recovered spontaneously. -12 lead EKG finds sinus rhythm with ventricular rate of 71 without ectopy, block, ST or T-wave changes. -will continue atenolol but a reduced dose 12.5 mg daily. -will monitor the patient on telemetry. 2. AML undergoing chemotherapy, present on admission. Active. -Patient had been admitted to the hospital for induction chemotherapy with venetoclax and vidaza and discharged with stable blood counts - Continue present dose of venclexta. Discussed with the cash applications representative oncologist. -CT finds diffuse colonic wall thickening in the transverse and mid sigmoid colon with mild surrounding inflammatory changes. 3. Colitis, acute, present on admission, active - will continue with plan for 7 day course of antibiotics at this time. Plan for discharge once tolerating PO without significant abdominal pain. -findings of colonic inflammation in the transverse to mid sigmoid colon surrounding inflammation on CT. Patient with ongoing abdominal pain that is somewhat improved. -patient started on cefepime 2 g q.12 hours and metronidazole 500 mg every 6 hours, will continue cefepime and flaygl but on q8 hr dosing. -patient with an elevated BUN of 30 and creatinine 0.9 will continue rehydration with lactated Ringer's at 150 cc/hour. -Zofran every 6 hours as needed for nausea. -pain marginally controlled with morphine will escalate to hydromorphone 0.5-1 mg IV every 4 hours as needed for abdominal pain 4. Pancytopenia, secondary to AML, present on admission. Active. -WBCs 0.9, hemoglobin 9.9 and hematocrit 28.1, and platelets 39. No no reports of or evidence of bleeding. -Continue to monitor CBC daily. If H&H is less than 8 or 24, or platelets less than 20 will plan to transfuse. 5. Hypertension, chronic, present on admission. Stable. -will reduce atenolol 12.5 mg daily at bedtime do to prevent possible potentiate solorzano of syncope. -will trend blood pressures 6. Hyperlipidemia, chronic, present on admission. Stable. -Continue ezetimibe 10 mg daily. 7. Anxiety, chronic, present on admission. Stable. -Continue alprazolam 0.25 mg every 8 hours as needed for anxiety. Patient is admitted to the hospital related to severity of complaints, risk of complications and adverse events. The patient will be admitted as inpatient with expected length of stay greater than 2 midnights.
[2018-11-08] MEDS: diphenhydrAMINE 25 MG TABLET PO (13:52)
[2018-11-08] MEDS: VENETOCLAX 4 EACH PO (13:53)
--- NOTE | 2018-11-08 15:38 | CM.DANOTE ---
Patient is a 68 year old female who is a READMIT on 11/07/18 for Fever. Pt has MCR for insurance and her PCP is Dr. Abhinav Forte. EMR was reviewed. Per MD, pt was admitted for IV-Abx as a complication from her new chemo tx. Pt was scheduled to admit tomorrow 11/09/18 for her next cycle of chemo tx inpt for observation for complications but pt needed to be admitted sooner for medical complications. SW met bedside with pt and adult Dtr Valencia ([phone]) and explained role and pt remembered this SW from her previous admit and confirms following information from previous admit a couple days ago. 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 Pt's Dtr Valencia lives nearby and available for assist quite readily although also has a job of her own. Pt also has 3 other adult children who live down by [address] and are supportive but busy. Pt states that she does not have official DPOA or Living Will but has begun discussing these things with her children and are beginning to identify who would be DPOA and financial POA. Pt denies any hx of HH or SNF but confirms that Onc ERICK Idania helped to set up HH RN with [facility] although they had not started service yet. Pt has been very active with getting her Medicare A and B now that she is not working and getting the PRE DIM from her job and has been pursuing a supplemental insurance. [place] [facility] [place] [facility] to determine if they need Resume orders or if they had not started care yet and do not require anything further from the hospital. Plan: SW to follow closely for return call from [facility] and to contact Oncology ERICK Idania to update her that pt was admitted over the weekend prior to her schedule plan of admit tomorrow Friday. RADHA Lim Discharge Planning/Care Management CM Discharge Assessment Start: 11/08/18 15:35 Freq: Status: Active Protocol: Document 11/08/18 15:36 BF (Rec: 11/08/18 15:38 BF [id number]) Discharge Planning Assessment Assigned Silo Erector RADHA Quinn DPOA/Assigned Designee Name pt working on pwk with family Advance Directives? Yes History Provided By Patient,Family Member,Medical Record Has Patient been admitted in last 30 Yes days? Comment Readmit with recent d/c home Prior Living Arrangements House Household Members none Type of transporation used prior to Drives own vehicle admit Independent with ADL's Yes Is patient alert and oriented? Yes Caregiver for Another No Community Services used prior to IV Therapy admission: Patient/Family Preference Home with Home Health Barriers to Discharge No Discharge Plan Home with Home Health Transportation Arrangement Dtr bedside and likely can provide transport back to the [facility]. Review Status In Process Please Provide Date Initial DC 11/08/18 Assessment Was Performed Next Review Type Continued Stay Review
[2018-11-08 16:35] VITALS: BP 131/68; PULSE 95; RESP 16; TEMP 36.3; O2SAT 95
[2018-11-08] MEDS: ATENOLOL 25 MG TABLET 12.5 MG PO (17:52)
--- NOTE | 2018-11-08 18:56 | PC.NURSE ---
Assumed care of pt at 1500. Pt sitting up in bed during bedside hand-off. Denies pain or discomfort. IV removed to L. FA for risk of infection as pt already has function PICC line. PICC with bruising and old blood under tegaderm drsg. Pt states she plan to have chemo infusion tomorrow and PICC drsg will be changed. Refused drsg change at this time. Steady on feet to bathroom. SBA by family or staff. Chemo and reverse isolation remains in effect.
[2018-11-08 20:20] VITALS: BP 136/66; PULSE 81; RESP 18; TEMP 36.4; O2SAT 98
[2018-11-08] MEDS: ALPRAZolam 0.25 MG TABLET PO (20:43)
[2018-11-09 00:30] VITALS: BP 142/71; PULSE 92; RESP 16; TEMP 36.9; O2SAT 97
[2018-11-09] MEDS: LACTATED RINGERS 1,000 ML 150 ML IV (00:54)
[2018-11-09] MEDS: metroNIDAZOLE 500 MG/100 ML PIGGYBACK 100 MG IV ×2 (01:58→10:30)
[2018-11-09 05:48] VITALS: BP 125/56; PULSE 89; RESP 18; TEMP 36.7; O2SAT 100
[2018-11-09] MEDS: PANTOPRAZOLE 20 MG TABLET PO (06:40)
[2018-11-09 07:00] VITALS: BP 139/76; PULSE 77; RESP 14; TEMP 36.8; O2SAT 97
[2018-11-09] MEDS: CEFEPIME 2 GM in SODIUM CHLORIDE 0.9% 100 ML 200 ML IV (08:56)
[2018-11-09] MEDS: EZETIMIBE 10 MG TABLET PO (08:57)
[2018-11-09] MEDS: VENETOCLAX 4 EACH PO (08:57)
[2018-11-09] MEDS: diphenhydrAMINE 25 MG TABLET PO (08:57)
[2018-11-09 11:00] VITALS: BP 134/77; PULSE 96; RESP 15; TEMP 36.2; O2SAT 97
[2018-11-09 12:05] VITALS: BMI 26.2
--- NOTE | 2018-11-09 12:49 | P.PN_ITS ---
Subjective Subjective Date Patient Seen: 11/09/18 Time Patient Seen: 09:00 Interval history: Kristen Cho is a 68-year-old female with a history significant for breast cancer, AML, breast cancer, hypertension, CVA, TIA, hyperlipidemia and neuropathy who presented with a syncopal episode now two days ago but also complained of abdominal pain and an episode of diarrhea. She was noted to have some distal colonic wall thickening and her neutrophil count was low. She was started empirically on antibiotics of cefepime and flagyl. Her labs are similar to discharge labs from a few days ago, her neutrophil count and platelet count have decreased slightly. She has clinically improved and no longer has abdominal pain. She is tolerating her diet without nausea or vo miting. Exam Vital Signs (past 8 hours): - 11/09/18 05:48 11/09/18 07:00 Temperature 98.1 F 98.2 F Pulse Rate 89 77 Respiratory Rate 18 14 Blood Pressure 125/56 L 139/76 Pulse Oximetry 100 97 Oxygen Delivery Method Room Air Oxygen Flow Rate 0 Narrative Exam Narrative: GENERAL APPEARANCE: Well developed, well nourished, in no acute distress. SKIN: Inspection of the skin reveals no rashes, ulcerations or petechiae. HEENT: The sclerae were anicteric and conjunctivae were pink and moist. Extraocular movements were intact and pupils were equal, round with normal accommodation. External inspection of the ears and nose showed no scars, lesions, or masses. Lips, teeth, and gums showed normal mucosa. The oral mucosa, hard and soft palate, tongue and posterior pharynx were unremarkable. NECK: Supple and symmetric. There was no thyroid enlargement, and no tenderness, or masses were felt. CHEST: Normal AP diameter and normal contour without any kyphoscoliosis. LUNGS: Auscultation of the lungs revealed no wheezes, rhonchi, or rales. CARDIOVASCULAR: There was a regular rate and rhythm without any murmurs, gallops, rubs. Peripheral pulses were 2+ and symmetric. ABDOMEN: Soft and nontender with normal bowel sounds. No ascites was noted. MUSCULOSKELETAL: There was no tenderness or effusions noted. Muscle strength and tone were normal. EXTREMITIES: No cyanosis, clubbing or edema. NEUROLOGIC: Alert and oriented x 3. Normal affect. Gait was normal. Strength is +5/5 in the Upper Extremities and Lower Extremities Bilaterally. Sensation to touch was normal. Objective Labs Result Diagrams: 11/08/18 05:14 11/08/18 05:14 Assessment & Plan Assessment & Plan narrative: This is an 68-year-old female patient who returns to the hospital following discharge yesterday having had a syncopal episode witnessed by her daughter while on the commode with chief complaint of abdominal pain admitted for colonic thickening in setting of recent chemotherapy concerning for infectious etiology. 1. Syncopal episode, acute, resolved upon arrival, active. - from history syncopal episode consistent with reflex syncope. -patient had witnessed syncopal episode while on the commode complaining of abdominal pain and diarrheal episode. -the patient was found to be unresponsive with what sounds to be in agonal respiration that recovered spontaneously. -12 lead EKG finds sinus rhythm with ventricular rate of 71 without ectopy, block, ST or T-wave changes. -can resume atenolol at 25 mg. -will monitor the patient on telemetry. 2. AML undergoing chemotherapy, present on admission. Active. -Patient had been admitted to the hospital for induction chemotherapy with venetoclax and vidaza and discharged with stable blood counts - Continue present dose of venclexta. Discussed with her oncologist Dr. Walton today. -CT finds diffuse colonic wall thickening in the transverse and mid sigmoid colon with mild surrounding inflammatory changes. 3. Colitis, acute, present on admission, active - will continue with plan for 7 day course of antibiotics at this time. Plan for discharge once tolerating PO without significant abdominal pain. -findings of colonic inflammation in the transverse to mid sigmoid colon surrounding inflammation on CT. Patient with ongoing abdominal pain that is somewhat improved. -patient started on cefepime 2 g q.12 hours and metronidazole 500 mg every 6 hours, will continue cefepime and flaygl but on q8 hr dosing. -patient with an elevated BUN of 30 and creatinine 0.9 will continue rehydration with lactated Ringer's at 150 cc/hour. -Zofran every 6 hours as needed for nausea. -pain marginally controlled with morphine will escalate to hydromorphone 0.5-1 mg IV every 4 hours as needed for abdominal pain 4. Pancytopenia, secondary to AML and chemotherapy, present on admission. Acti ve. -counts are stable, but neutrophils are lower by count, as are her platelets. If continuing to fall will discuss with Dr. Walton re: starting filgrastim. -Continue to monitor CBC daily. If H&H is less than 8 or 24, or platelets less than 20 will plan to transfuse. 5. Hypertension, chronic, present on admission. Stable. -continue atenolol 25 mg today. -will trend blood pressures 6. Hyperlipidemia, chronic, present on admission. Stable. -Continue ezetimibe 10 mg daily. 7. Anxiety, chronic, present on admission. Stable. -Continue alprazolam 0.25 mg every 8 hours as needed for anxiety. Dispo: Pending further clinical stability in this patient with severe neutropenia and active malignancy on chemotherapy. Possibly stable for discharge tomorrow. DVT: SCD given thrombocytopenia Code: Full
--- NOTE | 2018-11-09 12:52 | CM.DPC ---
DCP/Assessment: Reviewed chart. Received notification in AM rounds that patient would be starting on po abx today. MD hopeful patient will be able to discharge home within the next 24-48hrs. MEND WORKER notified ONC/MEND WORKER of patient's hospitalization. Patient's son requesting information for patient's disability be printed for him. MEND WORKER printed off requested information and provided to son. Per MEND WORKER hand off, patient currently on service with [facility]. Will need to confirm and obtain resume order if needed prior to d/c. P: CM team to continue to follow closely. RADHA Vieyra
[2018-11-09 15:00] VITALS: BP 134/74; PULSE 92; RESP 15; TEMP 37.2; O2SAT 100
--- NOTE | 2018-11-09 15:26 | PC.NURSE ---
Pt reports having 3-5 loose, brown BMs today but states it is much less than yesterday and they are starting to become formed. She denies pain. She denies n/v. She is voiding in the toilet. She is hopeful for d/c soon. She is using the call light appropriately and performing most of her ADLs independently or with family assist. VSS.
[2018-11-09] MEDS: ATENOLOL 25 MG TABLET PO (17:40)
[2018-11-09] MEDS: CIPROFLOXACIN 500 MG TABLET PO (20:16)
[2018-11-09] MEDS: ALPRAZolam 0.25 MG TABLET PO (20:16)
[2018-11-09] MEDS: metroNIDAZOLE 500 MG TABLET PO (20:16)
[2018-11-09 20:28] VITALS: BP 116/59; PULSE 81; RESP 18; TEMP 36.6; O2SAT 97
[2018-11-10] VITALS (10 sets, daily range): BP systolic 110–137; BP diastolic 54–70; PULSE 78–97; RESP 15–20; TEMP 36.2–36.9; O2SAT 93–98
[2018-11-10] MEDS: PANTOPRAZOLE 20 MG TABLET PO (06:08)
[2018-11-10] MEDS: CIPROFLOXACIN 500 MG TABLET PO ×2 (06:08→21:05)
[2018-11-10] MEDS: SODIUM CHLORIDE 0.9% FLUSH 10 ML IV ×2 (09:50→21:07)
[2018-11-10] MEDS: VENETOCLAX 4 EACH PO (09:54)
[2018-11-10] MEDS: EZETIMIBE 10 MG TABLET PO (09:54)
[2018-11-10] MEDS: metroNIDAZOLE 500 MG TABLET PO ×3 (09:54→21:07)
[2018-11-10] MEDS: diphenhydrAMINE 25 MG TABLET PO (09:54)
[2018-11-10 11:21] LABS: Hemoglobin 8.5 g/dL (12.0-16.0); Mean Corpuscular HGB Conc 35.3 % (30-36); Mean Corpuscular Hemoglobin 35.3 PG (26-34); Mean Corpuscular Volume 99.9 fL (80-100); Red Cell Distribution Width 18.2 % (11.6-14.8)
[2018-11-10 11:24] LABS: White Blood Cell Count 0.7 X10^3/uL (4.5-11.0)
[2018-11-10 11:25] LABS: Add Manual Diff / Slide Review YES; Platelet Count 15 X10^3/uL (150-400)
[2018-11-10 11:51] LABS: Neutrophils Absolute Manual 126 /uL (3000-5900); Total Cells Counted 50
[2018-11-10 11:52] LABS: Anisocytosis 2+
[2018-11-10 11:53] LABS: Platelet Estimate Decreased on smear; Poikilocytosis 1+
--- NOTE | 2018-11-10 13:02 | P.PN_ITS ---
Subjective Subjective Date Patient Seen: 11/10/18 Time Patient Seen: 10:05 Interval history: Kristen Cho is a 68-year-old female with a history significant for breast cancer, AML, breast cancer, hypertension, CVA, TIA, hyperlipidemia and neuropathy who presented with a syncopal episode now two days ago but also complained of abdominal pain and an episode of diarrhea. She was noted to have some distal colonic wall thickening and her neutrophil count was low. She was started empirically on antibiotics of cefepime and flagyl. Yesterday she was transition to oral antibiotics in anticipation of discharge home, however today her platelet count was low requiring a transfusion. She is profoundly neutropenic, however after discussion with Dr. Walton today, this is expected and she will be neutropenic for some time he did not recommend filgrastim at this time. today she had an episode of loose stool, but denies any abdominal pain, nausea, vomiting, fever, chills. Exam Vital Signs (past 8 hours): - 11/10/18 09:00 Temperature 98.5 F Pulse Rate 88 Respiratory Rate 15 Blood Pressure 119/70 Pulse Oximetry 98 Oxygen Delivery Method Room Air Oxygen Flow Rate 0 Narrative Exam Narrative: GENERAL APPEARANCE: Well developed, well nourished, in no acute distress. SKIN: Inspection of the skin reveals no rashes, ulcerations or petechiae. HEENT: The sclerae were anicteric and conjunctivae were pink and moist. Extraocular movements were intact and pupils were equal, round with normal accommodation. External inspection of the ears and nose showed no scars, lesions, or masses. Lips, teeth, and gums showed normal mucosa. The oral mucosa, hard and soft palate, tongue and posterior pharynx were unremarkable. NECK: Supple and symmetric. There was no thyroid enlargement, and no tenderness, or masses were felt. CHEST: Normal AP diameter and normal contour without any kyphoscoliosis. LUNGS: Auscultation of the lungs revealed no wheezes, rhonchi, or rales. CARDIOVASCULAR: There was a regular rate and rhythm without any murmurs, gallops, rubs. Peripheral pulses were 2+ and symmetric. ABDOMEN: Soft and nontender with normal bowel sounds. No ascites was noted. MUSCULOSKELETAL: There was no tenderness or effusions noted. Muscle strength and tone were normal. EXTREMITIES: No cyanosis, clubbing or edema. NEUROLOGIC: Alert and oriented x 3. Normal affect. Gait was normal. Strength is +5/5 in the Upper Extremities and Lower Extremities Bilaterally. Sensation to touch was normal. Objective Labs Result Diagrams: 11/10/18 11:10 11/08/18 05:14 Labs: Laboratory Results - last 24 hr 11/10/18 11:10 WBC 0.7 L* RBC 2.40 L Hgb 8.5 L Hct 24.0 L MCV 99.9 MCH 35.3 H MCHC 35.3 RDW 18.2 H Plt Count 15 L* Neut % (Auto) Not Reportable Lymph % (Auto) Not Reportable Buchanan % (Auto) Not Reportable Eos % (Auto) Not Reportable Baso % (Auto) Not Reportable Lymph # (Auto) Not Reportable Buchanan # (Auto) Not Reportable Baso # (Auto) Not Reportable Total Counted 50 Seg Neutrophils % 18.0 L Lymphocytes % (Manual) 72.0 H Atypical Lymphs % 8.0 H Monocytes % (Manual) 2.0 Neutrophils # (Manual) 126 L Platelet Estimate Decreased on smear RBC Morphology See below Poikilocytosis 1+ H Anisocytosis 2+ H Assessment & Plan Assessment & Plan narrative: This is an 68-year-old female patient who returns to the hospital following discharge yesterday having had a syncopal episode witnessed by her daughter while on the commode with chief complaint of abdominal pain admitted for colonic thickening in setting of recent chemotherapy concerning for infectious etiology. 1. Syncopal episode, acute, resolved upon arrival, active. - from history sync opal episode consistent with reflex syncope. -patient had witnessed syncopal episode while on the commode complaining of abdominal pain and diarrheal episode. -the patient was found to be unresponsive with what sounds to be in agonal respiration that recovered spontaneously. -12 lead EKG finds sinus rhythm with ventricular rate of 71 without ectopy, block, ST or T-wave changes. -can resume atenolol at 25 mg. -no need for further telemetry 2. AML undergoing chemotherapy, present on admission. Active. -Patient had been admitted to the hospital for induction chemotherapy with venetoclax and vidaza and discharged with stable blood counts - Continue present dose of venclexta. Discussed with her oncologist Dr. Walton today. -CT finds diffuse colonic wall thickening in the transverse and mid sigmoid colon with mild surrounding inflammatory changes. 3. Colitis, acute, present on admission, active - will continue with plan for 7 day course of antibiotics at this time. Plan for discharge once tolerating PO without significant abdominal pain. -findings of colonic inflammation in the transverse to mid sigmoid colon surrounding inflammation on CT. Patient with ongoing abdominal pain that is resolved now. -patient started on cefepime and Flagyl, she was transitioned to oral Cipro and Flagyl yesterday in anticipation of possible discharge however this was held today due to thrombocytopenia. She should complete a total course of 5-7 days. -Zofran every 6 hours as needed for nausea. 4. Pancytopenia, secondary to AML and chemotherapy, present on admission. Active. - patient's platelets dropped today, will transfuse. -counts are stable, but neutrophils are lower by count, as are her platelets. Dr. Walton does not recommend starting filgrastim at this time for neutropenia. He is in agreement with platelet transfusion today. -Continue to monitor CBC daily. If H&H is less than 8 or 24, or platelets less than 20 will plan to transfuse. -patient should continue ciprofloxacin for neutropenic fever prophylaxis following 5-7 day course for colitis noted above as patient is expected to have prolonged neutropenia. 5. Hypertension, chronic, present on admission. Stable. -continue atenolol 25 mg today. -will trend blood pressures 6. Hyperlipidemia, chronic, present on admission. Stable. -Continue ezetimibe 10 mg daily. 7. Anxiety, chronic, present on admission. Stable. -Continue alprazolam 0.25 mg every 8 hours as needed for anxiety. Dispo: Pending further clinical stability in this patient with severe neutropenia and active malignancy on chemotherapy. DVT: SCD given thrombocytopenia Code: Full
[2018-11-10] MEDS: ONDANSETRON 16 MG in SODIUM CHLORIDE 0.9% 50 ML 232 ML IV (14:30)
[2018-11-10] MEDS: AZACITIDINE IV (15:02)
[2018-11-10] MEDS: SODIUM CHLORIDE 0.9% IV (15:02)
--- NOTE | 2018-11-10 15:28 | PC.NURSE ---
Day Shift- Pt A&OX4, able to make needs known using call light. OOB with SBA with steady gait. Pt tolerating diet, no nausea, denies pain. States having 1 loose brown granulated BM today. Voiding qs. In CHemo/neutropenic precautions. Pt's daughter was able to return demonstrate proper flushing technique using pt's PICC line with NS flush with this RN supervision. As Daughter Valencia will be flushing PICC line at home for pt, she wanted to demonstrate. Pt's PICC line flushes well with brisk blood return, pt did need to lift arm 2X to get blood for blood draw. Spoke with Meghna in lab at 1123 for critical WBC of 0.[address] Sharif notified at 1155 of critical lab values. Type and cross sent to lab. Per Dr. Sharif, pt is to receive 1 unit of Platelets today for platelet level of 15. Evening RN aware. Pt given pre-medications of Dexamethasone and Zofran prior to her IV chemo, coordinated timing of meds with Caro Aguayo RN at cancer center. Plan for IV Chemo of Vidaza today and tomorrow, unsure of 3rd dose/day at this time.
[2018-11-10] MEDS: ATENOLOL 25 MG TABLET PO (16:05)
--- NOTE | 2018-11-10 16:20 | PC.NURSE ---
administered Vidaza IV. +blood return. pt tolerated well and verbalizes she is glad to be getting treatment.
--- NOTE | 2018-11-10 22:50 | PC.NURSE ---
picc dressing changed by Cleve Almonte. pt denied pain. independent in room. still having some loose stool, but improving. call light in reach.
[2018-11-10] MEDS: ALPRAZolam 0.25 MG TABLET PO (23:24)
[2018-11-11 04:45] VITALS: BP 122/71; PULSE 96; RESP 18; TEMP 36.2; O2SAT 96
[2018-11-11] MEDS: PANTOPRAZOLE 20 MG TABLET PO (06:04)
[2018-11-11] MEDS: CIPROFLOXACIN 500 MG TABLET PO (06:04)
[2018-11-11 06:29] LABS: Blood Urea Nitrogen 18 mg/dL (7-17); Calcium 9.2 mg/dL (8.4-10.2); Carbon Dioxide 22 mmol/L (22-32); Chloride 103 mmol/L (98-107); Estimated Glomerular Filt Rate > 60.0 mL/min (>60); Glucose 144 mg/dL (80-110); HEMOLYSIS < 15 (0-50); Magnesium 1.8 mg/dL (1.6-2.3); Potassium 3.8 mmol/L (3.4-5.1); Sodium 137 mmol/L (137-145)
[2018-11-11 06:32] LABS: Hematocrit 23.6 % (36-46); Hemoglobin 8.3 g/dL (12.0-16.0); Mean Corpuscular Hemoglobin 34.9 PG (26-34); Mean Corpuscular Volume 99.7 fL (80-100); Platelet Count 70 X10^3/uL (150-400); Red Blood Cell Count 2.36 X10^6/uL (4.0-5.2); Red Cell Distribution Width 18.2 % (11.6-14.8)
[2018-11-11 06:36] LABS: Add Manual Diff / Slide Review SLIDE REVIEW
[2018-11-11 06:38] LABS: White Blood Cell Count 0.5 X10^3/uL (4.5-11.0)
[2018-11-11 07:11] LABS: Anisocytosis 1+
[2018-11-11 08:00] VITALS: BP 132/74; PULSE 94; RESP 18; TEMP 36.9; O2SAT 99
[2018-11-11] MEDS: diphenhydrAMINE 25 MG TABLET PO (08:45)
[2018-11-11] MEDS: metroNIDAZOLE 500 MG TABLET PO ×2 (08:45→14:38)
[2018-11-11] MEDS: EZETIMIBE 10 MG TABLET PO (08:45)
[2018-11-11] MEDS: VENETOCLAX 4 EACH PO (09:59)
[2018-11-11] MEDS: ONDANSETRON 16 MG in SODIUM CHLORIDE 0.9% 50 ML 232 ML IV (10:01)
[2018-11-11] MEDS: SODIUM CHLORIDE 0.9% FLUSH 10 ML IV (10:01)
--- NOTE | 2018-11-11 10:28 | CM.DPC ---
DCP Discharge Home Per MD, consulted with Oncologist Dr. Walton and confirmed that pt stable to d/c home later today after chemo dose and will d/c with Flagyl and Cipro oral for a few days and return to Oncology outpt tomorrow for last chemo dose in this cycle with return to [facility] next month for her inpt chemo cycle and observation. SW notified Onc ERICK Emerson who will follow for coordination with [facility] for home support. Plan: Patient to d/c home via Dtr POV later today to [facility] with outpt follow up at [facility]. RADHA Lim
--- NOTE | 2018-11-11 10:46 | P.DS_ITS ---
History of Present Illness History of Present Illness Date Patient Seen: 11/07/18 Chief complaint: Fever Narrative: Written by Beau PATTON: Ms. Kristen Cho is a 68-year-old female with a history significant for breast cancer, AML, breast cancer, hypertension, CVA, TIA, hyperlipidemia and neuropathy who presents today following discharge from the hospital yesterday with a syncopal episode. Patient admitted to the hospital for induction of chemotherapy for treatment AML. The patient had been pancytopenic however her blood counts stabilized following transfusion during her previous previous hospitalization and demonstrated blood count stability upon discharge. Today the patient states she woke up today she was feeling ?pretty good?. She subsequently developed abdominal discomfort that she felt was gas and that she would feel better passing gas or moving her bowels. Patient was on the commode and she states that her discomfort escalated in intensity becoming painful over span of approximately 20 minutes. She called for her daughter with whom she is staying to help her at which time her daughter reports noting her mother slumping over and being briefly unresponsive with no breathing and when she did was more of a gurgling gasp. The patient recovered spontaneously. She passed a diarrhea stool. She describes no prodromal symptoms with no fevers or chills, headaches or dizziness. She reports no nasal congestion or sore throat. She has had no chest pain or palpitations and denies shortness of breath cough or wheezing. She complains of lower abdominal pain with no nausea vomiting. She reports no difficulty ambulating but does acknowledge neuropathy bilateral toes. The patient was transported from the [facility] via helicopter arriving in the ER and found to be afebrile with temperature 97.9?, heart rate 55, blood pressure 136/56, respirations of 18 with an oxygen saturation 99% room air. Twelve lead EKG finds normal sinus rhythm with a ventricular rate of [address] or T-wave changes. X-ray of the chest and abdomen is taking which shows nonobstructive gas pattern. Abdominal CT finds diffuse fatty liver infiltrates, diffuse colonic wall thickening in the transverse to mid sigmoid colon with mild surrounding inflammatory changes, thickening of the bladder wall. On laboratory analysis the patient has a white count of 0.9, hemoglobin of 9.9 and hematocrit of 28.1 and platelets of 39. On chemistry she has a borderline potassium of 3.4 and has a BUN of 30 and creatinine of 0.9. Her nonfasting glucose is 99. She h ad a procalcitonin of 0.78 and lactic acid initially of 3.6 reduced to 2.6 with IV fluid. The ER physician spoke with Dr. Walton, on-call oncologist for Dr. Lynne who recommended admitting the patient for antibiotic therapy as well as rehydration. He recommends transfusion for an H&H less than 8 and 24 or platelets less than 20. Discharge Providers Provider Date of admission: 11/07/18 22:06 Discharge Date: 11/11/18 Primary care physician: Abhinav Forte MD Consults: 11/07/18 22:35 Consult to Dietitian, Adult Routine Comment: Reason For Exam: On chemo, pancytopenic Consult to Discharge Planning Routine Comment: Discharge provider: Eli Hunter DO Summary Hospital Course Discharge Diagnosis: 1. Syncopal episode, acute, not present on admission. Resolved prior to arrival. 2. AML undergoing chemotherapy, present on admission. Active. 3. Acute colitis, present on admission. Resolving. 4. Pancytopenia, secondary to AML and chemotherapy, present on admission. Active. 5. Hypertension, chronic, present on admission. Stable. 6. Hyperlipidemia, chronic, present on admission. Stable. 7. Anxiety, chronic, present on admission. Stable. 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 1. Syncopal episode, acute, not present on admission. Resolved prior to arrival. -Patient with witnessed syncopal episode while on the commode complaining of abdominal pain and diarrhea consistent with reflex syncope. Patient transiently unresponsive with what sounds to be in agonal respiration that recovered spontaneously. -EKG demonstrated sinus rhythm with ventricular rate of 71 without ectopy, block, ST or T-wave changes. -Continued atenolol at 25 mg. -No need for further telemetry. 2. AML undergoing chemotherapy, present on admission. Active. -Patient recently admitted to the hospital for induction chemotherapy with venetoclax and vidaza. Discharged with stable blood counts and no TLS. -Continued venclexta per oncologist Dr. Walton. 3. Acute colitis, present on admission. Resolving. -Presented with syncopal episode and abdominal pain and diarrhea found to have colitis. -CT finds diffuse colonic wall thickening in the transverse and mid sigmoid colon with mild surrounding inflammatory changes possibly business office representative of typhlitis. -Started on cefepime and Flagyl. Continued ciprofloxacin 500 mg twice daily and metronidazole 500 three times daily and discharged with 10 additional days to complete a total of 14 days at recommendation of ID from [facility]. No longer having significant abdominal pain. -Ordered Zofran every 6 hours as needed for nausea. 4. Pancytopenia, secondary to AML and chemotherapy, present on admission. Active. -Platelets dropped and received 6 pack of platelets per oncology. -Neutrophils are lower by count but Dr. Walton does not recommend starting filgrastim at this time for neutropenia. -Continued to monitor CBC daily. Goal transfusion H&H is less than 8 or 2 4 and platelets less than 20. 5. Hypertension, chronic, present on admission. Stable. -Continued atenolol 25 mg today. 6. Hyperlipidemia, chronic, present on admission. Stable. -Continued ezetimibe 10 mg daily. 7. Anxiety, chronic, present on admission. Stable. -Continued alprazolam 0.25 mg every 8 hours as needed for anxiety. Exam Vital Signs (past 8 hours): - 11/11/18 04:45 11/11/18 08:00 Temperature 97.2 F L 98.4 F Pulse Rate 96 H 94 H Respiratory Rate 18 18 Blood Pressure 122/71 132/74 Pulse Oximetry 96 99 Oxygen Delivery Method Room Air Oxygen Flow Rate 0 Narrative Exam Narrative: General: Older female sitting in bed and in no acute distress, pale, appears chronically ill, well-developed, well-nourished, appropriately interactive. HEENT: Normocephalic, atraumatic. External ears without defect. Pupils equal, round, and reactive to light. Anicteric sclerae, moist conjunctivae, and no lid lag. Oropharynx free of erythema and cobble stoning with moist mucosa. Neck: Supple with full range of motion. No jugular venous distension. No bruits. No lymphadenopathy or thyromegaly. Cardiovascular: Regular rate and rhythm without murmurs, rubs, or gallops appreciated. Pulmonary: Clear to auscultation bilaterally without crackles, wheezes, or rhonchi. Normal respiratory effort with no use of accessory muscles. Abdomen: Soft, bowel sounds present, nontender, nondistended. No hepatosplenomegaly or masses appreciated. Extremities: No clubbing, cyanosis, or edema. Skin: Normal temperature, turgor, and texture; no rash, ulcers, or subcutaneous nodules appreciated. Neurological: Cranial nerves grossly intact. Generalized weakness. Psychiatric: Normal mood and affect. Alert and oriented to person, place, and time. Objective Labs Result Diagrams: 11/11/18 06:10 11/11/18 06:10 Labs: Laboratory Results - last 24 hr 11/10/18 11/10/18 11/11/18 11:10 12:45 06:10 WBC 0.7 L* 0.5 L* RBC 2.40 L 2.36 L Hgb 8.5 L 8.3 L Hct 24.0 L 23.6 L MCV 99.9 99.7 MCH 35.3 H 34.9 H MCHC 35.3 35.0 RDW 18.2 H 18.2 H Plt Count 15 L* 70 L Neut % (Auto) Not Reportable Not Reportable Lymph % (Auto) Not Reportable Not Reportable Luce % (Auto) Not Reportable Not Reportable Eos % (Auto) Not Reportable Not Reportable Baso % (Auto) Not Reportable Not Reportable Lymph # (Auto) Not Reportable Not Reportable Luce # (Auto) Not Reportable Not Reportable Baso # (Auto) Not Reportable Not Reportable Total Counted 50 Seg Neutrophils % 18.0 L Lymphocytes % (Manual) 72.0 H Atypical Lymphs % 8.0 H Monocytes % (Manual) 2.0 Neutrophils # (Manual) 126 L Platelet Estimate Decreased on smear RBC Morphology See below See below Poikilocytosis 1+ H Anisocytosis 2+ H 1+ H Sodium Potassium Chloride Carbon Dioxide BUN Creatinine Estimated GFR BUN/Creatinine Ratio Glucose Calcium Magnesium Blood Type A Positive 11/11/18 06:10 WBC RBC Hgb Hct MCV MCH MCHC RDW Plt Count Neut % (Auto) Lymph % (Auto) Luce % (Auto) Eos % (Auto) Baso % (Auto) Lymph # (Auto) Luce # (Auto) Baso # (Auto) Total Counted Seg Neutrophils % Lymphocytes % (Manual) Atypical Lymphs % Monocytes % (Manual) Neutrophils # (Manual) Platelet Estimate RBC Morphology Poikilocytosis Anisocytosis Sodium 137 Potassium 3.8 Chloride 103 Carbon Dioxide 22 BUN 18 H Creatinine 0.60 Estimated GFR > 60.0 BUN/Creatinine Ratio 30.0 H Glucose 144 H Calcium 9.2 Magnesium 1.8 Blood Type Discharge Plan Discharge Plan Patient Disposition: Home Discharge comment: You are being discharged home. You have been prescribed ciprofloxacin 500 mg twice daily and metronidazole 500 mg three times daily for 10 days to complete a total of 14 days of antibiotics. Please [facility] up at [facility] tomorrow for your last dose of Vidaza. Please follow-up with your primary care provider, Dr. Forte, in the next 1 week regarding your hospitalization. Discharge Med Rec/Prescriptions Prescriptions: New ciprofloxacin HCl [Cipro] 500 mg Tablet 500 mg PO 0700,2100 Qty: 20 RF: 0 metronidazole 500 mg Tablet 500 mg PO TID Qty: 30 RF: 0 Continued atenolol 50 mg tablet 25 mg PO QPM RF: 0 alprazolam 0.25 mg Tablet 0.25 mg PO Q8H PRN (Reason: Anxiety) RF: 0 ezetimibe [Zetia] 10 mg Tablet 10 mg PO DAILY RF: 0 Venclexta 100 mg Tablet See Rx Instructions .ROUTE .COMPLEX Qty: 120 RF: 0 Benadryl 25 mg tablet 50 mg PO DAILY RF: 0 Follow up/Referrals: Edgar Walton MD [Physician] - 11/12/18 Abhinav Forte MD [Primary Care Provider] - 1 Week Provider Discharge Instructions Diet: Diet as Tolerated Activity: Activity as tolerated Visit Report/Discharge Packet Instructions: DI for Syncope in Adults (Fainting), Blood Transfusion, DI for Blood Transfusion, DI for Acute Abdomen, How to Prevent Falls, Peripherally Inserted Central Catheter, DI for Neutropenia Discharge Data Primary Care Provider: Abhinav Forte Discharges patient from system. Discharge Date/Time: 11/11/18 14:40
[2018-11-11] MEDS: SODIUM CHLORIDE 0.9% IV (11:00)
[2018-11-11] MEDS: AZACITIDINE IV (11:00)
--- NOTE | 2018-11-11 11:17 | PC.NURSE ---
Addendum entered by Elsa Aguillon R.N. 11/11/18 14:49: Discharge summary packet reviewed with pt. Pt aware to follow up at Dr. Walton's office tomorrow for chemotherapy treatment. JESSA PICC line flushed by Chemo RN. Dressing CDI. Pt states has all belongings. Pt left unit via wheelchair in no distress at 1440 with her friend present to drive her home to [facility]. PRE KINDERGARTEN TEACHER escort to main entrance. Addendum entered by Elsa Aguillon R.N. 11/11/18 14:05: Pt given back her own medication of Xanax bottle that was left from previous visit and her chemo medication bottle Venetoclax. Pt given a priority boarding pass for [address] to [facility]. Her friend is picking her up to take her home. Original Note: Day Shift- Pt A&OX4, able to make needs known using call light, very appropriate. Around breakfast, pt stated feeling on the verge of light nausea. Ate breakfast slowly, had potatoes and milk. Pre-medications given prior to chemo Rn given IV chemo. Spoke with JOHN Elizondo at [facility]. JESSA PICC line flushes well with brisk blood return. Dressing intact, changed 11/10, purple bruising noted around insertion site.
== END 2018-11-11 14:40 | disposition home or self-care (01) | DRG 392 ==
PROVIDERS: Emergency Medicine; Internal Medicine; Nurse Practitioner Adult Health; Admitting Provider Nurse Practitioner Gerontology; PCP Family Medicine; Visit Provider Internal Medicine
DX: K52.9 Noninfective gastroenteritis and colitis, unspecified (principal); C92.00 Acute myeloblastic leukemia, not having achieved remission; D61.818 Other pancytopenia; R55 Syncope and collapse; I10 Essential (primary) hypertension; E78.5 Hyperlipidemia, unspecified; F41.9 Anxiety disorder, unspecified
CPT/HCPCS: 36415; 36430; 36569; 36592; 74022; 74177; 80048; 80053; 81003; 83605; 83735; 84100; 84145; 84550; 85025; 86850; 86900; 86901; 86945; 87040; 96365; 96367; 96375; 99284; P9016; P9040; J0692; J1100; J1200; J1642; J2270; J2405; J2783; J9025; P9035; Q9967

== ENCOUNTER 2018-11-26 18:42 | Inpatient (IN) | payer MEDICARE, OTHER, SELFPAY ==
[2018-11-26] VITALS (10 sets, daily range): BP systolic 91–135; BP diastolic 45–80; PULSE 100–112; RESP 14–20; TEMP 36.9–38.1; O2SAT 97–100; BMI 25.4; BMI 25.0
--- NOTE | 2018-11-26 18:56 | DI.RAD.S_ITS ---
PROCEDURE: XR CHEST 1V INDICATIONS: fever/weakness TECHNIQUE: One view of the chest was acquired. COMPARISON: [facility], CR, XR CHEST FOR PICC 1V, 11/02/2018, 11:51. FINDINGS: Surgical changes and devices: Right-sided central venous line with the tip at the cavoatrial junction. Surgical clips project over both breasts. Overlying cardiac monitoring wires are present. Lungs and pleura: Lung volumes are low. The visible lung bhandari are clear. Mediastinum: Mediastinal contours appear normal. Heart size is normal. Bones and chest wall: Bones are diffusely demineralized. There is a healed fracture of the right humeral neck. IMPRESSION: 1. Given low lung volumes, no focal consolidations to suggest pneumonia. 2. Indwelling right PICC line line. Dictated by: Brie James M.D. on 11/26/2018 at 19:45 Approved by: Brie James M.D. on 11/26/2018 at 19:47
--- NOTE | 2018-11-26 19:02 | ED.WEAKNESS ---
HPI - Weakness General Chief complaint: Weakness Stated complaint: weakness Time Seen by Provider: 11/26/18 19:02 Source: patient and family (daughter) Mode of arrival: Ambulatory Limitations: no limitations History of Present Illness HPI Narrative: This is a 68-year-old female comes to the emergency department with complaint of fever the last 24 hours. 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 She last received blood 1 unit packed red blood cells and 1 unit of platelets on the 1st. She has felt shaky increasingly weak and increasingly dyspneic with exertion. Patient has had sore throat with white spots in her mouth. She has had some left ear pain but states it radiates up from her throat to her ear. No discharge from the ear. She has not been eating or drinking much because of this. She denies any chest pain or pressure. She chronically has nausea but does not typically actively vomit. She chronically has diarrhea and states sort of a reddish morning she yellow color. This is not a new change for her. States no changes with urination. She denies any swelling in her extremities. Patient sees Dr. Walton as her oncologist. Related Data Home Medications Medication Instructions Recorded Confirmed alprazolam 0.25 mg PO Q8H PRN 08/27/18 11/07/18 atenolol 25 mg PO QPM 08/27/18 11/07/18 ezetimibe [Zetia] 10 mg PO DAILY 08/27/18 11/07/18 Benadryl 50 mg PO DAILY 11/07/18 11/07/18 Previous Rx's Medication Instructions Recorded Venclexta See Rx Instructions .ROUTE 10/14/18 .COMPLEX #120 tab ciprofloxacin HCl [Cipro] 500 mg PO 0700,2100 #20 tab 11/11/18 metronidazole 500 mg PO TID #30 tab 11/11/18 Allergies Allergy/AdvReac Type Severity Reaction Status Date / Time No Known Allergies Allergy Unknown Verified 11/26/18 18:51 [NO KNOWN ALLERGIES] Review of Systems Review of Systems ROS Unobtainable: All systems reviewed & are unremarkable except as noted in HPI and below PFSH Medical History Breast cancer (Acute) CVA (cerebrovascular accident) (Acute) HTN (hypertension) (Acute) Hyperlipidemia (Acute) Neuropathy (Acute) Sinus headache (Acute) TIA (transient ischemic attack) (Acute) Surgical History History of appendectomy (Acute) History of bilateral cataract extraction (Acute) No pertinent past surgical history (Acute) S/P breast lumpectomy (Acute) Family History Father Coronary artery disease Mother Stroke Coronary artery disease Brother Coronary artery disease Social History household members: family, children and none Smoking Status: Never smoker alcohol intake: current Family History Father Coronary artery disease Mother Stroke Coronary artery disease Brother Coronary artery disease Social History household members: family, children and none Smoking Status: Never smoker alcohol intake: current Exam Narrative Exam Narrative: GEN: Pale female, alert and oriented x 3, patient appears to be in mild distress. HEENT: Atraumatic, pupils are equal round reactive to light, extraocular movements are intact, nares are clear, TMs cerumen bilaterally, no erythema. Throat has multiple white circular lesions on her upper palate as well as white plaque on her tongue, no swelling. no erythema, tonsillar enlargement or uvular deviation. No meningeal signs. Negative Kernig's. HEART: Tachycardic but Regular rate and rhythm without murmur, clicks, rubs. Pulses are equal in upper and lower extremities LUNGS:Lungs clear to auscultation, no wheezes, rales, crackles, chest moves symmetrically, no tachypnea or accessory muscle use ABD:bowel sounds normal, soft, non-tender, no guarding, rebound, rigidity, no masses noted, no hepatosplenomegaly :No CVA tenderness MSCL: Non-tender, no muscle atrophy, full range of motion NEURO:CN 2-12 intact, sensation normal SKIN: No rash or skin changes noted. Initial Vital Signs Initial Vital Signs: Vital Signs Temperature 99.4 F 11/26/18 18:51 Pulse Rate 111 H 11/26/18 18:51 Respiratory Rate 16 11/26/18 18:51 Blood Pressure 125/62 11/26/18 18:51 Pulse Oximetry 100 11/26/18 18:51 Course Orders Ordered: ED Orders 11/26/18 21:46 Urinalysis and Microscopic Urgent 11/26/18 21:47 Consult to Dietitian, Adult Routine Consult to Discharge Planning Routine Consult to Physical Therapy Evaluate & Treat Consult to Physician Routine 11/26/18 21:48 GI Panel (Film Array) Stat Respiratory Panel (Film Array) Stat 11/27/18 05:09 Basic Metabolic Panel Routine Complete Blood Count AUTO DIFF Routine Acetaminophen (Tylenol) 650 mg PO Q6HR PRN PRN Reason: As Needed for Fever/Mild Pain Last Admin: 11/27/18 02:38 Dose: 650 mg Documented by: MANAN Al Hydrox/Mg Hydrox/Simethicone (Maalox Plus) 30 ml PO Q6HR PRN PRN Reason: Dyspepsia Alprazolam (Xanax) 0.25 mg PO Q8H PRN PRN Reason: Anxiety Atenolol (Tenormin) 25 mg PO QPM [facility] Calcium Carbonate (Tums) 1,000 mg PO Q4HR PRN PRN Reason: Dyspepsia Calcium Carbonate (Calcium) 600 mg PO DAILY [facility] Stop: 11/30/18 08:59 Ezetimibe (Zetia) 10 mg PO DAILY [facility] Sodium Chloride (Normal Saline 0.9%) 1,000 mls @ 50 mls/hr IV CONT [facility] Last Admin: 11/27/18 05:14 Dose: 50 mls/hr Documented by: Infusion: 11/27/18 02:37 Dose: 50 mls/hr Documented by: Infusion: 11/27/18 02:00 Dose: 50 mls/hr Documented by: Admin: 11/27/18 01:37 Dose: 50 mls/hr Documented by: MANAN Ceftazidime 1 gm/ Sodium (Chloride) 100 mls @ 100 mls/hr IV Q8H [facility] Last Infusion: 11/27/18 02:40 Dose: 100 mls/hr Documented by: Admin: 11/27/18 01:40 Dose: 100 mls/hr Documented by: MANAN Vancomycin HCl/Dextrose (Vancomycin) 750 mg in 150 mls @ 200 mls/hr IV Q12H [facility] Potassium Chloride 40 meq/ (Sodium Chloride) 520 mls @ 130 mls/hr IV NOW ONE Stop: 11/27/18 09:37 Morphine Sulfate (Morphine) 2 mg IV Q4HR PRN PRN Reason: Pain, Moderate (4-6) Morphine Sulfate (Morphine) 4 mg IV Q4HR PRN PRN Reason: Pain, Severe (7-10) Non-Formulary Medication (Venetoclax [Venclexta]) 400 mg PO DAILY [facility] Nystatin (Mycostatin Susp) 500,000 unit PO TID [facility] Last Admin: 11/27/18 01:39 Dose: 500,000 unit Documented by: MANAN Ondansetron HCl (Zofran) 4 mg IV Q8HR PRN PRN Reason: Nausea And Vomiting Discontinued Medications Acetaminophen (Tylenol) 650 mg PO NOW ONE Stop: 11/26/18 21:18 Last Admin: 11/26/18 21:10 Dose: 650 mg Documented by: KATE Diphenhydramine HCl (Benadryl) 25 mg PO NOW ONE Stop: 11/26/18 21:18 Last Admin: 11/26/18 21:17 Dose: 25 mg Documented by: MANJITFARL Sodium Chloride (Normal Saline 0.9%) 1,891.47 mls @ 630.49 mls/hr 30 ml/kg infuse over 3 hr (1891.47 ml) IV NOW ONE Stop: 11/26/18 22:20 Last Admin: 11/26/18 20:15 Dose: 630.49 mls/hr Documented by: MANJITFARL Piperacillin/Tazobactam/Dextrose (Zosyn) 4.5 gm in 100 mls @ 200 mls/hr IV NOW ONE Stop: 11/26/18 20:41 Last Infusion: 11/26/18 20:24 Dose: 200 mls/hr Documented by: Admin: 11/26/18 20:16 Dose: 200 mls/hr Documented by: MANJITFARL Vancomycin HCl (Vancomycin) 1,000 mg in 200 mls @ 200 mls/hr IV NOW ONE Stop: 11/26/18 21:18 Last Infusion: 11/26/18 21:55 Dose: 200 mls/hr Documented by: Admin: 11/26/18 20:50 Dose: 200 mls/hr Documented by: KATE Ceftazidime 1 gm/ Sodium (Chloride) 100 mls @ 100 mls/hr IV NOW ONE Stop: 11/26/18 20:20 Last Infusion: 11/27/18 01:14 Dose: 0 mls/hr Documented by: Admin: 11/26/18 21:56 Dose: 100 mls/hr Documented by: KATE Morphine Sulfate (Morphine) 4 mg IV NOW ONE Stop: 11/26/18 19:57 Last Admin: 11/26/18 20:00 Dose: 4 mg Documented by: KATE Vancomycin HCl (Vancomycin Per Pharmacy) 1 request MISC NOW ONE Stop: 11/26/18 23:37 Last Admin: 11/27/18 01:42 Dose: Not Given Documented by: MANAN Vital Signs Vital signs: Vital Signs - 8 hr 11/26/18 22:15 Temperature 100.5 F H Pulse Rate 112 H Respiratory Rate 17 Blood Pressure 135/57 L Pulse Oximetry 99 MDM - Weakness Lab Data Attestation: I reviewed the patient's lab results. Result diagrams: 11/27/18 05:09 11/27/18 05:09 Labs: Lab Results 11/26/18 11/26/18 11/26/18 Range/Units 18:00 18:00 18:00 WBC (4.5-11.0) X10^3/uL RBC (4.0-5.2) X10^6/uL Hgb (12.0-16.0) g/dL Hct (36-46) % MCV (80-100) fL MCH (26-34) PG MCHC (30-36) % RDW (11.6-14.8) % Plt Count (150-400) X10^3/uL Neut % (Auto) Lymph % (Auto) [place] % (Auto) Eos % (Auto) Baso % (Auto) Lymph # (Auto) [place] # (Auto) Baso # (Auto) Total Counted Lymphocytes % (Manual) (25-45) % Neutrophils # (Manual) (9856-2312) /uL Platelet Estimate RBC Morphology Anisocytosis Ovalocytes PT 13.1 H (10.1-12.7) SECONDS INR 1.1 (0.9-1.3) APTT 28 (26.4-36.2) SECONDS Sodium (137-145) mmol/L Potassium (3.4-5.1) mmol/L Chloride (98-107) mmol/L Carbon Dioxide (22-32) mmol/L BUN (7-17) mg/dL Creatinine (0.52-1.04) mg/dL Estimated GFR (>60) mL/min BUN/Creatinine Ratio (6-22) Glucose (80-110) mg/dL Lactate (0.7-2.1) mmol/L Calcium (8.4-10.2) mg/dL Magnesium (1.6-2.3) mg/dL Total Bilirubin 0.7 (0.2-1.3) mg/dL AST (14-36) IU/L ALT (9-52) IU/L Alkaline Phosphatase (38-126) U/L Total Protein (6.3-8.2) g/dL Albumin (3.5-5.0) g/dL Globulin (1.7-4.1) g/dL Albumin/Globulin Ratio (1.0-2.8) Lipase (23-300) U/L Procalcitonin 0.98 H (<0.5) ng/mL Blood Type Antibody Screen Crossmatch 11/26/18 11/26/18 11/26/18 Range/Units 18:00 18:50 18:50 WBC 0.5 L* (4.5-11.0) X10^3/uL RBC 1.26 L (4.0-5.2) X10^6/uL Hgb 4.4 L* (12.0-16.0) g/dL Hct 12.1 L* (36-46) % MCV 96.3 (80-100) fL MCH 34.6 H (26-34) PG MCHC 36.0 (30-36) % RDW 16.2 H (11.6-14.8) % Plt Count 36 L* (150-400) X10^3/uL Neut % (Auto) Not Reportable Lymph % (Auto) Not Reportable [place] % (Auto) Not Reportable Eos % (Auto) Not Reportable Baso % (Auto) Not Reportable Lymph # (Auto) Not Reportable [place] # (Auto) Not Reportable Baso # (Auto) Not Reportable Total Counted 25 Lymphocytes % (Manual) 100.0 H (25-45) % Neutrophils # (Manual) 0 L (0965-5421) /uL Platelet Estimate Decreased on smear RBC Morphology See below Anisocytosis 1+ H Ovalocytes 1+ H PT (10.1-12.7) SECONDS INR (0.9-1.3) APTT (26.4-36.2) SECONDS Sodium 136 L (137-145) mmol/L Potassium 3.4 (3.4-5.1) mmol/L Chloride 101 (98-107) mmol/L Carbon Dioxide 28 (22-32) mmol/L BUN 9 (7-17) mg/dL Creatinine 0.60 (0.52-1.04) mg/dL Estimated GFR > 60.0 (>60) mL/min BUN/Creatinine Ratio 15.0 (6-22) Glucose 101 (80-110) mg/dL Lactate (0.7-2.1) mmol/L Calcium 8.9 (8.4-10.2) mg/dL Magnesium (1.6-2.3) mg/dL Total Bilirubin 0.6 (0.2-1.3) mg/dL AST 16 (14-36) IU/L ALT 9 (9-52) IU/L Alkaline Phosphatase 61 (38-126) U/L Total Protein 6.4 (6.3-8.2) g/dL Albumin 3.5 (3.5-5.0) g/dL Globulin 2.9 (1.7-4.1) g/dL Albumin/Globulin Ratio 1.2 (1.0-2.8) Lipase 74 (23-300) U/L Procalcitonin (<0.5) ng/mL Blood Type Antibody Screen Crossmatch 11/26/18 11/26/18 11/26/18 Range/Units 18:50 18:50 19:41 WBC (4.5-11.0) X10^3/uL RBC (4.0-5.2) X10^6/uL Hgb (12.0-16.0) g/dL Hct (36-46) % MCV (80-100) fL MCH (26-34) PG MCHC (30-36) % RDW (11.6-14.8) % Plt Count (150-400) X10^3/uL Neut % (Auto) Lymph % (Auto) [place] % (Auto) Eos % (Auto) Baso % (Auto) Lymph # (Auto) [place] # (Auto) Baso # (Auto) Total Counted Lymphocytes % (Manual) (25-45) % Neutrophils # (Manual) (8874-9435) /uL Platelet Estimate RBC Morphology Anisocytosis Ovalocytes PT (10.1-12.7) SECONDS INR (0.9-1.3) APTT (26.4-36.2) SECONDS Sodium (137-145) mmol/L Potassium (3.4-5.1) mmol/L Chloride (98-107) mmol/L Carbon Dioxide (22-32) mmol/L BUN (7-17) mg/dL Creatinine (0.52-1.04) mg/dL Estimated GFR (>60) mL/min BUN/Creatinine Ratio (6-22) Glucose (80-110) mg/dL Lactate 2.1 (0.7-2.1) mmol/L Calcium (8.4-10.2) mg/dL Magnesium 2.1 (1.6-2.3) mg/dL Total Bilirubin (0.2-1.3) mg/dL AST (14-36) IU/L ALT (9-52) IU/L Alkaline Phosphatase (38-126) U/L Total Protein (6.3-8.2) g/dL Albumin (3.5-5.0) g/dL Globulin (1.7-4.1) g/dL Albumin/Globulin Ratio (1.0-2.8) Lipase (23-300) U/L Procalcitonin (<0.5) ng/mL Blood Type A Positive Antibody Screen Negative Crossmatch See Detail Imaging Data Chest x-ray: Radiologist's impression: [address] [address] XRay Report Signed Patient: Kristen Cho MMR#: [id number] : 9Acct:[id number] Age/Sex: 68 / FDate of Service: 11/26/18 Loc: ED Accession Number: [id number] Procedure: XR chest 1V Ordering Provider: Vickie Johnston D.O. PROCEDURE: XR CHEST 1V INDICATIONS: fever/weakness TECHNIQUE: One view of the chest was acquired. COMPARISON: [facility], CR, XR CHEST FOR PICC 1V, 11/02/2018, 11:51. FINDINGS: Surgical changes and devices: Right-sided central venous line with the tip at the cavoatrial junction. Surgical clips project over both breasts. Overlying cardiac monitoring wires are present. Lungs and pleura: Lung volumes are low. The visible lung bhandari are clear. Mediastinum: Mediastinal contours appear normal. Heart size is normal. Bones and chest wall: Bones are diffusely demineralized. There is a healed fracture of the right humeral neck. IMPRESSION: 1. Given low lung volumes, no focal consolidations to suggest pneumonia. 2. Indwelling right PICC line line. Dictated by: Brie James M.D. on 11/26/2018 at 19:45 Approved by: Brie James M.D. on 11/26/2018 at 19:47 ECG Data Attestation: I personally reviewed and interpreted this ECG as follows: Interpretation: Sinus tachycardia rate of 103, P are 167 QRS is 76 QTC of 394. No ST changes appreciated MDM Narrative Medical decision making narrative: 68-year-old female comes in with described fever by thermometer of 101 F at home yesterday. She is afebrile in department but she has a white count of 0.5 with a hemoglobin of 4.4 and a hematocrit of 36. Coags not show any acute changes. Potassium is 3.4 with a sodium 136, otherwise electrolytes are normal with normal LFTs. Patient's procalcitonin is 0.98. Patient did not given urine sample yet and is pending. Blood cultures were obtained. Patient potentially has neutropenic fever, I spoke with Dr. Welch, who is covering for Dr. Walton. He does recommend vancomycin as well as ceftazidime if they are available as patient also does have a mucositis. Patient he recommends transfusing with blood but not platelets at this time. Patient typically receives irradiated blood but it will be prolonged. Before we can receive so he would recommend leukocyte reduced blood for the initial transfusion and we can wait for the additional doses to come from [facility]. Discussed with patient she did receive fluids. I spoke with Rigo PATTON who accepts. I did relay recommendations from Oncology and that they are planning to consult and see patient in the hospital in the morning. Discharge Plan Departure Patient Disposition: Admitted As Inpatient Clinical Impression: Fever and neutropenia Discharge Date/Time: 11/26/18 22:08 Admit Date/Time: 11/26/18 22:15 Admit Provider: Beau Stacy
[2018-11-26 19:06] LABS: Mean Corpuscular Hemoglobin 34.6 PG (26-34); Mean Corpuscular Volume 96.3 fL (80-100); Red Blood Cell Count 1.26 X10^6/uL (4.0-5.2); Red Cell Distribution Width 16.2 % (11.6-14.8)
[2018-11-26 19:11] LABS: Hemoglobin 4.4 g/dL (12.0-16.0); White Blood Cell Count 0.5 X10^3/uL (4.5-11.0)
[2018-11-26 19:12] LABS: Add Manual Diff / Slide Review YES; Hematocrit 12.1 % (36-46); Platelet Count 36 X10^3/uL (150-400)
[2018-11-26 19:28] LABS: Lactate (Lactic Acid) 2.1 mmol/L (0.7-2.1)
[2018-11-26 19:29] LABS: Alanine Aminotransferase 9 IU/L (9-52); Albumin 3.5 g/dL (3.5-5.0); Albumin Globulin Ratio 1.2 (1.0-2.8); Alkaline Phosphatase 61 U/L (38-126); Aspartate Aminotransferase 16 IU/L (14-36); Bilirubin Total 0.6 mg/dL (0.2-1.3); Blood Urea Nitrogen 9 mg/dL (7-17); Calcium 8.9 mg/dL (8.4-10.2); Carbon Dioxide 28 mmol/L (22-32); Chloride 101 mmol/L (98-107); Estimated Glomerular Filt Rate > 60.0 mL/min (>60); Globulin 2.9 g/dL (1.7-4.1); Glucose 101 mg/dL (80-110); HEMOLYSIS < 15 (0-50); Potassium 3.4 mmol/L (3.4-5.1); Sodium 136 mmol/L (137-145); Total Protein 6.4 g/dL (6.3-8.2)
[2018-11-26 19:30] LABS: INR 1.1 (0.9-1.3); Prothrombin Time 13.1 SECONDS (10.1-12.7)
[2018-11-26 19:33] LABS: PTT Partial Thromboplastin Tim 28 SECONDS (26.4-36.2)
[2018-11-26 19:55] LABS: Neutrophils Absolute Manual 0 /uL (3000-5900); Platelet Estimate Decreased on smear; Total Cells Counted 25
[2018-11-26 19:56] LABS: Anisocytosis 1+; Ovalocytes 1+
[2018-11-26 19:59] LABS: Bilirubin Total 0.7 mg/dL (0.2-1.3); Lipase 74 U/L (23-300)
[2018-11-26] MEDS: MORPHINE 4 MG/ML INJ IV (20:00)
[2018-11-26 20:04] LABS: Procalcitonin 0.98 ng/mL (<0.5)
[2018-11-26] MEDS: SODIUM CHLORIDE 0.9% 630.49 ML IV (20:15)
[2018-11-26] MEDS: PIPERACILLIN-TAZO 4.5 GM/100 ML FROZ.PIGGY IV (20:16)
[2018-11-26] MEDS: VANCOMYCIN 1,000 MG/200 ML PIGGYBACK 200 MG IV (20:50)
--- NOTE | 2018-11-26 21:00 | PC.NURSE ---
2100 Pt T 100.1 after 1st 15 minutes of blood administration, pt denies difficulty breathing. Provider Rigo Stacy in pt ER room aware of Pt VS, ordered 650mg of tylenol po and 25mg of benadryl po. Dr. Johnston updated.
[2018-11-26] MEDS: ACETAMINOPHEN 325 MG TABLET 650 MG PO (21:10)
[2018-11-26] MEDS: diphenhydrAMINE 25 MG TABLET PO (21:17)
[2018-11-26 22:04] LABS: Magnesium 2.1 mg/dL (1.6-2.3)
--- NOTE | 2018-11-26 23:18 | PM.HP.1 ---
History of Present Illness History of Present Illness Date Patient Seen: 11/26/18 Time Patient Seen: 21:10 Chief complaint: weakness Narrative: Ms. Kristen Cho is a 68-year-old female with a history significant for breast cancer, AML, breast cancer, hypertension, CVA, TIA, hyperlipidemia and neuropathy who presents today following developing a fever and progressive weakness and malaise for the last 2 days. The patient was seen by her primary care provider 2 days ago and since that time has had increasing weakness, loss of appetite and complains of diarrhea. She developed a fever today prompting her to present to the ER. She has stopped taking all her medications for the last 2 days. The patient had been admitted on 11/07/2018 and discharged on 11/11/2018 with diagnosis of colitis for which he had been taking Cipro and Flagyl. The patient has been on venclexta, oral chemotherapeutic agent for treatment AML which she reports also stopping. The patient had been pancytopenic however her blood counts stabilized following transfusion during her previous previous hospitalization and demonstrated blood count stability upon discharge. Today the patient states she was feeling ?pretty good? since discharge until 2 days ago. The patient denies recent flu or cold symptoms and has had no complaints of headache or dizziness, runny nose but has complained of sore throat progressing into the left ear today. She denies chest pain or palpitations and has had no shortness of breath but reports a dry nonproductive cough. She denies abdominal pain, nausea, vomiting or cramping. She does report a yellow-brown medicine smelling diarrhea stool. She has been ambulatory up until 2 days ago when she became profoundly weak. Upon arrival in the ER the patient has a temperature of 99.4?, heart rate of 111, blood pressure 125/62, respirations of 16 saturating 100% on room air. Chest x-ray obtained which finds low lung volumes but no suggestion of pneumonia and identifies an indwelling right PICC line. On laboratory analysis the patient has a white count of 0.5 which is her approximately baseline but has a hemoglobin of 4.4 and hematocrit of 12.1 and platelets of 36. On differential the patient is noted to have 100% lymphocytes. On coagulation she has a PT of 13.1 INR of 1.1 and PTT of 28. Her electrolytes are within normal limits with a BUN of 9 and creatinine 0.6. Her nonfasting glucose was 101. She has a total bili of 0.6 with an AST is 16, ALT of 9 and alkaline phosphatase of 61. Her albumin is 3.5 and magnesium 2.2. She has a procalcitonin is positive at 0.98. In the ER the patient had blood cultures drawn x2 but not yet obtained urinalysis. Since being in the ER the patient received Zosyn 3.375 g x1. Oncology was consulted who recommended admitting the patient and transfusing packed cells but has not yet need platelets. They further recommended ceftazidime and vancomycin both initiated in the emergency department. The patient is admitted for neutropenic fever with an elevated procalcitonin and severe anemia requiring transfusion. Patient History Medical History Breast cancer (Acute) CVA (cerebrovascular accident) (Acute) HTN (hypertension) (Acute) Hyperlipidemia (Acute) Neuropathy (Acute) Sinus headache (Acute) TIA (transient ischemic attack) (Acute) Surgical History History of appendectomy (Acute) History of bilateral cataract extraction (Acute) No pertinent past surgical history (Acute) S/P breast lumpectomy (Acute) Family History Father Coronary artery disease Mother Stroke Coronary artery disease Brother Coronary artery disease Social History household members: family, children and none Smoking Status: Never smoker alcohol intake: current Family & Social History Family History Father Coronary artery disease Mother Stroke Coronary artery disease Brother Coronary artery disease Social History: household members family,children,none Prior Living Arrangements House Safety & Behavioral: Feels Safe in Current Yes Environment Been Physically Hurt or No Threatened By a Person Suicidal Ideation Description None Suicide Plan Description No Plan Tobacco & Substance use: Smoking Status Never smoker alcohol intake current alcohol intake frequency holiday/special occasion Substance Use Type does not use Comment: Advanced directives: The patient has formal advanced directives that the patient is sign but has not been yet witnessed. The patient states that she does not want life-sustaining measures but will accept LIMITED RESUSCITATION, she states that CPR is acceptable but that she does not want intubation and is DNI. She designates her daughter Valencia to be her surrogate decision maker. Meds Home Medications and Allergies Home Medications Medication Instructions Recorded Confirmed Type alprazolam 0.25 mg PO Q8H PRN 08/27/18 11/07/18 History atenolol 25 mg PO QPM 08/27/18 11/07/18 History ezetimibe [Zetia] 10 mg PO DAILY 08/27/18 11/07/18 History Venclexta See Rx Instructions .ROUTE 10/14/18 11/07/18 Rx .COMPLEX #120 tab Benadryl 50 mg PO DAILY 11/07/18 11/07/18 History ciprofloxacin HCl [Cipro] 500 mg PO 0700,2100 #20 tab 11/11/18 Rx metronidazole 500 mg PO TID #30 tab 11/11/18 Rx Allergies Allergy/AdvReac Type Severity Reaction Status Date / Time No Known Allergies Allergy Unknown Verified 11/26/18 18:51 [NO KNOWN ALLERGIES] Review of Systems Review of Systems ROS Unobtainable: All systems reviewed & are unremarkable except as noted in HPI and below Exam Vital Signs (past 8 hours): - 11/26/18 18:51 11/26/18 20:30 11/26/18 20:43 Temperature 99.4 F 98.5 F 98.4 F Pulse Rate 111 H 106 H 110 H Respiratory Rate 16 16 14 Blood Pressure 125/62 107/45 L Blood Pressure [Left Arm] 107/45 L Pulse Oximetry 100 100 11/26/18 20:58 11/26/18 21:10 11/26/18 22:15 Temperature 100.1 F H 100.1 F H 100.5 F H Pulse Rate 111 H 112 H Respiratory Rate 20 17 Blood Pressure 135/57 L Blood Pressure [Left Arm] 91/80 Pulse Oximetry 97 99 Oxygen Delivery Method Room Air Narrative Exam Narrative: GENERAL APPEARANCE: Well developed, well nourished, ill-appearing and pale. SKIN: Warm, dry, pale, no rashes, ulcerations or petechiae. HEENT: PERRL, conjunctiva is pale and sclera are anicteric, EOMs intact without nystagmus, no rhinorrhea, white oral lesions and white coating on tongue. NECK: Supple, nontender, no thyromegaly, trachea midline. LYMPH NODES: no cervical or supraclavicular lymphadenopathy. HEART: regular rate and rhythm, S1-S2, no murmur, no rubs or gallops, brisk capillary refill, trace bilateral lower extremity edema LUNGS: clear to auscultation bilaterally, no coarseness crackles or wheezing, no cough on exam CHEST: Symmetrical movement, no accessory muscle use, shallow respiration ABDOMEN: Soft, no distention, no epigastric or abdominal tenderness on palpation, no guarding, no organomegaly, no flank or suprapubic tenderness, hyperactive bowel tones. EXTREMITIES: moves all extremities, strength is 5/5 and symmetrical, no deformities or joint effusions. NEUROLOGIC: AAO x4, no focal neurologic deficits, cranial nerves II-XII grossly intact, neuropathy bilateral lower toes. PSYCH: alert, withdrawn with flat affect, admits to feeling depressed, no suicidal ideation or thoughts of self-harm. Objective Labs Result Diagrams: 11/26/18 18:50 11/26/18 18:50 Labs: Laboratory Results - last 24 hr 11/26/18 11/26/18 11/26/18 18:00 18:00 18:00 WBC RBC Hgb Hct MCV MCH MCHC RDW Plt Count Neut % (Auto) Lymph % (Auto) [place] % (Auto) Eos % (Auto) Baso % (Auto) Lymph # (Auto) [place] # (Auto) Baso # (Auto) Total Counted Lymphocytes % (Manual) Neutrophils # (Manual) Platelet Estimate RBC Morphology Anisocytosis Ovalocytes PT 13.1 H INR 1.1 APTT 28 Sodium Potassium Chloride Carbon Dioxide BUN Creatinine Estimated GFR BUN/Creatinine Ratio Glucose Lactate Calcium Magnesium Total Bilirubin 0.7 AST ALT Alkaline Phosphatase Total Protein Albumin Globulin Albumin/Globulin Ratio Lipase Procalcitonin 0.98 H Blood Type Antibody Screen Crossmatch 11/26/18 11/26/18 11/26/18 18:00 18:50 18:50 WBC 0.5 L* RBC 1.26 L Hgb 4.4 L* Hct 12.1 L* MCV 96.3 MCH 34.6 H MCHC 36.0 RDW 16.2 H Plt Count 36 L* Neut % (Auto) Not Reportable Lymph % (Auto) Not Reportable [place] % (Auto) Not Reportable Eos % (Auto) Not Reportable Baso % (Auto) Not Reportable Lymph # (Auto) Not Reportable [place] # (Auto) Not Reportable Baso # (Auto) Not Reportable Total Counted 25 Lymphocytes % (Manual) 100.0 H Neutrophils # (Manual) 0 L Platelet Estimate Decreased on smear RBC Morphology See below Anisocytosis 1+ H Ovalocytes 1+ H PT INR APTT Sodium 136 L Potassium 3.4 Chloride 101 Carbon Dioxide 28 BUN 9 Creatinine 0.60 Estimated GFR > 60.0 BUN/Creatinine Ratio 15.0 Glucose 101 Lactate Calcium 8.9 Magnesium Total Bilirubin 0.6 AST 16 ALT 9 Alkaline Phosphatase 61 Total Protein 6.4 Albumin 3.5 Globulin 2.9 Albumin/Globulin Ratio 1.2 Lipase 74 Procalcitonin Blood Type Antibody Screen Crossmatch 11/26/18 11/26/18 11/26/18 18:50 18:50 19:41 WBC RBC Hgb Hct MCV MCH MCHC RDW Plt Count Neut % (Auto) Lymph % (Auto) [place] % (Auto) Eos % (Auto) Baso % (Auto) Lymph # (Auto) [place] # (Auto) Baso # (Auto) Total Counted Lymphocytes % (Manual) Neutrophils # (Manual) Platelet Estimate RBC Morphology Anisocytosis Ovalocytes PT INR APTT Sodium Potassium Chloride Carbon Dioxide BUN Creatinine Estimated GFR BUN/Creatinine Ratio Glucose Lactate 2.1 Calcium Magnesium 2.1 Total Bilirubin AST ALT Alkaline Phosphatase Total Protein Albumin Globulin Albumin/Globulin Ratio Lipase Procalcitonin Blood Type A Positive Antibody Screen Negative Crossmatch See Detail Assessment & Plan Assessment & Plan narrative: This is a 68-year-old female patient who presents to the hospital with profound anemia with a hemoglobin of 4.4 and hematocrit of 12.1. Patient is on chemotherapy for AML and has been pancytopenic but not to this extent. The patient has also developed neutropenic fevers has a positive procalcitonin and complaints of diarrhea and a dry cough. 1. Acute chemotherapy induced anemia, present on admission, active -the patient has had anemia is related to chemotherapeutic treatment requiring transfusions of both PRBC and platelets. -hemoglobin today is 4.4 which is her lowest reading to date. Chest associated fatigue, lethargy and weakness. -patient is transfused 2 units packed RBCs. First unit is leukocyte reduced due to urgency, 2nd unit is irradiated packed RBCs. -will check hemoglobin following 1st 2 units and continue transfusion until a hemoglobin is greater than 8. 2. Pancytopenia, on chemotherapy for AML, acute, present on admission, active -no H&H as noted above. Will transfuse to an H&H greater than hemoglobin of 8 and hematocrit of 24. -thrombocytopenia, platelets are 36, transfusion threshold is 20 per oncology. -neutropenia, white count is 0.5, this is approximate patient baseline. -neutropenic precautions. -oncology contacted by the ER, recommendations obtained, will follow the patient in-house. 3. Acute neutropenic fever, present on admission, active. -patient reports subjective fever at home in upon arrival is 99.4, recheck in the ER is 100.1. No complaints of abdominal pain nausea or vomiting. -previously treated for diffuse colitis with Flagyl and Cipro. -patient also has a procalcitonin that is elevated at 0.98 with associated complaints of diarrhea and dry cough. -patient started on ceftazidime 1 g every 8 hours and vancomycin 1 g every 12 hours on recommendation of Oncology. -will obtain a respiratory PCR panel and GI PCR panel, patient has been on multiple antibiotics raising concern for C difficile. -patient is on enteric precautions pending results. 4. Hypertension, chronic, present on admission. Stable. -will reduce atenolol 12.5 mg daily at bedtime do to prevent possible potentiate solorzano of syncope. -will trend blood pressures 5. Hyperlipidemia, chronic, present on admission. Stable. -Continue ezetimibe 10 mg daily. 6. Anxiety, chronic, present on admission. Stable. -Continue alprazolam 0.25 mg every 8 hours as needed for anxiety. The patient is admitted to the hospital due to the severity of her symptoms and risk further complications and adverse events. The patient is admitted as an inpatient with expected length of stay to be greater than 2 midnights. Time Spent With Patient Time with patient: 25 - 35 minutes Quality VTE Deep Vein Thrombosis/Pulmonary Embolism Present on Admission: No
[2018-11-27] VITALS (20 sets, daily range): BP systolic 101–148; BP diastolic 42–65; PULSE 86–157; RESP 12–20; TEMP 36.7–38.2; O2SAT 91–100; BMI 25.1
[2018-11-27] MEDS: SODIUM CHLORIDE 0.9% 1,000 ML 50 ML IV (01:37)
[2018-11-27] MEDS: NYSTATIN SUSP 500,000 UNIT/5 ML UDC 500000 UNIT PO ×4 (01:39→20:11)
[2018-11-27] MEDS: ACETAMINOPHEN 325 MG TABLET 650 MG PO ×4 (02:38→15:43)
[2018-11-27 04:37] LABS: Adenovirus Not Detected (Not Detect); Bordetella pertussis Not Detected (Not Detect); Chlamydophila pneumoniae Not Detected (Not Detect); Coronavirus 229E Not Detected (Not Detect); Coronavirus HKU1 Not Detected (Not Detect); Coronavirus NL 63 Not Detected (Not Detect); Coronavirus OC43 Not Detected (Not Detect); Human Metapneumovirus Not Detected (Not Detect); Human Rhinovirus/Enterovirus Not Detected (Not Detect); Influenza A Not Detected (Not Detect); Influenza B Not Detected (Not Detect); Mycoplasma pneumoniae Not Detected (Not Detect); Parainfluenza Virus 1 Not Detected (Not Detect); Parainfluenza Virus 2 Not Detected (Not Detect); Parainfluenza Virus 3 Not Detected (Not Detect); Parainfluenza Virus 4 Not Detected (Not Detect); Respiratory Syncytial Virus Not Detected (Not Detect)
[2018-11-27] MEDS: SODIUM CHLORIDE 0.9% 1,000 ML 75 ML IV (05:14)
[2018-11-27 05:30] LABS: BUN Creatinine Ratio 13.3 (6-22); Blood Urea Nitrogen 8 mg/dL (7-17); Calcium 7.9 mg/dL (8.4-10.2); Carbon Dioxide 27 mmol/L (22-32); Chloride 103 mmol/L (98-107); Estimated Glomerular Filt Rate > 60.0 mL/min (>60); Glucose 118 mg/dL (80-110); HEMOLYSIS < 15 (0-50); Potassium 3.1 mmol/L (3.4-5.1); Sodium 135 mmol/L (137-145)
[2018-11-27 05:35] LABS: Hematocrit 22.8 % (36-46); Mean Corpuscular HGB Conc 35.3 % (30-36); Mean Corpuscular Hemoglobin 32.2 PG (26-34); Mean Corpuscular Volume 91.4 fL (80-100); Red Blood Cell Count 2.49 X10^6/uL (4.0-5.2); Red Cell Distribution Width 15.7 % (11.6-14.8)
[2018-11-27 05:41] LABS: White Blood Cell Count 0.2 X10^3/uL (4.5-11.0)
[2018-11-27 05:42] LABS: Platelet Count 31 X10^3/uL (150-400)
[2018-11-27 05:43] LABS: Add Manual Diff / Slide Review SLIDE REVIEW
[2018-11-27] MEDS: POTASSIUM CHLORIDE 40 MEQ in SODIUM CHLORIDE 0.9% 500 ML 130 ML IV (06:10)
[2018-11-27 06:23] LABS: Procalcitonin 0.75 ng/mL (<0.5)
--- NOTE | 2018-11-27 06:50 | PC.NURSE ---
Axox3, lung sounds clear. Pt had 2 units of PRBC's transfused over night. Pt HH this AM 8.0,22.8. WBC 0.2, platelets 31. Pt K 3.1, CA7.9. Provider is aware and ordered K rider this morning. Pt VSS, temp 99.8, HR tachy in the 90's. Nasal swab done and it was negative. Pt is on neutropenic precautions. Pt is weak and cold this night, up to bedside commode w/ 1 person assist. Pt has diarrhea, but was cleared for enteric precautions. Pt is on tele: NS ocass PVC's.
[2018-11-27 06:54] LABS: Anisocytosis 1+
[2018-11-27 07:04] LABS: Appearance Urine UA CLEAR; Bilirubin Urine UA NEGATIVE (NEGATIVE); Color Urine UA YELLOW; Glucose Urine UA NEGATIVE (Negative); Ketones Urine UA NEGATIVE (NEGATIVE); Leukocyte Esterase Urine UA NEGATIVE (NEGATIVE); Nitrite Urine UA NEGATIVE (Negative); Occult Blood Urine UA NEGATIVE (Negative); Protein Urine UA NEGATIVE (Negative); Urobilinogen Urine UA 0.2 E.U./dL (0.2)
[2018-11-27 07:15] LABS: RBC Urine 0-1/HPF (0-5/HPF)
[2018-11-27 07:16] LABS: Bacteria Urine Few (2-10); Squamous Epithelial Cell Urine 0-1 /HPF (0-5/HPF); WBC Urine 1-5/HPF (0-5/HPF)
--- NOTE | 2018-11-27 08:08 | CM.DPC ---
Addendum entered by Rhina Chung LPN 11/27/18 11:31: Case discussed in Team Rounds. [employer] Signal Technician Shey states she will discuss case with oncology [employer] Idania when she arrives to as to give pt some suggestions to support her healing process while she is in the hospital and when she returns to the oncology clinic setting. Will pass on information to Idania when she arrives. Original Note: Discharge Planning/Care Management DCP: assessment: initiated: EMR review. Case received, EMR reviewed. Readmit: noted: see template below. PT is a 68 year old female who admitted late last night to care of hospitalist team. PCP: Abhinav Forte: [facility] PT is followed closely at the [facility]: Dr. Walton. 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 Idania will be here today and plan to discuss this care with her and refer to her for further assessment process as her time allows. Payer: Medicare ? supplement Pt was scheduled to have another INPT Chemo Cycle at this month but is now here with neutropenic fever. CM Discharge Assessment Start: 11/27/18 08:04 Freq: Status: Active Protocol: Document 11/27/18 08:05 ITV (Rec: 11/27/18 08:08 ITV [id number]) Discharge Planning Assessment Advance Directives? Yes History Provided By Medical Record Has Patient been admitted in last 30 Yes days? Comment last admission here in October with a d/c to home and continued oncology followup at the [facility] Prior Living Arrangements House Review Status In Process
[2018-11-27] MEDS: CALCIUM CARBONATE 600 MG TABLET PO (08:37)
[2018-11-27] MEDS: EZETIMIBE 10 MG TABLET PO (08:37)
[2018-11-27] MEDS: VANCOMYCIN 750 MG/150 ML FROZ.PIGGY 200 MG IV ×2 (10:08→20:11)
--- NOTE | 2018-11-27 10:21 | PT-IP ANOTE ---
Pt's Hgb = 8.0, Hct= 22.8 early this am. Discussed with Dr. Hunter who recommended to hold for PT eval. Dr. Hunter is currently attempting to contact with oncologist for further pt's hx. Will consult with MD again prior to PT eval this afternoon.
--- NOTE | 2018-11-27 10:35 | P.PN_ITS ---
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 The patient is resting in bed comfortably. She endorses left-sided throat and jaw pain that radiates up to her left ear. She continues to have mild fever and associated rigors. She has chronic diarrhea which is unchanged. She has no other complaints and denies headache, chest pain, shortness of breath, abdominal pain, nausea, vomiting, dysuria, or constipation. She is voiding and eliminating without difficulty. She is up ambulating with assistance. Exam Vital Signs (past 8 hours): - 11/27/18 04:15 11/27/18 04:25 11/27/18 07:45 Temperature 99.8 F H 99.8 F H 98.1 F Pulse Rate 96 H 96 H 93 H Respiratory Rate 16 16 16 Blood Pressure 113/56 L 113/56 L 101/59 L Pulse Oximetry 94 100 11/27/18 09:32 11/27/18 09:56 11/27/18 09:59 Temperature 100.7 F H 100.7 F H Pulse Rate Respiratory Rate Blood Pressure Pulse Oximetry 93 Oxygen Delivery Method Room Air Oxygen Flow Rate 0 Narrative Exam Narrative: General: Older female lying in bed and in no acute distress, pale, appears chronically ill, appropriately interactive. HEENT: Normocephalic, atraumatic. External ears without defect. Pupils equal, round, and reactive to light. Anicteric sclerae, moist conjunctivae, and no lid lag. Oropharynx with thrush on tongue otherwise without visible lesions. Oral mucous membranes dry. Dried heme in left nare. Neck: Supple with full range of motion. No jugular venous distension. No lymphadenopathy or thyromegaly. Cardiovascular: Regular rate and rhythm without murmurs, rubs, or gallops appreciated. Pulmonary: Clear to auscultation bilaterally without crackles, wheezes, or rhonchi. Normal respiratory effort with no use of accessory muscles. Abdomen: Soft, bowel sounds present, nontender, nondistended. No hepatosplenomegaly or masses appreciated. Extremities: No clubbing, cyanosis, or edema. Skin: Normal temperature, turgor, and texture; no rash, ulcers, or subcutaneous nodules appreciated. Neurological: Cranial nerves grossly intact. Overall generalized weakness. Psychiatric: Depressed mood with emotional lability and normal affect. Alert and oriented to person, place, and time. Objective Labs Result Diagrams: 11/27/18 05:09 11/27/18 05:09 Labs: Laboratory Results - last 24 hr 11/26/18 11/26/18 11/26/18 18:00 18:00 18:00 WBC RBC Hgb Hct MCV MCH MCHC RDW Plt Count Neut % (Auto) Lymph % (Auto) [place] % (Auto) Eos % (Auto) Baso % (Auto) Lymph # (Auto) [place] # (Auto) Baso # (Auto) Total Counted Lymphocytes % (Manual) Neutrophils # (Manual) Platelet Estimate RBC Morphology Anisocytosis Ovalocytes PT 13.1 H INR 1.1 APTT 28 Sodium Potassium Chloride Carbon Dioxide BUN Creatinine Estimated GFR BUN/Creatinine Ratio Glucose Lactate Calcium Magnesium Total Bilirubin 0.7 AST ALT Alkaline Phosphatase Total Protein Albumin Globulin Albumin/Globulin Ratio Lipase Procalcitonin 0.98 H Urine Color Urine Appearance Urine pH Ur Specific [place] Urine Protein Urine Glucose (UA) Urine Ketones Urine Occult Blood Urine Nitrate Urine Bilirubin Urine Urobilinogen Ur Leukocyte Esterase Urine RBC Urine WBC Ur Squamous Epith Cells Urine Bacteria Ur Culture Indicated? Chlamy pneumoniae PCR Adenovirus (PCR) B.parapertussis DNA PCR Coronavirus OC43 (PCR) Coronavirus HKU1 (PCR) Coronavirus 229E (PCR) Coronavirus NL63 (PCR) Human Metapneumovir PCR Influenza Type A (PCR) Influenza Type B (PCR) M. pneumoniae (PCR) Parainfluenza 1 (PCR) Parainfluenza 2 (PCR) Parainfluenza 3 (PCR) Parainfluenza 4 (PCR) RSV (PCR) Entero/Rhino (PCR) Blood Type Antibody Screen Crossmatch 11/26/18 11/26/18 11/26/18 18:00 18:50 18:50 WBC 0.5 L* RBC 1.26 L Hgb 4.4 L* Hct 12.1 L* MCV 96.3 MCH 34.6 H MCHC 36.0 RDW 16.2 H Plt Count 36 L* Neut % (Auto) Not Reportable Lymph % (Auto) Not Reportable [place] % (Auto) Not Reportable Eos % (Auto) Not Reportable Baso % (Auto) Not Reportable Lymph # (Auto) Not Reportable [place] # (Auto) Not Reportable Baso # (Auto) Not Reportable Total Counted 25 Lymphocytes % (Manual) 100.0 H Neutrophils # (Manual) 0 L Platelet Estimate Decreased on smear RBC Morphology See below Anisocytosis 1+ H Ovalocytes 1+ H PT INR APTT Sodium 136 L Potassium 3.4 Chloride 101 Carbon Dioxide 28 BUN 9 Creatinine 0.60 Estimated GFR > 60.0 BUN/Creatinine Ratio 15.0 Glucose 101 Lactate Calcium 8.9 Magnesium Total Bilirubin 0.6 AST 16 ALT 9 Alkaline Phosphatase 61 Total Protein 6.4 Albumin 3.5 Globulin 2.9 Albumin/Globulin Ratio 1.2 Lipase 74 Procalcitonin Urine Color Urine Appearance Urine pH Ur Specific [place] Urine Protein Urine Glucose (UA) Urine Ketones Urine Occult Blood Urine Nitrate Urine Bilirubin Urine Urobilinogen Ur Leukocyte Esterase Urine RBC Urine WBC Ur Squamous Epith Cells Urine Bacteria Ur Culture Indicated? Chlamy pneumoniae PCR Adenovirus (PCR) B.parapertussis DNA PCR Coronavirus OC43 (PCR) Coronavirus HKU1 (PCR) Coronavirus 229E (PCR) Coronavirus NL63 (PCR) Human Metapneumovir PCR Influenza Type A (PCR) Influenza Type B (PCR) M. pneumoniae (PCR) Parainfluenza 1 (PCR) Parainfluenza 2 (PCR) Parainfluenza 3 (PCR) Parainfluenza 4 (PCR) RSV (PCR) Entero/Rhino (PCR) Blood Type Antibody Screen Crossmatch 11/26/18 11/26/18 11/26/18 18:50 18:50 19:41 WBC RBC Hgb Hct MCV MCH MCHC RDW Plt Count Neut % (Auto) Lymph % (Auto) [place] % (Auto) Eos % (Auto) Baso % (Auto) Lymph # (Auto) [place] # (Auto) Baso # (Auto) Total Counted Lymphocytes % (Manual) Neutrophils # (Manual) Platelet Estimate RBC Morphology Anisocytosis Ovalocytes PT INR APTT Sodium Potassium Chloride Carbon Dioxide BUN Creatinine Estimated GFR BUN/Creatinine Ratio Glucose Lactate 2.1 Calcium Magnesium 2.1 Total Bilirubin AST ALT Alkaline Phosphatase Total Protein Albumin Globulin Albumin/Globulin Ratio Lipase Procalcitonin Urine Color Urine Appearance Urine pH Ur Specific [place] Urine Protein Urine Glucose (UA) Urine Ketones Urine Occult Blood Urine Nitrate Urine Bilirubin Urine Urobilinogen Ur Leukocyte Esterase Urine RBC Urine WBC Ur Squamous Epith Cells Urine Bacteria Ur Culture Indicated? Chlamy pneumoniae PCR Adenovirus (PCR) B.parapertussis DNA PCR Coronavirus OC43 (PCR) Coronavirus HKU1 (PCR) Coronavirus 229E (PCR) Coronavirus NL63 (PCR) Human Metapneumovir PCR Influenza Type A (PCR) Influenza Type B (PCR) M. pneumoniae (PCR) Parainfluenza 1 (PCR) Parainfluenza 2 (PCR) Parainfluenza 3 (PCR) Parainfluenza 4 (PCR) RSV (PCR) Entero/Rhino (PCR) Blood Type A Positive Antibody Screen Negative Crossmatch See Detail 11/27/18 11/27/18 11/27/18 02:46 05:09 05:09 WBC 0.2 L* D RBC 2.49 L Hgb 8.0 L Hct 22.8 L MCV 91.4 D MCH 32.2 MCHC 35.3 RDW 15.7 H Plt Count 31 L* Neut % (Auto) Not Reportable Lymph % (Auto) Not Reportable [place] % (Auto) Not Reportable Eos % (Auto) Not Reportable Baso % (Auto) Not Reportable Lymph # (Auto) Not Reportable [place] # (Auto) Not Reportable Baso # (Auto) Not Reportable Total Counted Lymphocytes % (Manual) Neutrophils # (Manual) Platelet Estimate RBC Morphology See below Anisocytosis 1+ H Ovalocytes PT INR APTT Sodium Potassium Chloride Carbon Dioxide BUN Creatinine Estimated GFR BUN/Creatinine Ratio Glucose Lactate Calcium Magnesium Total Bilirubin AST ALT Alkaline Phosphatase Total Protein Albumin Globulin Albumin/Globulin Ratio Lipase Procalcitonin 0.75 H Urine Color Urine Appearance Urine pH Ur Specific [place] Urine Protein Urine Glucose (UA) Urine Ketones Urine Occult Blood Urine Nitrate Urine Bilirubin Urine Urobilinogen Ur Leukocyte Esterase Urine RBC Urine WBC Ur Squamous Epith Cells Urine Bacteria Ur Culture Indicated? Chlamy pneumoniae PCR Not detected Adenovirus (PCR) Not detected B.parapertussis DNA PCR Not detected Coronavirus OC43 (PCR) Not detected Coronavirus HKU1 (PCR) Not detected Coronavirus 229E (PCR) Not detected Coronavirus NL63 (PCR) Not detected Human Metapneumovir PCR Not detected Influenza Type A (PCR) Not detected Influenza Type B (PCR) Not detected M. pneumoniae (PCR) Not detected Parainfluenza 1 (PCR) Not detected Parainfluenza 2 (PCR) Not detected Parainfluenza 3 (PCR) Not detected Parainfluenza 4 (PCR) Not detected RSV (PCR) Not detected Entero/Rhino (PCR) Not detected Blood Type Antibody Screen Crossmatch 11/27/18 11/27/18 05:09 06:59 WBC RBC Hgb Hct MCV MCH MCHC RDW Plt Count Neut % (Auto) Lymph % (Auto) [place] % (Auto) Eos % (Auto) Baso % (Auto) Lymph # (Auto) [place] # (Auto) Baso # (Auto) Total Counted Lymphocytes % (Manual) Neutrophils # (Manual) Platelet Estimate RBC Morphology Anisocytosis Ovalocytes PT INR APTT Sodium 135 L Potassium 3.1 L Chloride 103 Carbon Dioxide 27 BUN 8 Creatinine 0.60 Estimated GFR > 60.0 BUN/Creatinine Ratio 13.3 Glucose 118 H Lactate Calcium 7.9 L Magnesium Total Bilirubin AST ALT Alkaline Phosphatase Total Protein Albumin Globulin Albumin/Globulin Ratio Lipase Procalcitonin Urine Color Yellow Urine Appearance Clear Urine pH 6.0 Ur Specific [place] 1.010 Urine Protein Negative Urine Glucose (UA) Negative Urine Ketones Negative Urine Occult Blood Negative Urine Nitrate Negative Urine Bilirubin Negative Urine Urobilinogen 0.2 Ur Leukocyte Esterase Negative Urine RBC 0-1/hpf Urine WBC 1-5/hpf Ur Squamous Epith Cells 0-1 /hpf Urine Bacteria Few (2-10) H Ur Culture Indicated? Culture not indicate Chlamy pneumoniae PCR Adenovirus (PCR) B.parapertussis DNA PCR Coronavirus OC43 (PCR) Coronavirus HKU1 (PCR) Coronavirus 229E (PCR) Coronavirus NL63 (PCR) Human Metapneumovir PCR Influenza Type A (PCR) Influenza Type B (PCR) M. 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 1. Acute neutropenic fever, present on admission. Active. 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 No complaints of abdominal pain, nausea or vomiting. Of note, recently treated for diffuse colitis with 14 day course of Flagyl and ciprofloxacin. -Initial procalcitonin 0.98, now trending down to 0.75. -Respiratory PCR negative. -Urinalysis does not appear grossly infected. -Ordered GI stool panel, pending. -Ordered MRSA screen, pending. -Blood culture and urine culture pending with no growth to date. -Continue neutropenic precautions. -Continue vancomycin with dosing per pharmacy, cefepime 2 g every 8 hours, nystatin swish and swallow 3 times daily and Diflucan 200 mg daily for 10-14 days per [facility] infectious Disease and her oncologist . 2. Acute on chronic pancytopenia, secondary to AML and chemotherapy, present on admission. Active. -Patient has had anemia related to AML as well as chemotherapy requiring transfusions of both RBC and platelets. -Initial hemoglobin 4.4. Received 2 units PRBC with H&H 8.0 and 22.8. Ordered another 1 unit PRBC to be transfused. Transfusion goal H&H less than 8.4/24. -Initial platelets 36, now down to 31. Transfusion goal less than 20. -Initial WBC 0.5, now down to 0.2. Discussed Neupogen with her oncologist Dr. Walton who recommended holding off as data is controversial in AML. -Continue neutropenic precautions. 3. AML undergoing chemotherapy, chronic, present on admission. Active. -Continue venetoclax daily. Patient receives Vidaza infusion on Friday and will tentatively plan for this on 11/30. -Continue IV fluids with normal saline at 75 mL/hr. -Ordered Zofran every 6 hours as needed for nausea. May consider lorazepam and/or dexamethasone if nausea persistent and not amenable to Zofran. -Ordered Tylenol 625 mg every 6 hours as needed for fever, pain, or headache. 4. Acute hypokalemia, not present on admission. Active. -Initial potassium 3.4. Potassium level now 3.1 likely hemodilutional. -Ordered potassium chloride 40 mEq IV x1. -Continue to monitor potassium level daily and replete as necessary. 5. Hypertension, chronic, present on admission. Stable. -Continue atenolol 25 mg daily with hold parameters of SBP < 100 mmHg or HR < 60 bpm. 6. Hyperlipidemia, chronic, present on admission. Stable. -Continue ezetimibe 10 mg daily. 7. Anxiety, chronic, present on admission. Stable. -Continue alprazolam 0.25 mg every 8 hours as needed for anxiety. Disposition: Patient remains inpatient and will likely be hospitalized for several days pending infectious workup and treatment of thrush/Aby esophagitis and probable mucositis. Quality VTE Deep Vein Thrombosis/Pulmonary Embolism Present on Admission: No
[2018-11-27] MEDS: VENETOCLAX 100 MG PO (13:03)
--- NOTE | 2018-11-27 14:47 | PC.NURSE ---
Day shift: Pt tolerating the 1 unit of PRBC's. VS WNL. RA 98%. HAs had very loose stools today and MD aware. GI panel ordered by MD. Pt's daughter and Son have been at beside for most of the day for support. Pt does c/o of sore throat (may be r/t thrush) and MD aware. Pt tired and weak today but is better this afternoon. She is feeling down and MD has called Pt's oncology MD to request that they come talk to the Pt about her AML when able. Pt denies any chest pain. SHe does like having her 650mg Tylenol Q4 hours. Temp has been elevated and she has c/o headache today. Call light in reach and bed alarm is on. Pt uses call light proper and agrees to not get OOB w/o help from staff.
--- NOTE | 2018-11-27 15:54 | DIET.PN ---
Dietary Progress Note Assessment: 68y F admitted for weakness and neutropenic fever presenting c mucositis and thrush of mouth. Pt has not eaten much of anything for past week. Only tolerating small amount of cold liquids including smoothie and lauri sorbet at home. HT: 157.4cm WT: 62.3kg UBW: 68kg (8.4% loss in 3 mo, severe) BMI: 25.1 Labs: hbg 4.4-8 (L), Na 135 (L), K+ 3.1 (L), Ca2+ 7.9 (L), platelet 31 (L), wbc 0.4 (L) Nutrition Diagnosis: Severe Acute on Chronic PCM r/t mucositis and diarrhea secondary to chemotherapy for AML aeb <25% EERs for >5d, 8.4% unintentional wt loss in 3mo (severe), moderate subcutaneous fat losses system wide c obvious saggy skin, critical lab values (hgb 4.4, platelet 31, wbc 0.4). Interventions: Recc ONS Ensure surgery bid (B/D), Vanilla Enlive c lunch to support energy and PRO needs providing 75% EERs. Diet Order: General neutropenic EER: 1600kcal, 80g PRO (1.3g/kg per Ca), 1.8L fluids Monitoring/Evaluations: thrush progression, pt oral tolerance, food preferences, POs, associated labs
[2018-11-27] MEDS: ALPRAZolam 0.25 MG TABLET PO (16:06)
[2018-11-27] MEDS: CEFEPIME 2 GM in SODIUM CHLORIDE 0.9% 100 ML 200 ML IV (16:06)
[2018-11-27] MEDS: MORPHINE 2 MG/ML INJ IV (16:20)
--- NOTE | 2018-11-27 16:50 | PT-IP ANOTE ---
per Dr. Hunter, pt is cleared to do PT. checked on pt and family in room and stated that pt cannot do PT right now.
[2018-11-27] MEDS: FLUCONAZOLE 100 MG TABLET 200 MG PO (17:05)
[2018-11-27] MEDS: ATENOLOL 25 MG TABLET PO (17:06)
--- NOTE | 2018-11-27 19:22 | ONC.PN ---
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 She seen in the [facility]. She presented initially with an episode of syncope in September. She was found to have significant cytopenias. Bone marrow biopsy showed myelodysplasia with excess blasts. She was referred to [facility] for an opinion regarding treatment. A repeat bone marrow biopsy there showed that she had already progressed to AML. She discussed the possibility of induction chemotherapy followed by stem cell transplant as potentially curative but elected less intensive therapy. She started her 1st cycle here in October. She is due for her 2nd cycle to begin on Friday of next week. Shortly after her initial ramp up, she developed acute episode of abdominal pain and was found to have possible colitis. Over the last week or so, she had been feeling reasonably well. She was having some trouble with headache and mouth sores. Her appetite had been low and she had been losing some weight. Two days ago, she had increasing headache particularly on the left side around the ear and jaw. She then started to develop rigors and increase in her fever. She had acute worsening of her fatigue and because of that she was brought to the hospital. She was found to have a white count of 0.2. Her hemoglobin was about 4. She was febrile. She started on antibiotics with vancomycin and cefepime. She is also on oral fluconazole. She did have a red cell transfusion. Today, she notes ongoing pain in her head and mouth. Did improve after a dose of morphine. She was having rigors earlier but does seem to have subsided somewhat at this point. She denies any shortness of breath or chest pain. Her appetite is poor. She has been having diarrhea. Her PICC line has not demonstrated any erythema or tenderness but she is due for a dressing change. Her past medical history is notable for breast cancer diagnosed about 10 years ago. She was treated with lumpectomy chemotherapy radiation and hormone therapy for about 5 years. While on tamoxifen, she did have a stroke or TIA. She has had high cholesterol and hypertension. Her family history is notable for heart disease but not for cancer or blood dyscrasias. Social history: She lives by herself on [address]. 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 She does not smoke. She does have about 1 drink per night. She has been quite active until just recently. Her daughter has been staying with her. - Additional ROS All systems PM: reviewed and no additional remarkable complaints except as stated (She has had headaches and mouth sores. She has had poor appetite. She has had increasing fatigue and generalized weakness. She has had some generalized myalgias. She has not had any evident bleeding or bruising. She has had some diarrhea.) Home Medications and Allergies Home Medications Medication Instructions Recorded Confirmed Type alprazolam 0.25 mg PO Q8H PRN 08/27/18 11/27/18 History atenolol 25 mg PO QPM 08/27/18 11/27/18 History ezetimibe [Zetia] 10 mg PO DAILY 08/27/18 11/27/18 History Venclexta See Rx Instructions .ROUTE 10/14/18 11/27/18 Rx .COMPLEX #120 tab diphenhydramine HCl [Benadryl] 50 mg PO DAILY #0 11/07/18 11/27/18 History ciprofloxacin HCl [Cipro] 500 mg PO 0700,2100 #20 tab 11/11/18 11/27/18 Rx metronidazole 500 mg PO TID #30 tab 11/11/18 11/27/18 Rx Allergies Allergy/AdvReac Type Severity Reaction Status Date / Time No Known Allergies Allergy Unknown Verified 11/26/18 18:51 [NO KNOWN ALLERGIES] Exam Vital signs: Vital Signs Temp Pulse Resp BP BP Pulse Ox 11/27/18 16:06 98.2 F 157 H 20 148/42 H 91 11/27/18 15:00 92 11/27/18 13:04 98.5 F 93 H 16 115/55 L 99 11/27/18 13:02 98.5 F 11/27/18 12:56 98.5 F 97 H 16 115/55 L 11/27/18 12:40 98.4 F 92 H 16 107/59 L 11/27/18 12:10 100.7 F H 11/27/18 11:00 96 11/27/18 09:59 100.7 F H 11/27/18 09:56 100.7 F H 11/27/18 09:32 93 11/27/18 07:45 98.1 F 93 H 16 101/59 L 100 11/27/18 04:25 99.8 F H 96 H 16 113/56 L 11/27/18 04:15 99.8 F H 96 H 16 113/56 L 94 11/27/18 01:40 99.2 F 99 H 16 127/65 11/27/18 01:34 98.6 F 100 H 16 110/54 L 11/27/18 00:00 99.0 F 94 H 12 102/51 L 96 11/26/18 22:15 100.5 F H 112 H 17 135/57 L 99 11/26/18 21:30 111 H 15 115/58 L 97 11/26/18 21:10 100.1 F H 11/26/18 20:58 100.1 F H 111 H 20 91/80 97 11/26/18 20:43 98.4 F 110 H 14 107/45 L 11/26/18 20:30 98.5 F 106 H 17 107/45 L 98 11/26/18 20:11 99 11/26/18 20:00 100 H 15 120/53 L 100 11/26/18 19:30 100 H 14 122/52 L 99 Intake and Output 11/27/18 11/27/18 11/27/18 07:59 15:59 23:59 Intake Total 530.000 / 920.000 390 / 920.000 Output Total 555 / 1305 550 / 1305 200 / 1305 Balance -25.000 / -385.000 -160 / -385.000 -200 / -385.000 Intake: IV 150.000 / 300.000 150 / 300.000 Sodium Chloride 0.9% 1,000 ml @ 50.000 / 50.000 75 mls/hr IV CONT [facility] Rx#: [id number] Vancomycin 750 mg In 150 ml @ 150 / 150 200 mls/hr IV Q12H [facility] Rx#: [id number] cefTAZidime 1 gm In Sodium 100 / 100 Chloride 0.9% 100 ml @ 100 mls/ hr IV Q8H [facility] Rx#:[id number] Intake (Blood Product) Amt 300 / 300 0 / 300 Leukocyte Reduced Rbc Irr As-3 0 / 0 Unit [id number] Leukocyte Reduced Rbc Irr As-3 0 / 0 Unit [id number] Packed Cells Unit 300 / 300 [id number] Oral 50 / 290 240 / 290 Other Leukocyte Reduced Rbc Irr As-3 Unit [id number] Output: Urine 305 / 855 550 / 855 Urine/Stool Mix 250 / 450 200 / 450 Other: Percent Meal Consumed 25% Stool Size Smear Moderate Moderate # Unmeasured Voids 1 # Bowel Movements 1 1 Weight 62.3 kg 62.3 kg Patient Weight 11/27/18 23:59 Weight 62.3 kg - Constitutional positive no acute distress, positive average body habitus, positive chronically ill appearing - Routine HEENT Exam Head: Present: normocephalic, atraumatic Eye: Present: EOMI, PERRL. Absent: conjunctival icterus, scleral injection ENT: Present: mucous membranes moist Comments: She does have a little bit of erythema of the buccal mucosa but I do not see any open sores. She does have an orangeish coating on the tongue. - Routine Neck Exam Present: supple. Absent: lymphadenopathy, thyromegaly - Routine Respiratory Exam Present: Clear to auscultation bilaterally. Absent: rales, wheezes - Routine Cardiovascular Exam Present: RRR, S1, S2. Absent: murmur - Routine Abdominal Exam Present: soft, normoactive bowel sounds. Absent: tenderness, organomegaly, mass - Routine Extremities Exam Absent: cyanosis, clubbing, edema - Routine Skin Exam Present: intact. Absent: petechiae, ecchymosis - Routine Neurological Exam Present: alert, oriented X3 - Routine Psychiatric Exam Present: normal affect, normal thought process Results - Labs Laboratory Last Values WBC 0.2 X10^3/uL (4.5-11.0) L* D 11/27/18 05:09 RBC 2.49 X10^6/uL (4.0-5.2) L 11/27/18 05:09 Hgb 8.0 g/dL (12.0-16.0) L 11/27/18 05:09 Hct 22.8 % (36-46) L 11/27/18 05:09 MCV 91.4 fL (80-100) D 11/27/18 05:09 MCH 32.2 PG (26-34) 11/27/18 05:09 MCHC 35.3 % (30-36) 11/27/18 05:09 RDW 15.7 % (11.6-14.8) H 11/27/18 05:09 Plt Count 31 X10^3/uL (150-400) L* 11/27/18 05:09 Neut % (Auto) Not Reportable 11/27/18 05:09 Lymph % (Auto) Not Reportable 11/27/18 05:09 [place] % (Auto) Not Reportable 11/27/18 05:09 Eos % (Auto) Not Reportable 11/27/18 05:09 Baso % (Auto) Not Reportable 11/27/18 05:09 Lymph # (Auto) Not Reportable 11/27/18 05:09 [place] # (Auto) Not Reportable 11/27/18 05:09 Baso # (Auto) Not Reportable 11/27/18 05:09 Total Counted 25 11/26/18 18:50 Lymphocytes % (Manual) 100.0 % (25-45) H 11/26/18 18:50 Neutrophils # (Manual) 0 /uL (0727-8647) L 11/26/18 18:50 Platelet Estimate Decreased on smear 11/26/18 18:50 RBC Morphology See below 11/27/18 05:09 Anisocytosis 1+ H 11/27/18 05:09 Ovalocytes 1+ H 11/26/18 18:50 PT 13.1 SECONDS (10.1-12.7) H 11/26/18 18:00 INR 1.1 (0.9-1.3) 11/26/18 18:00 APTT 28 SECONDS (26.4-36.2) 11/26/18 18:00 Sodium 135 mmol/L (137-145) L 11/27/18 05:09 Potassium 3.1 mmol/L (3.4-5.1) L 11/27/18 05:09 Chloride 103 mmol/L (98-107) 11/27/18 05:09 Carbon Dioxide 27 mmol/L (22-32) 11/27/18 05:09 BUN 8 mg/dL (7-17) 11/27/18 05:09 Creatinine 0.60 mg/dL (0.52-1.04) 11/27/18 05:09 Estimated GFR > 60.0 mL/min (>60) 11/27/18 05:09 BUN/Creatinine Ratio 13.3 (6-22) 11/27/18 05:09 Glucose 118 mg/dL (80-110) H 11/27/18 05:09 Lactate 2.1 mmol/L (0.7-2.1) 11/26/18 18:50 Calcium 7.9 mg/dL (8.4-10.2) L 11/27/18 05:09 Magnesium 2.1 mg/dL (1.6-2.3) 11/26/18 18:50 Total Bilirubin 0.6 mg/dL (0.2-1.3) 11/26/18 18:50 AST 16 IU/L (14-36) 11/26/18 18:50 ALT 9 IU/L (9-52) 11/26/18 18:50 Alkaline Phosphatase 61 U/L (38-126) 11/26/18 18:50 Total Protein 6.4 g/dL (6.3-8.2) 11/26/18 18:50 Albumin 3.5 g/dL (3.5-5.0) 11/26/18 18:50 Globulin 2.9 g/dL (1.7-4.1) 11/26/18 18:50 Albumin/Globulin Ratio 1.2 (1.0-2.8) 11/26/18 18:50 Lipase 74 U/L (23-300) 11/26/18 18:00 Procalcitonin 0.75 ng/mL (<0.5) H 11/27/18 05:09 Urine Color Yellow 11/27/18 06:59 Urine Appearance Clear 11/27/18 06:59 Urine pH 6.0 (4.5-8.0) 11/27/18 06:59 Ur Specific [place] 1.010 (1.000-1.035) 11/27/18 06:59 Urine Protein Negative (Negative) 11/27/18 06:59 Urine Glucose (UA) Negative g/dL (Negative) 11/27/18 06:59 Urine Ketones Negative (NEGATIVE) 11/27/18 06:59 Urine Occult Blood Negative (Negative) 11/27/18 06:59 Urine Nitrate Negative (Negative) 11/27/18 06:59 Urine Bilirubin Negative (NEGATIVE) 11/27/18 06:59 Urine Urobilinogen 0.2 E.U./dL (0.2) 11/27/18 06:59 Ur Leukocyte Esterase Negative (NEGATIVE) 11/27/18 06:59 Urine RBC 0-1/hpf (0-5/HPF) 11/27/18 06:59 Urine WBC 1-5/hpf (0-5/HPF) 11/27/18 06:59 Ur Squamous Epith Cells 0-1 /hpf (0-5/HPF) 11/27/18 06:59 Urine Bacteria Few (2-10) (None) H 11/27/18 06:59 Ur Culture Indicated? Culture not indicate 11/27/18 06:59 Chlamy pneumoniae PCR Not detected (Not Detect) 11/27/18 02:46 Adenovirus (PCR) Not detected (Not Detect) 11/27/18 02:46 B.parapertussis DNA PCR Not detected (Not Detect) 11/27/18 02:46 Coronavirus OC43 (PCR) Not detected (Not Detect) 11/27/18 02:46 Coronavirus HKU1 (PCR) Not detected (Not Detect) 11/27/18 02:46 Coronavirus 229E (PCR) Not detected (Not Detect) 11/27/18 02:46 Coronavirus NL63 (PCR) Not detected (Not Detect) 11/27/18 02:46 Human Metapneumovir PCR Not detected (Not Detect) 11/27/18 02:46 Influenza Type A (PCR) Not detected (Not Detect) 11/27/18 02:46 Influenza Type B (PCR) Not detected (Not Detect) 11/27/18 02:46 M. pneumoniae (PCR) Not detected (Not Detect) 11/27/18 02:46 Parainfluenza 1 (PCR) Not detected (Not Detect) 11/27/18 02:46 Parainfluenza 2 (PCR) Not detected (Not Detect) 11/27/18 02:46 Parainfluenza 3 (PCR) Not detected (Not Detect) 11/27/18 02:46 Parainfluenza 4 (PCR) Not detected (Not Detect) 11/27/18 02:46 RSV (PCR) Not detected (Not Detect) 11/27/18 02:46 Entero/Rhino (PCR) Not detected (Not Detect) 11/27/18 02:46 Blood Type A Positive 11/26/18 19:41 Antibody Screen Negative 11/26/18 19:41 Crossmatch See Detail 11/26/18 19:41 - Imaging Additional studies: Procedures Transfusion of Nonautologous Red Blood Cells into Peripheral Vein, Percutaneous Approach (11/26/18) Assessment and Plan (1) AML (acute myeloblastic leukemia) Current visit: No Status: Acute 68-year-old woman with 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 This is probably treatment related. She has completed nearly 1 month of therapy. She has platelet count that is near her baseline. She still needing red cell transfusions. Her white count is quite low. She has had some mucositis and thrush. She has had a recent onset of fever. With regards to her leukemia, she will continue with her Venetoclax. She would be due for her 2nd cycle of I days a beginning next week. Will need to wait and see how she is feeling next week before deciding to proceed with that. The response rate with his chemotherapy is about 60%. Hopefully she will achieve a remission with improvement in her blood counts, with decrease in her need for transfusions and improvement in her quality of life. From an infectious disease standpoint, she is well covered with vancomycin, cefepime and fluconazole. I would consider adding prophylactic acyclovir. She should continue with transfusion support. Because she lives on [address] [facility] [address], her social situation is a little bit stressful. It has been difficult for her to get to and from clinic in the hospital especially when she has developed a fever and is not feeling well. She and her family are investigating whether might be possible for her to stay closer to the hospital during the initial phases of her treatment. (1) AML (acute myeloblastic leukemia) Qualifiers: Leukemia Active/Remission status: without remission Qualified Code(s): C92.00 - Acute myeloblastic leukemia, not having achieved remission
--- NOTE | 2018-11-27 19:37 | CM.SWNOTE ---
Discharge Planning/Care Management Advanced directive, confirm from FAMILY Start: 11/26/18 23:06 Freq: Q24H Status: Active Protocol: Document 11/27/18 09:32 YAD (Rec: 11/27/18 09:46 YAD [id number]) Advance Directive, confirm on record Time 09:45 Person contacted patient Copy received No Advanced directive available on record Yes CM Discharge Assessment Start: 11/27/18 08:04 Freq: Status: Active Protocol: Document 11/27/18 08:05 ITV (Rec: 11/27/18 08:08 ITV [id number]) Discharge Planning Assessment Advance Directives? Yes History Provided By Medical Record Has Patient been admitted in last 30 Yes days? 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 Pt is in active oncology treatment for AML. Precipitating Event(s) Pt began developing a high fever yesterday which quickly developed into neutrapenic fever. Pt resides on [address] which further delayed her ability to get to the ER for immediate intervention. She has also been struggling with colitis, is not eating/ drinking well due to what has now been determined to be widespread thrush and probable mucositis. Current Behavioral Health Provider(s) N/A Include Facility, Provider, Ph. # Family Hx of Behavioral Abuse N/A Support System(s) Pt is strongly supported by friends on the [place], and her dtr who has moved in with her in order to provide care. Pt also has 2-adult sons who are actively involved in her care planning. School/Work Pt is recently retired. Presenting Problem N/A Legal Matters - Outstanding Issues N/A Orientation (Person/Place/Time) Pt is oriented and able to participate in decision-making re: goals of care and d/c plan. Affect Tired, tearful Insight (Present-Partially Present- Pt vacillates between being Impaired) alert and following conversation to losing track and getting confused. Judgement (Intact-Impaired) Intact Impulse Control (Adequate-Impaired) adequate Memory (Udbeddvye-Iomaut-Qatgfp, some mild impairments due to Impaired-Intact) medical status Concentration (Intact-Impaired) impaired Attention (Intact-Impaired) impaired Behavior (Appropriate-Inappropriate) appropriate Suicidal Ideation (Plan) No Homicidal Ideation (Plan) No RA Intervention PLAN REP met with pt, dtr, and sonVazquez to discuss family's preferences for d/c. They had considered many options, and have decided to keep pt here in [place] with her dtr for the time being. There are no plans for further inpt chemo treatments, this is now being done outpatient. PLAN REP provided family with caregiving list and discussed their plan of possibly renting an Air B&B for the next month or two, depending on how things unfold . Pt's son is also planning on checking out [place], however this would not work due to pt's small dog. Family are actively working on an environment for safe discharge . RA Plan See above. Pt is continued to be followed by Oncology, and Dr. Walton did meet this evening with pt and family up on the floor.
[2018-11-27] MEDS: MORPHINE 4 MG/ML INJ IV (20:10)
[2018-11-27] MEDS: ACYCLOVIR 400 MG TABLET PO (20:11)
[2018-11-28] VITALS (17 sets, daily range): BP systolic 113–150; BP diastolic 45–63; PULSE 82–104; RESP 17–20; TEMP 36.3–39.3; O2SAT 91–97
[2018-11-28] MEDS: CEFEPIME 2 GM in SODIUM CHLORIDE 0.9% 100 ML 200 ML IV ×3 (00:22→16:17)
[2018-11-28] MEDS: ACETAMINOPHEN 325 MG TABLET 650 MG PO ×4 (00:36→13:33)
--- NOTE | 2018-11-28 03:21 | PC.NURSE ---
During a pt check the pt stated she woke up and felt very disoriented and did not know where she was, but then immediately stated she finally realized she was in [place] at the hospital. Pt's daughter also said she was confused and disoriented a few nights ago in her own home when trying to find the bathroom. Notified JOHN.
[2018-11-28 05:33] LABS: Alanine Aminotransferase 18 IU/L (9-52); Albumin 2.7 g/dL (3.5-5.0); Alkaline Phosphatase 58 U/L (38-126); Aspartate Aminotransferase 16 IU/L (14-36); Bilirubin Total 0.8 mg/dL (0.2-1.3); Blood Urea Nitrogen 6 mg/dL (7-17); Calcium 7.8 mg/dL (8.4-10.2); Carbon Dioxide 26 mmol/L (22-32); Chloride 107 mmol/L (98-107); Estimated Glomerular Filt Rate > 60.0 mL/min (>60); Globulin 2.8 g/dL (1.7-4.1); Glucose 105 mg/dL (80-110); HEMOLYSIS < 15 (0-50); Magnesium 1.8 mg/dL (1.6-2.3); Potassium 3.7 mmol/L (3.4-5.1); Sodium 139 mmol/L (137-145); Total Protein 5.5 g/dL (6.3-8.2)
--- NOTE | 2018-11-28 05:54 | PC.NURSE ---
Addendum entered by Sandra Oliver R.N. 11/28/18 06:39: Pt. WBC 0.3, Plt 46, H&H 8.7, 24.1, Rigo PATTON notified. Addendum entered by Sandra Oliver R.N. 11/28/18 06:23: Pt experienced shaking/weakness and anxiety while going to the bathroom. She had Xanax .25mg at 0630. Pt had BM, sample sent to lab. Original Note: Pt has had an elevated temp this shift, 102.8, medicated w/ Tylenol PRN temp is now 98.6. Rigo PATTON notified of temp elevation. Pt VSS, lung sounds clear bilaterally. Pt is up to bedside commode. Pt was disoriented after sleep but remembered where she was right away.
[2018-11-28 05:59] LABS: Procalcitonin 1.21 ng/mL (<0.5)
[2018-11-28] MEDS: ALPRAZolam 0.25 MG TABLET PO ×2 (06:16→14:27)
[2018-11-28 06:20] LABS: TSH w/ Reflex to FT4 0.77 uIU/mL (0.47-4.68)
[2018-11-28] MEDS: SODIUM CHLORIDE 0.9% 1,000 ML 75 ML IV ×2 (06:20→22:25)
[2018-11-28 06:46] LABS: Hemoglobin 8.8 g/dL (12.0-16.0)
[2018-11-28 06:47] LABS: Hematocrit 24.5 % (36-46); Mean Corpuscular HGB Conc 35.8 % (30-36); Mean Corpuscular Hemoglobin 32.4 PG (26-34); Mean Corpuscular Volume 90.4 fL (80-100); Red Cell Distribution Width 15.5 % (11.6-14.8)
[2018-11-28 06:51] LABS: Platelet Count 46 X10^3/uL (150-400); White Blood Cell Count 0.3 X10^3/uL (4.5-11.0)
[2018-11-28 06:52] LABS: Add Manual Diff / Slide Review SLIDE REVIEW
[2018-11-28 07:27] LABS: Anisocytosis 1+; Dimorphic RBC 1; Poikilocytosis 1+
--- NOTE | 2018-11-28 07:45 | P.PN_ITS ---
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 Interval history: Patient spiked a temperature of 102.8? with associated fevers, chills, and rigors. The patient is sleeping in bed comfortably and easily arousable. She reports that her left-sided throat and ear pain have improved. She reports fever this morning with rigors was severe and hard to describe. She reports her swallowing has slightly improved. She has chronic diarrhea which is unchanged and her GI stool panel was negative. She has no other complaints and denies headache, chest pain, shortness of breath, abdominal pain, nausea, vomiting, dysuria, or constipation. She is voiding and eliminating without difficulty. She is up ambulating with assistance. Exam Vital Signs (past 8 hours): - 11/28/18 00:20 11/28/18 01:34 11/28/18 03:00 Temperature 102.8 F H 101.1 F H 98.6 F Pulse Rate 104 H Respiratory Rate 20 Blood Pressure 125/58 L Pulse Oximetry 92 11/28/18 05:00 Temperature 98.1 F Pulse Rate 87 Respiratory Rate 20 Blood Pressure 114/63 Pulse Oximetry 94 Oxygen Delivery Method Room Air Oxygen Flow Rate 0 Narrative Exam Narrative: General: Older female lying in bed and in no acute distress, pale, appears chronically ill, appropriately interactive. HEENT: Normocephalic, atraumatic. External ears without defect. Pupils equal, round, and reactive to light. Anicteric sclerae, moist conjunctivae, and no lid lag. Oropharynx with thrush on tongue and palate otherwise without visible lesions. Oral mucous membranes dry. Neck: Supple with full range of motion. No jugular venous distension. No lymphadenopathy or thyromegaly. Cardiovascular: Regular rate and rhythm without murmurs, rubs, or gallops appreciated. Pulmonary: Clear to auscultation bilaterally without crackles, wheezes, or rhonchi. Normal respiratory effort with no use of accessory muscles. Abdomen: Soft, bowel sounds present, nontender, nondistended. No hepatosplen omegaly or masses appreciated. Extremities: No clubbing, cyanosis, or edema. Skin: Normal temperature, turgor, and texture; no rash, ulcers, or subcutaneous nodules appreciated. Neurological: Cranial nerves grossly intact. Overall generalized weakness. Psychiatric: Depressed mood and normal affect. Alert and oriented to person, place, and time. Objective Labs Result Diagrams: 11/28/18 05:08 11/28/18 05:08 Labs: Laboratory Results - last 24 hr 11/26/18 11/28/18 11/28/18 19:41 00:52 05:08 WBC 0.3 L* RBC 2.70 L Hgb 8.8 L Hct 24.5 L MCV 90.4 MCH 32.4 MCHC 35.8 RDW 15.5 H Plt Count 46 L Neut % (Auto) Not Reportable Lymph % (Auto) Not Reportable Baca % (Auto) Not Reportable Eos % (Auto) Not Reportable Baso % (Auto) Not Reportable Lymph # (Auto) Not Reportable Baca # (Auto) Not Reportable Baso # (Auto) Not Reportable RBC Morphology Not Reportable Dimorphic RBCs 1 Poikilocytosis 1+ H Anisocytosis 1+ H Sodium Potassium Chloride Carbon Dioxide BUN Creatinine Estimated GFR BUN/Creatinine Ratio Glucose Calcium Magnesium Total Bilirubin AST ALT Alkaline Phosphatase Total Protein Albumin Globulin Albumin/Globulin Ratio Procalcitonin TSH Nasal Screen MRSA (PCR) Negative for mrsa Blood Type A Positive Antibody Screen Negative Crossmatch See Detail 11/28/18 11/28/18 11/28/18 05:08 05:08 05:08 WBC RBC Hgb Hct MCV MCH MCHC RDW Plt Count Neut % (Auto) Lymph % (Auto) Baca % (Auto) Eos % (Auto) Baso % (Auto) Lymph # (Auto) Baca # (Auto) Baso # (Auto) RBC Morphology Dimorphic RBCs Poikilocytosis Anisocytosis Sodium 139 Potassium 3.7 Chloride 107 Carbon Dioxide 26 BUN 6 L Creatinine 0.60 Estimated GFR > 60.0 BUN/Creatinine Ratio 10.0 Glucose 105 Calcium 7.8 L Magnesium 1.8 Total Bilirubin 0.8 AST 16 ALT 18 Alkaline Phosphatase 58 Total Protein 5.5 L Albumin 2.7 L Globulin 2.8 Albumin/Globulin Ratio 1.0 Procalcitonin 1.21 H TSH 0.77 Nasal Screen MRSA (PCR) Blood Type Antibody Screen Crossmatch Assessment & Plan Assessment & Plan narrative: Kristen Cho is a 68-year-old female with a past medical history significant for hypertension, hyperlipidemia, bilateral breast cancer status post lumpectomy, chemo and radiation, 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 1. Acute neutropenic fever, present on admission. Active. -Patient presented with neutropenic fever and complaints of sore throat radiating to left ear likely service center representative of thrush/Aby esophagitis and probable mucositis. No complaints of abdominal pain, nausea or vomiting. Of note, recently treated for diffuse colitis with 14 day course of Flagyl and ciprofloxacin. -Initial procalcitonin 0.98. Procalcitonin 01.21 and likely peaking. -Respiratory PCR negative. Urinalysis does not appear grossly infected. GI stool panel negative. MRSA screen negative. -Blood culture and urine culture pending with no growth to date. -Continue neutropenic precautions. -Consulted dietitian and we appreciate her time and recommendations. -Continue vancomycin with dosing per pharmacy, cefepime 2 g every 8 hours, nystatin swish and swallow 3 times daily and Diflucan 200 mg daily for 10-14 days per [facility] infectious Disease and her oncologist . If patient continues to have fever, chills, and rigors in 3-4 days despite therapy above may need to broaden coverage with parenteral antifungal. -Consulted Oncology, Dr. Walton, who saw the patient last night and answered all of her and her family's questions. In addition to above antibiotic and antifungal course, he added acyclovir 400 mg twice daily. 2. Acute on chronic pancytopenia, secondary to AML and chemotherapy, present on admission. Active. -Patient has had anemia related to AML, as well as, chemotherapy requiring transfusions of both RBC and platelets. -Initial hemoglobin 4.4. Received 3 units PRBC with appropriate compensation and H&H 8.8 and 24.5. Transfusion goal H&H less than 8.4/24. -Initial platelets 36, trended down to 31, and now 46. Transfusion goal less than 20. -Initial WBC 0.5, trended down to 0.2, and now 0.3. Discussed Neupogen with her oncologist Dr. Walton who recommended holding off as data is controversial in AML. -Continue neutropenic precautions. 3. AML undergoing chemotherapy, chronic, present on admission. Active. -Patient is followed by Dr. Walton of Oncology. Continue venetoclax daily. Patient receives Vidaza infusion on Friday and will tentatively plan for this on 11/30. -Continue IV fluids with normal saline at 75 mL/hr. -Ordered Zofran every 6 hours as needed for nausea. May consider lorazepam and/or dexamethasone if nausea persistent and not amenable to Zofran. -Ordered Tylenol 625 mg every 6 hours as needed for fever, pain, or headache. 4. Acute hypokalemia, not present on admission. Active. -Initial potassium 3.4. Potassium level now 3.1 likely hemodilutional. -Received potassium chloride 40 mEq IV x1. Potassium level now 3.7. -Continue to monitor potassium level daily and replete as necessary. 5. Hypertension, chronic, present on admission. Stable. -Continue atenolol 25 mg daily with hold parameters of SBP < 100 mmHg or HR < 60 bpm. 6. Hyperlipidemia, chronic, present on admission. Stable. -Continue ezetimibe 10 mg daily. 7. Anxiety, chronic, present on admission. Stable. -Continue alprazolam 0.25 mg every 8 hours as needed for anxiety. Disposition: Patient remains inpatient and will likely be hospitalized for several days pending treatment of thrush/Aby esophagitis and probable mucositis. Quality VTE Deep Vein Thrombosis/Pulmonary Embolism Present on Admission: No
[2018-11-28 08:37] LABS: Adenovirus F 40/41 Not Detected (Not Detect); Astrovirus Not Detected (Not Detect); Campylobacter Not Detected (Not Detect); Clostridium difficile toxin AB Not Detected (Not Detect); Cryptosporidium Not Detected (Not Detect); Cyclospora cayetanensis Not Detected (Not Detect); Entamoeba histolytica Not Detected (Not Detect); Enteroaggregative E.coli Not Detected (Not Detect); Enteropathogenic E.coli Not Detected (Not Detect); Enterotoxigenic E.coli It/st Not Detected (Not Detect); Giardia lamblia Not Detected (Not Detect); Norovirus GI/GII Not Detected (Not Detect); Plesiomonsa shigelloides Not Detected (Not Detect); Rotavirus A Not Detected (Not Detect); Salmonella Not Detected (Not Detect); Shiga-like toxin-prod E.coli Not Detected (Not Detect); Shigella/Enteroinvasive E.coli Not Detected (Not Detect); Vibrio Not Detected (Not Detect); Vibrio cholerae Not Detected (Not Detect); Yersinia enterocolitica Not Detected (Not Detect)
[2018-11-28] MEDS: CALCIUM CARBONATE 600 MG TABLET PO (09:43)
[2018-11-28] MEDS: ACYCLOVIR 400 MG TABLET PO ×2 (09:43→21:08)
[2018-11-28] MEDS: EZETIMIBE 10 MG TABLET PO (09:43)
[2018-11-28] MEDS: VENETOCLAX 100 MG PO (09:43)
[2018-11-28] MEDS: FLUCONAZOLE 100 MG TABLET 200 MG PO (09:44)
[2018-11-28] MEDS: NYSTATIN SUSP 500,000 UNIT/5 ML UDC 500000 UNIT PO ×3 (09:46→21:08)
[2018-11-28 10:16] LABS: Vancomycin Trough 6.9 ug/mL (10-20)
[2018-11-28] MEDS: VANCOMYCIN 750 MG/150 ML FROZ.PIGGY 200 MG IV (11:01)
[2018-11-28] MEDS: MORPHINE 2 MG/ML INJ IV ×4 (11:15→21:15)
--- NOTE | 2018-11-28 13:52 | PC.NURSE ---
Shift summary: Alert and oriented X3. Feeling very tired today, and is having headaches and pain in her neck and shoulders. She has not had any rigors this shift, but she is most worried about this symptom returning because it makes her feel terrible. Temp max for this shift has been 99.3, and Tylenol given to help keep temps down. Was also give Morphine (2 mg) this morning for more generalized pain that was not relieved by Tylenol. C/O sore throat, states Nystatin swish/swallow seems to help. Occasionally tearful, though not particularly anxious (objectively). Trying her best to take PO's despite sx. IVF per orders, PICC in RUE WNL. Lungs CTA, room air, cont. pulse ox in place. Able to shift positions in bed, and calls for assist PRN. Daughter rooming in and attentive. Encouraged to make needs/concerns known to staff, and she has been doing so appropriately. She's hoping to take a nap now. Call light in reach, bed alarm on.
--- NOTE | 2018-11-28 14:25 | PT-IP ANOTE ---
From chart documentation: pt having a 99 deg temp. checked with nurse if pt is ok to do PT and stated no therapy. NAC just checked pt's temperature: 98.9 and that pt stated that she is beginning to shake.
--- NOTE | 2018-11-28 15:32 | CM.DPC ---
DCP Cont: Discussed patient during team rounds. Hospitalist, Dr. Hunter, anticipates that patient will be here for several days. This classification case manager was going to meet with patient today, but she was sleeping. Have not visualized family today. Noted from Idania STOCK MOVER's meeting with family, that they have been looking into assisted living facilities. They were also given senior resources for caregivers. Patient lives on [facility], but will be staying with daughter in [place]. P: DCP to continue to follow and be available for any resources needed for patient before discharge. Mery Baeza RN/Director Of Product Development
[2018-11-28] MEDS: ATENOLOL 25 MG TABLET PO (17:16)
[2018-11-28] MEDS: VANCOMYCIN 750 MG/150 ML FROZ.PIGGY 150 MG IV (17:17)
--- NOTE | 2018-11-28 23:34 | PC.NURSE ---
Pt desat to 90-91%, now on 2L NC 96%. cont pulse ox. pt denies any chest pain or sob. pt is anxious. pt c/o of head ache and ear pain 09/26, administered 4mg of morphine, then she was able to fall asleep. poor appetite & PO intake. pt had some clear ensure for dinner. 1-2PA to the [facility]. call light in reach. family at bedside.
[2018-11-29] VITALS (17 sets, daily range): BP systolic 118–144; BP diastolic 53–81; PULSE 80–98; RESP 16–20; TEMP 36.7–37.9; O2SAT 90–98
[2018-11-29] MEDS: ALPRAZolam 0.25 MG TABLET PO ×2 (00:01→10:58)
[2018-11-29] MEDS: CEFEPIME 2 GM in SODIUM CHLORIDE 0.9% 100 ML 200 ML IV ×4 (00:06→23:29)
[2018-11-29] MEDS: MORPHINE 2 MG/ML INJ IV ×5 (01:41→17:37)
[2018-11-29] MEDS: VANCOMYCIN 750 MG/150 ML FROZ.PIGGY 150 MG IV ×3 (01:41→18:06)
[2018-11-29] MEDS: ACETAMINOPHEN 325 MG TABLET 650 MG PO (04:45)
--- NOTE | 2018-11-29 05:03 | PC.NURSE ---
Pt alert and oriented, forgetful at times. Pt 1PA to BSC. Pt reports headache and left sided facial pain, slightly resolved with morphine. Family at bedside.
[2018-11-29 05:57] LABS: BUN Creatinine Ratio 8.3 (6-22); Blood Urea Nitrogen 5 mg/dL (7-17); Calcium 7.7 mg/dL (8.4-10.2); Carbon Dioxide 23 mmol/L (22-32); Chloride 105 mmol/L (98-107); Estimated Glomerular Filt Rate > 60.0 mL/min (>60); Glucose 112 mg/dL (80-110); HEMOLYSIS < 15 (0-50); Magnesium 1.6 mg/dL (1.6-2.3); Potassium 2.9 mmol/L (3.4-5.1); Sodium 134 mmol/L (137-145)
[2018-11-29 05:59] LABS: Hemoglobin 8.7 g/dL (12.0-16.0); Red Blood Cell Count 2.72 X10^6/uL (4.0-5.2)
[2018-11-29 06:00] LABS: Add Manual Diff / Slide Review SLIDE REVIEW; Hematocrit 24.7 % (36-46); Mean Corpuscular HGB Conc 35.5 % (30-36); Mean Corpuscular Hemoglobin 32.2 PG (26-34); Mean Corpuscular Volume 90.7 fL (80-100); Platelet Count 57 X10^3/uL (150-400); Red Cell Distribution Width 15.6 % (11.6-14.8)
[2018-11-29 06:04] LABS: White Blood Cell Count 0.4 X10^3/uL (4.5-11.0)
[2018-11-29 06:13] LABS: Procalcitonin 1.38 ng/mL (<0.5)
[2018-11-29 06:24] LABS: Platelet Estimate Decreased on smear
[2018-11-29 06:25] LABS: Anisocytosis 1+; Hypochromasia 1+
[2018-11-29] MEDS: POTASSIUM CHLORIDE 60 MEQ in SODIUM CHLORIDE 0.9% 500 ML 88.333 ML IV (06:39)
[2018-11-29] MEDS: POTASSIUM CHLORIDE 20 MEQ/15 ML UDC PO ×2 (09:34→17:26)
[2018-11-29] MEDS: NYSTATIN SUSP 500,000 UNIT/5 ML UDC 500000 UNIT PO ×3 (09:35→21:20)
[2018-11-29] MEDS: SODIUM CHLORIDE 0.9% FLUSH 10 ML IV ×2 (09:35→21:20)
[2018-11-29] MEDS: ACYCLOVIR 400 MG TABLET PO ×2 (09:35→21:20)
[2018-11-29] MEDS: VENETOCLAX 100 MG PO (09:35)
[2018-11-29] MEDS: FLUCONAZOLE 100 MG TABLET 200 MG PO (09:35)
[2018-11-29] MEDS: EZETIMIBE 10 MG TABLET PO (09:36)
[2018-11-29] MEDS: CALCIUM CARBONATE 600 MG TABLET PO (09:36)
[2018-11-29 09:38] LABS: Vancomycin Trough 14.9 ug/mL (10-20)
--- NOTE | 2018-11-29 09:44 | PT-IP ANOTE ---
Attempted to see pt again this morning. Per nursing, she continues to be feeling too poorly to participate in therapy. Will check again this afternoon.
--- NOTE | 2018-11-29 10:19 | CM.DPC ---
DCP Cont: Met with patient and son, who was in room. Introduced self and role. Patient in bed, stated, I feel that I really need to be in the hospital, or somewhere where I get more nursing care. Patient had mentioned the times that she has had to be transported her via helicopter from [place], due to effects of chemo. Son, Vazquez, had mentioned that they had attempted [facility], but could not take her secondary to port access. Son also stated that he had spoken to Alejandra at [facility], to get some information, was unsure if they could meet patient's needs. Discussed home health, and patient stated, that did not really help. Confirmed that her daughter, Valencia, has been staying with her on [place]. Inquired about a Air B&B, per RADHA Emerson conversation, and stated, they were also looking into this. Went ahead and called Justin in admissions at [facility]. Stated that there could be some barriers. If she is on neutropenic precautions, she would need a private room, but at this time, is unsure if this will be the case. The other concern is the cost of the chemo, and the reimbursement, since patient would be going over on Medicare. Faxed over all clinicals, and Justin will review. Patient has not yet worked with physical therapy. P: DCP to continue to follow. Anticipate that patient will be here for a couple more days, will see if she will continue on precautions, and follow up with Justin. Have not yet seen other family members as of yet. Mery Baeza RN/Integration Manager
--- NOTE | 2018-11-29 11:34 | P.PNONC_ITS ---
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 She seen in the hospital. She presented initially with an episode of syncope in September. She was found to have significant cytopenias. Bone marrow biopsy showed myelodysplasia with excess blasts. She was referred to [facility] for an opinion regarding treatment. A repeat bone marrow biopsy there showed that she had already progressed to AML. She discussed the possibility of induction chemotherapy followed by stem cell transplant as potentially curative but elected less intensive therapy. She started her 1st cycle here in October. She is due for her 2nd cycle to begin on Friday. Today, she continues to complain of mouth and jaw pain. She feels like it is no t improving and perhaps is getting a little bit worse. The pain is severe enough that she is really not able to eat any solid food. She is getting some amount of liquids. She is not having any fevers. No recent bleeding or bruising. She denies any shortness of breath. She has been moving around her room a little bit walking to the bathroom but otherwise is spending all of her time in bed. Home Medications and Allergies Home Medications Medication Instructions Recorded Confirmed Type alprazolam 0.25 mg PO Q8H PRN 08/27/18 11/27/18 History atenolol 25 mg PO QPM 08/27/18 11/27/18 History ezetimibe [Zetia] 10 mg PO DAILY 08/27/18 11/27/18 History Venclexta See Rx Instructions .ROUTE 10/14/18 11/27/18 Rx .COMPLEX #120 tab diphenhydramine HCl [Benadryl] 50 mg PO DAILY #0 11/07/18 11/27/18 History ciprofloxacin HCl [Cipro] 500 mg PO 0700,2100 #20 tab 11/11/18 11/27/18 Rx metronidazole 500 mg PO TID #30 tab 11/11/18 11/27/18 Rx Allergies Allergy/AdvReac Type Severity Reaction Status Date / Time No Known Allergies Allergy Unknown Verified 11/26/18 18:51 [NO KNOWN ALLERGIES] Exam Vital signs: Vital Signs Temp Pulse Resp BP Pulse Ox 11/29/18 09:19 94 11/29/18 09:00 98.1 F 80 16 139/55 L 93 11/29/18 06:59 98.6 F 11/29/18 04:20 99.8 F H 98 H 20 133/53 L 97 11/29/18 01:05 98.8 F 11/29/18 00:20 100.2 F H 94 H 18 123/58 L 97 11/28/18 23:00 95 11/28/18 22:46 96 11/28/18 20:50 98.0 F 100 H 20 150/62 H 95 11/28/18 15:30 97 11/28/18 15:20 97.4 F L 88 18 114/56 L 96 11/28/18 14:53 98.9 F 11/28/18 14:25 98.9 F 11/28/18 13:39 96 11/28/18 13:33 99.0 F 11/28/18 12:00 99 F 88 17 113/47 L 94 Intake and Output 11/28/18 11/29/18 11/29/18 23:59 07:59 15:59 Intake Total 1250 / 1800 250 / 350 100 / 350 Output Total 300 / 825 600 / 600 Balance 950 / 975 -350 / -250 100 / -250 Intake: IV 1250 / 1600 250 / 350 100 / 350 Cefepime 2 gm In Sodium 100 / 300 100 / 200 100 / 200 Chloride 0.9% 100 ml @ 200 mls/ hr IV Q8H [facility] Rx#:[id number] Sodium Chloride 0.9% 1,000 ml @ 1000 / 1000 75 mls/hr IV CONT [facility] Rx#: [id number] Vancomycin 750 mg In 150 ml @ 150 / 150 150 / 150 150 mls/hr IV Q8H [facility] Rx#: [id number] Output: Urine 300 / 725 600 / 600 Other: Stool Size Moderate # Unmeasured Voids 1 # Bowel Movements 1 Weight 63.5 kg Patient Weight 11/29/18 23:59 Weight 63.5 kg - Constitutional positive no acute distress Comments: She does appear to be somewhat uncomfortable appearing. She is pale. - Routine HEENT Exam Head: Present: normocephalic, atraumatic Eye: Present: EOMI, PERRL. Absent: conjunctival icterus, scleral injection ENT: Present: mucous membranes moist Comments: She does have a yellowish coating on her tongue. There is no obvious open lesions on the lips or mouth. She is tender to palpation along the jaw. There is a little bit of fullness in the neck but I do not feel any discrete masses or adenopathy. - Routine Respiratory Exam Present: Clear to auscultation bilaterally. Absent: rales, wheezes - Routine Cardiovascular Exam Present: RRR, S1, S2. Absent: murmur - Routine Abdominal Exam Present: soft, normoactive bowel sounds. Absent: tenderness - Routine Neurological Exam Present: alert, oriented X3 - Routine Psychiatric Exam Present: normal affect, normal thought process Results - Labs Laboratory Last Values WBC 0.4 X10^3/uL (4.5-11.0) L* 11/29/18 05:30 RBC 2.72 X10^6/uL (4.0-5.2) L 11/29/18 05:30 Hgb 8.7 g/dL (12.0-16.0) L 11/29/18 05:30 Hct 24.7 % (36-46) L 11/29/18 05:30 MCV 90.7 fL (80-100) 11/29/18 05:30 MCH 32.2 PG (26-34) 11/29/18 05:30 MCHC 35.5 % (30-36) 11/29/18 05:30 RDW 15.6 % (11.6-14.8) H 11/29/18 05:30 Plt Count 57 X10^3/uL (150-400) L 11/29/18 05:30 Neut % (Auto) Not Reportable 11/29/18 05:30 Lymph % (Auto) Not Reportable 11/29/18 05:30 Bradley % (Auto) Not Reportable 11/29/18 05:30 Eos % (Auto) Not Reportable 11/29/18 05:30 Baso % (Auto) Not Reportable 11/29/18 05:30 Lymph # (Auto) Not Reportable 11/29/18 05:30 Bradley # (Auto) Not Reportable 11/29/18 05:30 Baso # (Auto) Not Reportable 11/29/18 05:30 Total Counted 25 11/26/18 18:50 Lymphocytes % (Manual) 100.0 % (25-45) H 11/26/18 18:50 Neutrophils # (Manual) 0 /uL (5434-4534) L 11/26/18 18:50 Platelet Estimate Decreased on smear 11/29/18 05:30 RBC Morphology See below 11/29/18 05:30 Dimorphic RBCs 1 11/28/18 05:08 Hypochromasia 1+ H 11/29/18 05:30 Poikilocytosis 1+ H 11/28/18 05:08 Anisocytosis 1+ H 11/29/18 05:30 Ovalocytes 1+ H 11/26/18 18:50 PT 13.1 SECONDS (10.1-12.7) H 11/26/18 18:00 INR 1.1 (0.9-1.3) 11/26/18 18:00 APTT 28 SECONDS (26.4-36.2) 11/26/18 18:00 Sodium 134 mmol/L (137-145) L 11/29/18 05:30 Potassium 2.9 mmol/L (3.4-5.1) L 11/29/18 05:30 Chloride 105 mmol/L (98-107) 11/29/18 05:30 Carbon Dioxide 23 mmol/L (22-32) 11/29/18 05:30 BUN 5 mg/dL (7-17) L 11/29/18 05:30 Creatinine 0.60 mg/dL (0.52-1.04) 11/29/18 05:30 Estimated GFR > 60.0 mL/min (>60) 11/29/18 05:30 BUN/Creatinine Ratio 8.3 (6-22) 11/29/18 05:30 Glucose 112 mg/dL (80-110) H 11/29/18 05:30 Lactate 2.1 mmol/L (0.7-2.1) 11/26/18 18:50 Calcium 7.7 mg/dL (8.4-10.2) L 11/29/18 05:30 Magnesium 1.6 mg/dL (1.6-2.3) 11/29/18 05:30 Total Bilirubin 0.8 mg/dL (0.2-1.3) 11/28/18 05:08 AST 16 IU/L (14-36) 11/28/18 05:08 ALT 18 IU/L (9-52) 11/28/18 05:08 Alkaline Phosphatase 58 U/L (38-126) 11/28/18 05:08 Total Protein 5.5 g/dL (6.3-8.2) L 11/28/18 05:08 Albumin 2.7 g/dL (3.5-5.0) L 11/28/18 05:08 Globulin 2.8 g/dL (1.7-4.1) 11/28/18 05:08 Albumin/Globulin Ratio 1.0 (1.0-2.8) 11/28/18 05:08 Lipase 74 U/L (23-300) 11/26/18 18:00 Procalcitonin 1.38 ng/mL (<0.5) H 11/29/18 05:30 TSH 0.77 uIU/mL (0.47-4.68) 11/28/18 05:08 Urine Color Yellow 11/27/18 06:59 Urine Appearance Clear 11/27/18 06:59 Urine pH 6.0 (4.5-8.0) 11/27/18 06:59 Ur Specific Geary 1.010 (1.000-1.035) 11/27/18 06:59 Urine Protein Negative (Negative) 11/27/18 06:59 Urine Glucose (UA) Negative g/dL (Negative) 11/27/18 06:59 Urine Ketones Negative (NEGATIVE) 11/27/18 06:59 Urine Occult Blood Negative (Negative) 11/27/18 06:59 Urine Nitrate Negative (Negative) 11/27/18 06:59 Urine Bilirubin Negative (NEGATIVE) 11/27/18 06:59 Urine Urobilinogen 0.2 E.U./dL (0.2) 11/27/18 06:59 Ur Leukocyte Esterase Negative (NEGATIVE) 11/27/18 06:59 Urine RBC 0-1/hpf (0-5/HPF) 11/27/18 06:59 Urine WBC 1-5/hpf (0-5/HPF) 11/27/18 06:59 Ur Squamous Epith Cells 0-1 /hpf (0-5/HPF) 11/27/18 06:59 Urine Bacteria Few (2-10) (None) H 11/27/18 06:59 Ur Culture Indicated? Culture not indicate 11/27/18 06:59 Nasal Screen MRSA (PCR) Negative for mrsa (Negative) 11/28/18 00:52 Stl C. cayetanensis PCR Not detected (Not Detect) 11/28/18 07:05 Stool Rotavirus (PCR) Not detected (Not Detect) 11/28/18 07:05 Stool Adenovirus (PCR) Not detected (Not Detect) 11/28/18 07:05 Stool Astrovirus (PCR) Not detected (Not Detect) 11/28/18 07:05 Stool Cryptosporidium PCR Not detected (Not Detect) 11/28/18 07:05 Stl E.coli Shiga Tox PCR Not detected (Not Detect) 11/28/18 07:05 St Sh/Enteroin Ecoli PCR Not detected (Not Detect) 11/28/18 07:05 Stool E coli O157 PCR Not detected (Not Detect) 11/28/18 07:05 Stl Enterotoxigenic E PCR Not detected (Not Detect) 11/28/18 07:05 Stool EPEC (PCR) Not detected (Not Detect) 11/28/18 07:05 Stl E. histolytica PCR Not detected (Not Detect) 11/28/18 07:05 Stool Giardia Lamblia PCR Not detected (Not Detect) 11/28/18 07:05 Stl P. shigelloides PCR Not detected (Not Detect) 11/28/18 07:05 St Y.enterocolitica PCR Not detected (Not Detect) 11/28/18 07:05 Stool Vibrio (PCR) Not detected (Not Detect) 11/28/18 07:05 Stl Vibrio cholerae PCR Not detected (Not Detect) 11/28/18 07:05 Stl Enteroaggr Ecoli PCR Not detected (Not Detect) 11/28/18 07:05 Stl Norovirus GI/GII PCR Not detected (Not Detect) 11/28/18 07:05 Vancomycin Trough 14.9 ug/mL (10-20) 11/29/18 09:14 Chlamy pneumoniae PCR Not detected (Not Detect) 11/27/18 02:46 Adenovirus (PCR) Not detected (Not Detect) 11/27/18 02:46 B.parapertussis DNA PCR Not detected (Not Detect) 11/27/18 02:46 Campylobacter (PCR) Not detected (Not Detect) 11/28/18 07:05 C. difficile Tox (PCR) Not detected (Not Detect) 11/28/18 07:05 Coronavirus OC43 (PCR) Not detected (Not Detect) 11/27/18 02:46 Coronavirus HKU1 (PCR) Not detected (Not Detect) 11/27/18 02:46 Coronavirus 229E (PCR) Not detected (Not Detect) 11/27/18 02:46 Coronavirus NL63 (PCR) Not detected (Not Detect) 11/27/18 02:46 Human Metapneumovir PCR Not detected (Not Detect) 11/27/18 02:46 Influenza Type A (PCR) Not detected (Not Detect) 11/27/18 02:46 Influenza Type B (PCR) Not detected (Not Detect) 11/27/18 02:46 M. pneumoniae (PCR) Not detected (Not Detect) 11/27/18 02:46 Parainfluenza 1 (PCR) Not detected (Not Detect) 11/27/18 02:46 Parainfluenza 2 (PCR) Not detected (Not Detect) 11/27/18 02:46 Parainfluenza 3 (PCR) Not detected (Not Detect) 11/27/18 02:46 Parainfluenza 4 (PCR) Not detected (Not Detect) 11/27/18 02:46 RSV (PCR) Not detected (Not Detect) 11/27/18 02:46 Entero/Rhino (PCR) Not detected (Not Detect) 11/27/18 02:46 Salmonella (PCR) Not detected (Not Detect) 11/28/18 07:05 Blood Type A Positive 11/26/18 19:41 Antibody Screen Negative 11/26/18 19:41 Crossmatch See Detail 11/26/18 19:41 - Imaging Additional studies: Procedures Transfusion of Nonautologous Red Blood Cells into Peripheral Vein, Percutaneous Approach (11/26/18) Assessment and Plan (1) AML (acute myeloblastic leukemia) Current visit: No Status: Acute 68-year-old woman with 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 This is probably treatment related. She has completed nearly 1 month of therapy. Her platelet count is increasing without transfusion. Her white cell count has begun to increase. She has not needed red cell transfusion since her 1st day of the hospitalization.. With regards to her leukemia, she will continue with her Venetoclax. She would be due for her 2nd cycle of vidaza beginning next week. I think that a likely need to be delayed. She does have ongoing or increasing pain in the mouth and jaw. Will consider MRI. (1) AML (acute myeloblastic leukemia) Qualifiers: Leukemia Active/Remission status: without remission Qualified Code(s): C92.00 - Acute myeloblastic leukemia, not having achieved remission
--- NOTE | 2018-11-29 11:40 | DI.MRI.S_ITS ---
PROCEDURE: MR HEAD/BRAIN WO/W CON INDICATIONS: AML, left jaw. ear and neck pain, headaches TECHNIQUE: Noncontrast axial T1 spin echo, axial T2 fast spin echo, sagittal and axial FLAIR, coronal T2 fast spin echo, axial gradient echo, axial diffusion and ADC through the brain. After the administration of contrast, axial and coronal T1 spin echo with fat saturation through the brain. COMPARISON: None. FINDINGS: Image quality: There is susceptibility artifact seen on the right, caused by dental hardware. Mild motion artifact can also be seen. CSF spaces: Basal cisterns are patent. No extra-axial fluid collections. Ventricles are normal in size and shape. Brain: No midline shift. No intracranial bleeds or masses. No abnormal intracranial enhancement. There is cerebral volume loss for age. There is periventricular white matter chronic small vessel ischemic change. The brainstem appears normal. Diffusion-weighted images demonstrate no acute ischemic insults. No chronic ischemic insults. Normal intravascular flow voids are present. Skull and face: Calvarial marrow is normal in signal. Orbits appear normal. Note is made of bilateral lens replacements. Sinuses: Sinuses and mastoids appear clear. IMPRESSION: Limited study demonstrating no acute intracranial process. No findings of acute or subacute infarction can be seen. No masses or abnormal enhancement can be seen. Dictated by: Cholo Villar M.D. on 11/29/2018 at 14:59 Approved by: Cholo Villar M.D. on 11/29/2018 at 15:00
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
[2018-11-29] MEDS: LORazepam 0.5 MG TABLET PO ×2 (15:55→23:57)
[2018-11-29] MEDS: MAGNESIUM SULFATE 2 GM/50 ML PIGGYBACK IV (16:08)
[2018-11-29 16:51] LABS: Creatine Kinase 22 U/L (30-135)
[2018-11-29 17:02] LABS: Troponin I < 0.012 ng/mL (0.01-0.034)
[2018-11-29] MEDS: ATENOLOL 25 MG TABLET PO (17:26)
[2018-11-29] MEDS: SODIUM CHLORIDE 0.9% 1,000 ML 75 ML IV (17:27)
[2018-11-29] MEDS: LIDOCAINE VISCOUS 2% 10 ML, MAG HYDROX/ALUMINUM/SIMETH SUS 10 ML, NYSTATIN SUSP 1,000,0... MM (19:21)
[2018-11-29] MEDS: MICAFUNGIN 100 MG in SODIUM CHLORIDE 0.9% 100 ML IV (19:22)
[2018-11-29] MEDS: HYDROCODONE/ACET 5/325 TABLET 1 TAB PO ×2 (19:52→23:57)
[2018-11-29 21:50] LABS: Blood Urea Nitrogen 4 mg/dL (7-17); Calcium 7.6 mg/dL (8.4-10.2); Carbon Dioxide 21 mmol/L (22-32); Chloride 108 mmol/L (98-107); Estimated Glomerular Filt Rate > 60.0 mL/min (>60); Glucose 104 mg/dL (80-110); HEMOLYSIS < 15 (0-50); Magnesium 2.4 mg/dL (1.6-2.3); Potassium 4.3 mmol/L (3.4-5.1); Sodium 134 mmol/L (137-145)
--- NOTE | 2018-11-29 22:10 | DI.ECHO.S_ITS ---
[facility]---------[facility] +---------+ : : [address] [place] : : : : [id number] : : : : Phone: [phone]+ Echocardiogram Report + + :Name: SAMANTHA CLAYTON Study Date: 11/30/2018 Height: 61 in : :[facility] Weight: 139 lb : : Gender: Female BSA: 1.6 m2 : :: 1950 Age: 68 yrs BP: 113/85 mmHg: :Reason For Study: Arrhythmia, SVT : : Performed By: Zoraida Bassett : :Referring: MELANIE CAMP : + + Interpretation Summary -The study quality was technically difficult due to poor acoustic windows. -Occasional ectopy noted. The left ventricle is grossly normal size. The left ventricular ejection fraction is grossly normal. Regional wall motion abnormalities cannot be excluded due to limited visualization. The right ventricle grossly appears normal in size with probable normal systolic function. The left atrium is mildly dilated. There is no Doppler evidence for an interatrial shunt. No hemodynamically significant valvular disease. There is no prior echocardiogram noted for this patient. Procedure: A two-dimensional transthoracic echocardiogram with color flow and Doppler was performed. There is no prior echocardiogram noted for this patient. The study quality was technically difficult. The heart rate ranged between 86-89 bpm during the study. Left Ventricle: The left ventricle is grossly normal size. There is normal left ventricular wall thickness. The ejection fraction is estimated to be 60- 65%. The left ventricular ejection fraction is grossly normal. Regional wall motion abnormalities cannot be excluded due to limited visualization. Diastolic parameters suggest a relaxation abnormality of the left ventricle, consistent with probable normal filling pressures. Right Ventricle: The right ventricle grossly appears normal in size with probable normal systolic function. Atria: The left atrium is mildly dilated. Right atrial size is normal. There is no Doppler evidence for an interatrial shunt. Mitral Valve: The mitral valve leaflets appear mildly thickened, but open well. There is mild mitral annular calcification. There is mild mitral regurgitation. Aortic Valve: The aortic valve opens well. No aortic regurgitation is present. Tricuspid Valve: The tricuspid valve leaflets are thin and pliable. There is mild to moderate tricuspid regurgitation. The right ventricular systolic pressure is estimated to be at least 34 mmHg based on an estimated right atrial pressure of 3 mm Hg. Pulmonic Valve: The pulmonic valve is not well visualized. Great Vessels: The aortic root is normal size. The dimensions of the ascending aorta are normal. The aortic arch is normal in size. The IVC is of normal diameter and collapses greater than 50% with a sniff. This suggests a low right atrial pressure of 3 mm Hg. Pericardium/ Pleura There is no pericardial effusion. There is no pleural effusion. MMode/2D Measurements & Calculations LVIDd: 4.7 cm Ao root diam: 2.7 cm LVIDs: 2.9 cm Aortic Jxn: 2.4 cm FS: 37.6 % asc Aorta Diam: 2.9 cm IVSd: 0.90 cm Ao Arch Diam (Prox Trans): 2.4 cm LVPWd: 0.77 cm LV gustafson. diameter/BSA (cm/m^2): 2.9 LV sys. diameter/BSA (cm/m^2): 1.8 LA dimension: 3.6 cm RA long axis: 3.9 cm LA A2 area: 20.4 cm2 RA area: 11.7 cm2 LA A4 area: 20.7 cm2 RA vol: 29.5 ml LA length (vol): 5.2 cm RA : 18.2 ml/m2 LA vol: 68.9 ml IVC diam: 1.4 cm LA vol index: 42.6 ml/m2 RVDd major: 4.7 cm RVD1 (basal): 2.4 cm RVD2 (mid): 2.1 cm Doppler Measurements & Calculations Ao V2 max: 133.2 cm/sec MV E max brandt: 119.9 cm/sec Ao V2 mean: 97.6 cm/sec MV A max brandt: 102.3 cm/sec Ao max P.1 mmHg MV E/A: 1.2 Ao mean P.3 mmHg Med [facility] E' Brandt: 7.3 cm/sec Ao V2 VTI: 27.1 cm E/E' med: 16.5 Lat [facility] E' Brandt: 7.4 cm/sec E/E' lat: 16.3 E/e' average: 16.4 MV dec time: 0.22 sec MV P1/2t: 63.0 msec TR max brandt: 287.1 cm/sec MV P1/2t max brandt: 120.2 cm/sec TR max P.0 mmHg MVA(P1/2t): 3.5 cm2 PA V2 max: 77.7 cm/sec PA V2 mean: 50.0 cm/sec PA mean P.2 mmHg PA Accel Time: 0.17 sec Electronically signed by: Erlin Naranjo M.D. on Reading Physician:11/30/2018 12:04 PM
--- NOTE | 2018-11-29 22:45 | PC.NURSE ---
A&OX3. 96%RA, cont pulse ox. pt reports her head ache became tolerable after her dose of norco. Morphine available for breakthrough pain. pt able to tolerate solid food after using the magic mouthwash. Per pharmacist advice, pt is ok to swallow magic mouthwash, observe for s/s of swallowing problem. 1-2PA-FWW to the BSC. neutropenic and chemo precautions. call light in reach. bed alarm active. family at bedside.
[2018-11-30] VITALS (8 sets, daily range): BP systolic 113–138; BP diastolic 63–85; PULSE 90–99; RESP 14–20; TEMP 36.9–38.7; O2SAT 90–95
--- NOTE | 2018-11-30 00:15 | PC.NURSE ---
Addendum entered by Renuka Newton R.N. 11/30/18 05:03: Patient medicated again at 0405 with Vicodin and Ativan per her request. States left side of face into left ear has a dull, achy pain which she rates as 6/10. States she was actually able to sleep for several hours after last dose of Vicodin/Ativan and believes this is going to help prevent her from another breakdown in the morning. Blood drawn for morning lab and vitals taken to provide patient more uninterrupted sleep time; expresses gratitude. Remains on 2L/min oxygen with sat of 95%. Still has low grade temp, 99.4 earlier and now 99.1. Has been up to BSC several times and had stool/urine mix; stool is very dark yellow but small amounts. Patient gets up with use of walker and 1 assist and is unsteady on feet at times. Currently asleep. WBC 0.4 this morning and POOJA Stacy notified. Original Note: Patient is alert and oriented but anxious with upper extremity tremoring which she attributes to anxiety; medicated with Ativan. Breath sounds CTA with RA sat of 93% initially but did desat intermittently especially with activity so placed on oxygen at 2L/min for overnight; on continuous oximetry. HR irregular; telemetry reading is SR w/PAC's. Denies nausea. BT present and abdomen is soft. Continuing to have liquid yellow stools; incontinent of some stool as well as going on BSC. Voiding on BSC and denies dysuria, frequency or urgency. Able to move self in bed. Generalized weakness and pain. Assisted to BSC with 1 assist + walker; unsteady. For generalized pain was given Vicodin as rates severity as 8/10. Refusing to wear SCD's as they keep her awake; reminded to ankle wave and verbalizes understanding. Is on both neutropenic and chemo precautions. Fall risk score is high and bed alarm is activated. Son, Asif, at bedside.
[2018-11-30] MEDS: VANCOMYCIN 750 MG/150 ML FROZ.PIGGY 150 MG IV ×3 (01:05→19:03)
[2018-11-30] MEDS: LORazepam 0.5 MG TABLET PO ×3 (04:05→21:27)
[2018-11-30] MEDS: HYDROCODONE/ACET 5/325 TABLET 1 TAB PO ×4 (04:05→21:27)
[2018-11-30] MEDS: SODIUM CHLORIDE 0.9% FLUSH 10 ML IV ×3 (04:07→21:26)
[2018-11-30 04:51] LABS: Hematocrit 24.7 % (36-46); Hemoglobin 8.7 g/dL (12.0-16.0); Mean Corpuscular HGB Conc 35.4 % (30-36); Mean Corpuscular Hemoglobin 32.6 PG (26-34); Mean Corpuscular Volume 92.1 fL (80-100); Platelet Count 71 X10^3/uL (150-400); Red Blood Cell Count 2.69 X10^6/uL (4.0-5.2); Red Cell Distribution Width 15.7 % (11.6-14.8)
[2018-11-30 05:01] LABS: White Blood Cell Count 0.4 X10^3/uL (4.5-11.0)
[2018-11-30 05:02] LABS: Add Manual Diff / Slide Review SLIDE REVIEW
[2018-11-30 05:03] LABS: Alanine Aminotransferase 22 IU/L (9-52); Albumin 2.7 g/dL (3.5-5.0); Albumin Globulin Ratio 0.9 (1.0-2.8); Alkaline Phosphatase 72 U/L (38-126); Aspartate Aminotransferase 21 IU/L (14-36); Bilirubin Total 0.5 mg/dL (0.2-1.3); Blood Urea Nitrogen 4 mg/dL (7-17); Calcium 8.1 mg/dL (8.4-10.2); Carbon Dioxide 23 mmol/L (22-32); Chloride 107 mmol/L (98-107); Estimated Glomerular Filt Rate > 60.0 mL/min (>60); Globulin 2.9 g/dL (1.7-4.1); Glucose 96 mg/dL (80-110); HEMOLYSIS < 15 (0-50); Magnesium 2.1 mg/dL (1.6-2.3); Potassium 4.1 mmol/L (3.4-5.1); Sodium 139 mmol/L (137-145); Total Protein 5.6 g/dL (6.3-8.2)
[2018-11-30 05:25] LABS: Procalcitonin 1.06 ng/mL (<0.5)
[2018-11-30 06:36] LABS: Anisocytosis 1+
[2018-11-30] MEDS: EZETIMIBE 10 MG TABLET PO (08:18)
[2018-11-30] MEDS: ACYCLOVIR 400 MG TABLET PO ×2 (08:18→21:24)
[2018-11-30] MEDS: NYSTATIN SUSP 500,000 UNIT/5 ML UDC 500000 UNIT PO ×2 (08:18→16:52)
[2018-11-30] MEDS: SODIUM CHLORIDE 0.9% 1,000 ML 75 ML IV (08:48)
[2018-11-30] MEDS: CEFEPIME 2 GM in SODIUM CHLORIDE 0.9% 100 ML 200 ML IV ×2 (08:54→16:51)
--- NOTE | 2018-11-30 09:55 | P.PN_ITS ---
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 Interval history: Yesterday evening the patient had a brief run of nonsustained asymptomatic wide complex V-tach that appeared to be torsades de pointes. She was receiving potassium chloride both IV and PO due to low potassium at 2.9 and in addition received magnesium sulfate 2 g IV x1 as her magnesium level was low normal at 1.6. The patient is on venetoclax to treat her AML and fluconazole to treat oral and possibly esophageal aby which interact with each other prolonging the effects of each medication. Venetoclax can cause hypo/hyper - kalemia and fluconazole can cause QTc prolongation making her more susceptible to arrhythmia. The fluconazole was switched to micafungin as there are resi stant strains of Aby to fluconazole. Also micafungin has very low incidence of arrhythmia and has no interaction with venetoclax. The patient is resting in bed comfortably. She appears to be in better spirits. She is very grateful for our discussion yesterday and readily admits to anxiety and poor coping skills. She continues to be afebrile now for 48 hours and has had no additional rigors. She does endorse shaking related to be cold and/or anxiety. She reports her headache and left-sided throat pain is improved and is controlled with hydrocodone. She has no other complaints and denies chest pain, shortness of breath, abdominal pain, nausea, vomiting, dysuria, or constipation. She is voiding and eliminating without difficulty. She is up ambulating with assistance. Exam Vital Signs (past 8 hours): - 11/30/18 04:23 11/30/18 07:59 11/30/18 08:49 Temperature 99.1 F 98.4 F Pulse Rate 99 H 95 H Respiratory Rate 20 14 Blood Pressure 113/85 138/65 Pulse Oximetry 95 92 94 Oxygen Delivery Method Room Air Oxygen Flow Rate 0 Narrative Exam Narrative: General: Older female lying in bed, pale and appears chronically ill, mildly drowsy but appropriately interactive. HEENT: Normocephalic, atraumatic. External ears without defect. Pupils equal, round, and reactive to light. Anicteric sclerae, moist conjunctivae, and no lid lag. Oropharynx with mild erythema and white exudate on tongue and hard/soft palate otherwise without visible lesions. Neck: Supple with full range of motion. No jugular venous distension. No lymphadenopathy or thyromegaly. Mild left submandibular/cervical tenderness to palpation, improved. No nuchal rigidity. Full range of motion with flexion and extension. Cardiovascular: Regular rhythm and rate without murmurs, rubs, or gallops appreciated. Pulmonary: Clear to auscultation bilaterally without crackles, wheezes, or rhonchi. Normal respiratory effort with no use of accessory muscles. Abdomen: Soft, bowel sounds present, nontender, nondistended. No hepatosplenomegaly or masses appreciated. Extremities: No clubbing, cyanosis, or edema. Right PICC line in place without surrounding erythema or thrombophlebitis. Skin: Normal temperature, turgor, and texture; no rash, ulcers, or subcutaneous nodules appreciated. Neurological: Cranial nerves grossly intact. Overall generalized weakness. Psychiatric: Depressed and anxious mood with normal affect. Alert and oriented to person, place, and time. Objective Labs Result Diagrams: 11/30/18 04:15 11/30/18 04:15 Labs: Laboratory Results - last 24 hr 11/26/18 11/29/18 11/29/18 19:41 15:55 21:30 WBC RBC Hgb Hct MCV MCH MCHC RDW Plt Count Neut % (Auto) Lymph % (Auto) [place] % (Auto) Eos % (Auto) Baso % (Auto) Lymph # (Auto) [place] # (Auto) Baso # (Auto) RBC Morphology Anisocytosis Sodium 134 L Potassium 4.3 D Chloride 108 H Carbon Dioxide 21 L BUN 4 L Creatinine 0.50 L Estimated GFR > 60.0 BUN/Creatinine Ratio 8.0 Glucose 104 Calcium 7.6 L Magnesium 2.4 H Total Bilirubin AST ALT Alkaline Phosphatase Total Creatine Kinase 22 L CK-MB (CK-2) TNP CK-MB (CK-2) Rel Index TNP Troponin I < 0.012 Total Protein Albumin Globulin Albumin/Globulin Ratio Procalcitonin Crossmatch See Detail 11/30/18 11/30/18 11/30/18 04:15 04:15 04:15 WBC 0.4 L* RBC 2.69 L Hgb 8.7 L Hct 24.7 L MCV 92.1 MCH 32.6 MCHC 35.4 RDW 15.7 H Plt Count 71 L Neut % (Auto) Not Reportable Lymph % (Auto) Not Reportable [place] % (Auto) Not Reportable Eos % (Auto) Not Reportable Baso % (Auto) Not Reportable Lymph # (Auto) Not Reportable [place] # (Auto) Not Reportable Baso # (Auto) Not Reportable RBC Morphology See below Anisocytosis 1+ H Sodium 139 Potassium 4.1 Chloride 107 Carbon Dioxide 23 BUN 4 L Creatinine 0.50 L Estimated GFR > 60.0 BUN/Creatinine Ratio 8.0 Glucose 96 Calcium 8.1 L Magnesium 2.1 Total Bilirubin 0.5 AST 21 ALT 22 Alkaline Phosphatase 72 Total Creatine Kinase CK-MB (CK-2) CK-MB (CK-2) Rel Index Troponin I Total Protein 5.6 L Albumin 2.7 L Globulin 2.9 Albumin/Globulin Ratio 0.9 L Procalcitonin 1.06 H Crossmatch Assessment & Plan Assessment & Plan narrative: Kristen Cho is a 68-year-old female with a past medical history significant for hypertension, hyperlipidemia, bilateral breast cancer status post lumpectomy, chemo and radiation, 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 1. Acute neutropenic fever, present on admission. Active. -Patient presented with neutropenic fever and complaints of sore throat radiating to left ear likely entry level marketing representative of oropharyngeal possibly esophageal Aby. Less likely mucositis as she has no significant oropharyngeal lesions. No complaints of abdominal pain, nausea or vomiting. Of note, recently treated for diffuse colitis with 14 day course of Flagyl and ciprofloxacin. -Initial WBC 0.5, trended down to 0.2, and now trending up to 0.4. Initial procalcitonin 0.98. Procalcitonin trended up and peaked at 1.38 and now trending down to 1.06. Continue to monitor WBC and procalcitonin daily. -Respiratory PCR negative. GI stool panel negative. MRSA screen negative. Urine culture negative. Blood culture has no growth to date. Chest x-ray did not demonstrate any acute cardiopulmonary process. -MR head with and without contrast did not demonstrate any acute intracranial abnormalities or explanation for patient's persistent pain. -Continue hydrocodone 5-325 mg every 4 hours as needed for moderate pain and morphine 2-4 mg every 4 hours as needed for severe breakthrough pain. Continue Magic mouthwash every 4 hours as needed for mouth pain. -Continue neutropenic precautions. -Consulted dietitian and we appreciate her time and recommendations. -Discussed case with [facility] infectious disease who recommended: Vancomycin with dosing per pharmacist, cefepime 2 g every 8 hours (if patient continues to spike fever switch to meropenem), nystatin swish and swallow 3 times daily and switched fluconazole to micafungin (as some Aby species are resistant to fluconazole) 100 mg IV every 24 hours for 10-14 days. -Consulted Oncology, Dr. Waltno, who is following along and we appreciate his time and care of the patient. -If patient's left-sided throat pain is not improving in the next 1-2 days with the above therapy including change in antifungal then will consider transfer for higher level of care for ENT/GI and ID evaluation. 2. Acute on chronic pancytopenia, secondary to AML and chemotherapy, present on admission. Active. -Patient has had anemia related to AML, as well as, chemotherapy requiring tr ansfusions of both RBC and platelets. -Initial hemoglobin 4.4. Received 3 units PRBC with appropriate compensation. H&H now 8.7 and 24.7. Transfusion goal H&H less than 8.4/24. -Initial platelets 36, trended down to 31, and now up to 71. Transfusion goal less than 20. -Initial WBC 0.5, trended down to 0.2, and now trending up to 0.4. Discussed Neupogen with her oncologist Dr. Walton who recommended holding off as data is controversial in AML. -Continue neutropenic precautions. 3. AML undergoing chemotherapy, chronic, present on admission. Active. -Patient is followed by Dr. Walton of Oncology. Continue venetoclax daily. Patient receives Vidaza infusion on Friday's postponed today 11/30. -Continue IV fluids with normal saline at 75 mL/hr. -Continue Zofran every 6 hours as needed for nausea. May consider lorazepam and/or dexamethasone if nausea persistent and not amenable to Zofran. -Ordered Tylenol 625 mg every 6 hours as needed for fever, pain, or headache. 4. Acute hypokalemia, not present on admission. Resolved. -Initial potassium 3.4. Patient's potassium level continues to drop which is likely a side effect of her chemotherapy venetoclax. -Potassium level 2.9 today. Ordered potassium chloride 60 mEq IV x1 and potassium chloride 40 mEq PO twice daily. -Received potassium chloride 40 mEq IV x1. Potassium level now 3.7. -Continue to monitor potassium level daily and replete as necessary. 5. Hypertension, chronic, present on admission. Stable. -Continue atenolol 25 mg daily with hold parameters of SBP < 100 mmHg or HR < 60 bpm. 6. Hyperlipidemia, chronic, present on admission. Stable. -Continue ezetimibe 10 mg daily. 7. Anxiety, chronic, present on admission. Stable. -Switched patient's home alprazolam to lorazepam 0.5 mg PO every 4 hours for better control of anxiety. Disposition: Patient remains inpatient and will likely be hospitalized for se veral days pending treatment of Quality VTE Deep Vein Thrombosis/Pulmonary Embolism Present on Admission: No
[2018-11-30] MEDS: VENETOCLAX 100 MG PO (10:06)
--- NOTE | 2018-11-30 10:21 | DIET.PN ---
Dietary Progress Note RD f/u r/t low POs reported over weekend. Pt POs reported as 10% over past 2d. Pt started pain management per reccs of Hospitalist. Pt now wants to try to eat more solid foods. Is afraid body will reject foods. This RD cut banana from breakfast into bite sized pieces for pt, will try to eat it after PT visit, all other breakfast untouched including ONS supps and pt preferred smoothie. HT: 157.4cm WT: 62.3kg UBW: 68kg (8.4% loss in 3 mo, severe) BMI: 25.1 Labs: hbg 4.4-8 (L), Na 135 (L), K+ 3.1 (L), Ca2+ 7.9 (L), platelet 31 (L), wbc 0.4 (L) Nutrition Diagnosis: Ongoing Severe Acute on Chronic PCM r/t mucositis and diarrhea secondary to chemotherapy for AML aeb <25% EERs for >5d, 8.4% unintentional wt loss in 3mo (severe), moderate subcutaneous fat losses system wide c obvious saggy skin, critical lab values (hgb 4.4, platelet 31, wbc 0.4). Interventions: Continue ONS Ensure surgery bid (B/D), Vanilla Enlive c lunch to support energy and PRO needs providing 75% EERs. Diet Order: General neutropenic EER: 1600kcal, 80g PRO (1.3g/kg per Ca), 1.8L fluids Monitoring/Evaluations: pt food preferences as thrush and px are better controlled
[2018-11-30] MEDS: MORPHINE 2 MG/ML INJ IV ×2 (10:41→21:44)
--- NOTE | 2018-11-30 11:07 | PT.IIE ---
Current Diagnoses Anemia due to antineoplastic chemotherapy (11/26/18) Surgical History (Last Reviewed 11/27/18 @ 06:13 by Vickie Johnston DO) History of appendectomy (Acute) History of bilateral cataract extraction (Acute) No pertinent past surgical history (Acute) S/P breast lumpectomy (Acute) Medical History (Last Reviewed 11/27/18 @ 06:13 by Vickie Johnston DO) Breast cancer (Acute) CVA (cerebrovascular accident) (Acute) HTN (hypertension) (Acute) Hyperlipidemia (Acute) Neuropathy (Acute) Sinus headache (Acute) TIA (transient ischemic attack) (Acute) Physical Therapy Inpatient Evaluation/Re-Eval M1 PT/OT-IP Prior Functional Status Start: 11/27/18 08:13 Freq: NEEDED Status: Active Protocol: Document 11/30/18 11:07 RS (Rec: 11/30/18 11:46 RS [id number]) Medical Review Prior Functional Status Medical History Reviewed Yes Communication no known deficits Mobility and Gait before recent decline was ind without AD, most recently w/ multiple hospitalizations pt has been using a FWW Activities of Daily Living and IADL's had assist from dtr for most aspects of ADLs, did not address anything in great detail Prior Functional Level (Other details) denies falls Social History Household Members family,children,none Living Arrangements House Number of Floors (Floors) Two Floors Number of Stairs To Enter/Railing? 6STE w/out rails, has flight of stairs to basement and 2nd floor but doesn't need to use them on a daily basis Home Equipment Front Wheel Walker Additional Social History Comment normally lives alone but dtr Valencia has been staying with her to help as needed, unclear on level of assist that will be available at discharge, son states It just depends on what she needs M2 PT-IP Current Condition Start: 11/27/18 08:13 Freq: NEEDED Status: Active Protocol: Document 11/30/18 11:07 RS (Rec: 11/30/18 11:46 RS [id number]) Physical Therapy Current Condition Current Condition Evaluation Date 11/30/18 Treatment Diagnosis weakness, impaired mobility, hx cancer Precautions Other Precautions reverse isolation precautions (enteric/ neutropenic) M3 PT-IP Subjective Start: 11/27/18 08:13 Freq: NEEDED Status: Active Protocol: Document 11/30/18 11:07 RS (Rec: 11/30/18 11:46 RS [id number]) Subjective Physical Therapy Visit Type Type Initial Evaluation Visit Start Time 10:12 Visit Stop Time 11:07 Total Visit Minutes 55 Physical Therapy Visit Comments Patient Comments Pt with mouth pain after eating banana but agreeable to distraction of working with therapy. Patient Goals get up to the chair Therapy Pain Assessment Pain When Pain Assessed At Rest Pain Present Pain Present Pain Reported Location Left Face Pain Behaviors Facial Grimacing,Holding Area, Wincing Pain Management Techniques Distraction M4 PT-IP Mobility and Gait Start: 11/27/18 08:13 Freq: NEEDED Status: Active Protocol: Document 11/30/18 11:07 RS (Rec: 11/30/18 11:46 RS [id number]) PT-Bed Mobility Assessment Supine to Sit Supine to Sit Minimal Assistance,1 Person Assistance,Head of Bed Elevated,Bedrails Sit to Supine Sit to Supine Minimal Assistance,1 Person Assistance,Bedrails Scooting Scooting to Edge of Bed Contact Guard Assistance Scooting Up and Down in Bed Dependent PT-Transfer Assessment Sit to and From Stand Sit to and from Stand Minimal Assistance,2 Person Assistance Equipment Transfer Assistive Device Gait Belt,Front Wheeled Walker Comments Mobility Comments Pt able to get up to EOB with hand-held assist, with HOB almost fully elevated. Once at EOB pt became dizzy, no drop in BP noted. After a few minutes pt able to scoot the rest of the way to edge so feet were on floor. Pt need a few more minutes of seated rest before attempting to stand. Pt required min A to stand up, had one hand on front of walker and pulled herself up (this will be addressed in future sessions), able to get the other hand up on the walker handle while min A was maintained for balance. However, pt became significantly dizzy and shaky, was unable to maintain upright position and began to lose balance backwards. Pt needed min A to return to sitting. BP checked again but no orthostatic drop. Once sitting pt was given IV morphine for pain, so pt was returned to bed instead of continuing to try to get to chair. Pt needed min A to get back to supine and then dep A x 2 to scoot up in bed. Gait Assessment Comments Gait Comments not appropriate to assess Stair Climbing Assessment Comments Stair Climbing Comments not appropriate to assess PT-Balance Assessment Sitting Balance and Reactions Static Sitting Balance Ability Poor Dynamic Sitting Balance Ability Poor Standing Balance and Reactions Static Standing Balance Ability Poor Dynamic Standing Balance Ability Poor Device Used FWW M5 PT-IP Objective Assessments Start: 11/27/18 08:13 Freq: NEEDED Status: Active Protocol: Document 11/30/18 11:07 RS (Rec: 11/30/18 11:46 RS [id number]) Orientation Orientation/Cognition Level of Alertness Lethargic Language Function Ability No Deficits Noted Safety Awareness Understands Safety Issues Comments slightly delayed responses at times Gross Range of Motion Upper Extremity ROM Assessment Within Functional Limits Lower Extremity ROM Assessment Within Functional Limits Strength Comments Strength Comments Formal testing not performed, pt presents with at least anti -gravity but poor overall endurance with functional tasks M6 PT-IP Treatment Start: 11/27/18 08:13 Freq: NEEDED Status: Active Protocol: Document 11/30/18 11:07 RS (Rec: 11/30/18 11:46 RS [id number]) Physical Therapy Treatment Education Education Provided Safety M7 PT-IP Assessment and Plan Start: 11/27/18 08:13 Freq: NEEDED Status: Active Protocol: Document 11/30/18 11:07 RS (Rec: 11/30/18 11:46 RS [id number]) PT Summary Assessment and Plan Potential Rehabilitation Potential Fair Status of Condition at Evaluation Evolving Summary Impairments Pain,ROM,Strength,Balance, Cognition,Bed Mobility, Transfers,Gait,Activity Tolerance Assessment Summary Pt presents with gross deconditioning and ability to participate in mobility activities is significantly limited by complicated medical issues. Currently pt requires 1-2 person assist for all mobility, which is below pt's reported functional baseline. Pt will benefit from daily acute PT to begin addressing mobility impairments. Patient has a very supportive family who seems to be open to providing whatever level of assist she needs at time of discharge. Anticipate that pt will be safe to discharge home with family assist by the time she is medically ready to discharge. Will continue to assess daily and make more concrete recommendations closer to discharge. Goals Bed Mobility Goal Standby Assistance Transfer Goal Standby Assistance,Front Wheeled Walker Gait Goal Standby Assistance,Front Wheel Walker Gait Distance 50 Other Goals Pt will be able to ascend/ descend 6 steps without railing with min A. Days to Meet Goals 5 Frequency of Treatment Frequency Of Treatment Twice a Day Treatment Plan Physical Therapy Treatment Plan Bed Mobility Training,Transfer Training,Gait Training, Therapeutic Exercise,Balance Retraining,Post Op Education, Discharge Planning,Hot or Cold Pack,Neuromuscular Re-ed, Coordination Retraining,Manual Therapy Other Recommendations and Next Treatment monitor vitals, transfers, Focus give pt HEP Recommendations To Nursing Amount of Assist Needed 1 Person Assist,2 Person Assist Discharge Recommendations PT Discharge Recommendations Home with 24/ Assist,Home Health
--- NOTE | 2018-11-30 13:28 | PC.NURSE ---
Day shift: Pt sleeping w/ no s/s of pain or discomfort after a 2MG dose of IV morphine for left face and head pain. Call light in reach. Bed alarm is on. Family in room. Will continue to monitor. Pt did not eat much today. IV fluids at 50ml/hr per Dr Hunter.
--- NOTE | 2018-11-30 15:25 | CM.DPNOTE ---
DCP: continued: case received, EMR reviewed. Discussed in Team Rounds. Dr. Hunter states she is consulting ENT today and pt is expected to need several more days in the acute care setting before a consideration of a d/c. DCPlanning notes reviewed. Followup up on the [facility] referral: July states that she did talk with pt's son and daughter on Friday. She says that they may be able to give pt a pvt room for neutropenic precations. The chemotherapy will be of consideration and would need to be a carve out service. Oncology BANANA ROOM CUTTER Idania Jenkins knows pt and family well and has followed closely both in the Oncology clinic setting and on the days she is here as CM/BANANA ROOM CUTTER/DCplanenr. Conferred by phone with her and she notes the chemotherap is expected to continue at the Oncology Center. She will provide the code for this treatment if it will help [facility] in doing a carve out for financial purposes under the Medicare SNF benefit process. Have left a vm now for Idania to reach out to Alejandra/[facility] to provide the code. DCP team will continue to follow.
[2018-11-30] MEDS: ATENOLOL 25 MG TABLET PO (16:53)
[2018-11-30] MEDS: ACETAMINOPHEN 325 MG TABLET 650 MG PO (17:10)
[2018-11-30] MEDS: LIDOCAINE VISCOUS 2% 10 ML, MAG HYDROX/ALUMINUM/SIMETH SUS 10 ML, NYSTATIN SUSP 1,000,0... MM (21:23)
[2018-11-30] MEDS: MICAFUNGIN 100 MG in SODIUM CHLORIDE 0.9% 100 ML IV (21:23)
--- NOTE | 2018-11-30 23:50 | PC.NURSE ---
Evening notes: Kristen had low grade oral temp of 99.7 earlier this afternoon, face very flushed, skin hot, she was confused and somewhat delirious at that time. Medicated with one [place] & one Tylenol. Since that time has been afebrile.2 max assist transfer to [facility], patient weak, not able to follow directions well and high fall risk. While sitting on commode, tried to lean all the way forward in a position, rocking self back & forth. Incontinent of large amt of urine, brief & linens soiled, also had smear of yellow/green BM at that time. Since then has continued to have stress incontinence & urgency, voiding large amts of unmeasured urine plus more in the commode. Refused her meal until about 2129 when asked that I heat up her potatoes & meatloaf. She was able to eat few bites but refused any more. Took pills one at-a-time with water. Reports headache pain & generalized pain 9 on pain scale. Asked for everything I can have, hopeful she can sleep some. Medicated with 1 tab [place] PO, Morphine 2 mg IV & Ativan per her specific request for all 3 meds. Also given compound elixir for thrush and continued complaint of sore throat. PICC line infusing with no difficulty tonight. IV to RAC is saline locked. Fall precautions in place tonight. Both her son & daughter at bedside active in her care. Son left and daughter is staying night. Full patient report given to Renuka LOPEZ.
[2018-12-01] VITALS (19 sets, daily range): BP systolic 126–152; BP diastolic 60–88; PULSE 91–112; RESP 16–24; TEMP 37.1–39.6; O2SAT 90–98
[2018-12-01] MEDS: CEFEPIME 2 GM in SODIUM CHLORIDE 0.9% 100 ML 200 ML IV ×3 (00:16→16:25)
[2018-12-01] MEDS: LORazepam 0.5 MG TABLET PO ×4 (01:32→21:19)
[2018-12-01] MEDS: VANCOMYCIN 750 MG/150 ML FROZ.PIGGY 150 MG IV ×3 (01:32→18:13)
[2018-12-01] MEDS: HYDROCODONE/ACET 5/325 TABLET 1 TAB PO ×4 (01:32→21:19)
--- NOTE | 2018-12-01 02:24 | PC.NURSE ---
Addendum entered by Renuka Newton R.N. 12/01/18 06:26: Much more alert this morning, able to carry on conversation. States facial pain is now 8/10; discussed use of Gabapentin and other pain medications vs Ativan. Decided to take Gapapentin as ordered by POOJA and then also medicated with Morphine and Ativan. Patient and daughter aware she can have Vicodin later if pain not controlled. Up to bathroom and still much weaker than last night requiring 2 assist + walker. Addendum entered by Renuka Newton R.N. 12/01/18 04:20: 0215 Noted new order for Gabapentin but patient currently asleep so discussed with POOJA Stacy, and he states to wait until next time awake as sleep is more important. Addendum entered by Renuka Newton R.N. 12/01/18 04:17: When doing assessment earlier had attempted to dc right ac IV site but patient complained it hurt to have tape removed and requested it be left in at this time. Original Note: Patient much less alert tonight compared to last night. Responses are very delayed if she even answers questions asked. Daughter at bedside and reports patient has been like this most of yesterday. Was able to identify daughter. Gets SOB during conversation and sats drop but once told to relax and breathe sats return to normal; is on oxygen at 3L/min per NC and placed on continuous oximetry as per MD order. Discussed mentation with daughter and DATA MODELING SPECIALIST who will review medications for any adjustments. At this time medicated with Vicodin for 6/10 headache but did not give Ativan to see if that will help improve mentation; family agreeable. Breath sounds diminished and has slight audible inspiratory wheeze. HRR; telemetry reading was SR w/PAC's. Denies nausea. BT present and abdomen is soft. Still having loose stools and complains of urgency with both B&B; incontinent of both due to urgency but also up to BSC to void/defecate. Much weaker tonight requiring 2 assist to get up to commode and not bearing weight very well at all. Rash on back is more extensive tonight but patient continues to deny itching. Refuses SCD's. Remains on neutropenic and chemo precautions. Fall risk score high at RN discretion and bed alarm is activated.
[2018-12-01] MEDS: MORPHINE 2 MG/ML INJ IV (05:49)
[2018-12-01] MEDS: SODIUM CHLORIDE 0.9% FLUSH 10 ML IV ×2 (05:49→11:13)
[2018-12-01] MEDS: GABAPENTIN 100 MG CAPSULE PO ×3 (06:04→21:19)
[2018-12-01 06:41] LABS: Hematocrit 24.2 % (36-46); Hemoglobin 8.4 g/dL (12.0-16.0); Mean Corpuscular HGB Conc 34.9 % (30-36); Mean Corpuscular Hemoglobin 31.9 PG (26-34); Mean Corpuscular Volume 91.4 fL (80-100); Platelet Count 103 X10^3/uL (150-400); Red Blood Cell Count 2.64 X10^6/uL (4.0-5.2); Red Cell Distribution Width 15.6 % (11.6-14.8)
[2018-12-01 06:43] LABS: Add Manual Diff / Slide Review SLIDE REVIEW
[2018-12-01 06:51] LABS: White Blood Cell Count 0.2 X10^3/uL (4.5-11.0)
[2018-12-01 07:07] LABS: Procalcitonin 1.18 ng/mL (<0.5)
[2018-12-01 07:19] LABS: Anisocytosis 1+
[2018-12-01] MEDS: ACETAMINOPHEN 325 MG TABLET 650 MG PO ×2 (08:59→19:44)
--- NOTE | 2018-12-01 09:12 | PC.NURSE ---
Addendum entered by Fawn Pop R.N. 12/01/18 15:38: Patient has had multiple episodes of diarrhea today, and urgency/incontinence related to the same. Stool appears yellowish, thin and have some mucous in them. Her kids feel that diarrhea is worse today, and more frequent than it had been prior. Patient had her stool tested earlier in her stay. This process description writer discussed w/ Dr Jha, and she ordered a test to R/O C.diff- Camilla shift RN aware of new order to collect. Original Note: Fever: Oral temp this morning 103.2. Tylenol given by student RN and her instructor. Dr Jha informed of the same, no new orders at this time. Will plan to re-check in about an hour.
[2018-12-01] MEDS: SODIUM CHLORIDE 0.9% 1,000 ML 75 ML IV (09:33)
[2018-12-01] MEDS: ACYCLOVIR 400 MG TABLET PO ×2 (09:34→21:19)
[2018-12-01] MEDS: EZETIMIBE 10 MG TABLET PO (09:34)
[2018-12-01] MEDS: POTASSIUM CHLORIDE 20 MEQ TAB PO (09:34)
[2018-12-01 09:36] LABS: Blood Urea Nitrogen 4 mg/dL (7-17); Calcium 7.9 mg/dL (8.4-10.2); Carbon Dioxide 21 mmol/L (22-32); Chloride 104 mmol/L (98-107); Estimated Glomerular Filt Rate > 60.0 mL/min (>60); Glucose 91 mg/dL (80-110); HEMOLYSIS < 15 (0-50); Potassium 3.1 mmol/L (3.4-5.1); Sodium 136 mmol/L (137-145)
[2018-12-01] MEDS: VENETOCLAX 100 MG PO (11:14)
--- NOTE | 2018-12-01 12:04 | PT.IPTN ---
Current Diagnoses Anemia due to antineoplastic chemotherapy (11/26/18) Physical Therapy Treatment Note M2 PT-IP Current Condition Start: 11/27/18 08:13 Freq: NEEDED Status: Active Protocol: Document 11/30/18 11:07 RS (Rec: 11/30/18 11:46 RS [id number]) Physical Therapy Current Condition Current Condition Evaluation Date 11/30/18 Treatment Diagnosis weakness, impaired mobility, hx cancer Precautions Other Precautions reverse isolation precautions (enteric/ neutropenic) M3 PT-IP Subjective Start: 11/27/18 08:13 Freq: NEEDED Status: Active Protocol: Document 12/01/18 11:55 CLB (Rec: 12/01/18 12:04 CLB [id number]) Subjective Physical Therapy Visit Type Type Patient Refusal Notes Refusal per nursing due to pt not feeling well and is sleeping. Will check back later today.
[2018-12-01] MEDS: diphenhydrAMINE 25 MG TABLET PO ×2 (12:40→21:52)
--- NOTE | 2018-12-01 13:20 | ONC.MSW ---
Description: T/C [facility] re: chemo codes Activity: Left message for the assistant professor of forestry to admissions re: the plan to have pt potentially go to rehab following d/c from acute care, and how they may be able to carve out the chemo medications in order to make that work. Requested return call.
[2018-12-01] MEDS: ATENOLOL 25 MG TABLET PO (16:25)
--- NOTE | 2018-12-01 16:44 | PT.IPTN ---
Current Diagnoses Anemia due to antineoplastic chemotherapy (11/26/18) Physical Therapy Treatment Note M2 PT-IP Current Condition Start: 11/27/18 08:13 Freq: NEEDED Status: Active Protocol: Document 11/30/18 11:07 RS (Rec: 11/30/18 11:46 RS [id number]) Physical Therapy Current Condition Current Condition Evaluation Date 11/30/18 Treatment Diagnosis weakness, impaired mobility, hx cancer Precautions Other Precautions reverse isolation precautions (enteric/ neutropenic) M3 PT-IP Subjective Start: 11/27/18 08:13 Freq: NEEDED Status: Active Protocol: Document 12/01/18 16:41 CLB (Rec: 12/01/18 16:44 CLB [id number]) Subjective Physical Therapy Visit Type Type Patient Unavailable Notes Oncologist in room with pt and RN stated it would not be a good time to see pt.Will check back with pt tomorrow. M4 PT-IP Mobility and Gait Start: 11/27/18 08:13 Freq: NEEDED Status: Active Protocol: Document 11/30/18 11:07 RS (Rec: 11/30/18 11:46 RS [id number]) PT-Bed Mobility Assessment Supine to Sit Supine to Sit Minimal Assistance,1 Person Assistance,Head of Bed Elevated,Bedrails Sit to Supine Sit to Supine Minimal Assistance,1 Person Assistance,Bedrails Scooting Scooting to Edge of Bed Contact Guard Assistance Scooting Up and Down in Bed Dependent PT-Transfer Assessment Sit to and From Stand Sit to and from Stand Minimal Assistance,2 Person Assistance Equipment Transfer Assistive Device Gait Belt,Front Wheeled Walker Comments Mobility Comments Pt able to get up to EOB with hand-held assist, with HOB almost fully elevated. Once at EOB pt became dizzy, no drop in BP noted. After a few minutes pt able to scoot the rest of the way to edge so feet were on floor. Pt need a few more minutes of seated rest before attempting to stand. Pt required min A to stand up, had one hand on front of walker and pulled herself up (this will be addressed in future sessions), able to get the other hand up on the walker handle while min A was maintained for balance. However, pt became significantly dizzy and shaky, was unable to maintain upright position and began to lose balance backwards. Pt needed min A to return to sitting. BP checked again but no orthostatic drop. Once sitting pt was given IV morphine for pain, so pt was returned to bed instead of continuing to try to get to chair. Pt needed min A to get back to supine and then dep A x 2 to scoot up in bed. Gait Assessment Comments Gait Comments not appropriate to assess Stair Climbing Assessment Comments Stair Climbing Comments not appropriate to assess PT-Balance Assessment Sitting Balance and Reactions Static Sitting Balance Ability Poor Dynamic Sitting Balance Ability Poor Standing Balance and Reactions Static Standing Balance Ability Poor Dynamic Standing Balance Ability Poor Device Used FWW M5 PT-IP Objective Assessments Start: 11/27/18 08:13 Freq: NEEDED Status: Active Protocol: Document 11/30/18 11:07 RS (Rec: 11/30/18 11:46 RS [id number]) Orientation Orientation/Cognition Level of Alertness Lethargic Language Function Ability No Deficits Noted Safety Awareness Understands Safety Issues Comments slightly delayed responses at times Gross Range of Motion Upper Extremity ROM Assessment Within Functional Limits Lower Extremity ROM Assessment Within Functional Limits Strength Comments Strength Comments Formal testing not performed, pt presents with at least anti -gravity but poor overall endurance with functional tasks M6 PT-IP Treatment Start: 11/27/18 08:13 Freq: NEEDED Status: Active Protocol: Document 11/30/18 11:07 RS (Rec: 11/30/18 11:46 RS [id number]) Physical Therapy Treatment Education Education Provided Safety M7 PT-IP Assessment and Plan Start: 11/27/18 08:13 Freq: NEEDED Status: Active Protocol: Document 11/30/18 11:07 RS (Rec: 11/30/18 11:46 RS [id number]) PT Summary Assessment and Plan Potential Rehabilitation Potential Fair Status of Condition at Evaluation Evolving Summary Impairments Pain,ROM,Strength,Balance, Cognition,Bed Mobility, Transfers,Gait,Activity Tolerance Assessment Summary Pt presents with gross deconditioning and ability to participate in mobility activities is significantly limited by complicated medical issues. Currently pt requires 1-2 person assist for all mobility, which is below pt's reported functional baseline. Pt will benefit from daily acute PT to begin addressing mobility impairments. Patient has a very supportive family who seems to be open to providing whatever level of assist she needs at time of discharge. Anticipate that pt will be safe to discharge home with family assist by the time she is medically ready to discharge. Will continue to assess daily and make more concrete recommendations closer to discharge. Goals Bed Mobility Goal Standby Assistance Transfer Goal Standby Assistance,Front Wheeled Walker Gait Goal Standby Assistance,Front Wheel Walker Gait Distance 50 Other Goals Pt will be able to ascend/ descend 6 steps without railing with min A. Days to Meet Goals 5 Frequency of Treatment Frequency Of Treatment Twice a Day Treatment Plan Physical Therapy Treatment Plan Bed Mobility Training,Transfer Training,Gait Training, Therapeutic Exercise,Balance Retraining,Post Op Education, Discharge Planning,Hot or Cold Pack,Neuromuscular Re-ed, Coordination Retraining,Manual Therapy Other Recommendations and Next Treatment monitor vitals, transfers, Focus give pt HEP Recommendations To Nursing Amount of Assist Needed 1 Person Assist,2 Person Assist Discharge Recommendations PT Discharge Recommendations Home with 09/09 Assist,Home Health
--- NOTE | 2018-12-01 17:03 | ONC.PN ---
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 His probably treatment related. She started chemotherapy with azacitidine and venetoclax 4 weeks ago. She would have been due to start her 2nd cycle of azacitidine this week. She has continued with venetoclax. She was hospitalized 5 days ago with neutropenic fever. She also was having a lot of mouth pain and difficulty swallowing. She has been on cefepime and vancomycin. She is initially on fluconazole but has now transition to micafungin due to potential arrhythmia. She has also been on acyclovir. Her cultures have been negative. Today, she has ongoing mouth and throat pain. She has only been able to take a few bites. She has also developed significant diarrhea. She has had rigors as well. Overall, over the last several days, she has really not made any improvement and in fact seems weaker. - Patient Self-Reported Symptoms SR Constitution: Fever, Chills, Weight loss/gain, Fatigue/Malaise SR ears, nose, mouth, throat issues: Difficulty swallowing, Mouth sores SR respiratory issues: Shortness of breath SR Cardiovascular issues: Palpitations SR Gastrointestinal issues: Poor or no appetite, Change in bowel pattern, Diarrhea Home Medications and Allergies Home Medications Medication Instructions Recorded Confirmed Type alprazolam 0.25 mg PO Q8H PRN 08/27/18 11/27/18 History atenolol 25 mg PO QPM 08/27/18 11/27/18 History ezetimibe [Zetia] 10 mg PO DAILY 08/27/18 11/27/18 History Venclexta See Rx Instructions .ROUTE 10/14/18 11/27/18 Rx .COMPLEX #120 tab diphenhydramine HCl [Benadryl] 50 mg PO DAILY #0 11/07/18 11/27/18 History ciprofloxacin HCl [Cipro] 500 mg PO 0700,2100 #20 tab 11/11/18 11/27/18 Rx metronidazole 500 mg PO TID #30 tab 11/11/18 11/27/18 Rx Allergies Allergy/AdvReac Type Severity Reaction Status Date / Time No Known Allergies Allergy Unknown Verified 11/26/18 18:51 [NO KNOWN ALLERGIES] Exam Vital signs: Vital Signs Temp Pulse Resp BP Pulse Ox 12/01/18 16:34 98.8 F 112 H 24 142/82 H 92 12/01/18 13:16 94 12/01/18 12:05 93 12/01/18 11:00 98.7 F 101 H 20 126/60 93 12/01/18 10:59 98.7 F 12/01/18 10:58 90 L 12/01/18 10:57 96 12/01/18 10:01 100.9 F H 12/01/18 08:59 103 F H 12/01/18 08:30 103.2 F H 98 H 18 152/75 H 98 12/01/18 07:48 93 12/01/18 06:00 100.1 F H 98 H 16 147/74 H 95 12/01/18 01:52 99.1 F 101 H 20 148/88 H 93 11/30/18 19:35 98.6 F 98 H 18 114/63 95 11/30/18 17:10 99.7 F H 11/30/18 17:09 99.7 F H Intake and Output 12/01/18 12/01/18 12/01/18 07:59 15:59 23:59 Intake Total 500 / 750 250 / 750 Output Total 400 / 1100 700 / 1100 Balance 100 / -350 -450 / -350 Intake: IV 250 / 500 250 / 500 Cefepime 2 gm In Sodium 100 / 200 100 / 200 Chloride 0.9% 100 ml @ 200 mls/ hr IV Q8H [facility] Rx#:[id number] Vancomycin 750 mg In 150 ml @ 150 / 300 150 / 300 150 mls/hr IV Q8H [facility] Rx#: [id number] Oral 250 / 250 Output: Urine 200 / 900 700 / 900 Urine/Stool Mix 200 / 200 Other: Stool Size Smear Moderate # Unmeasured Voids 1 1 # Incontinent Voids 1 # Bowel Movements 1 1 Weight 61 kg Patient Weight 12/01/18 23:59 Weight 61 kg - Constitutional positive moderate distress, positive somnolent Comments: She is somewhat somnolent and rigors. - Routine HEENT Exam Eye: Present: conjunctival icterus Results - Labs Laboratory Last Values WBC 0.2 X10^3/uL (4.5-11.0) L* 12/01/18 06:00 RBC 2.64 X10^6/uL (4.0-5.2) L 12/01/18 06:00 Hgb 8.4 g/dL (12.0-16.0) L 12/01/18 06:00 Hct 24.2 % (36-46) L 12/01/18 06:00 MCV 91.4 fL (80-100) 12/01/18 06:00 MCH 31.9 PG (26-34) 12/01/18 06:00 MCHC 34.9 % (30-36) 12/01/18 06:00 RDW 15.6 % (11.6-14.8) H 12/01/18 06:00 Plt Count 103 X10^3/uL (150-400) L 12/01/18 06:00 Neut % (Auto) Not Reportable 12/01/18 06:00 Lymph % (Auto) Not Reportable 12/01/18 06:00 Murray % (Auto) Not Reportable 12/01/18 06:00 Eos % (Auto) Not Reportable 12/01/18 06:00 Baso % (Auto) Not Reportable 12/01/18 06:00 Lymph # (Auto) Not Reportable 12/01/18 06:00 Murray # (Auto) Not Reportable 12/01/18 06:00 Baso # (Auto) Not Reportable 12/01/18 06:00 Total Counted 25 11/26/18 18:50 Lymphocytes % (Manual) 100.0 % (25-45) H 11/26/18 18:50 Neutrophils # (Manual) 0 /uL (8074-2993) L 11/26/18 18:50 Platelet Estimate Decreased on smear 11/29/18 05:30 RBC Morphology See below 12/01/18 06:00 Dimorphic RBCs 1 11/28/18 05:08 Hypochromasia 1+ H 11/29/18 05:30 Poikilocytosis 1+ H 11/28/18 05:08 Anisocytosis 1+ H 12/01/18 06:00 Ovalocytes 1+ H 11/26/18 18:50 PT 13.1 SECONDS (10.1-12.7) H 11/26/18 18:00 INR 1.1 (0.9-1.3) 11/26/18 18:00 APTT 28 SECONDS (26.4-36.2) 11/26/18 18:00 Sodium 136 mmol/L (137-145) L 12/01/18 09:00 Potassium 3.1 mmol/L (3.4-5.1) L 12/01/18 09:00 Chloride 104 mmol/L (98-107) 12/01/18 09:00 Carbon Dioxide 21 mmol/L (22-32) L 12/01/18 09:00 BUN 4 mg/dL (7-17) L 12/01/18 09:00 Creatinine 0.50 mg/dL (0.52-1.04) L 12/01/18 09:00 Estimated GFR > 60.0 mL/min (>60) 12/01/18 09:00 BUN/Creatinine Ratio 8.0 (6-22) 12/01/18 09:00 Glucose 91 mg/dL (80-110) 12/01/18 09:00 Lactate 2.1 mmol/L (0.7-2.1) 11/26/18 18:50 Calcium 7.9 mg/dL (8.4-10.2) L 12/01/18 09:00 Magnesium 2.1 mg/dL (1.6-2.3) 11/30/18 04:15 Total Bilirubin 0.5 mg/dL (0.2-1.3) 11/30/18 04:15 AST 21 IU/L (14-36) 11/30/18 04:15 ALT 22 IU/L (9-52) 11/30/18 04:15 Alkaline Phosphatase 72 U/L (38-126) 11/30/18 04:15 Total Creatine Kinase 22 U/L (30-135) L 11/29/18 15:55 CK-MB (CK-2) TNP 11/29/18 15:55 CK-MB (CK-2) Rel Index TNP 11/29/18 15:55 Troponin I < 0.012 ng/mL (0.01-0.034) 11/29/18 15:55 Total Protein 5.6 g/dL (6.3-8.2) L 11/30/18 04:15 Albumin 2.7 g/dL (3.5-5.0) L 11/30/18 04:15 Globulin 2.9 g/dL (1.7-4.1) 11/30/18 04:15 Albumin/Globulin Ratio 0.9 (1.0-2.8) L 11/30/18 04:15 Lipase 74 U/L (23-300) 11/26/18 18:00 Procalcitonin 1.18 ng/mL (<0.5) H 12/01/18 06:00 TSH 0.77 uIU/mL (0.47-4.68) 11/28/18 05:08 Urine Color Yellow 11/27/18 06:59 Urine Appearance Clear 11/27/18 06:59 Urine pH 6.0 (4.5-8.0) 11/27/18 06:59 Ur Specific F[place]al 1.010 (1.000-1.035) 11/27/18 06:59 Urine Protein Negative (Negative) 11/27/18 06:59 Urine Glucose (UA) Negative g/dL (Negative) 11/27/18 06:59 Urine Ketones Negative (NEGATIVE) 11/27/18 06:59 Urine Occult Blood Negative (Negative) 11/27/18 06:59 Urine Nitrate Negative (Negative) 11/27/18 06:59 Urine Bilirubin Negative (NEGATIVE) 11/27/18 06:59 Urine Urobilinogen 0.2 E.U./dL (0.2) 11/27/18 06:59 Ur Leukocyte Esterase Negative (NEGATIVE) 11/27/18 06:59 Urine RBC 0-1/hpf (0-5/HPF) 11/27/18 06:59 Urine WBC 1-5/hpf (0-5/HPF) 11/27/18 06:59 Ur Squamous Epith Cells 0-1 /hpf (0-5/HPF) 11/27/18 06:59 Urine Bacteria Few (2-10) (None) H 11/27/18 06:59 Ur Culture Indicated? Culture not indicate 11/27/18 06:59 Nasal Screen MRSA (PCR) Negative for mrsa (Negative) 11/28/18 00:52 Stl C. cayetanensis PCR Not detected (Not Detect) 11/28/18 07:05 Stool Rotavirus (PCR) Not detected (Not Detect) 11/28/18 07:05 Stool Adenovirus (PCR) Not detected (Not Detect) 11/28/18 07:05 Stool Astrovirus (PCR) Not detected (Not Detect) 11/28/18 07:05 Stool Cryptosporidium PCR Not detected (Not Detect) 11/28/18 07:05 Stl E.coli Shiga Tox PCR Not detected (Not Detect) 11/28/18 07:05 St Sh/Enteroin Ecoli PCR Not detected (Not Detect) 11/28/18 07:05 Stool E coli O157 PCR Not detected (Not Detect) 11/28/18 07:05 Stl Enterotoxigenic E PCR Not detected (Not Detect) 11/28/18 07:05 Stool EPEC (PCR) Not detected (Not Detect) 11/28/18 07:05 Stl E. histolytica PCR Not detected (Not Detect) 11/28/18 07:05 Stool Giardia Lamblia PCR Not detected (Not Detect) 11/28/18 07:05 Stl P. shigelloides PCR Not detected (Not Detect) 11/28/18 07:05 St Y.enterocolitica PCR Not detected (Not Detect) 11/28/18 07:05 Stool Vibrio (PCR) Not detected (Not Detect) 11/28/18 07:05 Stl Vibrio cholerae PCR Not detected (Not Detect) 11/28/18 07:05 Stl Enteroaggr Ecoli PCR Not detected (Not Detect) 11/28/18 07:05 Stl Norovirus GI/GII PCR Not detected (Not Detect) 11/28/18 07:05 Vancomycin Trough 14.9 ug/mL (10-20) 11/29/18 09:14 Chlamy pneumoniae PCR Not detected (Not Detect) 11/27/18 02:46 Adenovirus (PCR) Not detected (Not Detect) 11/27/18 02:46 B.parapertussis DNA PCR Not detected (Not Detect) 11/27/18 02:46 Campylobacter (PCR) Not detected (Not Detect) 11/28/18 07:05 C. difficile Tox (PCR) Not detected (Not Detect) 11/28/18 07:05 Coronavirus OC43 (PCR) Not detected (Not Detect) 11/27/18 02:46 Coronavirus HKU1 (PCR) Not detected (Not Detect) 11/27/18 02:46 Coronavirus 229E (PCR) Not detected (Not Detect) 11/27/18 02:46 Coronavirus NL63 (PCR) Not detected (Not Detect) 11/27/18 02:46 Human Metapneumovir PCR Not detected (Not Detect) 11/27/18 02:46 Influenza Type A (PCR) Not detected (Not Detect) 11/27/18 02:46 Influenza Type B (PCR) Not detected (Not Detect) 11/27/18 02:46 M. pneumoniae (PCR) Not detected (Not Detect) 11/27/18 02:46 Parainfluenza 1 (PCR) Not detected (Not Detect) 11/27/18 02:46 Parainfluenza 2 (PCR) Not detected (Not Detect) 11/27/18 02:46 Parainfluenza 3 (PCR) Not detected (Not Detect) 11/27/18 02:46 Parainfluenza 4 (PCR) Not detected (Not Detect) 11/27/18 02:46 RSV (PCR) Not detected (Not Detect) 11/27/18 02:46 Entero/Rhino (PCR) Not detected (Not Detect) 11/27/18 02:46 Salmonella (PCR) Not detected (Not Detect) 11/28/18 07:05 Blood Type A Positive 11/26/18 19:41 Antibody Screen Negative 11/26/18 19:41 Crossmatch See Detail 11/26/18 19:41 - Imaging Additional studies: Procedures Transfusion of Nonautologous Red Blood Cells into Peripheral Vein, Percutaneous Approach (11/26/18) Assessment and Plan (1) AML (acute myeloblastic leukemia) Current visit: No Status: Acute 68-year-old woman with 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 This is probably treatment related. She has completed nearly 1 month of therapy. Her platelet count is increasing without transfusion. She has not needed red cell transfusion since her 1st day of the hospitalization. Her white cell count remains low. She would have been due for her 2nd cycle of azacitidine starting this week but is too ill to proceed at this point. She has continued with oral venetoclax. Her mouth pain I think is likely related to mucositis. This may be related to her venetoclax. She continues on opiates and gabapentin. Despite this, her p.o. intake is very low. We may need to consider parental nutrition soon. From an infectious disease standpoint, her cultures have been negative. Despite this, she continues to have rigors. She is on broad-spectrum antibiotics with vancomycin cefepime and antifungal. She did switch from fluconazole to micafungin. Her electrolytes have been replaced although her potassium is still slightly low. She has now developed diarrhea. Overall, the patient is a 68-year-old woman with leukemia that is not yet in remission. She is profoundly neutropenic and has been for several weeks. Her white count is not yet improving. She is at risk for life-threatening infections. Despite her broad-spectrum coverage, her symptoms have not been improving. I think it may be reasonable to consider transfer to [facility] for higher level of care. (1) AML (acute myeloblastic leukemia) Qualifiers: Leukemia Active/Remission status: without remission Qualified Code(s): C92.00 - Acute myeloblastic leukemia, not having achieved remission
--- NOTE | 2018-12-01 17:12 | CM.DPC ---
DCP: continued: Shey/NISA came over today to see pt. She confirms that they can accept pt with the current chemo treatment, that will not be a barrier. She says the IV antifungal treatment pt is now on is not financially doable in any snf setting and she also understands there is does not seem to be an appropriate alternative. DCP team will need to continue to follow this case closely. Dr. Jha may have some advice tomorrow in Team Rounds.
--- NOTE | 2018-12-01 18:14 | PM.DS.1 ---
History of Present Illness History of Present Illness Date Patient Seen: 12/01/18 Chief complaint: weakness Narrative: Ms. Kristen Cho is a 68-year-old female with a history significant for breast cancer, AML, breast cancer, hypertension, CVA, TIA, hyperlipidemia and neuropathy who presents today following developing a fever and progressive weakness and malaise for the last 2 days. The patient was seen by her primary care provider 2 days ago and since that time has had increasing weakness, loss of appetite and complains of diarrhea. She developed a fever today prompting her to present to the ER. She has stopped taking all her medications for the last 2 days. The patient had been admitted on 11/07/2018 and discharged on 11/11/2018 with diagnosis of colitis for which he had been taking Cipro and Flagyl. The patient has been on venclexta, oral chemotherapeutic agent for treatment AML which she reports also stopping. The patient had been pancytopenic however her blood counts stabilized following transfusion during her previous previous hospitalization and demonstrated blood count stability upon discharge. Today the patient states she was feeling ?pretty good? since discharge until 2 days ago. The patient denies recent flu or cold symptoms and has had no complaints of headache or dizziness, runny nose but has complained of sore throat progressing into the left ear today. She denies chest pain or palpitations and has had no shortness of breath but reports a dry nonproductive cough. She denies abdominal pain, nausea, vomiting or cramping. She does report a yellow-brown medicine smelling diarrhea stool. She has been ambulatory up until 2 days ago when she became profoundly weak. Upon arrival in the ER the patient has a temperature of 99.4?, heart rate of 111, blood pressure 125/62, respirations of 16 saturating 100% on room air. Chest x-ray obtained which finds low lung volumes but no suggestion of pneumonia and identifies an indwelling right PICC line. On laboratory analysis the patient has a white count of 0.5 which is her approximately baseline but has a hemoglobin of 4.4 and hematocrit of 12.1 and platelets of 36. On differential the patient is noted to have 100% lymphocytes. On coagulation she has a PT of 13.1 INR of 1.1 and PTT of 28. Her electrolytes are within normal limits with a BUN of 9 and creatinine 0.6. Her nonfasting glucose was 101. She has a total bili of 0.6 with an AST is 16, ALT of 9 and alkaline phosphatase of 61. Her albumin is 3.5 and magnesium 2.2. She has a procalcitonin is positive at 0.98. In the ER the patient had blood cultures drawn x2 but not yet obtained urinalysis. Since being in the ER the patient received Zosyn 3.375 g x1. Oncology was consulted who recommended admitting the patient and transfusing packed cells but has not yet need platelets. They further recommended ceftazidime and vancomycin both initiated in the emergency department. The patient is admitted for neutropenic fever with an elevated procalcitonin and severe anemia requiring transfusion. The patient did not transfer as did not have a bed and was unsure about appropriateness of the transfer. Discharge Providers Provider Date of admission: 11/26/18 22:15 Discharge Date: 12/01/18 Primary care physician: Abhinav Forte MD Consults: 11/26/18 21:47 Consult to Dietitian, Adult Routine Comment: Reason For Exam: Neutropenia, AML Consult to Discharge Planning Routine Comment: Frequent readmission Consult to Physical Therapy Evaluate & Treat Comment: Generalized weakness, anemia, AML, neutropenia Physician Instructions: Evaluate and Treat Consult to Physician Routine Comment: Consulting Provider: Edgar Walton Reason for consultation: AML, pancytopenia Has provider been notified: Yes 11/27/18 14:42 Consult to Physician Routine Comment: Consulting Provider: Edgar Walton Reason for consultation: AML with mucositis/thrush Has provider been notified: Yes Discharge provider: Asia Jha MD Summary Hospital Course Discharge Diagnosis: 1. Neutropenic fever 2. 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 Mucositis 4. Severe protein calorie malnutrition 5. Diarrhea 6. Hypertension 7. History of CVA 8. Hyperlipidemia 9. Chemo related pancytopenia Hospital Course: The patient is a 68-year-old female currently undergoing treatment for AML who presented with pancytopenia, neutropenic fevers. She was found to be markedly anemic. She received a transfusion of blood. Patient was started on cefepime and vancomycin in the emergency room. She was given IV hydration. Acyclovir was ultimately added to her regimen. Diflucan was added to her regimen for presumed fungal infection. The patient developed what was felt to be [place], it was felt that this was an interaction between the Diflucan and Venclexta. The patient was then switched to Micafungin and the Diflucan was discontinued. Despite this the patient continues to have significant mouth and ear pain. She has been unable to eat. She has since developed diarrhea. She has remained persistently neutropenic, with persistent fevers, despite broad-spectrum antibiotics and antifungal and antiviral treatment. Patient appears to be progressing and not making significant improvement. Discussed with her oncologist Dr. saundra abdi who recommends transfer to the [facility] for higher level of care given given her recent diagnosis of AML and persistent neutropenia. Exam Vital Signs (past 8 hours): - 12/01/18 10:57 12/01/18 10:58 12/01/18 10:59 Temperature 98.7 F Pulse Rate Respiratory Rate Blood Pressure Pulse Oximetry 96 90 L 12/01/18 11:00 12/01/18 12:05 12/01/18 13:16 Temperature 98.7 F Pulse Rate 101 H Respiratory Rate 20 Blood Pressure 126/60 Pulse Oximetry 93 93 94 12/01/18 16:34 Temperature 98.8 F Pulse Rate 112 H Respiratory Rate 24 Blood Pressure 142/82 H Pulse Oximetry 92 Oxygen Delivery Method Room Air Oxygen Flow Rate 0 Narrative Exam Narrative: Debilitated ill-appearing female Lungs: Decreased breath sounds Cardiac exam: Tachycardic regular rate and rhythm normal S1-S2 Abdomen soft mildly tender to palpation no palpable mass no board-like rigidity hypoactive bowel tones Extremities: No edema Objective Labs Result Diagrams: 12/02/18 05:12 12/02/18 14:40 Labs: Laboratory Results - last 24 hr 12/01/18 12/01/18 12/01/18 06:00 06:00 09:00 WBC 0.2 L* RBC 2.64 L Hgb 8.4 L Hct 24.2 L MCV 91.4 MCH 31.9 MCHC 34.9 RDW 15.6 H Plt Count 103 L Neut % (Auto) Not Reportable Lymph % (Auto) Not Reportable [place] % (Auto) Not Reportable Eos % (Auto) Not Reportable Baso % (Auto) Not Reportable Lymph # (Auto) Not Reportable [place] # (Auto) Not Reportable Baso # (Auto) Not Reportable RBC Morphology See below Anisocytosis 1+ H Sodium 136 L Potassium 3.1 L Chloride 104 Carbon Dioxide 21 L BUN 4 L Creatinine 0.50 L Estimated GFR > 60.0 BUN/Creatinine Ratio 8.0 Glucose 91 Calcium 7.9 L Procalcitonin 1.18 H Discharge Plan Discharge Plan Patient Disposition: [facility] Transfer to: [facility] Discharge Med Rec/Prescriptions Prescriptions: New nystatin 100,000 unit/mL Suspension 1,000,000 unit mucous membrane Q4H PRN (Reason: Mouth Sore Pain) 7 Days RF: 0 acetaminophen 325 mg Tablet 650 mg PO Q4HR PRN (Reason: As Needed For Fever/Mild Pain) Qty: 30 RF: 0 hydrocodone-acetaminophen 5-325 mg Tablet 1 tab PO Q4HR PRN (Reason: Pain, Moderate (4-6)) Qty: 10 RF: 0 acyclovir [Zovirax] 400 mg Tablet 400 mg PO BID 10 Days Qty: 20 RF: 0 lorazepam 0.5 mg Tablet 0.5 mg PO Q4HR PRN (Reason: Anxiety) Qty: 30 RF: 0 meropenem [Merrem] 500 mg Recon Soln 500 mg IV Q8H 7 Days RF: 0 diphenhydramine HCl [Allergy (diphenhydramine)] 25 mg Tablet 25 mg PO Q6HR PRN (Reason: Itching) 30 Days RF: 0 calcium carbonate 200 mg calcium (500 mg) Tablet,Chewable 1,000 mg PO Q4HR PRN (Reason: Dyspepsia) 7 Days RF: 0 lidocaine HCl [Lidocaine Viscous] 2 % Solution 10 ml mucous membrane Q4H PRN (Reason: Mouth Sore Pain) 7 Days RF: 0 gabapentin 100 mg Capsule 100 mg PO TID 7 Days Qty: 21 RF: 0 alum-mag hydroxide-simeth [Mag-Al Plus] 200-200-20 mg/5 mL Suspension 10 ml mucous membrane Q4H PRN (Reason: Mouth Sore Pain) Qty: 7 RF: 0 alum-mag hydroxide-simeth [Mag-Al Plus] 200-200-20 mg/5 mL Suspension 30 ml PO Q6HR PRN (Reason: Dyspepsia) 7 Days RF: 0 Mycamine 100 mg Recon Soln 100 mg IV Q24H 7 Days RF: 0 ondansetron HCl (PF) 4 mg/2 mL Solution 4 mg IV Q8HR PRN (Reason: Nausea And Vomiting) 7 Days RF: 0 sodium chloride [Deep Sea Nasal] 0.65 % Aerosol,Mcc[place]y 1 spray intranasal PRN PRN (Reason: Congestion) 7 Days RF: 0 vancomycin in dextrose 5 % 750 mg/150 mL Piggyback 750 mg IV Q8H 7 Days Qty: 3150 RF: 0 Continued atenolol 50 mg tablet 25 mg PO QPM RF: 0 alprazolam 0.25 mg Tablet 0.25 mg PO Q8H PRN (Reason: Anxiety) RF: 0 ezetimibe [Zetia] 10 mg Tablet 10 mg PO DAILY RF: 0 Venclexta 100 mg Tablet See Rx Instructions .ROUTE .COMPLEX Qty: 120 RF: 0 Discontinued diphenhydramine HCl [Benadryl] 25 mg Capsule 50 mg PO DAILY Qty: 0 RF: 0 ciprofloxacin HCl [Cipro] 500 mg Tablet 500 mg PO 0700,2100 Qty: 20 RF: 0 metronidazole 500 mg Tablet 500 mg PO TID Qty: 30 RF: 0 Follow up/Referrals: Abhinav Forte MD [Primary Care Provider] - Discharge Orders: Discharge (Order); Ordered 12/01/18 Ordered By: Asia Jha Provider Discharge Instructions Diet: Diet as Tolerated and Full Liquid Liquid consistency: Normal/Thin Food texture: Soft Discharge Data Primary Care Provider: Abhinav Forte Quality VTE Deep Vein Thrombosis/Pulmonary Embolism Present on Admission: No
--- NOTE | 2018-12-01 19:19 | PC.NURSE ---
Evening notes: Kristen having rigors earlier, afebrile at that time, although skin very warm & dry. Oncologist here to see patient & speak to family. Temp now rechecked @ 103.1. New antibiotic Meropenum ordered by Dr Jha, pharmacy just handed me the medication so I will infuse now. Reports continued headache & generalized achiness & malaise. Incontinent of yellow stool, also incontinent of urine in pull-up, passing more in BSC although stool is mixed with urine & I am not able to obtain a clean stool sample at this time. Remains on chemo precautions as well as reverse isolation for low white counts. Family at bedside. Dr Jha spoke with Asif, Kristen's son, and told him about plan to transfer patient to the [facility]. 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
[2018-12-01] MEDS: MEROPENEM 1 GM in SODIUM CHLORIDE 0.9% 100 ML 200 ML IV (19:24)
--- NOTE | 2018-12-01 21:03 | PM.EVENT ---
Event Note Date Patient Seen: 12/01/18 Time Patient Seen: 19:55 Event Note: Call has been placed to [facility] regarding patient transfer for higher level of care. Received a call back and spoke with Stephanie Best MD, leukemia Service and reviewed the patient's recent history and clinical course. The last note available for review was through [facility] prior to initiation of current chemotherapy treatment. Noted the patient's lack of response to current regimen including broad-spectrum antibiotics, antifungal and antiviral treatment, persistent fevers as well as Dr. Walton's request for transfer. Dr. Best indicated that there were no beds available at this time, she suggested that Dr. White or Dr. Walton call back tomorrow for further review the case, consideration of possible transfer or serving as investment consultant to support care locally. Spoke with the patient and provided and update on transfer status.
[2018-12-01] MEDS: MICAFUNGIN 100 MG in SODIUM CHLORIDE 0.9% 100 ML IV (21:19)
[2018-12-02] VITALS (9 sets, daily range): BP systolic 109–138; BP diastolic 62–85; PULSE 77–106; RESP 16; TEMP 36.6–37.1; O2SAT 92–98
[2018-12-02] MEDS: VANCOMYCIN 750 MG/150 ML FROZ.PIGGY 150 MG IV ×3 (01:31→16:22)
[2018-12-02] MEDS: HYDROCODONE/ACET 5/325 TABLET 1 TAB PO ×6 (01:31→21:42)
[2018-12-02] MEDS: LORazepam 0.5 MG TABLET PO ×5 (01:31→21:42)
--- NOTE | 2018-12-02 01:40 | PC.NURSE ---
LOWERATOR OPERATOR note: bed alarm not on, patient's family at bedside.
[2018-12-02] MEDS: ACETAMINOPHEN 325 MG TABLET 650 MG PO (04:56)
--- NOTE | 2018-12-02 05:25 | PC.NURSE ---
Pt tachy 90's BP 148/67, Temp not elevated on this shift 98.7. Pt continues to have anxiety, tremors and pain. Pt has Q4 ativan and [place]. Pt up to bedside commode w/ runny liquid yellow stool. Pt on tele: NS PAC's. Pt is on 02 at 2 liters NC, w/o O2 pt is 92%. 96% on 2 liters. Pt refuses SCD's.
[2018-12-02] MEDS: SODIUM CHLORIDE 0.9% 1,000 ML 50 ML IV (06:00)
[2018-12-02 06:53] LABS: Hematocrit 31.9 % (36-46); Hemoglobin 10.7 g/dL (12.0-16.0); Mean Corpuscular HGB Conc 33.7 % (30-36); Mean Corpuscular Hemoglobin 31.5 PG (26-34); Mean Corpuscular Volume 93.6 fL (80-100); Platelet Count 129 X10^3/uL (150-400); Red Blood Cell Count 3.41 X10^6/uL (4.0-5.2); Red Cell Distribution Width 15.7 % (11.6-14.8)
[2018-12-02 07:03] LABS: Add Manual Diff / Slide Review NO
[2018-12-02 07:04] LABS: White Blood Cell Count 0.2 X10^3/uL (4.5-11.0)
[2018-12-02 07:23] LABS: B Type Natriuretic Peptide 1350 (<100)
[2018-12-02] MEDS: MEROPENEM 1 GM in SODIUM CHLORIDE 0.9% 100 ML 200 ML IV ×2 (07:40→19:54)
[2018-12-02] MEDS: POTASSIUM CHLORIDE 20 MEQ TAB PO (08:48)
[2018-12-02] MEDS: ACYCLOVIR 400 MG TABLET PO ×2 (08:48→21:42)
[2018-12-02] MEDS: GABAPENTIN 100 MG CAPSULE PO ×2 (08:48→14:31)
[2018-12-02] MEDS: EZETIMIBE 10 MG TABLET PO (08:48)
[2018-12-02] MEDS: VENETOCLAX 100 MG PO (08:49)
[2018-12-02] MEDS: SODIUM CHLORIDE 0.9% FLUSH 10 ML IV (08:50)
[2018-12-02 09:41] LABS: Vancomycin Trough 16.6 ug/mL (10-20)
[2018-12-02] MEDS: VANCOMYCIN TROUGH 1 REQUEST MISC (10:13)
[2018-12-02] MEDS: MORPHINE 2 MG/ML INJ IV ×2 (11:45→16:52)
--- NOTE | 2018-12-02 12:44 | DI.CT.S_ITS ---
PROCEDURE: CT SINUS SCREEN WO CON INDICATIONS: Potential fungal infection, clinical concern for sinusitis TECHNIQUE: Noncontrast 3.0 mm axial images acquired from the frontal sinuses to the mid-sella, with coronal and sagittal reformats. For radiation dose reduction, the following was used: automated exposure control, adjustment of mA and/or kV according to patient size. COMPARISON: [facility], MR, MR HEAD/BRAIN WO CON, 08/28/2018, 10:54. [facility], CT, CT CHEST W CON, 12/02/2018, 12:47. FINDINGS: Image quality: Excellent. Maxillary Sinuses: [id number] mucosal thickening can be seen within the maxillary sinuses, right worse than left. There is absence of portions of the medial meyer of the maxillary sinuses. Ethmoid Air Cells: No bony remodeling or destruction. Mild mucosal thickening can be seen within the ethmoid air cells, left more prominent than right. Sphenoid Sinuses: No bony remodeling or destruction. Sinuses are clear. Frontal Sinuses: No bony remodeling or destruction. Sinuses are clear. Ostiomeatal Complexes: Ostiomeatal complexes are patent. No Anjali cells. Miscellaneous: Visualized intra-orbital contents are normal. No najma bullosa or paradoxical turbinate curvature. No nasal septal deviation. IMPRESSION: Paranasal sinus disease is seen, which is most prominent within the left maxillary sinus, without juan antonio findings of fungal sinusitis. There is partial absence of the medial meyer of the maxillary sinuses. Please correlate with prior surgery versus prior prominent inflammatory change. Dictated by: Cholo Villar M.D. on 12/02/2018 at 12:36 Approved by: Chool Villar M.D. on 12/02/2018 at 12:38
--- NOTE | 2018-12-02 12:46 | DI.CT.S_ITS ---
PROCEDURE: CT CHEST W CON INDICATIONS: r/o fungus infection TECHNIQUE: After the administration of intravenous contrast, 5 mm thick sections acquired from the pulmonary apices to the posterior costophrenic angles. 1 mm axial lung, 5 mm thick coronal and sagittal reformats and 7 mm axial MIP were acquired. For radiation dose reduction, the following was used: automated exposure control, adjustment of mA and/or kV according to patient size. COMPARISON: [facility], CT, CT ABDOMEN PELVIS W CON, 11/07/2018, 20:05. FINDINGS: Image quality: Excellent. Lungs and pleura: Mild asymmetric biapical pleural parenchymal thickening, right greater than left. Interval development of small bilateral pleural effusions, right greater than left, with mild bibasilar atelectasis, right greater than left. Chronic elevation of the right hemidiaphragm. Central and peripheral airways are patent and normal in caliber. Mediastinum: Heart size is normal. No pericardial effusion. No mediastinal or hilar adenopathy by size criteria. Thoracic aorta and central pulmonary arteries are normal in size. Esophagus is normal in caliber. No hiatal hernia. Bones and chest wall: No suspicious bony lesions. No vertebral body compression fractures. No axillary or supraclavicular adenopathy by size criteria. Thyroid gland is unremarkable. A right arm PICC line extends to the SVC right atrial junction. Abdomen: Diffuse hepatic steatosis. IMPRESSION: 1. Mildly asymmetric biapical pleural parenchymal thickening. 2. No evidence acute airspace consolidation. 3. Development of small bilateral pleural effusions, right greater than left, as well as bibasilar atelectasis. 4. Hepatic steatosis. Dictated by: Yomi Jacobs M.D. on 12/02/2018 at 13:28 Approved by: Yomi Jacobs M.D. on 12/02/2018 at 13:36
--- NOTE | 2018-12-02 12:58 | PM.PN.1 ---
Subjective Subjective Date Patient Seen: 12/02/18 Interval history: The patient reports her pain in her neck has improved. She does continue to have some pain over the left side of her eye. Explained to her and her daughter that we were unable to arrange transfer to [facility] as they do not feel that a higher level of care is indicated. Discussed the care with Dr. saundra beauchamp. At this time we have recommended CT scanning of her chest to rule out fungal pneumonia, in addition the family has requested a sinus in film as she has had recurrent sinus infections. As the patient is been unable to eat or maintain adequate oral intake we also discussed nutritional needs, she will be placed on TPN. I have also discussed the case with Dr. Doss and they will arrange for her to have a EGD tomorrow. Patient continues to have significant diarrhea. We have been unable to obtain a stool culture. Apparently she is incontinent of urine and stool subtle tiny asleep. Exam Vital Signs (past 8 hours): - 12/02/18 05:00 12/02/18 08:41 12/02/18 10:08 Temperature 98.7 F 98 F Pulse Rate 93 H 84 Respiratory Rate 16 16 Blood Pressure 138/81 126/69 Pulse Oximetry 92 95 93 12/02/18 11:36 12/02/18 12:00 Temperature 98.7 F Pulse Rate 94 H Respiratory Rate 16 Blood Pressure 129/62 Pulse Oximetry 95 94 Oxygen Delivery Method Room Air Oxygen Flow Rate 0 Narrative Exam Narrative: Ill-appearing female Lungs: Decreased breath sounds Cardiac exam: Regular rate rhythm normal S1-S2 Abdomen: Soft nontender nondistended Extremities: Trace edema bilateral Objective Labs Result Diagrams: 12/02/18 05:12 12/02/18 14:40 Labs: Laboratory Results - last 24 hr 12/02/18 12/02/18 12/02/18 05:12 05:12 09:00 WBC 0.2 L* RBC 3.41 L Hgb 10.7 L Hct 31.9 L MCV 93.6 MCH 31.5 MCHC 33.7 RDW 15.7 H Plt Count 129 L Neut % (Auto) Not Reportable Lymph % (Auto) Not Reportable [place] % (Auto) Not Reportable Eos % (Auto) Not Reportable Baso % (Auto) Not Reportable Lymph # (Auto) Not Reportable [place] # (Auto) Not Reportable Baso # (Auto) Not Reportable B-Natriuretic Peptide 1350 H Vancomycin Trough 16.6 Assessment & Plan Assessment & Plan narrative: Impression 1. Acute neutropenic fevers, status post chemotherapy for AML. Patient remains neutropenic despite 6 days of hospitalization. Patient is on meropenem, acyclovir, and micafungin . The patient has CT scan of her chest today to rule out a fungal pneumonia. There was no evidence of pneumonia on CT. CT scan of her sinuses revealed maxillary sinusitis, no evidence to suggest new core. The patient will continue on antibiotics. 2. Acute myelogenous leukemia, patient will continue on Venclexta 3. Hypokalemia were replaced 4. Hypertension continue usual medication 5. Hyperlipidemia, continue statin 6. Anxiety, continue lorazepam 7. Severe protein calorie malnutrition, the patient will have her PICC line replaced from a single-lumen to a double-lumen today. She will start TPN. IV fluids have been discontinued. We will continue antibiotics and antifungal and anti viral as above. Surgery consultation for EGD is planned tomorrow. Quality VTE Deep Vein Thrombosis/Pulmonary Embolism Present on Admission: No
--- NOTE | 2018-12-02 13:37 | PC.NURSE ---
Addendum entered by Linda Brown R.N. 12/02/18 15:19: IV - spoke to regarding pt starting tpn tonight and will need a dbl picc for abx, draws and the tpn, she will order. Original Note: AM NOTE - pt is weak, appears exhausted, chronic headache discomfort, family at bedside, discussed medications and family states pt headache worsens when not regularly receiving norco and ativan, given both w/breakfast, pt able emily few sips ensure and bites cream wheat this am, rash back, ra 95%, does have 02 on and off for comfort, bs dim, pt is able to swallow her meds one time with sips water and oral care, after CT scan, pt ret to room, x 2 person up dangle, pt tried to tsf to bsc and legs were too weak and would not support her standing and pivoting, ret to bed, pt becomes very anxious and tremulous, was given norco and ativan after ret from CT, placed warm blankets and bedpan to assist with voiding.
--- NOTE | 2018-12-02 14:44 | CM.DPC ---
DCP Cont: Spoke to RADHA Emerson at oncology. She mentioned that Dr. Walton will be coming over to see patient, and that she will need higher level of care, and that she is not to be discharged until this can be arranged. They are in the process of attempting to get a bed for patient. Dr. Jha will be working with Dr. Walton regarding this patient. Have not yet seen today's note from Dr. Walton. P: DCP to continue to follow closely. Mery Baeza RN/Fitting Room Attendant
[2018-12-02 15:23] LABS: Alanine Aminotransferase 28 IU/L (9-52); Albumin 2.6 g/dL (3.5-5.0); Albumin Globulin Ratio 0.9 (1.0-2.8); Alkaline Phosphatase 109 U/L (38-126); Aspartate Aminotransferase 32 IU/L (14-36); Bilirubin Total 0.6 mg/dL (0.2-1.3); Blood Urea Nitrogen 5 mg/dL (7-17); Calcium 7.8 mg/dL (8.4-10.2); Carbon Dioxide 22 mmol/L (22-32); Chloride 104 mmol/L (98-107); Estimated Glomerular Filt Rate > 60.0 mL/min (>60); Globulin 2.9 g/dL (1.7-4.1); Glucose 102 mg/dL (80-110); Potassium 3.1 mmol/L (3.4-5.1); Sodium 136 mmol/L (137-145); Total Protein 5.5 g/dL (6.3-8.2)
--- NOTE | 2018-12-02 15:39 | PT-IP ANOTE ---
Hold per MD, will check on pt in AM
[2018-12-02 16:17] LABS: Procalcitonin 21.74 ng/mL (<0.5)
[2018-12-02] MEDS: ATENOLOL 25 MG TABLET PO (16:22)
[2018-12-02 16:53] LABS: Clostridium Difficile Tox PCR Negative for C. diff
--- NOTE | 2018-12-02 17:22 | DI.RAD.S_ITS ---
PROCEDURE: XR CHEST FOR PICC 1V INDICATIONS: Line placement COMPARISON: [facility], CR, XR CHEST 1V, 11/26/2018, 19:01. FINDINGS: PICC was placed by the intravenous therapy team from the left side. The tip of PICC projecting to the area of SVC. Previously noted right-sided PICC line tip is in the region of SVC. Surgical clips are noted in bilateral axilla. No focal infiltrate or pneumothorax. IMPRESSION: Tip of PICC projects to the area of the SVC. Dictated by: Luis F Ureña M.D. on 12/02/2018 at 18:06 Approved by: Luis F Ureña M.D. on 12/02/2018 at 18:07
[2018-12-02] MEDS: MICAFUNGIN 100 MG in SODIUM CHLORIDE 0.9% 100 ML IV (18:09)
[2018-12-02] MEDS: AA 5 %/CALCIUM/LYTES/DEXT 20 % 1,000 ML with MULTIVITAMIN 10 ML, TRACE ELEMENTS 1 ML 42.125 ML IV (18:14)
[2018-12-02] MEDS: FAT EMULSIONS 50 GM/250 ML EMULSION IV (18:14)
[2018-12-02 19:40] LABS: Magnesium 1.7 mg/dL (1.6-2.3)
[2018-12-02] MEDS: MAGNESIUM SULFATE 2 GM/50 ML PIGGYBACK IV (20:07)
--- NOTE | 2018-12-02 20:20 | PM.CN ---
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 On admission wbc 0.2, hgb 4 febrile had complaints of left ear, mouth, throat pain and profuse diarrhea. She is recieving Acyclovir, meropenem, micafungin, nystatin and vancomycin currently. CT Face and CT Chest were performed today which demonstrate sinusitis no pneumonia. General surgery consulted today for esophagoduodenoscopy as she has had poor PO intake secondary to throat pain. A PICC line was placed today and she has started TPN. In regards to her throat pain the patient reports that it is significantly improved today and in fact she tolerated some soft food today when she previously could not. Currently she endorses progressive weakness, facial/head pain, and diarrhea, no rigors, shortness of breath or abdominal pain. [facility] Medical History Breast cancer (Acute) CVA (cerebrovascular accident) (Acute) HTN (hypertension) (Acute) Hyperlipidemia (Acute) Neuropathy (Acute) Sinus headache (Acute) TIA (transient ischemic attack) (Acute) Surgical History History of appendectomy (Acute) History of bilateral cataract extraction (Acute) No pertinent past surgical history (Acute) S/P breast lumpectomy (Acute) Family History Father Coronary artery disease Mother Stroke Coronary artery disease Brother Coronary artery disease Social History household members: family, children and none Smoking Status: Never smoker alcohol intake: current Family History Father Coronary artery disease Mother Stroke Coronary artery disease Brother Coronary artery disease Social History household members: family, children and none Smoking Status: Never smoker alcohol intake: current Meds Home Medications and Allergies Home Medications Medication Instructions Recorded Confirmed Type alprazolam 0.25 mg PO Q8H PRN 08/27/18 11/27/18 History atenolol 25 mg PO QPM 08/27/18 11/27/18 History ezetimibe [Zetia] 10 mg PO DAILY 08/27/18 11/27/18 History Venclexta See Rx Instructions .ROUTE 10/14/18 11/27/18 Rx .COMPLEX #120 tab acetaminophen 650 mg PO Q4HR PRN #30 tab 12/01/18 Rx acyclovir [Zovirax] 400 mg PO BID 10 Days #20 tab 12/01/18 Rx alum-mag hydroxide-simeth [Mag-Al 10 ml MUCOUS MEMBRANE Q4H PRN #7 ml 12/01/18 Rx Plus] alum-mag hydroxide-simeth [Mag-Al 30 ml PO Q6HR PRN 7 Days ml 12/01/18 Rx Plus] calcium carbonate 1,000 mg PO Q4HR PRN 7 Days tab 12/01/18 Rx diphenhydramine HCl [Allergy 25 mg PO Q6HR PRN 30 Days tab 12/01/18 Rx (diphenhydramine)] gabapentin 100 mg PO TID 7 Days #21 cap 12/01/18 Rx hydrocodone-acetaminophen 1 tab PO Q4HR PRN #10 tab 12/01/18 Rx lidocaine HCl [Lidocaine Viscous] 10 ml MUCOUS MEMBRANE Q4H PRN 7 12/01/18 Rx Days ml lorazepam 0.5 mg PO Q4HR PRN #30 tab 12/01/18 Rx meropenem [Merrem] 500 mg IV Q8H 7 Days each 12/01/18 Rx micafungin [Mycamine] 100 mg IV Q24H 7 Days each 12/01/18 Rx nystatin 1,000,000 unit MUCOUS MEMBRANE Q4H 12/01/18 Rx PRN 7 Days ml ondansetron HCl (PF) 4 mg IV Q8HR PRN 7 Days ml 12/01/18 Rx sodium chloride [Deep Sea Nasal] 1 spray INTRANASAL PRN PRN 7 Days 12/01/18 Rx ml vancomycin in dextrose 5 % 750 mg IV Q8H 7 Days #3150 ml 12/01/18 Rx Allergies Allergy/AdvReac Type Severity Reaction Status Date / Time No Known Allergies Allergy Unknown Verified 11/26/18 18:51 [NO KNOWN ALLERGIES] Review of Systems Review of Systems ROS Unobtainable: All systems reviewed & are unremarkable except as noted in HPI and below Exam Vital Signs (past 8 hours): - 12/02/18 15:00 12/02/18 18:09 Temperature 98.4 F Pulse Rate 106 H Respiratory Rate 16 Blood Pressure 109/85 Pulse Oximetry 93 93 Oxygen Delivery Method Nasal Cannula Oxygen Flow Rate 1 Narrative Exam Narrative: General-no acute distress, malnourished HEENT-moist mucous membranes, no scleral icterus Neck-supple, no lymphadenopathy Chest- non labored respirations Cardiac-regular rate no peripheral edema Abdomen-soft, nontender, non distended Extremities-warm, well perfused Neurological-alert but disoriented, no focal deficits Objective Labs Result Diagrams: 12/02/18 05:12 12/02/18 14:40 Labs: Laboratory Results - last 24 hr 12/02/18 12/02/18 12/02/18 05:12 05:12 09:00 WBC 0.2 L* RBC 3.41 L Hgb 10.7 L Hct 31.9 L MCV 93.6 MCH 31.5 MCHC 33.7 RDW 15.7 H Plt Count 129 L Neut % (Auto) Not Reportable Lymph % (Auto) Not Reportable [place] % (Auto) Not Reportable Eos % (Auto) Not Reportable Baso % (Auto) Not Reportable Lymph # (Auto) Not Reportable [place] # (Auto) Not Reportable Baso # (Auto) Not Reportable Sodium Potassium Chloride Carbon Dioxide BUN Creatinine Estimated GFR BUN/Creatinine Ratio Glucose Calcium Magnesium Total Bilirubin AST ALT Alkaline Phosphatase B-Natriuretic Peptide 1350 H Total Protein Albumin Globulin Albumin/Globulin Ratio Procalcitonin Vancomycin Trough 16.6 C. difficile Tox (PCR) 12/02/18 12/02/18 12/02/18 14:30 14:40 14:40 WBC RBC Hgb Hct MCV MCH MCHC RDW Plt Count Neut % (Auto) Lymph % (Auto) [place] % (Auto) Eos % (Auto) Baso % (Auto) Lymph # (Auto) [place] # (Auto) Baso # (Auto) Sodium 136 L Potassium 3.1 L Chloride 104 Carbon Dioxide 22 BUN 5 L Creatinine 0.50 L Estimated GFR > 60.0 BUN/Creatinine Ratio 10.0 Glucose 102 Calcium 7.8 L Magnesium Total Bilirubin 0.6 AST 32 ALT 28 Alkaline Phosphatase 109 B-Natriuretic Peptide Total Protein 5.5 L Albumin 2.6 L Globulin 2.9 Albumin/Globulin Ratio 0.9 L Procalcitonin 21.74 H Vancomycin Trough C. difficile Tox (PCR) Negative for c. diff 12/02/18 14:40 WBC RBC Hgb Hct MCV MCH MCHC RDW Plt Count Neut % (Auto) Lymph % (Auto) [place] % (Auto) Eos % (Auto) Baso % (Auto) Lymph # (Auto) [place] # (Auto) Baso # (Auto) Sodium Potassium Chloride Carbon Dioxide BUN Creatinine Estimated GFR BUN/Creatinine Ratio Glucose Calcium Magnesium 1.7 Total Bilirubin AST ALT Alkaline Phosphatase B-Natriuretic Peptide Total Protein Albumin Globulin Albumin/Globulin Ratio Procalcitonin Vancomycin Trough C. difficile Tox (PCR) Assessment & Plan Assessment & Plan narrative: 68-year-old female with AML and profound neurtropenia. She has had significant mouth and throat pain for the past several days likely due to mucositis and thrush. Surgery consulted today for possible diagnostic esophagoduodenoscopy. On further review the patient is actually improving from a throat pain standpoint and was able to tolerate some food today for the first time today. As she is at risk for life threatening infections I am concerned that perhaps the EGD will place her at greater risk then benefit. Will keep NPO after midnight and reevalute in AM. If throat pain improving will hold off if clinically worse will consider EGD tomorrow.
[2018-12-02] MEDS: POTASSIUM CHLORIDE 60 MEQ in SODIUM CHLORIDE 0.9% 500 ML 88.333 ML IV (20:22)
[2018-12-02] MEDS: GABAPENTIN 100 MG CAPSULE 200 MG PO (22:25)
--- NOTE | 2018-12-02 22:28 | PC.NURSE ---
Addendum entered by Ashleigh Villanueva R.N. 12/03/18 19:26: * surrounding eye region/ frontal head and generalized aches. Original Note: Camilla shift note: 1951: Was notified by Rigo PATTON regarding patients increased HR to 130's, patient awake and alert. Stat EKG ordered. Initiated Magnesium Sulfate, Potassium IV infusions. Continue with TPN and LIPIDS to. HR noted to decrease between 92-101. NSR with PACs on TELE at 1944. No c/o dizziness or chest pain. C/O discomfort to bilateral eyes, unable to describe pain but does localize. Medicated for pain as ordered. Daughter Valencia at bedside providing supportive care. Patient swallow adequate, however this RN noted patient to have difficulty with one PO meds, Med unable to go down. No coughing noted. Initiated meds with Applesauce and worked very well. Continue to have mild SOB at rest and worse with activity. O2 at 1L via NC, sat 93%. Cont. pulse ox in place. SCD on and off, per daughter patient can needs breaks. Currently on bilaterally. Up out of bed to BSC, noted with generalized weakness. Continue on neutropenic precautions. Small stool noted, smear to commode. Not sufficient for testing purposes. (soft). Afebrile this shift.
[2018-12-03] VITALS (19 sets, daily range): BP systolic 104–156; BP diastolic 58–93; PULSE 73–144; RESP 15–34; TEMP 36.9–39.1; O2SAT 83–94
[2018-12-03] MEDS: VANCOMYCIN 750 MG/150 ML FROZ.PIGGY 150 MG IV ×3 (00:38→23:54)
[2018-12-03] MEDS: HYDROCODONE/ACET 5/325 TABLET 1 TAB PO ×2 (01:46→06:07)
--- NOTE | 2018-12-03 02:16 | PC.NURSE ---
NOC NOTE: Patients dtr requesting PRN Hume q4hr with PRN Ativan. At 0145, woke patient to offer PRN Hume, pt reported facial pain, unable to give a number 0-10, FLACC score of 5. Pt was not anxious but was slightly confused and ask can you tell me where this train I am on, is going reorient patient to place and she stated well it feeling like I on a train and moving explained that the bed move to prevent pressure spots and patient was satisfied with this answer. She remained calm, I did not give the PRN Ativan as patient did not have signs of anxiety and is having confusion. The dtr did not understand this, requested to speak with hospitalist about medication, POOJA Stacy spoke with dtr.
[2018-12-03] MEDS: ACETAMINOPHEN 325 MG TABLET 650 MG PO (02:30)
[2018-12-03] MEDS: MORPHINE 2 MG/ML INJ IV ×5 (03:36→17:07)
[2018-12-03 04:47] LABS: Hematocrit 24.8 % (36-46); Hemoglobin 8.6 g/dL (12.0-16.0); Mean Corpuscular HGB Conc 34.5 % (30-36); Mean Corpuscular Hemoglobin 32.2 PG (26-34); Mean Corpuscular Volume 93.4 fL (80-100); Platelet Count 150 X10^3/uL (150-400); Red Blood Cell Count 2.66 X10^6/uL (4.0-5.2); Red Cell Distribution Width 15.6 % (11.6-14.8)
[2018-12-03 04:53] LABS: White Blood Cell Count 0.2 X10^3/uL (4.5-11.0)
[2018-12-03 04:54] LABS: Add Manual Diff / Slide Review SLIDE REVIEW
[2018-12-03 05:09] LABS: BUN Creatinine Ratio 7.5 (6-22); Blood Urea Nitrogen 3 mg/dL (7-17); Calcium 7.6 mg/dL (8.4-10.2); Carbon Dioxide 24 mmol/L (22-32); Chloride 104 mmol/L (98-107); Estimated Glomerular Filt Rate > 60.0 mL/min (>60); Glucose 144 mg/dL (80-110); HEMOLYSIS < 15 (0-50); Potassium 2.9 mmol/L (3.4-5.1); Sodium 135 mmol/L (137-145)
[2018-12-03] MEDS: POTASSIUM CHLORIDE 20 MEQ/15 ML UDC 40 MEQ PO (06:15)
[2018-12-03] MEDS: POTASSIUM CHLORIDE 60 MEQ in SODIUM CHLORIDE 0.9% 500 ML 88.333 ML IV (06:19)
[2018-12-03] MEDS: MEROPENEM 1 GM in SODIUM CHLORIDE 0.9% 100 ML 200 ML IV ×2 (06:29→20:18)
--- NOTE | 2018-12-03 08:49 | DIET.PN ---
Dietary Progress Note Pt started on TPN r/t ongoing and worsening Severe PCM c mucositis. Current course of Clinimix / continuous @ 42mL/h provides 1020kcal (64% of needs) and 42.5g PRO (53% of needs) per hospitalist. Recc increasing rate to goal of 55mL/h Friday am (12/04/18) to provide 1,320kcal and 56g PRO which is closer to her EERs (83% kcal and 70% PRO) if tolerating TPN this morning without signs of third spacing or refeeding (check Na, Mg, Phos, BG labs). HT: 157.4cm WT: 58.9kg UBW: 68kg (8.4% loss in 3 mo, severe) BMI: 23.8 Labs: hbg 8.6 (L), Na 135 (L), K+ 2.9 (L), Ca2+ 7.6 (L),wbc 0.2 (L) Nutrition Diagnosis: Ongoing Severe Acute on Chronic PCM r/t mucositis and diarrhea secondary to chemotherapy for AML aeb <25% EERs for >5d, 8.4% unintentional wt loss in 3mo (severe), moderate subcutaneous fat losses system wide c obvious saggy skin, critical lab values (hgb 4.4, platelet 31, wbc 0.4). Interventions: Encourage continued POs, continue TPN until POs >75% EERs for 5d consecutive Diet Order: Soft/Easy Chew neutropenic, TPN EER: 1600kcal, 80g PRO (1.3g/kg per Ca), 1.8L fluids Monitoring/Evaluations: TPN tolerance, mucositis status, POs
[2018-12-03] MEDS: POTASSIUM CHLORIDE 20 MEQ TAB PO (09:30)
[2018-12-03] MEDS: ACYCLOVIR 400 MG TABLET PO (09:35)
[2018-12-03] MEDS: GABAPENTIN 100 MG CAPSULE 200 MG PO (09:35)
[2018-12-03] MEDS: SODIUM CHLORIDE 0.9% FLUSH 10 ML IV (09:35)
[2018-12-03] MEDS: EZETIMIBE 10 MG TABLET PO (09:35)
[2018-12-03] MEDS: VENETOCLAX 100 MG PO (09:36)
--- NOTE | 2018-12-03 10:19 | PT-IP ANOTE ---
Nursing stated patient in alot of pain, does not want to be disturbed.Hold for the am, nurse is going to contact MD for further recommendations.
--- NOTE | 2018-12-03 11:22 | CM.DPC ---
DCP Cont: Discussed patient at team rounds. At this time, she is now getting TPN, PICC line in yesterday. [facility] not accepting patient. She will be getting treatment here. Family have been at bedside. Nurse, Darby, stated that daughter has been in and out of room asking for patient to have more pain medication. She stated that she will discuss with Dr. Jha. Called and updated Alejandra at [facility]. Let her know that patient is not being transferred out, and is on TPN. She stated that when patient is off of her TPN, they can re-evaluate. She will also need to be off of her anti-fungal med as well. P: DCP to continue to follow closely, and will be available for any resources needed. At this time, patient is not medically ready for discharge. Mery Baeza RN/Silk Brusher
--- NOTE | 2018-12-03 12:17 | DI.RAD.S_ITS ---
PROCEDURE: XR CHEST 1V INDICATIONS: possible fluid overload TECHNIQUE: One view of the chest was acquired. COMPARISON: [facility], CR, XR CHEST 1V, 11/26/2018, 19:01. FINDINGS: Surgical changes and devices: PICC lines project in the distal SVC via right and left sided approaches. Lungs and pleura: Mild cephalization of pulmonary vasculature and interstitial prominence with bilateral perihilar opacification concerning for fluid overload. No pleural effusions or pneumothorax. Mediastinum: Mediastinal contours appear normal. Heart size is normal. Bones and chest wall: No suspicious bony lesions. Overlying soft tissues appear unremarkable. IMPRESSION: Radiographic findings suggestive of fluid overload. Dictated by: Kristyn Steve MD, PhD on 12/03/2018 at 11:49 Approved by: Kristyn Steve MD, PhD on 12/03/2018 at 11:50
[2018-12-03] MEDS: FUROSEMIDE 20 MG/2 ML VIAL IV ×2 (12:32→18:09)
[2018-12-03 13:11] LABS: Anisocytosis 1+; Hypochromasia 1+
[2018-12-03] MEDS: METOPROLOL TARTRATE 5 MG/5 ML INJ IV ×4 (13:20→17:18)
--- NOTE | 2018-12-03 13:42 | PT-IP ANOTE ---
Pt transfered to ICU mid day, [employer] called down to ICU nursing station and told patient is on a medical hold today.
[2018-12-03] MEDS: FILGRASTIM-AAFI 300 MCG/0.5 ML SYRINGE SUBCUT (14:25)
[2018-12-03] MEDS: INSULIN ASPART 100 UNIT/ML INSULN PEN SUBCUT ×2 (14:25→18:33)
[2018-12-03 14:31] LABS: Troponin I 0.217 ng/mL (0.01-0.034)
[2018-12-03 15:26] LABS: B Type Natriuretic Peptide 2600 (<100)
--- NOTE | 2018-12-03 15:28 | PC.NURSE ---
Transfer Note/Day Shift Received patient to ICU at 1330 to room 103 via bed. Report received from Darby LOPEZ. Pt noted to be tachycardic to the 140-180s between ST and SVT. Pt received metoprolol 5 mg IV and Lasix 20 mg IV prior to transfer. Pt short of breath with RR in the upper 30s, labored, crackles bilaterally. Denies pain but reported feeling very short of breath and panicky. Oxygen sats 93% on 4L face mask. HR sustaining at 140-150s ST on arrival, 5 mg metoprolol IV x2. HR currently ST in the 110-120 bpm range. BP stable. Weaned to 2L NC with oxygen sats 93%, breathing less labored and in the upper 20s. Morphine administered for pt's report of pain to legs and head. Alfred catheter in place and draining clear yellow urine - about 875 ml out. Chemo precautions and reverse isolation in place. Valencia, daughter, at bedside and updated. Call light within reach. All belongings transferred to room. Dr. Jha updated and orders received. Labs drawn and pending.
--- NOTE | 2018-12-03 15:45 | PC.NURSE ---
Pt had been requiring constant one on one nursing care r/t frequent incontinence of urine, stool, difficulty breathing, pain and anxiety with neutropenic and chemo precautions. She was frequently cleaned and repositioned in bed. Pt was administered 2mg IV morphine at approx. 0900 to help with painful, 8/10 leg cramps. Pt had been moaning, crying and writhing in bed. Upon reassessment, pt was resting more comfortably in bed for a short period before c/o generalized arthralgias. Her daughter Valencia was at the bedside. Pt was administered morning meds and had difficulty swallowing each pill. With her daily PO chemo med, she an episode of near choking and had to spit out her pill and water. No further PO administration was attempted. Dr. Jha was notified. Pt began wheezing and became tachypneic at aprox. 1200. RT was called and assessed the pt. RT raised concern that the pt sounded fluid overloaded. Nursing care continued to be primarily one on one from this RN. Dr. Jha was notified and rounded on the pt at bedside. Pt's HR had been increasing into the 120s and 140's. STAT EKG, Chest X ray and 20mg IV lasix ordered and preformed/administered. Alfred catheter placed per order at approx. 1300. Urine is clear and straw colored. Shortly after, pt's HR climbed to [address] Jha was notified. 5mg Metoprolol was ordered and administered. Pt's HR responed well dropping into the 120's within minutes. Pt was deemed ICU appropriate and transferred into their care at approx. 1345. Report was given to JOHN Robles.
[2018-12-03] MEDS: VANCOMYCIN 750 MG/150 ML FROZ.PIGGY 100 MG IV (16:52)
[2018-12-03] MEDS: LORazepam 2 MG/ML INJ 0.5 MG IV ×2 (16:52→21:21)
[2018-12-03 17:20] LABS: CMV IgM Antibody < 30.00 AU/mL (< 30.00)
[2018-12-03 17:45] LABS: Blood Urea Nitrogen 4 mg/dL (7-17); Calcium 8.2 mg/dL (8.4-10.2); Carbon Dioxide 22 mmol/L (22-32); Chloride 101 mmol/L (98-107); Estimated Glomerular Filt Rate > 60.0 mL/min (>60); Glucose 233 mg/dL (80-110); HEMOLYSIS < 15 (0-50); Potassium 4.7 mmol/L (3.4-5.1); Sodium 135 mmol/L (137-145)
--- NOTE | 2018-12-03 17:51 | P.PN_ITS ---
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 Seven days ago the patient presented to the hospital with neutropenic fever. She was initially treated with vancomycin and cefepime. Despite that she remained neutropenic, she continued to have fevers, acyclovir and Diflucan was added to her regimen. The patient was found to have torsades on the Diflucan. That was felt to be interacting with the Venetoclax and the Diflucan was subsequently changed to Micafungin. Despite this the patient continues to have significant pain which is felt to be due to mucositis. She has been unable to eat. She has been on IV hydration. Yesterday the patient had her PICC line changed to a double-lumen PICC and was started on TPN. This morning she developed market tachycardia, atrial flutter, pulmonary edema. The patient has been marginally stable today and has been transferred to the ICU for ongoing management of her atrial tachycardia and a pulmonary edema. She remains confused, she complains of pain, her pain is headache and throat pain. Yesterday she noted her throat pain seemed to improve. Exam Vital Signs (past 8 hours): - 12/03/18 11:18 12/03/18 12:00 12/03/18 13:30 Temperature 98.7 F 101.3 F H Pulse Rate 111 H 144 H 126 H Respiratory Rate 20 22 31 H Blood Pressure 156/74 H 109/73 Pulse Oximetry 92 91 93 12/03/18 13:43 12/03/18 17:51 Temperature 102.4 F H Pulse Rate 112 H Respiratory Rate 28 H Blood Pressure 123/82 Pulse Oximetry 93 90 L Oxygen Delivery Method High Flow Nasal Cannula Oxygen Flow Rate 4 Narrative Exam Narrative: Ill-appearing female confused lying in bed Neck: Bilateral JVD Lungs: Diffuse rhonchi and wheezes bilaterally Cardiac exam: Tachycardic regular rate rhythm normal S1-S2 with a 2/6 systolic ejection murmur Abdomen: Soft, mildly tender, no appreciable hepatosplenomegaly Extremities: Trace edema bilaterally Objective Labs Result Diagrams: 12/03/18 04:25 12/03/18 17:24 Labs: Laboratory Results - last 24 hr 11/30/18 12/02/1819 04:15 14:40 14:40 WBC RBC Hgb Hct MCV MCH MCHC RDW Plt Count Neut % (Auto) Lymph % (Auto) [place] % (Auto) Eos % (Auto) Baso % (Auto) Lymph # (Auto) [place] # (Auto) Baso # (Auto) RBC Morphology Hypochromasia Anisocytosis Sodium 136 L Potassium 3.1 L Chloride 104 Carbon Dioxide 22 BUN 5 L Creatinine 0.50 L Estimated GFR > 60.0 BUN/Creatinine Ratio 10.0 Glucose 102 Calcium 7.8 L Magnesium 1.7 Total Bilirubin 0.6 AST 32 ALT 28 Alkaline Phosphatase 109 Troponin I B-Natriuretic Peptide Total Protein 5.5 L Albumin 2.6 L Globulin 2.9 Albumin/Globulin Ratio 0.9 L Nasal Screen MRSA (PCR) CMV IgG Ab 1.20 H CMV IgM Ab < 30.00 12/03/18 12/03/18 12/03/18 04:25 04:25 13:45 WBC 0.2 L* RBC 2.66 L Hgb 8.6 L Hct 24.8 L MCV 93.4 MCH 32.2 MCHC 34.5 RDW 15.6 H Plt Count 150 Neut % (Auto) Not Reportable Lymph % (Auto) Not Reportable [place] % (Auto) Not Reportable Eos % (Auto) Not Reportable Baso % (Auto) Not Reportable Lymph # (Auto) Not Reportable [place] # (Auto) Not Reportable Baso # (Auto) Not Reportable RBC Morphology Not Reportable Hypochromasia 1+ H Anisocytosis 1+ H Sodium 135 L Potassium 2.9 L Chloride 104 Carbon Dioxide 24 BUN 3 L Creatinine 0.40 L Estimated GFR > 60.0 BUN/Creatinine Ratio 7.5 Glucose 144 H Calcium 7.6 L Magnesium Total Bilirubin AST ALT Alkaline Phosphatase Troponin I 0.217 H* B-Natriuretic Peptide Total Protein Albumin Globulin Albumin/Globulin Ratio Nasal Screen MRSA (PCR) CMV IgG Ab CMV IgM Ab 12/03/18 12/03/18 12/03/18 14:07 14:50 17:24 WBC RBC Hgb Hct MCV MCH MCHC RDW Plt Count Neut % (Auto) Lymph % (Auto) [place] % (Auto) Eos % (Auto) Baso % (Auto) Lymph # (Auto) [place] # (Auto) Baso # (Auto) RBC Morphology Hypochromasia Anisocytosis Sodium 135 L Potassium 4.7 D Chloride 101 Carbon Dioxide 22 BUN 4 L Creatinine 0.40 L Estimated GFR > 60.0 BUN/Creatinine Ratio 10.0 Glucose 233 H Calcium 8.2 L Magnesium Total Bilirubin AST ALT Alkaline Phosphatase Troponin I B-Natriuretic Peptide 2600 H Total Protein Albumin Globulin Albumin/Globulin Ratio Nasal Screen MRSA (PCR) Negative for mrsa CMV IgG Ab CMV IgM Ab Assessment & Plan Assessment & Plan narrative: Impression 1. NSTEMI-patient developed pulmonary edema earlier today with significant tachycardia. She has been tachycardic for several hours despite treatment. Her initial troponin came back at 0.217. Her repeat troponin is now 0.403 . Patient just received morphine, she has no complaints of chest pain. Her EKG obtained earlier today showed sinus tachycardia question atrial flutter. Patient has had tachycardia earlier and has been in not in and out of atrial flutter. She has received multiple doses of lopressor with some improvement of her heart rate. The patient is pancytopenic. However she does not have thrombocytopenia. She remains anemic with a hemoglobin of 8.4 hematocrit of 25. Will continue IV Lopressor, recent echo revealed normal LV function, will start her on an aspirin if not orally rectally, continue opiates and oxygen. Patient is DNR. Will continue to medically manage her NSTEMI. Cardiology consultation this evening. 2. Neutropenic fever, status post chemotherapy 4 weeks ago. The patient continu es to have fevers, blood cultures are negative thus far, she remains on meropenem, acyclovir,micafungin, and vancomycin. Despite widespread antibiotic the patient remains febrile and neutropenic. Discussed with Dr. Walton. Patient will be started on G-CSF today. Chest CT revealed no evidence of fungemia or pneumonia. The patient had a CT of her sinuses which revealed maxillary sinusitis but no evidence of mucor. Patient continues to have diarrhea, she was incontinent to both urine and stool, with a Alfred catheter in place will send stool culture for possible C difficile. 3. Pulmonary edema, patient received Lasix 20 mg twice daily with excellent urine output. She has had over 1 L out thus far will continue IV Lasix. Echo revealed normal LV function. Suspect pulmonary edema from fluid resuscitation 4. AML, status post Azacitibine and Venetoclax. 4. Severe protein calorie malnutrition, patient has not eaten for 7 days except intermittently. Will continue TPN 5. Mucositis, secondary to her chemotherapeutic agent. The patient has significant pain with swallowing. It although she noted her symptoms improved. She was previously scheduled for endoscopy however her pain as of he earlier today had improved. The endoscopy was aborted. Patient is on nystatin in addition to micafungin for presumed oral/esophageal candidiasis 6. Atrial flutter, likely related to her abrupt onset pulmonary edema, continue Lopressor for rate control 7. . Hypertension, Lopressor as above 8. Hyperlipidemia, statin on hold 9. History of CVA 10. Anxiety, chronic will continue intermittent lorazepam The patient is critically ill 120 minutes of critical care time was spent with this patient. Quality VTE Deep Vein Thrombosis/Pulmonary Embolism Present on Admission: No
[2018-12-03 17:58] LABS: Troponin I 0.403 ng/mL (0.01-0.034)
[2018-12-03] MEDS: FAT EMULSIONS 50 GM/250 ML EMULSION IV (18:07)
[2018-12-03] MEDS: AA 5 %/CALCIUM/LYTES/DEXT 20 % 1,000 ML with MULTIVITAMIN 10 ML, TRACE ELEMENTS 1 ML, P... 42.963 ML IV (18:07)
[2018-12-03] MEDS: HYDROMORPHONE 0.5 MG INJ IV ×2 (18:44→22:42)
[2018-12-03] MEDS: ESMOLOL 2.5 GM/250 ML IV.SOLN IV ×2 (18:53→22:54)
[2018-12-03] MEDS: MICAFUNGIN 100 MG in SODIUM CHLORIDE 0.9% 100 ML IV (19:10)
[2018-12-03] MEDS: ASPIRIN 300 MG SUPP PR (20:08)
--- NOTE | 2018-12-03 21:43 | PC.NURSE ---
2100- Shift note: Patient has been restless and only oriented to self this shift. Upon arrival patient heart rate and respirations were elevated and she appeared in distress. Patient medicated per order and labs reviewed. It was noted that the patient had elevated triponin and BNP. MD notiified and Triponin ordered and additional lasix given. Patients heart rate as high as 140's and respirations are in the mid 30's. EKG obtained per order. Patient is having a non stemi. Family aware. Patient code status verified as DNR. 1900hr Esmolol gtt initiated per MD order. Patient incont. of stool. Good UOP result from lasix. Family is at bedside and condition is guarded.
[2018-12-04] VITALS (33 sets, daily range): BP systolic 89–155; BP diastolic 39–97; PULSE 92–164; RESP 18–34; TEMP 35.3–36.7; O2SAT 88–95
[2018-12-04] MEDS: INSULIN ASPART 100 UNIT/ML INSULN PEN SUBCUT ×4 (00:02→18:50)
[2018-12-04 01:23] LABS: Creatine Kinase 27 U/L (30-135)
[2018-12-04] MEDS: HYDROMORPHONE 0.5 MG INJ IV ×9 (01:28→20:48)
[2018-12-04 01:37] LABS: Troponin I 0.256 ng/mL (0.01-0.034)
[2018-12-04] MEDS: ESMOLOL 2.5 GM/250 ML IV.SOLN IV ×8 (02:22→22:35)
[2018-12-04] MEDS: LORazepam 2 MG/ML INJ 0.5 MG IV (04:57)
[2018-12-04] MEDS: MEROPENEM 1 GM in SODIUM CHLORIDE 0.9% 100 ML 200 ML IV ×2 (06:09→19:59)
--- NOTE | 2018-12-04 06:22 | PC.NURSE ---
Pt A/O to self only. Mostly confused but able to make needs known. Family at bedside. Medicated pretty routinely for pain with dilaudid per orders and ativan for restlessness/anxiety. Esmolol GTT continued with HR starting in the low 100's now sustaining in the 90's. BP stable. Oxygen titrated up from 4L HFNC to 6L HFNC for Sp02 desaturations down to 88%. TNI levels trending down. UO 125mL this shift - POOJA Maravilla made aware. No new orders received.
[2018-12-04] MEDS: VANCOMYCIN 750 MG/150 ML FROZ.PIGGY 150 MG IV ×2 (09:53→16:57)
[2018-12-04] MEDS: FUROSEMIDE 20 MG/2 ML VIAL IV (09:53)
--- NOTE | 2018-12-04 10:10 | DI.RAD.S_ITS ---
PROCEDURE: XR CHEST 1V INDICATIONS: tachypnea TECHNIQUE: One view of the chest was acquired. COMPARISON: [facility], CR, XR CHEST 1V, 12/03/2018, 12:22. FINDINGS: Surgical changes and devices: Right and left PICC lines appear unchanged. Lungs and pleura: Low lung volumes with scattered subsegmental atelectasis/scarring. Right perihilar patchy opacities appear unchanged. No pleural effusions or pneumothorax. Mediastinum: Mediastinal contours appear normal. Heart size is normal. Bones and chest wall: No suspicious bony lesions. Overlying soft tissues appear unremarkable. IMPRESSION: Diffuse groundglass opacities suggestive of slight worsening pulmonary edema. Superimposed ill-defined right perihilar consolidative opacity, recommend clinical correlation to exclude superimposed infection. If there is persistent clinical diagnostic uncertainty, continued surveillance with short interval chest radiographs after treatment is recommended. Dictated by: Nathan Maravilla M.D. on 12/04/2018 at 11:03 Approved by: Nathan Maravilla M.D. on 12/04/2018 at 11:05
--- NOTE | 2018-12-04 10:42 | DIET.PN ---
Dietary Progress Note Dietary Progress Note Pt on day 2 TPN r/t ongoing and worsening Severe PCM c mucositis, minimal POs past 8d. Pt transferred to ICU yesterday she developed market tachycardia, atrial flutter, pulmonary edema. Recc reducing TPN rate to 25mL/h and check Mag and Phos, consider repleting as pt likely experiencing some refeeding c BG 233 this morning. When labs stabilize, titrate rate up 10mL/h q12h as tolerated reaching goal rate of 55mL/h to provide 1,320kcal and 56g PRO which is closer to her EERs (83% kcal and 70% PRO). HT: 157.4cm WT: 57.8kg UBW: 68kg (15% loss in 3 mo, severe) BMI: 23.8 Labs: hbg 8.6 (L), Na 135 (L), K+ 4.7, Ca2+ 8.2 (L), wbc 0.2 (L) Nutrition Diagnosis: Ongoing Severe Acute on Chronic PCM r/t mucositis and diarrhea secondary to chemotherapy for AML aeb <25% EERs for >5d, 15% unintentional wt loss in 3mo (severe), moderate subcutaneous fat losses system wide c obvious saggy skin, critical lab values (platelet 31, wbc 0.2). Interventions: Encourage continued POs, continue TPN until POs >75% EERs for 5d consecutive Diet Order: Soft/Easy Chew neutropenic, TPN EER: 1600kcal, 80g PRO (1.3g/kg per Ca), 1.8L fluids Monitoring/Evaluations: TPN tolerance, mucositis status, POs
[2018-12-04] MEDS: LORazepam 2 MG/ML INJ 1 MG IV ×3 (10:44→23:20)
[2018-12-04 11:05] LABS: Phosphorous 1.7 mg/dL (2.8-4.1)
--- NOTE | 2018-12-04 11:50 | PM.PN.1 ---
Subjective Subjective Date Patient Seen: 12/04/18 Time Patient Seen: 11:50 Interval history: She is seen today in the intensive care unit to follow up her probable pneumonia, congestive heart failure, non ST elevation [place], mucositis, leukemia, malnourishment. She continues to do poorly, quite tachypneic during my evaluation. Her electrolytes have been stable. The troponin was 0.256 and the BNP 2600. She has been on TPN and her chest x-ray today shows continued infiltrates bilaterally consistent with possible right-sided pneumonia and congestive heart failure. Exam Vital Signs (past 8 hours): - 12/04/18 04:06 12/04/18 05:04 12/04/18 07:59 Temperature 98.0 F 97.9 F Pulse Rate 96 H 103 H Respiratory Rate 22 30 H Blood Pressure 97/65 113/70 Pulse Oximetry 92 92 89 L 12/04/18 08:34 Temperature Pulse Rate Respiratory Rate Blood Pressure Pulse Oximetry 92 Fraction of Inspired Oxygen 0.30 Oxygen Delivery Method Oximask Oxygen Flow Rate 7 Narrative Exam Narrative: She is obtunded, not able to interact or engage during my visit. She is breathing in the 30s and appears somewhat distressed. Her daughter and son-in-law are at bedside and are appropriately engaged. Heart is tachycardic regular rhythm without murmur. Lungs do not have clear crackles or wheezes bilaterally but the exam is limited. Abdomen is soft, bowel sounds positive, possibly tender. It is difficult to know. Extremities have no ankle edema. Objective Labs Result Diagrams: 12/03/18 04:25 12/03/18 17:24 Labs: Laboratory Results - last 24 hr 11/30/18 12/03/18 12/03/18 04:15 04:25 10:50 RBC Morphology Not Reportable Hypochromasia 1+ H Anisocytosis 1+ H Sodium Potassium Chloride Carbon Dioxide BUN Creatinine Estimated GFR BUN/Creatinine Ratio Glucose Calcium Phosphorus 1.7 L Total Creatine Kinase CK-MB (CK-2) CK-MB (CK-2) Rel Index Troponin I B-Natriuretic Peptide Nasal Screen MRSA (PCR) CMV IgG Ab 1.20 H CMV IgM Ab < 30.00 12/03/18 12/03/18 12/03/18 13:45 14:07 14:50 RBC Morphology Hypochromasia Anisocytosis Sodium Potassium Chloride Carbon Dioxide BUN Creatinine Estimated GFR BUN/Creatinine Ratio Glucose Calcium Phosphorus Total Creatine Kinase CK-MB (CK-2) CK-MB (CK-2) Rel Index Troponin I 0.217 H* B-Natriuretic Peptide 2600 H Nasal Screen MRSA (PCR) Negative for mrsa CMV IgG Ab CMV IgM Ab 12/03/18 12/03/18 12/04/18 17:24 17:24 00:55 RBC Morphology Hypochromasia Anisocytosis Sodium 135 L Potassium 4.7 D Chloride 101 Carbon Dioxide 22 BUN 4 L Creatinine 0.40 L Estimated GFR > 60.0 BUN/Creatinine Ratio 10.0 Glucose 233 H Calcium 8.2 L Phosphorus Total Creatine Kinase 27 L CK-MB (CK-2) TNP CK-MB (CK-2) Rel Index TNP Troponin I 0.403 H* 0.256 H* B-Natriuretic Peptide Nasal Screen MRSA (PCR) CMV IgG Ab CMV IgM Ab Assessment & Plan Assessment & Plan narrative: 1. NSTEMI-with ongoing pulmonary edema and tachycardia. She has been tachycardic for several hours despite treatment. Patient has had tachycardia earlier and has been in and out of atrial flutter. She has received multiple doses of lopressor with some improvement of her heart rate. The patient is pancytopenic. However she does not have thrombocytopenia. She remains anemic with a hemoglobin of 8.4 hematocrit of 25. Will continue IV Esmolol, recent echo revealed normal LV function, will continue aspirin rectally, continue opiates and oxygen. Patient is DNR. Will continue to medically manage her NSTEMI. 2. Neutropenic fever, status post chemotherapy 4 weeks ago. The patient continues to have fevers, blood cultures are negative thus far, she remains on meropenem, acyclovir,micafungin, and vancomycin. Despite widespread antibiotic the patient remains febrile and neutropenic. Discussed with Dr. Walton recently. Added G-CSF yesterday. Chest CT revealed no evidence of fungemia or pneumonia. The patient had a CT of her sinuses which revealed maxillary sinusitis but no evidence of mucor. Patient continues to have diarrhea, she was incontinent to both urine and stool, with a Alfred catheter in place and a pending stool culture for possible C difficile. 3. Pulmonary edema, patient is on Lasix 20 mg twice daily with excellent urine output. Echo revealed normal LV function. Suspect pulmonary edema from fluid resuscitation 4. AML, status post Azacitibine and Venetoclax. 4. Severe protein calorie malnutrition, patient has not eaten for 7 days except intermittently. Will continue TPN with a lowered rate today due to suspected refeeding syndrome. 5. Mucositis, secondary to her chemotherapeutic agent. The patient has significant pain with swallowing. It although she noted her symptoms improved. She was previously scheduled for endoscopy however her pain as of he earlier today had improved. The endoscopy was aborted. Patient is on nystatin in addition to micafungin for presumed oral/esophageal candidiasis 6. Atrial flutter, likely related to her abrupt onset pulmonary edema, continue Esmolol for rate control 7. Hypertension, Esmolol as above 8. Hyperlipidemia, statin on hold 9. History of CVA 10. Anxiety, chronic will continue intermittent lorazepam Per discussion with outreach and education social worker and with the Oncology social service staff will have a discussion about transition to comfort care and/or hospice tomorrow morning with the family and the patient. Quality VTE Deep Vein Thrombosis/Pulmonary Embolism Present on Admission: No
[2018-12-04] MEDS: FILGRASTIM-AAFI 300 MCG/0.5 ML SYRINGE SUBCUT (12:31)
--- NOTE | 2018-12-04 13:24 | PT-IP ANOTE ---
checked with nursing regarding pt and pt continues to not be appropriate for PT. Pt has not been seen for PT for ~ 4 days and informed nurse and nurse agreed to d/c pt from PT at this time and will reorder PT eval when pt is medically stable and appropriate for PT.
[2018-12-04 16:53] LABS: Alanine Aminotransferase 26 IU/L (9-52); Albumin 2.8 g/dL (3.5-5.0); Albumin Globulin Ratio 0.8 (1.0-2.8); Alkaline Phosphatase 131 U/L (38-126); Aspartate Aminotransferase 29 IU/L (14-36); Bilirubin Total 0.7 mg/dL (0.2-1.3); Blood Urea Nitrogen 16 mg/dL (7-17); Calcium 8.1 mg/dL (8.4-10.2); Carbon Dioxide 23 mmol/L (22-32); Chloride 103 mmol/L (98-107); Estimated Glomerular Filt Rate > 60.0 mL/min (>60); Globulin 3.3 g/dL (1.7-4.1); Glucose 195 mg/dL (80-110); HEMOLYSIS < 15 (0-50); Phosphorous 1.9 mg/dL (2.8-4.1); Potassium 4.9 mmol/L (3.4-5.1); Sodium 133 mmol/L (137-145); Total Protein 6.1 g/dL (6.3-8.2)
[2018-12-04] MEDS: MICAFUNGIN 100 MG in SODIUM CHLORIDE 0.9% 100 ML IV (18:16)
[2018-12-04] MEDS: TRACE ELEMENTS IV (18:17)
[2018-12-04] MEDS: [UNRECOGNIZED DRUG - OTHER] IV (18:17)
[2018-12-04] MEDS: MULTIVITAMIN IV (18:17)
[2018-12-04] MEDS: LYTES IV (18:17)
[2018-12-04] MEDS: DEXT IV (18:17)
[2018-12-04] MEDS: CALCIUM IV (18:17)
[2018-12-04] MEDS: FUROSEMIDE 40 MG/4 ML VIAL IV (19:04)
[2018-12-04] MEDS: METOPROLOL TARTRATE 5 MG/5 ML INJ IV (20:05)
[2018-12-04] MEDS: MORPHINE 50 MG in DEXTROSE 5 % IN WATER 50 ML IV (20:48)
--- NOTE | 2018-12-04 23:17 | PC.NURSE ---
Evening Shift: Pt with difficult shift, initially restless, tachypneic, on esmolol gtts at 300 mcg/kg/min with HR NSR at 100. Given dilaudid IV with some relief. Pt's restlessness progressed through the shift, HR up to 200, Dr. Cárdenas called to bedside. 40 mg iv lasix ordered and Dr. Cárdenas discussed pt's poor prognosis with family and patient. Pt's family was tearful and upset, pt anxious. Pt given iv ativan, diuresed 1200. Then given additional iv dilaudid and started on morphine gtts per MD order. Pt was restless, tachycardic and tachypneic for majority of shift. Pt finally converted back into SR in 90s and slept restfully for ~ 2 hours. Pt awoke at shift change, tachycardic and tachypneic, converted into a-fib. MD notified, no new orders received. Family updated with current pt condition. Family remains supportive at bedside. Report given to oncoming RN.
[2018-12-05] VITALS (27 sets, daily range): BP systolic 77–126; BP diastolic 35–82; PULSE 82–175; RESP 13–94; TEMP 36.1–36.4; O2SAT 92–98
[2018-12-05] MEDS: VANCOMYCIN 750 MG/150 ML FROZ.PIGGY 150 MG IV ×3 (00:03→23:31)
--- NOTE | 2018-12-05 00:26 | PC.NURSE ---
Addendum entered by Leatha Bush R.N. 12/05/18 06:20: HR continues 140-170. POOJA Maravilla aware. No new orders. Pt with more erratic breathing. Non-verbal, unable to answer questions. FLACC 0, morphine GTT continued at 4mg/hour. CBG 158 - declining insulin to keep her comfortable. Many family members remain at bedside, supportive. Questions answered and family is ready for further discussion about plan of care in regards to moving towards palliative measures. Addendum entered by Leatha Bush R.N. 12/05/18 04:24: Tele appears to be Rapid Afib up to 170. BP 131/79 - esmolol GTT increased to 300mgc/kg/min. Addendum entered by Leatha Bush R.N. 12/05/18 03:38: Pt somewhat restless. Family requested ativan and an increase in the morphine GTT. Medicated per orders. Family agreeable to repositioning. Around 0140 patient back in a rapid Afib up to 150's. POOJA Maravilla aware. No new orders. Now back in a SR with frequent PAC's. Original Note: Pt very restless on initial assessment. Ativan given per family request. Discussed plan of care for tonight with multiple family members at bedside. They all agree that pain control is the top concern at this time and would like to keep the patient comfortable. Morphine GTT titrated up to 3mg/hour per orders with adequate relief in symptoms. Pt currently with FLACC 0 resting comfortably. BP 84/51 with HR 90. Esmolol GTT decreased from 300 to 250 mcg/kg/min. Family declined insulin and repositioning at this time. Will reassess later. Emotional support to family. Will monitor closely.
[2018-12-05] MEDS: ESMOLOL 2.5 GM/250 ML IV.SOLN IV ×7 (01:27→18:22)
[2018-12-05] MEDS: LORazepam 2 MG/ML INJ 1 MG IV ×6 (03:29→18:39)
[2018-12-05] MEDS: MEROPENEM 1 GM in SODIUM CHLORIDE 0.9% 100 ML 200 ML IV ×2 (06:12→18:22)
[2018-12-05 06:27] LABS: Hematocrit 27.4 % (36-46); Hemoglobin 9.4 g/dL (12.0-16.0); Mean Corpuscular HGB Conc 34.2 % (30-36); Mean Corpuscular Hemoglobin 32.2 PG (26-34); Mean Corpuscular Volume 94.2 fL (80-100); Platelet Count 205 X10^3/uL (150-400); Red Cell Distribution Width 16.2 % (11.6-14.8)
[2018-12-05 06:29] LABS: Add Manual Diff / Slide Review YES
[2018-12-05 06:30] LABS: White Blood Cell Count 1.5 X10^3/uL (4.5-11.0)
[2018-12-05 06:47] LABS: Neutrophils Absolute Manual 900 /uL (3000-5900); Nucleated Red Blood Cells 3 #/Diff; Total Cells Counted 50
[2018-12-05 06:48] LABS: Anisocytosis 1+; Polychromasia 2+
[2018-12-05] MEDS: FUROSEMIDE 20 MG/2 ML VIAL IV ×2 (08:25→21:38)
[2018-12-05] MEDS: MORPHINE 50 MG in DEXTROSE 5 % IN WATER 50 ML IV ×2 (08:42→23:31)
--- NOTE | 2018-12-05 11:21 | P.PN_ITS ---
Subjective Subjective Date Patient Seen: 12/05/18 Time Patient Seen: 11:22 Interval history: She remains quite tenuous. Her heart rate frequently is in the high 100's despite the esmolol drip. On 4 milligrams/hour of IV morphine drip she appears to be breathing more comfortably and is still able to nod her head, squeeze a hand in communication. She is surrounded by multiple family members. Last night I had a heart to heart conversation with her daughter and son about the losing roth she is having with her leukemia and the resultant complications of treatment. Her daughter is quite emotional and becomes severely anxious when this is discussed. They did agree to the morphine drip as the patient had been in significant respiratory distress all day. This morning there are multiple other family members present and the mood in the room is quite calm. Her white blood count has risen to 1.5 with a hemoglobin of 9.4. Her T-max is 99.6?. Exam Vital Signs (past 8 hours): - 12/05/18 05:17 12/05/18 06:00 12/05/18 08:00 Temperature Pulse Rate 150 H 175 H Respiratory Rate 24 28 H Blood Pressure 109/63 104/76 Pulse Oximetry 94 96 98 12/05/18 10:00 Temperature 96.9 F L Pulse Rate 135 H Respiratory Rate 24 Blood Pressure 109/57 L Pulse Oximetry 95 Fraction of Inspired Oxygen 0.30 Oxygen Delivery Method High Flow Nasal Cannula Oxygen Flow Rate 7 Narrative Exam Narrative: She is sedated, not engaging when her eyes open, squeezing her daughter's hand, sitting by her bed. Heart is tachycardic, regular rhythm without murmur. Lungs have wheezing bilaterally. There is no ankle edema. Objective Labs Result Diagrams: 12/05/18 06:10 12/04/18 15:50 Labs: Laboratory Results - last 24 hr 12/04/18 12/05/18 12/05/18 15:50 06:10 08:30 WBC 1.5 L* RBC 2.90 L Hgb 9.4 L Hct 27.4 L MCV 94.2 MCH 32.2 MCHC 34.2 RDW 16.2 H Plt Count 205 Neut % (Auto) Not Reportable Lymph % (Auto) Not Reportable [place] % (Auto) Not Reportable Eos % (Auto) Not Reportable Baso % (Auto) Not Reportable Lymph # (Auto) Not Reportable [place] # (Auto) Not Reportable Baso # (Auto) Not Reportable Total Counted 50 Seg Neutrophils % 56.0 Band Neutrophils % 4.0 Lymphocytes % (Manual) 34.0 Monocytes % (Manual) 4.0 Metamyelocytes % 2.0 H Neutrophils # (Manual) 900 L Nucleated RBCs 3 H Plt Morphology Comment . RBC Morphology See below Polychromasia 2+ H Anisocytosis 1+ H Sodium 133 L Potassium 4.9 Chloride 103 Carbon Dioxide 23 BUN 16 Creatinine 0.50 L Estimated GFR > 60.0 BUN/Creatinine Ratio 32.0 H Glucose 195 H Calcium 8.1 L Phosphorus 1.9 L Total Bilirubin 0.7 AST 29 ALT 26 Alkaline Phosphatase 131 H Total Protein 6.1 L Albumin 2.8 L Globulin 3.3 Albumin/Globulin Ratio 0.8 L Vancomycin Trough 23.0 H* Assessment & Plan Assessment & Plan narrative: 1. NSTEMI-with ongoing pulmonary edema and tachycardia. She has been tachycardic for several days despite treatment with Esmolol. Previously she had been in and out of atrial flutter. She at first received multiple doses of lopressor with some improvement of her heart rate. The patient is pancytopenic. However she does not have thrombocytopenia. She remains anemic with a hemoglobin of 9.4. Will continue IV Esmolol and add IV push diltiazem as needed to keep the heart rate below 140. Her recent echo revealed normal LV function, will continue aspirin rectally, continue opiates and oxygen. Patient is DNR. Will continue to medically manage her NSTEMI. 2. Neutropenic fever, status post chemotherapy for AML 4 weeks ago. The patient continues to have fevers, blood cultures are negative thus far, she remains on meropenem, acyclovir,micafungin, and vancomycin. Despite wide coverage antibiotics the patient remains febrile and neutropenic. Discussed with Dr. Walton recently. Added G-CSF 2 days ago with resultant rise in WBC to 1.[address] revealed no evidence of fungemia or pneumonia. The patient had a CT of her sinuses which revealed maxillary sinusitis but no evidence of mucor. Patient continues to have diarrhea, she was incontinent to both urine and stool, with a Alfred catheter in place and a pending stool culture for possible C difficile. 3. Pulmonary edema, Continue Lasix 20 mg twice daily with excellent urine output. Echo revealed normal LV function. Suspect pulmonary edema from fluid resuscitation 4. AML, status post Azacitibine and Venetoclax. 4. Severe protein calorie malnutrition, patient has not eaten for 9 days except intermittently. Will continue TPN with a lowered rate yesterday due to suspected refeeding syndrome. 5. Mucositis, secondary to her chemotherapeutic agent. The patient had significant pain with swallowing. She was previously scheduled for endoscopy however her pain then improved. The endoscopy was aborted. Patient is on nystatin in addition to micafungin for presumed oral/esophageal candidiasis. She continues to decline and appears possibly terminal. 6. Atrial flutter, likely related to her abrupt onset pulmonary edema, continue Esmolol and add Diltiazem for rate control 7. Hypertension, Esmolol as above 8. Hyperlipidemia, statin on hold 9. History of CVA 10. Anxiety, chronic will continue intermittent lorazepam A transition to a total comfort care has not been agreed to by her daughter, who leads the family in her goals for her mother to stay alive. This appears to be a losing roth with continued cardiac dysfunction and neutropenia. There is a small chance she will pull through and so per family's wishes and per our understanding of the patient's wishes we will continue antibiotic treatments and intensive care unit. Quality VTE Deep Vein Thrombosis/Pulmonary Embolism Present on Admission: No
--- NOTE | 2018-12-05 12:34 | PM.CHAP ---
Good visit with family members. Offered churn drill operator services as desired
[2018-12-05] MEDS: INSULIN ASPART 100 UNIT/ML INSULN PEN SUBCUT ×2 (12:37→18:22)
[2018-12-05] MEDS: FILGRASTIM-AAFI 300 MCG/0.5 ML SYRINGE SUBCUT (13:06)
[2018-12-05] MEDS: SODIUM CHLORIDE 0.9% 250 ML 1000 ML IV (14:20)
--- NOTE | 2018-12-05 15:11 | PC.NURSE ---
1415- Called to Dr. Cárdenas. Reported UOP 25 ML since 1130. Reported trending VS, especially BP. Orders received for 250 ML NS IV Bolus. 1500- Noted Low BP 83/35 (57) HR 83. NS Bolus currently infusing. Titrated morphine gtt to 3 mg/hr and esmolol gtt to 200 mcg/kg. Will monitor.
--- NOTE | 2018-12-05 16:06 | PC.NURSE ---
Addendum entered by Sofia Givens R.N. 12/05/18 18:44: 1830 - Pt daughter refused SCD's. States that they cause pt distress. Expressing concerns over pt work of breathing. Pt RR 18, Sats 95% on 7L HFNC. continues to mouth breath. Ativan given per family request. Morphine gtt at 3mg/hr. Esmolol gtt 100 mcg/kg/min. HR 90. Alfred with 70cc of urine. Monitor. Original Note: 1540 - Pt resting quietly. Supportive family at bedside. BP 85/41 NS bolus complete. HR 81. Esmolol gtt titrated down to 150 mcg/kg/min. Educated pt family to skin integrity and repositioning. Pt daughter reluctant to have pt repositioned. It is really hard on her, she needs her rest. Discussed excoriation to skin r/t frequent stooling. Family agreeable to pre-medicate prior to care after she has had the opportunity to rest for a bit longer. Comfort measures provided.
[2018-12-05] MEDS: DEXT IV (17:25)
[2018-12-05] MEDS: MULTIVITAMIN IV (17:25)
[2018-12-05] MEDS: LYTES IV (17:25)
[2018-12-05] MEDS: CALCIUM IV (17:25)
[2018-12-05] MEDS: TRACE ELEMENTS IV (17:25)
[2018-12-05] MEDS: [UNRECOGNIZED DRUG - OTHER] IV (17:25)
[2018-12-05] MEDS: MICAFUNGIN 100 MG in SODIUM CHLORIDE 0.9% 100 ML IV (17:26)
[2018-12-05] MEDS: ASPIRIN 300 MG SUPP PR (21:38)
[2018-12-06] VITALS (33 sets, daily range): BP systolic 115–159; BP diastolic 45–101; PULSE 88–187; RESP 12–28; TEMP 36.2–37.4; O2SAT 91–97
[2018-12-06] MEDS: ESMOLOL 2.5 GM/250 ML IV.SOLN IV ×4 (00:50→21:31)
[2018-12-06 05:26] LABS: Hematocrit 27.4 % (36-46); Hemoglobin 9.5 g/dL (12.0-16.0); Mean Corpuscular HGB Conc 34.5 % (30-36); Mean Corpuscular Hemoglobin 32.4 PG (26-34); Platelet Count 246 X10^3/uL (150-400); Red Blood Cell Count 2.92 X10^6/uL (4.0-5.2); Red Cell Distribution Width 16.2 % (11.6-14.8); White Blood Cell Count 4.6 X10^3/uL (4.5-11.0)
[2018-12-06 05:28] LABS: Add Manual Diff / Slide Review YES
[2018-12-06 05:33] LABS: Alanine Aminotransferase 39 IU/L (9-52); Albumin 2.7 g/dL (3.5-5.0); Albumin Globulin Ratio 0.8 (1.0-2.8); Alkaline Phosphatase 150 U/L (38-126); Aspartate Aminotransferase 55 IU/L (14-36); Bilirubin Total 0.9 mg/dL (0.2-1.3); Blood Urea Nitrogen 24 mg/dL (7-17); Carbon Dioxide 26 mmol/L (22-32); Chloride 99 mmol/L (98-107); Estimated Glomerular Filt Rate > 60.0 mL/min (>60); Globulin 3.2 g/dL (1.7-4.1); Glucose 120 mg/dL (80-110); HEMOLYSIS < 15 (0-50); Phosphorous 3.1 mg/dL (2.8-4.1); Potassium 3.7 mmol/L (3.4-5.1); Sodium 134 mmol/L (137-145); Total Protein 5.9 g/dL (6.3-8.2)
[2018-12-06 05:50] LABS: Dohle Bodies 1+; Neutrophils Absolute Manual 3266 /uL (3000-5900); Nucleated Red Blood Cells 12 #/Diff; Total Cells Counted 100; Toxic Granulation Present
[2018-12-06 05:51] LABS: Anisocytosis 1+; Polychromasia 2+
[2018-12-06] MEDS: MEROPENEM 1 GM in SODIUM CHLORIDE 0.9% 100 ML 200 ML IV ×2 (06:07→18:58)
[2018-12-06] MEDS: FUROSEMIDE 20 MG/2 ML VIAL IV (10:06)
[2018-12-06] MEDS: VANCOMYCIN 750 MG/150 ML FROZ.PIGGY 150 MG IV (12:00)
[2018-12-06] MEDS: INSULIN ASPART 100 UNIT/ML INSULN PEN SUBCUT ×2 (12:01→18:58)
[2018-12-06] MEDS: FILGRASTIM-AAFI 300 MCG/0.5 ML SYRINGE SUBCUT (12:02)
--- NOTE | 2018-12-06 12:32 | PM.PN.1 ---
Subjective Subjective Date Patient Seen: 12/06/18 Time Patient Seen: 12:32 Interval history: She is seen today to follow up her AML, neutropenic fever, non ST elevation myocardial infarct, red man syndrome/drug rash and tachycardia. Her white blood count has risen to 4.6 and her vitals have improved with the heart rate stabilizing just below 100 and blood pressure coming back up to a normal range. She remains quite tachypneic, depending on morphine drip for control of her tachypnea and anxiety. Late this afternoon she suddenly developed a rash on her back and on her face which is spreading rapidly and looks like it is beginning to be contiguous, possibly red man syndrome or a reaction to 1 of her other antibiotics. She remains on TPN with normal electrolytes and an albumin of 2.7 with a phosphorus of 3.1. Her hemoglobin is 9.5. She remains hypoxic with O2 dependency on 4-6 L nasal cannula. Exam Vital Signs (past 8 hours): - 12/06/18 05:07 12/06/18 06:08 12/06/18 07:05 Temperature 97.2 F L Pulse Rate 91 H 93 H 97 H Respiratory Rate 13 14 15 Blood Pressure 119/45 L 147/87 H 130/82 Pulse Oximetry 95 95 95 12/06/18 07:45 12/06/18 08:00 12/06/18 09:00 Temperature 97.4 F L Pulse Rate 101 H 103 H Respiratory Rate 18 16 Blood Pressure 126/76 122/77 Pulse Oximetry 95 91 93 12/06/18 10:00 12/06/18 11:00 12/06/18 12:00 Temperature 98.2 F Pulse Rate 104 H 105 H 107 H Respiratory Rate 19 18 26 H Blood Pressure 116/53 L 151/79 H 142/87 H Pulse Oximetry 94 93 94 Fraction of Inspired Oxygen 0.30 Oxygen Delivery Method High Flow Nasal Cannula Oxygen Flow Rate 6 Narrative Exam Narrative: She is sedated but engages with her family with touch and seems aware that they are there. No distress while sedated with a Morphine drip. Heart is tachycardic regular rhythm no murmur. Lungs are clear bilaterally. Extremities have no ankle edema. Skin: When I see her for the 3rd or 4th time this afternoon she has now developed a sudden onset of rash on her face with a morbilliform appearance on her cheeks, her entire back and coming across her torso. Objective Labs Result Diagrams: 12/06/18 04:30 12/06/18 04:30 Labs: Laboratory Results - last 24 hr 12/06/18 12/06/18 04:30 04:30 WBC 4.6 D RBC 2.92 L Hgb 9.5 L Hct 27.4 L MCV 94.0 MCH 32.4 MCHC 34.5 RDW 16.2 H Plt Count 246 Neut % (Auto) Not Reportable Lymph % (Auto) Not Reportable [place] % (Auto) Not Reportable Eos % (Auto) Not Reportable Baso % (Auto) Not Reportable Lymph # (Auto) Not Reportable [place] # (Auto) Not Reportable Baso # (Auto) Not Reportable Total Counted 100 Seg Neutrophils % 56.0 Band Neutrophils % 15.0 H Lymphocytes % (Manual) 16.0 L Atypical Lymphs % 1.0 H Monocytes % (Manual) 2.0 Metamyelocytes % 6.0 H Myelocytes % 2.0 H Blast Cells % 2.0 H Neutrophils # (Manual) 3266 Nucleated RBCs 12 H Toxic Granulation Present H Dohle Bodies 1+ H RBC Morphology See below Polychromasia 2+ H Anisocytosis 1+ H Sodium 134 L Potassium 3.7 D Chloride 99 Carbon Dioxide 26 BUN 24 H Creatinine 0.50 L Estimated GFR > 60.0 BUN/Creatinine Ratio 48.0 H Glucose 120 H Calcium 8.0 L Phosphorus 3.1 D Total Bilirubin 0.9 AST 55 H ALT 39 Alkaline Phosphatase 150 H Total Protein 5.9 L Albumin 2.7 L Globulin 3.2 Albumin/Globulin Ratio 0.8 L Assessment & Plan Assessment & Plan narrative: 1. NSTEMI-with ongoing pulmonary edema and tachycardia. She had been tachycardic for several days despite treatment with Esmolol. Today 12/06, the tachycardia seems to be under control and esmolol is being titrated down. The patient has been neutropenic, but does not have thrombocytopenia. She remains anemic with a hemoglobin of 9.5. Will continue lowering her IV Esmolol dose as tolerated. Her recent echo revealed normal LV function, will continue aspirin rectally, continue opiates and oxygen. Patient is DNR. Will continue to medically manage her NSTEMI. 2. Neutropenic fever, status post chemotherapy for AML 4 weeks ago. The patient continues to have fevers, blood cultures are negative thus far, she remains on meropenem, acyclovir,micafungin, and vancomycin. Despite wide coverage antibiotics the patient remained febrile and neutropenic until now. Per Dr. Walton added G-CSF 2 days ago with resultant rise in WBC to 4.[address] revealed no evidence of fungemia or pneumonia. The patient had a CT of her sinuses which revealed maxillary sinusitis but no evidence of mucor. Patient continues to have diarrhea, she was incontinent to both urine and stool, with a Alfred catheter in place and a pending stool culture for possible C difficile. The vancomycin will be stopped. 3. Pulmonary edema, Continue Lasix 20 mg twice daily with excellent urine output. Echo revealed normal LV function. Suspect pulmonary edema from fluid resuscitation 4. AML, status post Azacitibine and Venetoclax. 4. Severe protein calorie malnutrition, patient has not eaten for 10 days except intermittently. Will continue TPN with a lowered rate due to suspected refeeding syndrome on the standard rate. 5. Mucositis, secondary to her chemotherapeutic agent. The patient had significant pain with swallowing. She was previously scheduled for endoscopy however her pain then improved. The endoscopy was aborted. Patient is on nystatin in addition to micafungin for presumed oral/esophageal candidiasis. She has begun to improve, both with her vital signs and her labs in the last 36 hours. 6. Atrial flutter, likely related to her abrupt onset pulmonary edema, continue Esmolol. 7. Hypertension, Esmolol as above 8. Hyperlipidemia, statin on hold 9. History of CVA 10. Anxiety, chronic will continue intermittent lorazepam 11. Drug Rash. Stop vancomycin continue other antibiotics, which may also need to be stopped if the rash worsens. Consider Mendez-Les. A transition to a total comfort care was discussed but did not meet her or her family's wishes and per our understanding of the patient's wishes we will continue antibiotic treatments and intensive care unit. She is showing signs of improving after many days of deterioration. Family are in close attendance. The new rash is most likely a vancomycin reaction but any of her other current antibiotics could be producing rash. She certainly needs as broad spectrum coverage as possible. At this point we will need to stop the vancomycin and use Benadryl for the rash as her family reports that she is intolerant psychologically with steroid treatment. Quality VTE Deep Vein Thrombosis/Pulmonary Embolism Present on Admission: No
--- NOTE | 2018-12-06 15:25 | PC.NURSE ---
Pt maintained HR 100-110 this shift on esmolol at 100 mcg/kg/min. BPs stable. Titrated morphine to 0.5 mg/hr. Pt shakes head no when asked if having pain but does moan with movement. RR 17-20. Patient mainly mouth breathing. Pt more awake today. Able to nod head yes/no to simple questions. Titrated O2 to 5L NC with sats 93-95%. Maintaining turning schedule every 2 hours. Educated family to reality orientation measures, regulating sleep/wake cycles, need for progressive activity, and performing passive ROM. They verbalize and demonstrate understanding.
--- NOTE | 2018-12-06 15:54 | CM.DPC ---
DCP: continued: Case discussed yesterday and today with Dr. Cárdenas. Discussions have been held with family and in front of pt and plan at this time remains full treatment interventions. [facility] does continue to have pt on the pending list/confirmed same with July if pt does become stable for a d/c to that setting. She is currently receiving TPN and the IV antifungal medication which would not be doable in the snf setting but her overall care currently is far form a snf level of care. [facility] has been providing support. DCP team will continue to follow as assist prn with d/c needs, advocacy and supportt.
--- NOTE | 2018-12-06 17:20 | PC.NURSE ---
Addendum entered by Sofia Givens R.N. 12/06/18 21:37: 2020 - Pt hr sustaining in the 170's. 5mg IVP metoprolol given. Pt son at bedside. Explaining plan of care. Pt son in contact with other family members. 2034 -Hr continues to sustain in the 170's. Hospitalist aware. Cardizem 10mg IVP given. BP 147/101. RR 39, Sats 90% on 5L HFNC. Mouth breathing. O2 increased to 7L. 2049 - HR 136, Esmolol gtt titrated up to 200 mcg/kg/min. BP 110/86. Hospitalist notified of Lab results. Orders obtained. Addendum entered by Sofia Givens R.N. 12/06/18 20:21: 1945 - Pt continues with short bursts of SVT. See graphics. Hospitalist notified. Reviewed medications, drip rates and prns. Lab orders obtained. Addendum entered by Sofia Givens R.N. 12/06/18 19:32: 1900 - In pt room providing care. Pt hr continues to sustain greater than 110 BPM. Titrated esmolol gtt up to 150 mcg/kg/min. Pt moaning softly during care. Educated family to pain control. Monitor. 1911 - Pt with burst of SVT, hr into the 170's, self limiting, pt coughed during episode. followed by several other elevations > 140 but not sustained. HR returning to 110's. BP stable. 155/99. PRN medication available. Monitor. Original Note: 1714 - Hospitalist notified of rash. Worsening to back and now on left side of face. Pt family states appearance of facial rash appearing yesterday evening. Reviewed medications. Pt daughter reports pt has a manic type reaction to steroids. Discussed Benadryl, currently ordered PO. Orders pending. Pt opens eyes, and occasionally nods head in response to questions, however does not follow requests to dehydrator or move own extremities. Esmolol gtt @ 100 mcg/kg/min, HR 110's. Morphine gtt @ 0.5 mg/hr. Supportive family remains at bedside. Monitor.
[2018-12-06] MEDS: FAT EMULSIONS 50 GM/250 ML EMULSION IV (17:33)
[2018-12-06] MEDS: diphenhydrAMINE 50 MG/ML VIAL IV (17:34)
[2018-12-06] MEDS: MICAFUNGIN 100 MG in SODIUM CHLORIDE 0.9% 100 ML IV (17:34)
[2018-12-06] MEDS: MULTIVITAMIN IV (17:35)
[2018-12-06] MEDS: [UNRECOGNIZED DRUG - OTHER] IV (17:35)
[2018-12-06] MEDS: TRACE ELEMENTS IV (17:35)
[2018-12-06] MEDS: CALCIUM IV (17:35)
[2018-12-06] MEDS: LYTES IV (17:35)
[2018-12-06] MEDS: DEXT IV (17:35)
[2018-12-06] MEDS: ASPIRIN 300 MG SUPP PR (18:59)
[2018-12-06] MEDS: METOPROLOL TARTRATE 5 MG/5 ML INJ IV (20:22)
[2018-12-06 20:34] LABS: Blood Urea Nitrogen 22 mg/dL (7-17); Calcium 7.8 mg/dL (8.4-10.2); Carbon Dioxide 26 mmol/L (22-32); Chloride 99 mmol/L (98-107); Estimated Glomerular Filt Rate > 60.0 mL/min (>60); Glucose 129 mg/dL (80-110); HEMOLYSIS 18 (0-50); Magnesium 1.3 mg/dL (1.6-2.3); Potassium 3.6 mmol/L (3.4-5.1); Sodium 132 mmol/L (137-145)
[2018-12-06] MEDS: dilTIAZem 5 MG/ML SDV 10 MG IV (20:35)
[2018-12-06] MEDS: MAGNESIUM SULFATE 2 GM/50 ML PIGGYBACK IV (21:23)
[2018-12-07] VITALS (30 sets, daily range): BP systolic 115–146; BP diastolic 54–91; PULSE 93–103; RESP 16–33; TEMP 36.2–37.6; O2SAT 92–97
[2018-12-07] MEDS: ESMOLOL 2.5 GM/250 ML IV.SOLN IV ×7 (00:29→22:02)
[2018-12-07] MEDS: MEROPENEM 1 GM in SODIUM CHLORIDE 0.9% 100 ML 200 ML IV ×2 (05:57→19:46)
[2018-12-07] MEDS: INSULIN ASPART 100 UNIT/ML INSULN PEN SUBCUT ×3 (06:03→18:15)
--- NOTE | 2018-12-07 06:06 | PC.NURSE ---
Pt moaning, RR 24-30, increased morphine gtt to 1.5mg/hr, family at bedside and agreeable.
[2018-12-07] MEDS: FUROSEMIDE 20 MG/2 ML VIAL IV ×2 (10:01→20:50)
--- NOTE | 2018-12-07 10:42 | CM.DPC ---
Addendum entered by Mery Baeza R.N. 12/07/18 11:41: Spoke to Idania in oncology. She presented concerns to Dr. Walton in oncology. She stated that Dr. Walton is optimistic about her labs, and stated that she could be going in to remission. He also stated, discussion regarding palliative care is not appropriate at this time. He stated that patient should remain here in hospital, and he will come and see patient tomorrow. Had this conversation with Dr. Sharif, hospitalist, and gave him update regarding situation. Original Note: DCP Cont: Called RADHA Emerson in oncology, regarding planning. At this time, patient is on TPN, is not swallowing. Idania had stated that original plan was for patient to be transferred to another higher level facility, [facility], but they did not accept. Discussed planning, for patient has been here for several days in the hospital. Idania is going to talk to Dr. Walton, and will call this case manage back. Have not yet met with family, but let Idania know that this field nurse case manager is willing to have this conversation with family with Idania present. P: DCP to continue to work on discharge planning with patient. Mery Baeza RN/[employer] Consultant
[2018-12-07] MEDS: MORPHINE 50 MG in DEXTROSE 5 % IN WATER 50 ML IV (11:01)
--- NOTE | 2018-12-07 11:06 | ONC.MSW ---
Description: Care Coordination/Cont. tx plan Activity: Call from rodrigo Perezner in acute care re: wanting more info re: cont. tx plan for pt, and concerns that she has been inpt for an extended amount of time. DIRECTOR OF AGRONOMY called Dr. Walton and requested stat return call. Dr. Walton called back, DIRECTOR OF AGRONOMY relayed pt's current blood counts, vitals and info from Dr. Cárdenas's last note from yesterday. Dr. Walton states that he is encouraged by her rising blood counts and improvement of vitals, and feels that pt is showing positive benefit towards potential remission. He would like the treatment plan to remain the same for now, and will plan to meet with pt when returns to clinic tomorrow in order to assess her status and ongoing plan at that time.
[2018-12-07] MEDS: diphenhydrAMINE 50 MG/ML VIAL IV ×2 (12:04→22:48)
[2018-12-07] MEDS: FILGRASTIM-AAFI 300 MCG/0.5 ML SYRINGE SUBCUT (12:04)
--- NOTE | 2018-12-07 12:22 | PC.NURSE ---
Addendum entered by Nathan Perdue R.N. 12/07/18 14:56: 1430- Dr. Sharif rounded. Reported rash. Reported benadryl given with minimal effect. Reported RR/effort/sats improved with decreased morphine. Requested clarification of orders for TPN re TPN complete. Orders received to hang D10. Dr. Sharif will reorder. Original Note: 1130- Noted red rash to bilat cheeks reappearing. Pt with warm/clammy hands. BG 178. BP 140/78 (104) HR 99 RR 20 O2 Sat 94% on 5L. Pt shakes head no when asked if having any discomfort. Administered PRN benadryl and decreased morphine to 1 mg/hr. Will monitor.
[2018-12-07] MEDS: DEXTROSE 10 % IN WATER 1,000 ML 25 ML IV (15:36)
[2018-12-07] MEDS: MICAFUNGIN 100 MG in SODIUM CHLORIDE 0.9% 100 ML IV (18:09)
[2018-12-07] MEDS: DEXT IV (18:29)
[2018-12-07] MEDS: LYTES IV (18:29)
[2018-12-07] MEDS: MULTIVITAMIN IV (18:29)
[2018-12-07] MEDS: CALCIUM IV (18:29)
[2018-12-07] MEDS: [UNRECOGNIZED DRUG - OTHER] IV (18:29)
[2018-12-07] MEDS: TRACE ELEMENTS IV (18:29)
[2018-12-07] MEDS: ASPIRIN 300 MG SUPP PR (19:45)
--- NOTE | 2018-12-07 20:24 | DI.CT.S_ITS ---
PROCEDURE: CT HEAD/BRAIN WO CON INDICATIONS: altered mental status, history of AML TECHNIQUE: Noncontrast 4.5 mm thick angled axial sections acquired from the foramen magnum to the vertex, with coronal and sagittal reformats. For radiation dose reduction, the following was used: automated exposure control, adjustment of mA and/or kV according to patient size. COMPARISON: [facility], , MR HEAD/BRAIN WO CON, 08/28/2018, 10:54. FINDINGS: Image quality: Excellent. CSF spaces: Basal cisterns are patent. No extra-axial fluid collections. The ventricles are symmetric in size and shape. Brain: No intracranial bleeds or masses. There is cerebral volume loss for age, with resultant ventricular and sulcal prominence. There are periventricular and deep white matter chronic small vessel ischemic changes. There is intracranial internal carotid artery atherosclerosis. Foci of old lacunar ischemia are noted within the jimenes radiata bilaterally. Skull and face: Calvarium and visualized facial bones appear intact, without suspicious lesions. Sinuses: Visualized sinuses demonstrate minimal maxillary sinus mucosal thickening. IMPRESSION: 1. No acute intracranial process. 2. Moderate atrophy and chronic microvascular ischemic changes. Dictated by: Kim Cardoza M.D. on 12/07/2018 at 21:47 Approved by: Kim Cardoza M.D. on 12/07/2018 at 21:49
--- NOTE | 2018-12-07 20:26 | P.PN_ITS ---
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 Her course has been complicated by NSTEMI, with ventricular tachycardia (torsades), and a decline in her mental status over the past few days. I had previously seen the patient approximately a month ago when she was admitted, her mental status is remarkably decline since then and in reviewing the notes there seems to be a decline since admission. She had a brain MRI prior to this apparent decline which was unremarkable so I will order a CT head to see if there are any acute changes. Exam Vital Signs (past 8 hours): - 12/07/18 13:00 12/07/18 14:00 12/07/18 14:14 Temperature Pulse Rate 93 H 94 H 94 H Respiratory Rate 16 17 Blood Pressure 115/54 L 120/70 Pulse Oximetry 96 96 95 12/07/18 14:30 12/07/18 16:42 12/07/18 16:51 Temperature 97.5 F L Pulse Rate 96 H Respiratory Rate 17 Blood Pressure 141/86 H Pulse Oximetry 95 94 12/07/18 18:00 12/07/18 18:40 12/07/18 19:00 Temperature Pulse Rate 96 H 98 H Respiratory Rate Blood Pressure 127/73 131/70 Pulse Oximetry 97 12/07/18 19:55 12/07/18 19:58 Temperature Pulse Rate Respiratory Rate Blood Pressure Pulse Oximetry 96 96 Fraction of Inspired Oxygen 0.30 Oxygen Delivery Method High Flow Nasal Cannula Oxygen Flow Rate 3 Narrative Exam Narrative: General: Older female lying in bed, pale and appears chronically ill. Alert but moaning, unable to speak. Appears frustrated at time s. HEENT: Normocephalic, atraumatic. External ears without defect. Pupils equal, round, and reactive to light. Anicteric sclerae, moist conjunctivae, and no lid lag. Oropharynx with mild erythema and white exudate on tongue and hard/soft palate otherwise without visible lesions. Neck: No jugular venous distension. No lymphadenopathy or thyromegaly. Mild left submandibular/cervical tenderness to palpation, improved. No nuchal rigidity. Full range of motion with flexion and extension. Cardiovascular: Mild tachycardia without murmurs, rubs, or gallops appreciated. Pulmonary: Clear to auscultation bilaterally without crackles, wheezes, or rhonchi. Normal respiratory effort on morphine infusion. Abdomen: Soft, bowel sounds present, nontender, nondistended. No hepatosplenomegaly or masses appreciated. Extremities: No clubbing, cyanosis, or edema. Skin: diffuse erythematous papular rash on her chest, to her abdomen and groin anteriorly Neurological: non-verbal, unable to speak. Unable to further examine as patient not following commands. Psychiatric: anxious appearing, unable to assess. Objective Labs Result Diagrams: 12/06/18 04:30 12/06/18 20:10 Labs: Laboratory Results - last 24 hr 12/06/18 20:10 Sodium 132 L Potassium 3.6 Chloride 99 Carbon Dioxide 26 BUN 22 H Creatinine 0.50 L Estimated GFR > 60.0 BUN/Creatinine Ratio 44.0 H Glucose 129 H Calcium 7.8 L Magnesium 1.3 L Assessment & Plan Assessment & Plan narrative: 1. NSTEMI-with ongoing pulmonary edema and tachy cardia. She had been tachycardic for several days despite treatment with Esmolol. The tachycardia seems to be under control on esmolol gtt. The patient has been neutropenic, but does not have thrombocytopenia. She remains anemic with a hemoglobin of 9.5. Will continue lowering her IV Esmolol dose as tolerated. Her recent echo revealed normal LV function, will continue aspirin rectally, continue opiates and oxygen. Patient is DNR. Will continue to medically manage her NSTEMI. 2. Altered mental status -unclear the etiology at this time but fear that this may be progression of AML. - will obtain CT head to see if there are structural or obvious strokes. She had a brain MRI earlier this admission however this seems to be prior to her mental status change. - labs are seemingly improved 3. Neutropenic fever, status post chemotherapy for AML 4 weeks ago. The patient continues to have fevers, blood cultures are negative thus far, she remains on meropenem, acyclovir,micafungin, and vancomycin. Despite wide coverage antibiotics the patient remained febrile and neutropenic until now. Per Dr. Walton added G-CSF 2 days ago with resultant rise in WBC to 4.[address] revealed no evidence of fungemia or pneumonia. The patient had a CT of her sinuses which revealed maxillary sinusitis but no evidence of mucor. Patient continues to have diarrhea, she was incontinent to both urine and stool, with a Alfred catheter in place and a pending stool culture for possible C difficile. The vancomycin will be stopped. 4. Pulmonary edema, Continue Lasix 20 mg twice daily with excellent urine output. Echo revealed normal LV function. Suspect pulmonary edema from fluid resuscitation 5. AML, status post Azacitibine and Venetoclax. 6. Severe protein calorie malnutrition, patient has not eaten for 10 days except intermittently. Will continue TPN with a lowered rate due to suspected refeeding syndrome on the standard rate. 7. Mucositis, secondary to her chemotherapeutic agent. The patient had significant pain with swallowing. She was previously scheduled for endoscopy however her pain then improved. The endoscopy was aborted. Patient is on nystatin in addition to micafungin for presumed oral/esophageal candidiasis. She has begun to improve, both with her vital signs and her labs in the last 36 hours. 8. Atrial flutter, likely related to her abrupt onset pulmonary edema, continue Esmolol. 9. Hypertension, Esmolol as above 10. Hyperlipidemia, statin on hold 11. History of CVA 12. Anxiety, chronic will continue intermittent lorazepam 13. Rash - may be secondary to drug infusion or consider viral exanthem given immunocompromised status. Stop vancomycin continue other antibiotics, which may also need to be stopped if the rash worsens. Consider Mendez-Les. A transition to a total comfort care was discussed but did not meet her or her family's wishes and per our understanding of the patient's wishes we will continue antibiotic treatments and intensive care unit. Quality VTE Deep Vein Thrombosis/Pulmonary Embolism Present on Admission: No
--- NOTE | 2018-12-07 21:53 | PC.NURSE ---
2119 - Pt taken over to DI for repeat head CT. Tolerated well. HR remains in the 90's on 200 mcg/kg/min of esmolol. Morphine gtt at 1mg/hr. TPN infusing at 21cc/hr. Pt remains non-verbal. Moans during care. O2 at 3L HFNC, sats 94%. Supportive family at bedside. Monitor.
[2018-12-08] VITALS (32 sets, daily range): BP systolic 83–145; BP diastolic 35–93; PULSE 86–183; RESP 14–32; TEMP 36.1–37.3; O2SAT 91–97
[2018-12-08] MEDS: ESMOLOL 2.5 GM/250 ML IV.SOLN IV ×7 (01:21→21:36)
[2018-12-08 05:03] LABS: Hematocrit 31.3 % (36-46); Hemoglobin 10.5 g/dL (12.0-16.0); Mean Corpuscular HGB Conc 33.6 % (30-36); Mean Corpuscular Hemoglobin 31.9 PG (26-34); Mean Corpuscular Volume 94.9 fL (80-100); Platelet Count 278 X10^3/uL (150-400); Red Cell Distribution Width 16.6 % (11.6-14.8)
[2018-12-08 05:10] LABS: Alanine Aminotransferase 56 IU/L (9-52); Albumin 2.5 g/dL (3.5-5.0); Albumin Globulin Ratio 0.9 (1.0-2.8); Alkaline Phosphatase 198 U/L (38-126); Aspartate Aminotransferase 60 IU/L (14-36); BUN Creatinine Ratio 42.5 (6-22); Bilirubin Total 1.2 mg/dL (0.2-1.3); Blood Urea Nitrogen 17 mg/dL (7-17); Calcium 7.2 mg/dL (8.4-10.2); Carbon Dioxide 29 mmol/L (22-32); Chloride 92 mmol/L (98-107); Estimated Glomerular Filt Rate > 60.0 mL/min (>60); Globulin 2.9 g/dL (1.7-4.1); Glucose 138 mg/dL (80-110); HEMOLYSIS < 15 (0-50); Potassium 3.1 mmol/L (3.4-5.1); Sodium 130 mmol/L (137-145); Total Protein 5.4 g/dL (6.3-8.2)
[2018-12-08 05:11] LABS: Add Manual Diff / Slide Review YES; White Blood Cell Count 21.6 X10^3/uL (4.5-11.0)
[2018-12-08] MEDS: INSULIN ASPART 100 UNIT/ML INSULN PEN SUBCUT ×3 (05:46→18:07)
--- NOTE | 2018-12-08 06:15 | PC.NURSE ---
Addendum entered by Era Garrido R.N. 12/08/18 06:42: Pt has had increase in moaning and grimacing, HR up to 102-105. Morphine titrated to 2mg/hr at this time. Original Note: Pt requires total care by staff, pt has been non-verbal with minimal head nodding or shaking for yes/no questions. Floating heels and repositioning every 2hours as family will allow, family is declining SCD's. Pt received 1unit of insulin as ordered this am and morphine was titrated from 1 mg to 1.5 mg at 0615 for moaning and grimacing. Esmolol remains at 200mcg/kg/hr and HR had been between 90-100. O2 at 3L HFNC with sats 92-94%. Alfred cath patent with clear yellow urine. BT are hypoactive. BLE with 3+ edema.
[2018-12-08 06:42] LABS: Anisocytosis 1+; Neutrophils Absolute Manual 18576 /uL (3000-5900); Nucleated Red Blood Cells 14 #/Diff; Poikilocytosis 1+; Total Cells Counted 100
[2018-12-08 06:43] LABS: Basophilic Stippling 1+; Dohle Bodies 2+; Polychromasia 1+
[2018-12-08] MEDS: FUROSEMIDE 20 MG/2 ML VIAL IV ×2 (08:07→21:20)
[2018-12-08] MEDS: MEROPENEM 1 GM in SODIUM CHLORIDE 0.9% 100 ML 200 ML IV ×2 (08:12→19:08)
[2018-12-08] MEDS: dilTIAZem 5 MG/ML SDV 10 MG IV ×2 (08:30→09:15)
[2018-12-08] MEDS: LORazepam 2 MG/ML INJ 1 MG IV ×3 (09:00→14:50)
--- NOTE | 2018-12-08 09:13 | DIET.PN ---
Dietary Progress Note Dietary Progress Note Pt tolerating 25mL/h TPN since weekend, recc increasing to 35mL/h today as critical refeeding window has passed. If pt tolerates this increase, please consider titrating up to goal rate as outlined below: titrate rate up 10mL/h q12h as tolerated reaching goal rate of 55mL/h to provide 1,320kcal and 56g PRO which is closer to her EERs (83% kcal and 70% PRO). HT: 157.4cm WT: 60.4kg (+2kg since 12/04/18) UBW: 68kg (15% loss in 3 mo, severe) BMI: 24.4 Labs: hbg 10.5 (L), Na 130 (L), K+ 3.1 (L), Ca2+ 7.2 (L), Mg 1.3 (L), wbc 21.6 Nutrition Diagnosis: Ongoing Severe Acute on Chronic PCM r/t mucositis and diarrhea secondary to chemotherapy for AML aeb <25% EERs for >5d, 15% unintentional wt loss in 3mo (severe), moderate subcutaneous fat losses system wide c obvious saggy skin, critical lab values (platelet 31, wbc 0.2). Interventions: Encourage continued POs, continue TPN until POs >75% EERs for 5d consecutive Diet Order: Soft/Easy Chew neutropenic, TPN EER: 1600kcal, 80g PRO (1.3g/kg per Ca), 1.8L fluids Monitoring/Evaluations: TPN tolerance, mucositis status, POs
[2018-12-08 10:01] LABS: Magnesium 1.6 mg/dL (1.6-2.3); Phosphorous 2.3 mg/dL (2.8-4.1)
[2018-12-08] MEDS: MORPHINE 50 MG in DEXTROSE 5 % IN WATER 50 ML IV (12:22)
--- NOTE | 2018-12-08 13:31 | PC.NURSE ---
Addendum entered by Margaret Garner R.N. 12/08/18 14:51: Morphine gtt decreased to 1.5 mg/hr per AM discussion with Dr. Sharif and family with goal to assess neurological function and mentation. Ativan 0.5 mg administered for pt anxiety. Message left with oncology - office will call back with Dr. Walton's arrival time. Original Note: Day Shift Note Pt is drowsy on AM assessment, nonverbal, opening eyes spontaneously and looking around room but not tracking. Not following commands and unable to make needs known. HR increased from 90s to the 140-190 bpm range in afib at about 0830, pt appeared anxious, tremulous, and was moaning/crying out intermittently. Breathing became labored with rate in the 30s. Esmolol gtt titrated from 200 mcg/kg/min up to 300 mcg/kg/min (see MAR for titration) and 10 mg IV diltiazem administered. HR down to 130-140s, breathing remained labored. Dr. Sharif at bedside for rounds, family present. Morphine gtt increased from 2 mg/hr to 3 mg/hr and a total of 2 mg Ativan administered per MD. Additional 10 mg IV diltiazem administered with HR decreasing to 80-90s NSR w/ PACs. Pt appearing calmer, breathing nonlabored, although required 6L HFNC to keep SpO2 >92%. Turning every 2 hrs. SpO2 now 95% on 2L HFNC, esmolol gtt at 200 mcg/kg/min with HR in the 80s, morphine gtt a 2.5 mg/hr. Minimal responsiveness, eyes mostly closed, not tracking. Alfred catheter in place and draining clear yellow urine. Family remains at bedside.
--- NOTE | 2018-12-08 14:17 | PM.PN.1 ---
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 Her course has been complicated by NSTEMI, with ventricular tachycardia (torsades), and a decline in her mental status which appear to be related to the same event. She had a CT scan of her head yesterday which showed no new masses or infarct. This morning her esmolol drip needed to be up titrated and she appeared quite anxious and was breathing heavily. Her morphine drip was again increased after almost having it off. Exam Vital Signs (past 8 hours): - 12/08/18 07:00 12/08/18 08:00 12/08/18 08:26 Temperature 98.5 F Pulse Rate 97 H 98 H Respiratory Rate 25 H 19 Blood Pressure 145/86 H 135/73 Pulse Oximetry 91 92 94 12/08/18 08:30 12/08/18 09:00 12/08/18 09:15 Temperature Pulse Rate 183 H 143 H 140 H Respiratory Rate 32 H Blood Pressure 132/93 H Pulse Oximetry 91 12/08/18 09:30 12/08/18 10:00 12/08/18 10:38 Temperature Pulse Rate 94 H Respiratory Rate 19 Blood Pressure 110/60 Pulse Oximetry 91 95 93 12/08/18 11:00 12/08/18 12:00 12/08/18 12:12 Temperature 97 F L Pulse Rate 92 H 87 Respiratory Rate 18 15 Blood Pressure 86/42 L 100/56 L Pulse Oximetry 95 94 95 12/08/18 13:00 12/08/18 14:00 Temperature Pulse Rate 86 88 Respiratory Rate 16 22 Blood Pressure 93/52 L 97/59 L Pulse Oximetry 94 95 Fraction of Inspired Oxygen 0.30 Oxygen Delivery Method High Flow Nasal Cannula Oxygen Flow Rate 2 Narrative Exam Narrative: General: Older female lying in bed, pale and appears chronically ill. Alert but moaning, unable to speak. Appears frustrated at times with rapid breathing episodes and shaking her head from side to side as if to be trying to say no but at inappropriate times. HEENT: Normocephalic, atraumatic. External ears without defect. Pupils equal, round, and reactive to light. Anicteric sclerae, moist conjunctivae, and no lid lag. Oropharynx with mild erythema and white exudate on tongue and hard/soft palate otherwise without visible lesions. Neck: No jugular venous distension. No lymphadenopathy or thyromegaly. Mild left submandibular/cervical tenderness to palpation, improved. No nuchal rigidity. Full range of motion with flexion and extension. Cardiovascular: tachycardic, irregularly irregular without murmurs, rubs, or gallops appreciated. Pulmonary: Clear to auscultation bilaterally without crackles, wheezes, or rhonchi. Normal respiratory effort on morphine infusion. Abdomen: Soft, bowel sounds present, nontender, nondistended. No hepatosplenomegaly or masses appreciated. Extremities: No clubbing, cyanosis, or edema. Skin: diffuse erythematous papular rash on her chest, to her abdomen and groin anteriorly Neurological: non-verbal, unable to speak. Unable to further examine as patient not following commands. Psychiatric: anxious appearing, unable to assess. Objective Labs Result Diagrams: 12/08/18 04:47 12/08/18 04:47 Labs: Laboratory Results - last 24 hr 12/08/18 12/08/18 12/08/18 04:47 04:47 04:47 WBC 21.6 H RBC 3.30 L Hgb 10.5 L Hct 31.3 L MCV 94.9 MCH 31.9 MCHC 33.6 RDW 16.6 H Plt Count 278 Neut % (Auto) Not Reportable Lymph % (Auto) Not Reportable Collier % (Auto) Not Reportable Eos % (Auto) Not Reportable Baso % (Auto) Not Reportable Lymph # (Auto) Not Reportable Collier # (Auto) Not Reportable Baso # (Auto) Not Reportable Total Counted 100 Seg Neutrophils % 56.0 Band Neutrophils % 30.0 H Lymphocytes % (Manual) 4.0 L Atypical Lymphs % 1.0 H Monocytes % (Manual) 3.0 Metamyelocytes % 5.0 H Myelocytes % 1.0 H Neutrophils # (Manual) 54339 H Nucleated RBCs 14 H Dohle Bodies 2+ H RBC Morphology See below Polychromasia 1+ H Poikilocytosis 1+ H Basophilic Stippling 1+ H Anisocytosis 1+ H Sodium 130 L Potassium 3.1 L Chloride 92 L Carbon Dioxide 29 BUN 17 Creatinine 0.40 L Estimated GFR > 60.0 BUN/Creatinine Ratio 42.5 H Glucose 138 H Calcium 7.2 L Phosphorus 2.3 L Magnesium 1.6 Total Bilirubin 1.2 AST 60 H ALT 56 H Alkaline Phosphatase 198 H Total Protein 5.4 L Albumin 2.5 L Globulin 2.9 Albumin/Globulin Ratio 0.9 L Assessment & Plan Assessment & Plan narrative: 1. NSTEMI-with ongoing pulmonary edema and tachycardia. She had been tachycardic for several days despite treatment with Esmolol. The tachycardia seemed to be under control on esmolol gtt however it was slightly worse today. The patient has been neutropenic, but does not have thrombocytopenia. She remains anemic with a hemoglobin of 9.5. Will continue lowering her IV Esmolol dose as tolerated. Her recent echo revealed normal LV function, will continue aspirin rectally, continue opiates and oxygen. Patient is DNR. Will continue to medically manage her NSTEMI. 2. Altered mental status -unclear the etiology at this time. CT scan was unreamarkable. This may be anoxic injury during her NSTEMI, though CT scan did not show any loss of hall-white matter differentiation. - continue to try to wean from morphine gtt 3. Neutropenic fever, status post chemotherapy for AML 4 weeks ago. Last fever on 12/03. she remains on meropenem, acyclovir,micafungin. Despite wide coverage antibiotics the patient remained febrile and neutropenic until now. Per Dr. Walton added G-CSF 2 days ago with resultant rise in WBC to 4.[address] revealed no evidence of fungemia or pneumonia. The patient had a CT of her sinuses which revealed maxillary sinusitis but no evidence of mucor. Patient continues to have diarrhea, she was incontinent to both urine and stool, with a Alfred catheter in place and a pending stool culture for possible C difficile. The vancomycin will be stopped. 4. Pulmonary edema, Continue Lasix 20 mg twice daily with excellent urine output. Echo revealed normal LV function. Suspect pulmonary edema from fluid resuscitation 5. AML, status post Azacitibine and Venetoclax. 6. Severe protein calorie malnutrition, patient has not eaten for 10 days except intermittently. Will continue TPN, can increase rate at this time, appreciate assistance from dietary. 7. Mucositis, secondary to her chemotherapeutic agent. The patient had significant pain with swallowing. She was previously scheduled for endoscopy however her pain then improved. The endoscopy was aborted. Patient is on nystatin in addition to micafungin for presumed oral/esophageal candidiasis. . 8. Atrial fibrillation / flutter with RVR, likely related to her abrupt onset pulmonary edema and NSTEMI, continue Esmolol. 9. Hypertension, Esmolol as above 10. Hyperlipidemia, statin on hold 11. History of CVA 12. Anxiety, chronic will continue intermittent lorazepam 13. Rash - may be secondary to drug infusion or consider viral exanthem given immunocompromised status. Stop vancomycin continue other antibiotics, which may also need to be stopped if the rash worsens. A transition to a total comfort care was discussed but did not meet her or her family's wishes and per our understanding of the patient's wishes we will continue antibiotic treatments. Goal at this time is to reduce need for morphine infusion to assess her new mental status, and then to work on the esmolol infusion if she is able to regain the ability to eat. I expect that there is little chance of improval at this point and also a low chance that she will have a good quality of life from this going forward. This has been discussed with the family. There is discordance between family member regarding transition to comfort care and continued medical therapy. They are in agreement about not wanting a feeding tube. Quality VTE Deep Vein Thrombosis/Pulmonary Embolism Present on Admission: No
--- NOTE | 2018-12-08 17:11 | PC.NURSE ---
Evening Shift Note: Pt checked on and assessed. Pt received on esmolol gtts at 200 mcg/kg/min, morphine gtts at 1.5 mg/hr (decreased to 1 mg/hr at 1645, decreased to 0.5 mg/hr iv at 2100). Pt is minimally responsive. Opens eyes to physical stimulus (i.e. cold water swab) and personal care. Shook head no when respositioned. Sighing, but non-verbal. Pupils 2 mm, equal and reactive. Pt with macopapular erythemic rash on trunk, convergence of rash on cheeks that is causing flushed cheeks. Rash appears to have gotten more raised and erythematous throughout the shift. Given 50 mg iv benadryl. Pt's family at bedside, updated with pt's condition and involved in decision making. Will continue to monitor, notify MD with changes.
--- NOTE | 2018-12-08 17:16 | P.PNONC_ITS ---
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 His probably treatment related. She started chemotherapy with azacitidine and venetoclax 5 weeks ago. She would have been due to start her 2nd cycle of azacitidine last week week. She has been holding the venetoclax. Over the last week, she has been troubled by waxing and waning mental status changes. She also had arrhythmia and an NSTEMI. Currently, she is on a morphine drip at 1 milligram/hour. She will arouse a little bit but does not speak. She has not had any unusual bleeding or bruising. Her current medications include morphine drip. She has been on esmolol. She had been on Neupogen but just recently stopped. She remains on meropenem and micafungin. She also is on Zetia and Lasix. - Patient Self-Reported Symptoms SR Constitution: Fever, Chills, Weight loss/gain, Fatigue/Malaise SR ears, nose, mouth, throat issues: Difficulty swallowing, Mouth sores SR respiratory issues: Shortness of breath SR Cardiovascular issues: Palpitations SR Gastrointestinal issues: Poor or no appetite, Change in bowel pattern, Diarrhea Home Medications and Allergies Home Medications Medication Instructions Recorded Confirmed Type alprazolam 0.25 mg PO Q8H PRN 08/27/18 11/27/18 History atenolol 25 mg PO QPM 08/27/18 11/27/18 History ezetimibe [Zetia] 10 mg PO DAILY 08/27/18 11/27/18 History Venclexta See Rx Instructions .ROUTE 10/14/18 11/27/18 Rx .COMPLEX #120 tab acetaminophen 650 mg PO Q4HR PRN #30 tab 12/01/18 Rx acyclovir [Zovirax] 400 mg PO BID 10 Days #20 tab 12/01/18 Rx alum-mag hydroxide-simeth [Mag-Al 10 ml MUCOUS MEMBRANE Q4H PRN #7 ml 12/01/18 Rx Plus] alum-mag hydroxide-simeth [Mag-Al 30 ml PO Q6HR PRN 7 Days ml 12/01/18 Rx Plus] calcium carbonate 1,000 mg PO Q4HR PRN 7 Days tab 12/01/18 Rx diphenhydramine HCl [Allergy 25 mg PO Q6HR PRN 30 Days tab 12/01/18 Rx (diphenhydramine)] gabapentin 100 mg PO TID 7 Days #21 cap 12/01/18 Rx hydrocodone-acetaminophen 1 tab PO Q4HR PRN #10 tab 12/01/18 Rx lidocaine HCl [Lidocaine Viscous] 10 ml MUCOUS MEMBRANE Q4H PRN 7 12/01/18 Rx Days ml lorazepam 0.5 mg PO Q4HR PRN #30 tab 12/01/18 Rx meropenem [Merrem] 500 mg IV Q8H 7 Days each 12/01/18 Rx micafungin [Mycamine] 100 mg IV Q24H 7 Days each 12/01/18 Rx nystatin 1,000,000 unit MUCOUS MEMBRANE Q4H 12/01/18 Rx PRN 7 Days ml ondansetron HCl (PF) 4 mg IV Q8HR PRN 7 Days ml 12/01/18 Rx sodium chloride [Deep Sea Nasal] 1 spray INTRANASAL PRN PRN 7 Days 12/01/18 Rx ml vancomycin in dextrose 5 % 750 mg IV Q8H 7 Days #3150 ml 12/01/18 Rx Allergies Allergy/AdvReac Type Severity Reaction Status Date / Time No Known Allergies Allergy Unknown Verified 11/26/18 18:51 [NO KNOWN ALLERGIES] Exam Vital signs: Vital Signs Temp Pulse Resp BP Pulse Ox 12/08/18 17:00 89 15 83/53 L 96 12/08/18 16:00 97.9 F 92 H 21 114/72 94 12/08/18 14:00 88 22 97/59 L 95 12/08/18 13:00 86 16 93/52 L 94 12/08/18 12:12 95 12/08/18 12:00 97 F L 87 15 100/56 L 94 12/08/18 11:00 92 H 18 86/42 L 95 12/08/18 10:38 93 12/08/18 10:00 94 H 19 110/60 95 12/08/18 09:30 91 12/08/18 09:15 140 H 12/08/18 09:00 143 H 32 H 132/93 H 91 12/08/18 08:30 183 H 12/08/18 08:26 94 12/08/18 08:00 98.5 F 98 H 19 135/73 92 12/08/18 07:00 97 H 25 H 145/86 H 91 12/08/18 06:00 97 H 16 132/72 93 12/08/18 05:01 100 H 18 132/72 94 12/08/18 04:10 99.2 F 97 H 16 131/70 95 12/08/18 03:02 98 H 19 135/75 96 12/08/18 02:06 96 H 16 136/78 94 12/08/18 01:05 94 H 22 126/75 94 12/08/18 00:26 95 12/08/18 00:19 97.9 F 91 H 16 130/70 95 12/07/18 23:22 94 H 17 135/70 96 12/07/18 22:00 98 H 25 H 138/78 12/07/18 21:55 97 H 17 146/87 H 94 12/07/18 19:58 96 12/07/18 19:55 96 12/07/18 19:00 98 H 131/70 12/07/18 18:40 97 12/07/18 18:00 96 H 127/73 Intake and Output 12/08/18 12/08/18 12/08/18 07:59 15:59 23:59 Intake Total 515.997 / 1016.584 1186.222 / 1788.294 3.075 / 1788.294 Output Total 350 / 1050 700 / 1050 Balance 165.997 / 738.294 569.222 / 738.294 3.075 / 738.294 Intake: IV 515.997 / 2264.586 4757.222 / 1788.294 3.075 / 1788.294 Esmolol 2.5 gm In 250 ml @ 50 482.789 / 1204.284 721.495 / 1204.284 MCG/KG/MIN 17.67 mls/hr IV TITRATE [facility] Rx#:[id number] Meropenem 1 gm In Sodium 100 / 100 Chloride 0.9% 100 ml @ 200 mls/ hr IV Q12H [facility] Rx#:[id number] Morphine 50 mg In Dextrose 5 % 33.208 / 56.399 20.116 / 56.399 3.075 / 56.399 in Water 50 ml @ 1 MG/HR 1 mls/ hr IV TITRATE [facility] Rx#:[id number] Aa 5 %/Calcium/Lytes/Dext 20 % 427.611 / 427.611 500 ml @ 21.506 mls/hr IV 1800 ONE with Multivitamin 10 ml with Trace Elements 1 ml with Potassium Phosphate 15 mmol with Insulin Regular, Human 15 unit Rx#:[id number] Output: Urine Amount (Catheter) 350 / 1050 700 / 1050 Other: Weight 60.4 kg Patient Weight 12/08/18 23:59 Weight 60.4 kg - Constitutional Comments: She is somnolent but does rows. She is not verbal. She is chronically ill- appearing. - Routine HEENT Exam Head: Present: normocephalic, atraumatic Eye: Absent: conjunctival icterus ENT: Present: mucous membranes moist, oropharynx clear - Routine Neck Exam Present: supple. Absent: lymphadenopathy - Routine Respiratory Exam Present: Clear to auscultation bilaterally - Routine Cardiovascular Exam Present: RRR, S1, S2 - Routine Abdominal Exam Present: soft, normoactive bowel sounds - Routine Extremities Exam Present: edema Comments: She has 1+ bilateral lower extremity edema - Routine Skin Exam Absent: petechiae Results - Labs Laboratory Last Values WBC 21.6 X10^3/uL (4.5-11.0) H 12/08/18 04:47 RBC 3.30 X10^6/uL (4.0-5.2) L 12/08/18 04:47 Hgb 10.5 g/dL (12.0-16.0) L 12/08/18 04:47 Hct 31.3 % (36-46) L 12/08/18 04:47 MCV 94.9 fL (80-100) 12/08/18 04:47 MCH 31.9 PG (26-34) 12/08/18 04:47 MCHC 33.6 % (30-36) 12/08/18 04:47 RDW 16.6 % (11.6-14.8) H 12/08/18 04:47 Plt Count 278 X10^3/uL (150-400) 12/08/18 04:47 Neut % (Auto) Not Reportable 12/08/18 04:47 Lymph % (Auto) Not Reportable 12/08/18 04:47 Nelson % (Auto) Not Reportable 12/08/18 04:47 Eos % (Auto) Not Reportable 12/08/18 04:47 Baso % (Auto) Not Reportable 12/08/18 04:47 Lymph # (Auto) Not Reportable 12/08/18 04:47 Nelson # (Auto) Not Reportable 12/08/18 04:47 Baso # (Auto) Not Reportable 12/08/18 04:47 Total Counted 100 12/08/18 04:47 Seg Neutrophils % 56.0 % (38-70) 12/08/18 04:47 Band Neutrophils % 30.0 % (3-7) H 12/08/18 04:47 Lymphocytes % (Manual) 4.0 % (25-45) L 12/08/18 04:47 Atypical Lymphs % 1.0 % (-0) H 12/08/18 04:47 Monocytes % (Manual) 3.0 % (2-11) 12/08/18 04:47 Metamyelocytes % 5.0 % (-0) H 12/08/18 04:47 Myelocytes % 1.0 % (-0) H 12/08/18 04:47 Blast Cells % 2.0 % (-0) H 12/06/18 04:30 Neutrophils # (Manual) 96268 /uL (9488-0993) H 12/08/18 04:47 Nucleated RBCs 14 #/Diff (-0) H 12/08/18 04:47 Toxic Granulation Present H 12/06/18 04:30 Dohle Bodies 2+ H 12/08/18 04:47 Platelet Estimate Decreased on smear 11/29/18 05:30 Plt Morphology Comment . 12/05/18 06:10 RBC Morphology See below 12/08/18 04:47 Dimorphic RBCs 1 11/28/18 05:08 Polychromasia 1+ H 12/08/18 04:47 Hypochromasia 1+ H 12/03/18 04:25 Poikilocytosis 1+ H 12/08/18 04:47 Basophilic Stippling 1+ H 12/08/18 04:47 Anisocytosis 1+ H 12/08/18 04:47 Ovalocytes 1+ H 11/26/18 18:50 PT 13.1 SECONDS (10.1-12.7) H 11/26/18 18:00 INR 1.1 (0.9-1.3) 11/26/18 18:00 APTT 28 SECONDS (26.4-36.2) 11/26/18 18:00 Sodium 130 mmol/L (137-145) L 12/08/18 04:47 Potassium 3.1 mmol/L (3.4-5.1) L 12/08/18 04:47 Chloride 92 mmol/L (98-107) L 12/08/18 04:47 Carbon Dioxide 29 mmol/L (22-32) 12/08/18 04:47 BUN 17 mg/dL (7-17) 12/08/18 04:47 Creatinine 0.40 mg/dL (0.52-1.04) L 12/08/18 04:47 Estimated GFR > 60.0 mL/min (>60) 12/08/18 04:47 BUN/Creatinine Ratio 42.5 (6-22) H 12/08/18 04:47 Glucose 138 mg/dL (80-110) H 12/08/18 04:47 Lactate 2.1 mmol/L (0.7-2.1) 11/26/18 18:50 Calcium 7.2 mg/dL (8.4-10.2) L 12/08/18 04:47 Phosphorus 2.3 mg/dL (2.8-4.1) L 12/08/18 04:47 Magnesium 1.6 mg/dL (1.6-2.3) 12/08/18 04:47 Total Bilirubin 1.2 mg/dL (0.2-1.3) 12/08/18 04:47 AST 60 IU/L (14-36) H 12/08/18 04:47 ALT 56 IU/L (9-52) H 12/08/18 04:47 Alkaline Phosphatase 198 U/L (38-126) H 12/08/18 04:47 Total Creatine Kinase 27 U/L (30-135) L 12/04/18 00:55 CK-MB (CK-2) TNP 12/04/18 00:55 CK-MB (CK-2) Rel Index TNP 12/04/18 00:55 Troponin I 0.256 ng/mL (0.01-0.034) H* 10/18/19 00:55 B-Natriuretic Peptide 2600 (<100) H 12/03/18 14:50 Total Protein 5.4 g/dL (6.3-8.2) L 12/08/18 04:47 Albumin 2.5 g/dL (3.5-5.0) L 12/08/18 04:47 Globulin 2.9 g/dL (1.7-4.1) 12/08/18 04:47 Albumin/Globulin Ratio 0.9 (1.0-2.8) L 12/08/18 04:47 Lipase 74 U/L (23-300) 11/26/18 18:00 Procalcitonin 21.74 ng/mL (<0.5) H 12/02/18 14:40 TSH 0.77 uIU/mL (0.47-4.68) 11/28/18 05:08 Urine Color Yellow 11/27/18 06:59 Urine Appearance Clear 11/27/18 06:59 Urine pH 6.0 (4.5-8.0) 11/27/18 06:59 Ur Specific Western 1.010 (1.000-1.035) 11/27/18 06:59 Urine Protein Negative (Negative) 11/27/18 06:59 Urine Glucose (UA) Negative g/dL (Negative) 11/27/18 06:59 Urine Ketones Negative (NEGATIVE) 11/27/18 06:59 Urine Occult Blood Negative (Negative) 11/27/18 06:59 Urine Nitrate Negative (Negative) 11/27/18 06:59 Urine Bilirubin Negative (NEGATIVE) 11/27/18 06:59 Urine Urobilinogen 0.2 E.U./dL (0.2) 11/27/18 06:59 Ur Leukocyte Esterase Negative (NEGATIVE) 11/27/18 06:59 Urine RBC 0-1/hpf (0-5/HPF) 11/27/18 06:59 Urine WBC 1-5/hpf (0-5/HPF) 11/27/18 06:59 Ur Squamous Epith Cells 0-1 /hpf (0-5/HPF) 11/27/18 06:59 Urine Bacteria Few (2-10) (None) H 11/27/18 06:59 Ur Culture Indicated? Culture not indicate 11/27/18 06:59 Nasal Screen MRSA (PCR) Negative for mrsa (Negative) 12/03/18 14:07 Stl C. cayetanensis PCR Not detected (Not Detect) 11/28/18 07:05 Stool Rotavirus (PCR) Not detected (Not Detect) 11/28/18 07:05 Stool Adenovirus (PCR) Not detected (Not Detect) 11/28/18 07:05 Stool Astrovirus (PCR) Not detected (Not Detect) 11/28/18 07:05 Stool Cryptosporidium PCR Not detected (Not Detect) 11/28/18 07:05 Stl E.coli Shiga Tox PCR Not detected (Not Detect) 11/28/18 07:05 St Sh/Enteroin Ecoli PCR Not detected (Not Detect) 11/28/18 07:05 Stool E coli O157 PCR Not detected (Not Detect) 11/28/18 07:05 Stl Enterotoxigenic E PCR Not detected (Not Detect) 11/28/18 07:05 Stool EPEC (PCR) Not detected (Not Detect) 11/28/18 07:05 Stl E. histolytica PCR Not detected (Not Detect) 11/28/18 07:05 Stool Giardia Lamblia PCR Not detected (Not Detect) 11/28/18 07:05 Stl P. shigelloides PCR Not detected (Not Detect) 11/28/18 07:05 St Y.enterocolitica PCR Not detected (Not Detect) 11/28/18 07:05 Stool Vibrio (PCR) Not detected (Not Detect) 11/28/18 07:05 Stl Vibrio cholerae PCR Not detected (Not Detect) 11/28/18 07:05 Stl Enteroaggr Ecoli PCR Not detected (Not Detect) 11/28/18 07:05 Stl Norovirus GI/GII PCR Not detected (Not Detect) 11/28/18 07:05 Vancomycin Trough 23.0 ug/mL (10-20) H* 12/05/18 08:30 Chlamy pneumoniae PCR Not detected (Not Detect) 11/27/18 02:46 Adenovirus (PCR) Not detected (Not Detect) 11/27/18 02:46 B.parapertussis DNA PCR Not detected (Not Detect) 11/27/18 02:46 Campylobacter (PCR) Not detected (Not Detect) 11/28/18 07:05 C. difficile Tox (PCR) Negative for c. diff 12/02/18 14:30 Coronavirus OC43 (PCR) Not detected (Not Detect) 11/27/18 02:46 Coronavirus HKU1 (PCR) Not detected (Not Detect) 11/27/18 02:46 Coronavirus 229E (PCR) Not detected (Not Detect) 11/27/18 02:46 Coronavirus NL63 (PCR) Not detected (Not Detect) 11/27/18 02:46 CMV IgG Ab 1.20 U/mL (< 0.60) H 11/30/18 04:15 CMV IgM Ab < 30.00 AU/mL (< 30.00) 11/30/18 04:15 Human Metapneumovir PCR Not detected (Not Detect) 11/27/18 02:46 Influenza Type A (PCR) Not detected (Not Detect) 11/27/18 02:46 Influenza Type B (PCR) Not detected (Not Detect) 11/27/18 02:46 M. pneumoniae (PCR) Not detected (Not Detect) 11/27/18 02:46 Parainfluenza 1 (PCR) Not detected (Not Detect) 11/27/18 02:46 Parainfluenza 2 (PCR) Not detected (Not Detect) 11/27/18 02:46 Parainfluenza 3 (PCR) Not detected (Not Detect) 11/27/18 02:46 Parainfluenza 4 (PCR) Not detected (Not Detect) 11/27/18 02:46 RSV (PCR) Not detected (Not Detect) 11/27/18 02:46 Entero/Rhino (PCR) Not detected (Not Detect) 11/27/18 02:46 Salmonella (PCR) Not detected (Not Detect) 11/28/18 07:05 Blood Type A Positive 11/26/18 19:41 Antibody Screen Negative 11/26/18 19:41 Crossmatch See Detail 11/26/18 19:41 - Imaging Additional studies: Procedures Insertion of Infusion Device into Superior Vena Cava, Percutaneous Approach (11/26/18) Introduction of Nutritional Substance into Central Vein, Percutaneous Approach (11/26/18) Transfusion of Nonautologous Red Blood Cells into Peripheral Vein, Percutaneous Approach (11/26/18) Assessment and Plan (1) AML (acute myeloblastic leukemia) Current visit: No Status: Acute 68-year-old woman with 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 This is probably treatment related. She has completed nearly 1 month of therapy. Over the last few days, her white count has begun to increase. It is up to 21,000 today. It appears that she is likely in remission. Her red cell count and platelet count have been improving as well. She would be due for her 2nd cycle of chemotherapy but will need to wait until she recovers from her other complications. From an infectious disease standpoint, her fever has resolved. Her cultures are negative. She should continue with broad-spectrum antibiotics for a few more days but I think could probably stop around the end of the week if she remains afebrile. The I think her mental status changes are most likely related to medications especially her morphine and benzodiazepine. I agree with trying to titrate down the dose as tolerated. Apparently her heart rate has increased as the dose of morphine has come down. Overall, I am still hopeful that she is in remission and will recover and return to reasonable quality of life. Eventually, she is going to require additional therapy. This will need to wait until she is taking orals well again and is clinically improved. (1) AML (acute myeloblastic leukemia) Qualifiers: Leukemia Active/Remission status: without remission Qualified Code(s): C92.00 - Acute myeloblastic leukemia, not having achieved remission
--- NOTE | 2018-12-08 17:26 | DI.ECHO.S_ITS ---
[facility] +---------+ : : [address] : [address] [place] : : : : [id number] : : : : Phone: [phone]+ Echocardiogram Report + + :Name: SAMANTHA CLAYTON Study Date: 12/09/2018 Height: 61 in : :[facility] Exam Location: [facility] Weight: 139 lb : : Gender: Female BSA: 1.6 m2 : :: 1950 Age: 68 yrs BP: 121/62 mmHg: :Reason For Study: S/P STEMI/ evaluate EF/ Episodes of torsades : :Ordering Physician: Imer : :Hospitalist Performed By: Meghan Page : :Referring: REMI WEBER : + + Interpretation Summary A limited echo cardiogram was performed for status post NSTEMI, episodes of torsades and to re-evaluate the ejection fraction. The ejection fraction is estimated to be 30-35%. There is a significant dyssynchronous contraction pattern, consistent with a conduction abnormality. There is mid anteroseptal wall severe hypokinesis. There is basal anteroseptal wall severe hypokinesis. There is apical hypokinesis. Left ventricular function has significantly worsened compared to the previous exam. Procedure: A two-dimensional transthoracic echocardiogram with color flow and Doppler was performed. The study quality was technically difficult. Comparison is made with the echocardiogram of 11/30/2018. A contrast injection of Definity was performed to improve assessment of LV function. The heart rate ranged between 98-104 bpm during the study. Left Ventricle: The left ventricle is normal in size. There is normal left ventricular wall thickness. The ejection fraction is estimated to be 30-35%. Left ventricular function has significantly worsened compared to the previous exam. There is a significant dyssynchronous contraction pattern, consistent with a conduction abnormality. There is mid anteroseptal wall severe hypokinesis. There is basal anteroseptal wall severe hypokinesis. There is apical hypokinesis. MMode/2D Measurements & Calculations LVIDd: 4.2 cm LVIDs: 3.5 cm FS: 16.9 % IVSd: 0.83 cm LVPWd: 0.81 cm LV gustafson. diameter/BSA (cm/m^2): 2.6 LV sys. diameter/BSA (cm/m^2): 2.1 Reading Physician:04:47 PM
[2018-12-08] MEDS: FAT EMULSIONS 50 GM/250 ML EMULSION IV (17:42)
[2018-12-08] MEDS: CALCIUM IV (17:42)
[2018-12-08] MEDS: LYTES IV (17:42)
[2018-12-08] MEDS: [UNRECOGNIZED DRUG - OTHER] IV (17:42)
[2018-12-08] MEDS: TRACE ELEMENTS IV (17:42)
[2018-12-08] MEDS: MULTIVITAMIN IV (17:42)
[2018-12-08] MEDS: DEXT IV (17:42)
[2018-12-08] MEDS: MICAFUNGIN 100 MG in SODIUM CHLORIDE 0.9% 100 ML IV (17:51)
[2018-12-08] MEDS: ASPIRIN 300 MG SUPP PR (21:20)
[2018-12-08] MEDS: diphenhydrAMINE 50 MG/ML VIAL IV (21:32)
[2018-12-09] VITALS (22 sets, daily range): BP systolic 113–151; BP diastolic 50–93; PULSE 93–118; RESP 16–34; TEMP 35.9–38.6; O2SAT 93–98
--- NOTE | 2018-12-09 02:08 | PC.NURSE ---
Called into room by patient's son (Asif) reporting increased restlessness and moaning since around 0130. Discussed FLACC and options as far as pain medication and ultimate goal of weaning morphine gtt. He prefers to continue with plan of care. FLACC currently 1-2. Patient repositioned on her right side, as this was reported as her preferable side as of late for comfort. Will monitor over the next 30-60 min for need in increased pain medication. Son is satisfied with this plan.
[2018-12-09] MEDS: ESMOLOL 2.5 GM/250 ML IV.SOLN IV ×6 (02:25→21:42)
[2018-12-09] MEDS: diphenhydrAMINE 50 MG/ML VIAL IV ×2 (05:10→21:33)
[2018-12-09 05:27] LABS: Hematocrit 31.9 % (36-46); Hemoglobin 10.9 g/dL (12.0-16.0); Mean Corpuscular Hemoglobin 32.6 PG (26-34); Mean Corpuscular Volume 95.9 fL (80-100); Platelet Count 279 X10^3/uL (150-400); Red Blood Cell Count 3.33 X10^6/uL (4.0-5.2); Red Cell Distribution Width 16.5 % (11.6-14.8); White Blood Cell Count 25.3 X10^3/uL (4.5-11.0)
[2018-12-09 05:29] LABS: Add Manual Diff / Slide Review YES
[2018-12-09 05:32] LABS: Alanine Aminotransferase 41 IU/L (9-52); Albumin 2.5 g/dL (3.5-5.0); Albumin Globulin Ratio 0.9 (1.0-2.8); Alkaline Phosphatase 219 U/L (38-126); Aspartate Aminotransferase 69 IU/L (14-36); BUN Creatinine Ratio 37.5 (6-22); Bilirubin Total 1.2 mg/dL (0.2-1.3); Blood Urea Nitrogen 15 mg/dL (7-17); Calcium 7.4 mg/dL (8.4-10.2); Carbon Dioxide 31 mmol/L (22-32); Chloride 91 mmol/L (98-107); Estimated Glomerular Filt Rate > 60.0 mL/min (>60); Globulin 2.9 g/dL (1.7-4.1); Glucose 131 mg/dL (80-110); HEMOLYSIS 28 (0-50); Magnesium 1.7 mg/dL (1.6-2.3); Phosphorous 2.4 mg/dL (2.8-4.1); Potassium 3.2 mmol/L (3.4-5.1); Sodium 130 mmol/L (137-145); Total Protein 5.4 g/dL (6.3-8.2)
[2018-12-09 05:59] LABS: Neutrophils Absolute Manual 22264 /uL (3000-5900); Nucleated Red Blood Cells 11 #/Diff; Total Cells Counted 100
[2018-12-09 06:00] LABS: Anisocytosis 2+
[2018-12-09 06:02] LABS: Dohle Bodies 1+
[2018-12-09 06:03] LABS: Basophilic Stippling 1+; Polychromasia 2+
[2018-12-09] MEDS: MEROPENEM 1 GM in SODIUM CHLORIDE 0.9% 100 ML 200 ML IV ×2 (06:03→18:57)
[2018-12-09] MEDS: FUROSEMIDE 20 MG/2 ML VIAL IV ×2 (08:53→21:33)
--- NOTE | 2018-12-09 10:12 | CM.DPC ---
Addendum entered by RADHA Lim 12/09/18 14:29: ADD: Additional call from Daly at [facility] inquiring if plan is for pt to return to [place] and SW updated that family likely needing Info Visit to determine best option of home vs facility at d/c with Hospice. Daly stated that if pt goes back to [facility] the soonest Hospice can open is 12/14 and equipment can only be delivered to the [facility] on Wednesdays if pt needs DME delivered. Will wait for Info Visit to determine if pt/family agreeable with [facility] and best d/c location to meet the pt's needs. BF Addendum entered by RADHA Lim 12/09/18 13:36: ADD: Call back from Daly at Hospice confirming they received the referral and can schedule Info Visit for tomorrow 12/10/18 at 0830. ERICK updated BACKHOE OPERATOR/RN who will notify family (who have been bedside mostly around the clock) of the scheduled visit in the morning. BF Addendum entered by RADHA Lim 12/09/18 13:00: ADD: Per , pt hasn't cleared or improved since her morphine was discontinued and family now interested in a Hospice Info Visit towards making an informed decision on continuing with medical tx vs switching pt to comfort care. ERICK called Hospice with new referral for Info Visit and BETO Thompson faxed clinicals to review. Plan: SW following for return call from Hospice to determine when Info Visit can be scheduled. BF Original Note: DCP Cont: Per , pt was seen by Oncologist Dr. Walton yesterday and per Oncologist note he was hopeful that pt would clear and continue to improve once off pain medications. Hospitalist discontinued morphine drip this morning towards confirming if pt would begin to clear and be able to communicate her wishes as family currently holding onto hope that pt will improve. ERICK called [facility] and left ms regarding the morphine drip being discontinued towards trying to determine rehab vs Comfort Care. Pt TPN continues to be a barrier to SNF placement if determined ongoing rehab and medical intervention needed at d/c. Plan: SW to follow closely today with pt's potential progress vs decline with morphine drip discontinued to determine Comfort Care vs rehab. RADHA Lim
[2018-12-09] MEDS: DEXTROSE 10 % IN WATER 1,000 ML 33 ML IV (10:40)
[2018-12-09] MEDS: MORPHINE 2 MG/ML INJ IV (12:20)
[2018-12-09] MEDS: INSULIN ASPART 100 UNIT/ML INSULN PEN SUBCUT (12:40)
--- NOTE | 2018-12-09 12:44 | DI.RAD.S_ITS ---
PROCEDURE: XR CHEST 1V INDICATIONS: fever TECHNIQUE: One view of the chest was acquired. COMPARISON: [facility], CR, XR CHEST 1V, 12/03/2018, 12:22. [facility], CR, XR CHEST 1V, 11/26/2018, 19:01. [facility], CR, XR CHEST 1V, 10/29/2018, 16:35. [facility], CR, XR CHEST 1V, 12/04/2018, 10:32. FINDINGS: Surgical changes and devices: Right and left PICC lines are unchanged in position. Lungs and pleura: There is increased opacity within the retrocardiac region compared to prior exam. Mild increased pulmonary vascularity is present. Mediastinum: Mediastinal contours appear normal. Heart size is normal. Bones and chest wall: No suspicious bony lesions. Overlying soft tissues appear unremarkable. IMPRESSION: Increased retrocardiac opacity suggestive of developing airspace disease such as pneumonia and/or atelectasis. Underlying areas of edema cannot be definitively excluded. Dictated by: Kim Cardoza M.D. on 12/09/2018 at 13:11 Approved by: Kim Cardoza M.D. on 12/09/2018 at 13:20
--- NOTE | 2018-12-09 12:55 | PM.PN.1 ---
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 Her course has been complicated by NSTEMI, ventricular tachycardia (torsades), and a decline in her mental status which appear to be related to the same event. She has been on antibiotics for high fevers but this had improved. Dr. Walton saw the patient yesterday and was optimistic about her mental status being from the morphine infusion. She was titrated off of morphine at around 8:30 a.m. this morning, however around 4 hours later she appeared uncomfortable, febrile, tachypneic, slightly more tachycardic. She was moaning but unable to speak, and would not follow commands. Her eyes were open but she did not appear to be tracking or following and did not engage in any eye contact. The family was in the room at this time. She improved after being given morphine. I discussed the situation with the family, and outlined to generic options including continued treatment or transition to comfort measures. The son's wish for more information at this time including an informational hospice visit. She is currently pending a repeat limited echo to assess her heart status a few days after her NSTEMI. Exam Vital Signs (past 8 hours): - 12/09/18 05:00 12/09/18 06:00 12/09/18 07:00 Temperature 96.7 F L Pulse Rate 109 H 105 H 103 H Respiratory Rate 18 20 20 Blood Pressure 135/64 121/75 118/69 Pulse Oximetry 95 96 97 12/09/18 08:00 12/09/18 08:22 12/09/18 09:00 Temperature 98.5 F Pulse Rate 107 H 117 H Respiratory Rate 20 32 H Blood Pressure 134/77 137/78 Pulse Oximetry 96 95 95 12/09/18 10:00 12/09/18 11:00 12/09/18 12:00 Temperature 101.4 F H Pulse Rate 118 H 114 H 115 H Respiratory Rate 34 H 28 H 29 H Blood Pressure 134/84 151/93 H 136/82 Pulse Oximetry 96 95 95 Fraction of Inspired Oxygen 0.30 Oxygen Delivery Method High Flow Nasal Cannula Oxygen Flow Rate 3 Narrative Exam Narrative: General: Older female lying in bed, pale and appears chronically ill. Alert but moaning, unable to speak. Warm to touch. HEENT: Normocephalic, atraumatic. External ears without defect. Pupils equal, round, and reactive to light. Anicteric sclerae, moist conjunctivae, and no lid lag. Oropharynx with mild erythema and white exudate on tongue and hard/soft palate otherwise without visible lesions. Neck: No jugular venous distension. No lymphadenopathy or thyromegaly. Mild left submandibular/cervical tenderness to palpation, improved. No nuchal rigidity. Full range of motion with flexion and extension. Cardiovascular: tachycardic, irregularly irregular without murmurs, rubs, or gallops appreciated. Pulmonary: Clear to auscultation bilaterally without crackles, wheezes, or rhonchi. Normal respiratory effort on morphine infusion. Abdomen: Soft, bowel sounds present, nontender, nondistended. No hepatosplenomegaly or masses appreciated. Extremities: No clubbing, cyanosis, or edema. Skin: diffuse erythematous papular rash on her chest, to her abdomen and groin anteriorly, spreading now to her neck and proximal extremities. Neurological: non-verbal, unable to speak. Unable to further examine as patient not following commands. Psychiatric: anxious appearing, unable to assess. Objective Labs Result Diagrams: 12/09/18 05:00 12/09/18 05:00 Labs: Laboratory Results - last 24 hr 12/09/18 12/09/18 12/09/18 05:00 05:00 05:00 WBC 25.3 H RBC 3.33 L Hgb 10.9 L Hct 31.9 L MCV 95.9 MCH 32.6 MCHC 34.0 RDW 16.5 H Plt Count 279 Neut % (Auto) Not Reportable Lymph % (Auto) Not Reportable [place] % (Auto) Not Reportable Eos % (Auto) Not Reportable Baso % (Auto) Not Reportable Lymph # (Auto) Not Reportable [place] # (Auto) Not Reportable Baso # (Auto) Not Reportable Total Counted 100 Seg Neutrophils % 72.0 H Band Neutrophils % 16.0 H Lymphocytes % (Manual) 3.0 L Monocytes % (Manual) 2.0 Metamyelocytes % 6.0 H Myelocytes % 1.0 H Neutrophils # (Manual) 46321 H Nucleated RBCs 11 H Dohle Bodies 1+ H RBC Morphology See below Polychromasia 2+ H Basophilic Stippling 1+ H Anisocytosis 2+ H Sodium 130 L Potassium 3.2 L Chloride 91 L Carbon Dioxide 31 BUN 15 Creatinine 0.40 L Estimated GFR > 60.0 BUN/Creatinine Ratio 37.5 H Glucose 131 H Calcium 7.4 L Phosphorus 2.4 L Magnesium 1.7 Total Bilirubin 1.2 AST 69 H ALT 41 Alkaline Phosphatase 219 H Total Protein 5.4 L Albumin 2.5 L Globulin 2.9 Albumin/Globulin Ratio 0.9 L Assessment & Plan Assessment & Plan narrative: 1. NSTEMI-with ongoing pulmonary edema which has improved and tachycardia. She had been tachycardic for several days despite treatment with Esmolol. The tachycardia seemed to be under control on esmolol gtt however it was slightly worse today. The patient has been neutropenic, but does not have thrombocytopenia. She remains anemic with a hemoglobin of 9.5. Will continue lowering her IV Esmolol dose as tolerated. Her recent echo revealed normal LV function, will continue aspirin rectally, continue opiates and oxygen. Patient is DNR. Will continue to medically manage her NSTEMI. - repeat TTE limited to assess EF after NSTEMI and continued tachycardia to see if there is a change leading to her mental status. 2. Altered mental status -unclear the etiology at this time. CT scan was unreamarkable. This may be anoxic injury during her NSTEMI, though CT scan did not show any loss of hall-white matter differentiation and appears to have been a slow decline over a couple of days. She is slightly more alert but does not follow commands, and would not be able to eat or take oral medications, while on lower morphine doses and when off the drip for 4 hours she was not improved significantly. - continue morphine prn, avoid infusion at this time. - continue goals of care discussions 3. Neutropenic fever, status post chemotherapy for AML 4 weeks ago. Last fever had been on 12/03, but she spiked again. she remains on meropenem, acyclovir,micafungin. Per Dr. Walton added G-CSF 2 days ago with resultant rise in WBC to 4.[address] revealed no evidence of fungemia or pneumonia. The patient had a CT of her sinuses which revealed maxillary sinusitis but no evidence of mucor. Vancomycin had been stopped and planned to stop micafungin today. She was given filgrastim and is no longer neutropenic. - continue meropenem - follow blood cultuers and CXR for today's fever. - this fever may be related to drug reaction given rash, have held micafungin at this time. 4. Pulmonary edema, Continue Lasix 20 mg twice daily with excellent urine output. Echo revealed normal LV function. Suspect pulmonary edema from fluid resuscitation 5. AML, status post Azacitibine and Venetoclax. Dr. Walton is still offering further treatments should she recover from the above problems. 6. Severe protein calorie malnutrition, patient has not eaten for 10 days except intermittently. Will continue TPN, can increase rate at this time, appreciate assistance from dietary. 7. Mucositis, secondary to her chemotherapeutic agent. The patient had significant pain with swallowing. She was previously scheduled for endoscopy however her pain then improved. The endoscopy was aborted. Patient is on nystatin in addition to micafungin for presumed oral/esophageal candidiasis. . 8. Atrial fibrillation / flutter with RVR, likely related to her abrupt onset pulmonary edema and NSTEMI, continue Esmolol. 9. Hypertension, Esmolol as above 10. Hyperlipidemia, statin on hold 11. History of CVA 12. Anxiety, chronic will continue intermittent lorazepam 13. Rash - may be secondary to drug infusion or consider viral exanthem given immunocompromised status. Stop vancomycin and stop mycafungin today, continue meropenem given fever today. A transition to a total comfort care was discussed but did not meet her or her family's wishes and per our understanding of the patient's wishes we will continue antibiotic treatments. Goal at this time is to reduce need for morphine infusion to assess her new mental status, and then to work on the esmolol infusion if she is able to regain the ability to eat. I expect that there is little chance of improval at this point and also a low chance that she will have a good quality of life from this going forward. This has been discussed with the family. They are in agreement about not wanting a feeding tube. They have requested an informational visit with hospice for additional information and are awaiting the results of her limited TTE. Quality VTE Deep Vein Thrombosis/Pulmonary Embolism Present on Admission: No
[2018-12-09] MEDS: AA 5 %/CALCIUM/LYTES/DEXT 20 % 1,000 ML with MULTIVITAMIN 10 ML, TRACE ELEMENTS 1 ML, P... 42.34 ML IV (18:13)
[2018-12-09] MEDS: ASPIRIN 300 MG SUPP PR (21:42)
[2018-12-09] MEDS: LYTES IV (21:59)
[2018-12-09] MEDS: MULTIVITAMIN IV (21:59)
[2018-12-09] MEDS: DEXT IV (21:59)
[2018-12-09] MEDS: CALCIUM IV (21:59)
[2018-12-09] MEDS: TRACE ELEMENTS IV (21:59)
[2018-12-09] MEDS: [UNRECOGNIZED DRUG - OTHER] IV (21:59)
[2018-12-09] MEDS: POTASSIUM PHOSPHATE 15 MMOL in SODIUM CHLORIDE 0.9% 250 ML 63.75 ML IV (21:59)
--- NOTE | 2018-12-09 22:31 | PC.NURSE ---
1729 - Dr. iXong from Oncology in to see pt. Reviewed recent vital signs, updated on pt mentation, level of activity and current pain control medications. MD spend time with pt and family answering questions. 2100 - Pt repositioned. Pt family reports that she appears to be more restless and stating that her face appears puffy. Benadryl given per request. Pt occasionally nods head in response to questions, but not consistently. Pt does not follow request to division supervisor, but does occasionally move extremities independently. Pt skin feels warm to touch. Temp 100.7. Pt repositioned. Bed spread removed. Esmolol gtt at 200 mcg/kg/min. HR slowly increasing over the last hour. 106, BP 144/74. Monitor.
[2018-12-10] VITALS (21 sets, daily range): BP systolic 113–163; BP diastolic 55–89; PULSE 89–113; RESP 14–28; TEMP 36.2–38.5; O2SAT 90–100
[2018-12-10] MEDS: ESMOLOL 2.5 GM/250 ML IV.SOLN IV ×6 (01:00→19:03)
[2018-12-10] MEDS: MORPHINE 2 MG/ML INJ IV ×3 (02:13→19:30)
--- NOTE | 2018-12-10 02:17 | PC.NURSE ---
Family stated pt said hey and they requested pain med. They requested only 0.5mg Morphine, same given.
--- NOTE | 2018-12-10 03:53 | PC.NURSE ---
Addendum entered by Leatha Bush R.N. 12/10/18 05:17: Time spent with son and daughter at bedside to answer questions regarding medications, patient's breathing and pain control. Medicated with morphine per orders with adequate results, FLACC 0 as well as patient less anxious and resting quietly. Touched base on today's plan with scheduled Hospice consult as well as a meeting reported by family with Dr. Alvarez and Dr. Sharif. Support given and the son reports better understanding after the discussion. Original Note: Reported by daughter at bedside an increase in restlessness and anxiety and requesting Ativan. Discussed plan of care to have patient evaluated per family request by another physician for a second opinion and the preference for the patient's mental status to not be affected by medication if possible. The daughter verbalizes understanding and agreement. Plan to reposition to right side and decrease stimulation. Will monitor patient response and reassess need for ativan or morphine. FLACC has consistently been 0-1 this shift with occasional moans observed, otherwise she has appeared comfortable in NAD. Patient is opening eyes spontaneously but not tracking or following commands.
[2018-12-10 05:44] LABS: Add Manual Diff / Slide Review YES; Hemoglobin 11.2 g/dL (12.0-16.0); Mean Corpuscular HGB Conc 33.9 % (30-36); Mean Corpuscular Hemoglobin 32.7 PG (26-34); Mean Corpuscular Volume 96.4 fL (80-100); Platelet Count 222 X10^3/uL (150-400); Red Blood Cell Count 3.42 X10^6/uL (4.0-5.2); Red Cell Distribution Width 16.7 % (11.6-14.8); White Blood Cell Count 21.1 X10^3/uL (4.5-11.0)
[2018-12-10 05:45] LABS: Magnesium 1.6 mg/dL (1.6-2.3); Phosphorous 3.1 mg/dL (2.8-4.1)
[2018-12-10 06:07] LABS: Neutrophils Absolute Manual 18357 /uL (3000-5900); Nucleated Red Blood Cells 10 #/Diff; Total Cells Counted 100
[2018-12-10 06:09] LABS: Anisocytosis 2+; Dohle Bodies 2+; Polychromasia 2+
[2018-12-10 06:10] LABS: Poikilocytosis 1+
[2018-12-10 06:11] LABS: Basophilic Stippling 1+
[2018-12-10] MEDS: MEROPENEM 1 GM in SODIUM CHLORIDE 0.9% 100 ML 200 ML IV ×2 (06:28→19:03)
[2018-12-10 09:24] LABS: Alanine Aminotransferase 56 IU/L (9-52); Albumin 2.4 g/dL (3.5-5.0); Albumin Globulin Ratio 0.8 (1.0-2.8); Alkaline Phosphatase 179 U/L (38-126); Aspartate Aminotransferase 82 IU/L (14-36); Bilirubin Total 1.1 mg/dL (0.2-1.3); Blood Urea Nitrogen 14 mg/dL (7-17); Calcium 7.1 mg/dL (8.4-10.2); Carbon Dioxide 30 mmol/L (22-32); Chloride 90 mmol/L (98-107); Estimated Glomerular Filt Rate > 60.0 mL/min (>60); Glucose 145 mg/dL (80-110); HEMOLYSIS < 15 (0-50); Potassium 2.8 mmol/L (3.4-5.1); Sodium 128 mmol/L (137-145); Total Protein 5.4 g/dL (6.3-8.2)
[2018-12-10] MEDS: FUROSEMIDE 20 MG/2 ML VIAL IV (09:36)
[2018-12-10] MEDS: VANCOMYCIN 750 MG/150 ML FROZ.PIGGY 150 MG IV (09:36)
[2018-12-10] MEDS: INSULIN ASPART 100 UNIT/ML INSULN PEN SUBCUT ×2 (11:57→18:05)
[2018-12-10] MEDS: ACETAMINOPHEN 650 MG SUPP PR (13:01)
--- NOTE | 2018-12-10 13:40 | CM.DPC ---
DCP Continued: EMR Reviewed: CM disscussed patient during AM rounds. Dr. Sharif stated he was considering transferring her to hospital in [place] for Neurology and cardiology care. Patient was taken off of morphine drip and is only on PRN morphine now. TPN is still a barrier to SNF placement, [facility] came by at 8:30am 12/10/2018 to talk to patient and family. At the end of discussion patient and family decided to not peruse hospice at this time. LM for RADHA Emerson to keep her up to date about patients situation. CM will continue to follow closely to determine d/c plan. Viji Yao RN
[2018-12-10] MEDS: POTASSIUM PHOSPHATE 15 MMOL in SODIUM CHLORIDE 0.9% 250 ML 63.75 ML IV (13:51)
--- NOTE | 2018-12-10 14:21 | PC.NURSE ---
Pt more awake this shift. Occasionally verbalizing her needs. Was able to dangle at the edge of bed this AM with 1PA. Unable to maintain upright position independently and somewhat resisted staying in position evidenced by pushing against bed to lay down. States very clearly, This hurts. Around noon, pt began to c/o headache to her family. Upon assessment, pt asks, Why do I feel so bad? Pt is unable to verbalize needs and c/o consistently. She mostly nods head yes/no to simple questions. Intermittently following commands. Notified Dr. Sharif of pt c/o headache. Instructed to attempt PO tylenol and if unable to take PO, give OH. Placed pt bolt upright to perform oral care prior to attempting PO. Instructed pt to rinse mouth with plain water. Pt unable to follow instruction and water sat in mouth/drooled out of sides despite simple direction. Administered tylenol per rectum. Post admin pt nod head yes that headache pain was better and able to rest. Performed RA trial this afternoon. SPO2 90% at lowest check after about 30 minutes. Applied 1L via high flow nasal cannula for SPO2 94-96%. Continues on esmolol gtt at 200 mcg/kg/min for HR 80s-108. Supportive family at bedside.
[2018-12-10] MEDS: AA 5 %/CALCIUM/LYTES/DEXT 20 % 1,000 ML with MULTIVITAMIN 10 ML, TRACE ELEMENTS 1 ML, P... 42.756 ML IV (18:06)
--- NOTE | 2018-12-10 18:49 | P.DS_ITS ---
History of Present Illness History of Present Illness Date Patient Seen: 12/10/18 Time Patient Seen: 18:49 Chief complaint: weakness Narrative: As per POOJA Lindsey: Ms. Kristen Cho is a 68-year-old female with a history significant for breast cancer, AML, breast cancer, hypertension, CVA, TIA, hyperlipidemia and neuropathy who presents today following developing a fever and progressive weakness and malaise for the last 2 days. The patient was seen by her primary care provider 2 days ago and since that time has had increasing weakness, loss of appetite and complains of diarrhea. She developed a fever today prompting her to present to the ER. She has stopped taking all her medications for the last 2 days. The patient had been admitted on 11/07/2018 and discharged on 11/11/2018 with diagnosis of colitis for which he had been taking Cipro and Flagyl. The patient has been on venclexta, oral chemotherapeutic agent for treatment AML which she reports also stopping. The patient had been pancytopenic however her blood counts stabilized following transfusion during her previous previous hospitalization and demonstrated blood count stability upon discharge. Today the patient states she was feeling ?pretty good? since discharge until 2 days ago. The patient denies recent flu or cold symptoms and has had no complaints of headache or dizziness, runny nose but has complained of sore throat progressing into the left ear today. She denies chest pain or palpitations and has had no shortness of breath but reports a dry nonproductive cough. She denies abdominal pain, nausea, vomiting or cramping. She does report a yellow-brown medicine smelling diarrhea stool. She has been ambulatory up until 2 days ago when she became profoundly weak. Upon arrival in the ER the patient has a temperature of 99.4?, heart rate of 111, blood pressure 125/62, respirations of 16 saturating 100% on room air. Chest x-ray obtained which finds low lung volumes but no suggestion of pneumonia and identifies an indwelling right PICC line. On laboratory analysis the patient has a white count of 0.5 which is her approximately baseline but has a hemoglobin of 4.4 and hematocrit of 12.1 and platelets of 36. On differential the patient is noted to have 100% lymphocytes. On coagulation she has a PT of 13.1 INR of 1.1 and PTT of 28. Her electrolytes are within normal limits with a BUN of 9 and creatinine 0.6. Her nonfasting glucose was 101. She has a total bili of 0.6 with an AST is 16, ALT of 9 and alkaline phosphatase of 61. Her a lbumin is 3.5 and magnesium 2.2. She has a procalcitonin is positive at 0.98. In the ER the patient had blood cultures drawn x2 but not yet obtained urinalysis. Since being in the ER the patient received Zosyn 3.375 g x1. Oncology was consulted who recommended admitting the patient and transfusing packed cells but has not yet need platelets. They further recommended ceftazidime and vancomycin both initiated in the emergency department. The patient is admitted for neutropenic fever with an elevated procalcitonin and severe anemia requiring transfusion. Discharge Providers Provider Date of admission: 11/26/18 22:15 Discharge Date: 12/10/18 Primary care physician: Abhinav Forte MD Consults: 11/26/18 21:47 Consult to Dietitian, Adult Routine Comment: Reason For Exam: Neutropenia, AML Consult to Discharge Planning Routine Comment: Frequent readmission Consult to Physical Therapy Evaluate & Treat Comment: Generalized weakness, anemia, AML, neutropenia Physician Instructions: Evaluate and Treat Consult to Physician Routine Comment: Consulting Provider: Edgar Walton Reason for consultation: AML, pancytopenia Has provider been notified: Yes 11/27/18 14:42 Consult to Physician Routine Comment: Consulting Provider: Edgar Walton Reason for consultation: AML with mucositis/thrush Has provider been notified: Yes Discharge provider: Beau Sharif DO Summary Hospital Course Discharge Diagnosis: 1. NSTEMI 2. Acute toxic metabolic encephalopathy 3. Neutropenic fever, acute, present on admission 4. HFrEF, acute 5. AML 6. Severe protein calorie malnutrition 7. Mucositis 8. Atrial fibrillation / flutter with RVR 9. Hypertension 10. Hyperlipidemia 11. History of CVA 12. Anxiety 13. Rash - may be secondary to drug infusion or consider viral exanthem given i mmunocompromised status previously with now elevated WBC (? possible IRIS). Not consistent with red-man syndrome, continue meropenem and vancomycin. 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 Her course has been complicated by ventricular tachycardia (torsades), NSTEMI, new HFrEF, afib and aflutter, and a likely toxic/metabolic encephalopathy. She has had a complex 2 week hospital course which is summarized below and she is being transferred to [facility] with the accepting physician of Dr. Rhodes for further consultation with subspecialists including Neurology, Cardiology, and potentially infectious disease which are not available at [facility]. 1. NSTEMI -patient initially had an episode of torsades after a potential interaction with 1 of her chemotherapy agents and fluconazole which was started for ongoing neutropenic fever. Her troponin only peaked at 0.4 but she began to develop pulmonary edema and new onset AFib with RVR, with intermittent a-flutter as well. She had ongoing pulmonary edema which has improved after IV diuresis. The patient was started on a morphine drip for pain and this was continued for approximately 4 days. She was started on an esmolol infusion given a progressive decline in her mental status in order to control her arrhythmia. She remains on this now and we have been lowering her IV Esmolol dose as tolerated. Her recent echo after the initial episode of torsades revealed normal LV function, Patient is DNR. - repeat TTE limited to assess EF after NSTEMI and continued tachycardia showed an EF of 30-35%, with significant wall motion abnormalities and evidence of dyssynchrony. Discussed with Cardiology at [facility] over the phone who thought that this was likely to be due to a stressed induced cardiomyopathy or potentially a tachyarrhythmia induced cardiomyopathy. She recommended repeating the echo in a couple of days after controlling her rhythm. It would be ideal if she could tolerate oral metoprolol or carvedilol however at this time her mental status is limited and she is unable to swallow. 2. Acute toxic metabolic encephalopathy -unclear the etiology at this time but likely secondary to morphine drip. Head CT scan was unreamarkable. This may be anoxic injury during her NSTEMI and torsades, though CT scan did not show any loss of hall-white matter differentiation and appears to have been a slow decline over a couple of days. Infectious etiologies possible but she does not show neck stiffness and family initially wary of attempting LP. She is slightly more alert but does not follow commands, and would not be able to eat or take oral medications and she has been off of the morphine drip for close to 36 hours at this time. Ideally would perform an MRI as well however patient is unable at this time given esmolol infusion. - continue morphine prn for opiate withdrawal symptoms. attempt to avoid further dosing. - avoid sedating medications as much as possible - discussion ongoing with family re: lumbar puncture - goals of care discussion are ongoing as noted below. 3. Neutropenic fever, status post chemotherapy for AML 4 weeks ago. Patient was initially on cefepime and Vanco. Her fevers continued for 4 days and then fluconazole was added. After fluconazole she developed the torsades episode as noted above at which point that was discontinued in place should was placed on micafungin and cefepime was broadened to meropenem. A few days after meropenem and micafungin her fevers improved and she was afebrile. Her fever had also improved after she was given filgrastim which did increase her white blood cell count. Her white blood cell count peaked on 12/09 at 25 and today came down to 21. The patient developed a rash on 12/06, about 7 days after micafungin. At that time the medication was stopped, as was vancomycin as it was thought that this may be result of her rash. Two days ago, she spiked another fever. Her rash did not appear consistent with red man syndrome so vancomycin was really added given the appearance of a new infiltrate on her chest x-ray despite continued meropenem. Chest CT revealed no evidence of fungemia or pneumonia. The patient had a CT of her sinuses which revealed maxillary sinusitis but no evidence of mucor. - continue meropenem, vancomycin - this new fever may be related to drug reaction given rash, have held micafungin at this time. It may also be related to potential opiate withdrawal as her morphine drip was stopped previously. - consider LP as noted above. 4. HFrEF, acute - Continue Lasix 20 mg twice daily with excellent urine output. Echo as noted above. See further management as noted above. 5. AML, status post Azacitibine and Venetoclax. Dr. Walton is still offering further treatments should she recover from the above problems. He believes her AML to be in remission at this time. 6. Severe protein calorie malnutrition, patient was initially not eating well due to pain in her throat thought to be secondary to mucositis. She was started on TPN as the patient and family had refused NG tube. 7. Mucositis, secondary to her chemotherapeutic agent. The patient had significant pain with swallowing. She was previously scheduled for endoscopy however her pain then improved. The endoscopy was aborted. Patient was on nystatin in addition to micafungin for presumed oral/esophageal candidiasis. 8. Atrial fibrillation / flutter with RVR - management as noted above in NSTEMI. 9. Hypertension, Esmolol as above 10. Hyperlipidemia, statin on hold 11. History of CVA, no deficits on arrival to the hospital. CT head was unremarkable after events. 12. Anxiety, chronic will continue intermittent lorazepam 13. Rash - may be secondary to drug infusion or consider viral exanthem given immunocompromised status previously with now elevated WBC (? possible IRIS). Not consistent with red-man syndrome, continue meropenem and vancomycin. A transition to a total comfort care was discussed but did not meet her or her family's wishes and per our understanding of the patient's wishes we will continue antibiotic treatments. Goal at this time is to reduce need for morphine to assess her new mental status, and then to work on the esmolol infusion if she is able to regain the ability to eat. They are in agreement about not wanting a feeding tube. For further management and consultation with Neurology, Cardiology, and potentially infectious disease patient was [facility] to [facility], accepting physician is Dr. Rhodes. Status at Discharge Cognitive/behavioral status at discharge: confused Time Spent with Patient Time spent: Greater than 30 minutes Exam Vital Signs (past 8 hours): - 12/10/18 11:00 12/10/18 12:00 12/10/18 13:00 Temperature Pulse Rate 91 H 94 H 96 H Respiratory Rate 24 23 22 Blood Pressure 127/72 133/78 163/78 H Pulse Oximetry 95 92 90 L 12/10/18 14:00 12/10/18 15:00 12/10/18 16:00 Temperature 101.3 F H Pulse Rate 106 H 107 H Respiratory Rate 28 H 27 H Blood Pressure 153/89 H 142/87 H Pulse Oximetry 97 96 96 12/10/18 18:13 Temperature Pulse Rate 102 H Respiratory Rate 19 Blood Pressure 124/81 Pulse Oximetry 94 Fraction of Inspired Oxygen 0.30 Oxygen Delivery Method High Flow Nasal Cannula Oxygen Flow Rate 1 Narrative Exam Narrative: General: Older female lying in bed, pale and appears chronically ill. moaning, unable to speak. Warm to touch. HEENT: Normocephalic, atraumatic. External ears without defect. Pupils equal, round, and reactive to light. Anicteric sclerae, moist conjunctivae, and no lid lag. Oropharynx with mild erythema and white exudate on tongue and hard/soft palate otherwise without visible lesions. Neck: No jugular venous distension. No lymphadenopathy or thyromegaly. Mild left submandibular/cervical tenderness to palpation, improved. No nuchal ri gidity. Full range of motion with flexion and extension. Cardiovascular: tachycardic, irregularly irregular without murmurs, rubs, or gallops appreciated. Pulmonary: Clear to auscultation bilaterally without crackles, wheezes, or rhonchi. Normal respiratory effort. Abdomen: Soft, bowel sounds present, nontender, nondistended. No hepatosplenomegaly or masses appreciated. Extremities: No clubbing, cyanosis, or edema. Skin: diffuse erythematous papular rash on her chest, to her abdomen and groin anteriorly, spreading now to her neck and proximal extremities. Neurological: non-verbal, unable to speak. Unable to further examine as patient not following commands. Able to sit somewhat upright and support her neck. Reportedly voiced that she was in pain to nursing staff last night. Opens eyes spontaneously Psychiatric: unable to assess. Objective Labs Result Diagrams: 12/10/18 04:50 12/10/18 04:50 Labs: Laboratory Results - last 24 hr 12/10/18 12/10/18 12/10/18 04:50 04:50 04:50 WBC 21.1 H RBC 3.42 L Hgb 11.2 L Hct 33.0 L MCV 96.4 MCH 32.7 MCHC 33.9 RDW 16.7 H Plt Count 222 Neut % (Auto) Not Reportable Lymph % (Auto) Not Reportable [place] % (Auto) Not Reportable Eos % (Auto) Not Reportable Baso % (Auto) Not Reportable Lymph # (Auto) Not Reportable [place] # (Auto) Not Reportable Baso # (Auto) Not Reportable Total Counted 100 Seg Neutrophils % 64.0 Band Neutrophils % 23.0 H Lymphocytes % (Manual) 2.0 L Monocytes % (Manual) 1.0 L Metamyelocytes % 7.0 H Myelocytes % 3.0 H Neutrophils # (Manual) 49655 H Nucleated RBCs 10 H Dohle Bodies 2+ H RBC Morphology See below Polychromasia 2+ H Poikilocytosis 1+ H Basophilic Stippling 1+ H Anisocytosis 2+ H Sodium 128 L Potassium 2.8 L Chloride 90 L Carbon Dioxide 30 BUN 14 Creatinine 0.40 L Estimated GFR > 60.0 BUN/Creatinine Ratio 35.0 H Glucose 145 H Calcium 7.1 L Phosphorus 3.1 Magnesium 1.6 Total Bilirubin 1.1 AST 82 H ALT 56 H Alkaline Phosphatase 179 H Total Protein 5.4 L Albumin 2.4 L Globulin 3.0 Albumin/Globulin Ratio 0.8 L Discharge Plan Discharge Plan [facility] Under care of provider: Dr. 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 Her course has been complicated by ventricular tachycardia (torsades), NSTEMI, new HFrEF, afib and aflutter, and a likely toxic/metabolic encephalopathy. She has had a complex 2 week hospital course which is summarized below and she is being transferred to [facility] with the accepting physician of Dr. Rhodes for further consultation with subspecialists including Neurology, Cardiology, and potentially infectious disease which are not available at [facility]. 1. NSTEMI -patient initially had an episode of torsades after a potential interaction with 1 of her chemotherapy agents and fluconazole which was started for ongoing neutropenic fever. Her troponin only peaked at 0.4 but she began to develop pulmonary edema and new onset AFib with RVR, with intermittent a-flutter as well. She had ongoing pulmonary edema which has improved after IV diuresis. The patient was started on a morphine drip for pain and this was continued for approximately 4 days. She was started on an esmolol infusion given a progressive decline in her mental status in order to control her arrhythmia. She remains on this now and we have been lowering her IV Esmolol dose as tolerated. Her recent echo after the initial episode of torsades revealed normal LV function, Patient is DNR. - repeat TTE limited to assess EF after NSTEMI and continued tachycardia showed an EF of 30-35%, with significant wall motion abnormalities and evidence of dyssynchrony. Discussed with Cardiology at [facility] over the phone who thought that this was likely to be due to a stressed induced cardiomyopathy or potentially a tachyarrhythmia induced cardiomyopathy. She recommended repeating the echo in a couple of days after controlling her rhythm. It would be ideal if she could tolerate oral metoprolol or carvedilol however at this time her mental status is limited and she is unable to swallow. 2. Acute toxic metabolic encephalopathy -unclear the etiology at this time but likely secondary to morphine drip. Head CT scan was unreamarkable. This may be anoxic injury during her NSTEMI and torsades, though CT scan did not show any loss of hall-white matter differentiation and appears to have been a slow d ecline over a couple of days. Infectious etiologies possible but she does not show neck stiffness and family initially wary of attempting LP. She is slightly more alert but does not follow commands, and would not be able to eat or take oral medications and she has been off of the morphine drip for close to 36 hours at this time. Ideally would perform an MRI as well however patient is unable at this time given esmolol infusion. - continue morphine prn for opiate withdrawal symptoms. attempt to avoid further dosing. - avoid sedating medications as much as possible - discussion ongoing with family re: lumbar puncture - goals of care discussion are ongoing as noted below. 3. Neutropenic fever, status post chemotherapy for AML 4 weeks ago. Patient was initially on cefepime and Vanco. Her fevers continued for 4 days and then fluconazole was added. After fluconazole she developed the torsades episode as noted above at which point that was discontinued in place should was placed on micafungin and cefepime was broadened to meropenem. A few days after meropenem and micafungin her fevers improved and she was afebrile. Her fever had also improved after she was given filgrastim which did increase her white blood cell count. Her white blood cell count peaked on 12/09 at 25 and today came down to 21. The patient developed a rash on 12/06, about 7 days after micafungin. At that time the medication was stopped, as was vancomycin as it was thought that this may be result of her rash. Two days ago, she spiked another fever. Her rash did not appear consistent with red man syndrome so vancomycin was really added given the appearance of a new infiltrate on her chest x-ray despite continued meropenem. Chest CT revealed no evidence of fungemia or pneumonia. The patient had a CT of her sinuses which revealed maxillary sinusitis but no evidence of mucor. - continue meropenem, vancomycin - this new fever may be related to drug reaction given rash, have held mi cafungin at this time. It may also be related to potential opiate withdrawal as her morphine drip was stopped previously. - consider LP as noted above. 4. HFrEF, acute - Continue Lasix 20 mg twice daily with excellent urine output. Echo as noted above. See further management as noted above. 5. AML, status post Azacitibine and Venetoclax. Dr. Walton is still offering further treatments should she recover from the above problems. He believes her AML to be in remission at this time. 6. Severe protein calorie malnutrition, patient was initially not eating well due to pain in her throat thought to be secondary to mucositis. She was started on TPN as the patient and family had refused NG tube. 7. Mucositis, secondary to her chemotherapeutic agent. The patient had significant pain with swallowing. She was previously scheduled for endoscopy however her pain then improved. The endoscopy was aborted. Patient was on nystatin in addition to micafungin for presumed oral/esophageal candidiasis. 8. Atrial fibrillation / flutter with RVR - management as noted above in NSTEMI. 9. Hypertension, Esmolol as above 10. Hyperlipidemia, statin on hold 11. History of CVA, no deficits on arrival to the hospital. CT head was unremarkable after events. 12. Anxiety, chronic will continue intermittent lorazepam 13. Rash - may be secondary to drug infusion or consider viral exanthem given immunocompromised status previously with now elevated WBC (? possible IRIS). Not consistent with red-man syndrome, continue meropenem and vancomycin. A transition to a total comfort care was discussed but did not meet her or her family's wishes and per our understanding of the patient's wishes we will continue antibiotic treatments. Goal at this time is to reduce need for morphine to assess her new mental status, and then to work on the esmolol infusion if she is able to regain the ability to eat. They are in agreement about not wanting a feeding tube. For further management and consultation with Neurology, Cardiology, and potentially infectious disease patient was [facility] to [facility], accepting physician is Dr. Rhodes. Discharge Med Rec/Prescriptions Prescriptions: New nystatin 100,000 unit/mL Suspension 1,000,000 unit mucous membrane Q4H PRN (Reason: Mouth Sore Pain) 7 Days RF: 0 meropenem [Merrem] 500 mg Recon Soln 500 mg IV Q8H 7 Days RF: 0 alum-mag hydroxide-simeth [Mag-Al Plus] 200-200-20 mg/5 mL Suspension 10 ml mucous membrane Q4H PRN (Reason: Mouth Sore Pain) Qty: 7 RF: 0 alum-mag hydroxide-simeth [Mag-Al Plus] 200-200-20 mg/5 mL Suspension 30 ml PO Q6HR PRN (Reason: Dyspepsia) 7 Days RF: 0 ondansetron HCl (PF) 4 mg/2 mL Solution 4 mg IV Q8HR PRN (Reason: Nausea And Vomiting) 7 Days RF: 0 sodium chloride [Deep Sea Nasal] 0.65 % Aerosol,[place] 1 spray intranasal PRN PRN (Reason: Congestion) 7 Days RF: 0 vancomycin in dextrose 5 % 750 mg/150 mL Piggyback 750 mg IV Q8H 7 Days Qty: 3150 RF: 0 aspirin 300 mg Suppository 300 mg OK 1999 30 Days RF: 0 diltiazem HCl 5 mg/mL Solution 10 mg IV Q1HR PRN (Reason: Heart Rate- High) 30 Days RF: 0 acetaminophen 650 mg Suppository 650 mg OK Q6HR PRN (Reason: As Needed For Fever/Mild Pain) 30 Days RF: 0 bisacodyl 10 mg Suppository 10 mg OK DAILY PRN (Reason: Constipation) 30 Days RF: 0 furosemide 10 mg/mL Solution 20 mg IV BID 30 Days Qty: 120 RF: 0 esmolol in NaCl (iso-osm) [Brevibloc in NaCl (iso-osm)] 2,500 mg/250 mL (10 mg/mL) Parenteral Solution 2.5 gm IV TITRATE 5 Days RF: 0 diphenhydramine HCl 50 mg/mL Solution 50 mg IV Q6HR PRN (Reason: Itching) Qty: 1 RF: 0 heparin, porcine (PF) 10 unit/mL Syringe 50 unit IV PRN PRN (Reason: Flush) 30 Days RF: 0 heparin, porcine (PF) 10 unit/mL Syringe 50 unit IV BID Qty: 2 RF: 0 Dilaudid (PF) 0.5 mg/0.5 mL Syringe 0.5 mg IV Q2H PRN (Reason: Pain, Severe (7-10)) 5 Days RF: 0 Novolog Flexpen U-100 Insulin 100 unit/mL (3 mL) Insulin Pen 0 unit subcut Q6HR 5 Days RF: 0 meropenem [Merrem] 1 gram Recon Soln 1 gm IV Q12H 5 Days RF: 0 lorazepam 2 mg/mL Syringe 1 mg IV Q2HR PRN (Reason: Anxiety) Qty: 10 RF: 0 Discontinued diphenhydramine HCl [Benadryl] 25 mg Capsule 50 mg PO DAILY Qty: 0 RF: 0 ciprofloxacin HCl [Cipro] 500 mg Tablet 500 mg PO 0700,2100 Qty: 20 RF: 0 metronidazole 500 mg Tablet 500 mg PO TID Qty: 30 RF: 0 atenolol 50 mg tablet 25 mg PO QPM RF: 0 alprazolam 0.25 mg Tablet 0.25 mg PO Q8H PRN (Reason: Anxiety) RF: 0 ezetimibe [Zetia] 10 mg Tablet 10 mg PO DAILY RF: 0 Venclexta 100 mg Tablet See Rx Instructions .ROUTE .COMPLEX Qty: 120 RF: 0 Follow up/Referrals: Abhinav Forte MD [Primary Care Provider] - Discharge Orders: Discharge (Order); Ordered 12/10/18 Ordered By: Beau Sharif Discharge Health Status Precautions: [place] Provider Discharge Instructions Diet: Diet as Tolerated and Full Liquid Liquid consistency: Normal/Thin Food texture: Soft Diet comment: on TPN Activity: Pending mental status Oxygen: as needed for O2 > 90%. Discharge Data Primary Care Provider: Abhinav [facility] VTE Deep Vein Thrombosis/Pulmonary Embolism Present on Admission: No
[2018-12-10] MEDS: ASPIRIN 300 MG SUPP PR (19:20)
--- NOTE | 2018-12-10 20:11 | PC.NURSE ---
Addendum entered by Sofia Givens R.N. 12/10/18 21:32: 2115 - [facility] ambulance arrived for transport to . Report given to [facility]. Esmolol and TPN initiated on transport pumps. Pt with eyes open, able to nod head yes and no in response to questions. Calm and VSS at time of discharge. Original Note: 0 - Pt and family notified of pending transfer to [facility]. ETA on transport 1-1.5 hours. Pt repositioned. Pt able to say, I hurt. Morphine given. Family educated to transfer procedure. Report called to Yadiel at [facility] Transport center. DI notified of request for imaging CD.
== END 2018-12-10 21:15 | disposition short-term general hospital (02) | DRG 808 ==
LOC: ED 20:45 → AC 22:16 → ICU 12-03 13:06
PROVIDERS: Family Medicine; Internal Medicine; Nurse Practitioner Family; Admitting Provider Nurse Practitioner Adult Health; Emergency Provider Emergency Medicine; PCP Family Medicine; Visit Provider Nurse Practitioner Adult Health
DX: D70.1 Agranulocytosis secondary to cancer chemotherapy (principal); E43 Unspecified severe protein-calorie malnutrition; I21.4 Non-ST elevation (NSTEMI) myocardial infarction; J81.0 Acute pulmonary edema; R40.2214 Coma scale, best verbal response, none, 24 hours or more after hospital admission; G92 Toxic encephalopathy; B37.81 Candidal esophagitis; C92.00 Acute myeloblastic leukemia, not having achieved remission; B37.0 Candidal stomatitis; I47.2 Ventricular tachycardia; R50.81 Fever presenting with conditions classified elsewhere; I10 Essential (primary) hypertension; E78.5 Hyperlipidemia, unspecified; F41.9 Anxiety disorder, unspecified; T45.1X5A Adverse effect of antineoplastic and immunosuppressive drugs, initial encounter; E87.6 Hypokalemia; K12.31 Oral mucositis (ulcerative) due to antineoplastic therapy; Z68.24 Body mass index [BMI] 24.0-24.9, adult; J32.0 Chronic maxillary sinusitis; R09.02 Hypoxemia; L27.0 Generalized skin eruption due to drugs and medicaments taken internally; T36.8X5A Adverse effect of other systemic antibiotics, initial encounter; Y92.231 Patient bathroom in hospital as the place of occurrence of the external cause; R40.2354 Coma scale, best motor response, localizes pain, 24 hours or more after hospital admission; R40.2144 Coma scale, eyes open, spontaneous, 24 hours or more after hospital admission; D64.81 Anemia due to antineoplastic chemotherapy
CPT/HCPCS: 36415; 36430; 36569; 36592; 70450; 70486; 70553; 71045; 71260; 80048; 80053; 80202; 81001; 82247; 82550; 82962; 83605; 83690; 83735; 83880; 84100; 84145; 84443; 84484; 85025; 85610; 85730; 86644; 86645; 86850; 86900; 86901; 86945; 87040; 87086; 87493; 87507; 87633; 87797; 93005; 93306; 93307; 94760; 94762; 96365; 96375; 97162; 97530; 99232; 99284; 99285; P9016; P9040; A9579; B4189; J0692; J0713; J1170; J1200; J1642; J1940; J2060; J2185; J2248; J2270; J2543; J3370; J3475; J3480; Q5110; Q9957; Q9967

== ENCOUNTER → 2020-03-02 13:00 | Oncology outpatient (ONC) | payer MEDICARE, OTHER, SELFPAY ==
[2018-08-27 21:14] VITALS: BMI 26.9
[2018-09-16 10:41] VITALS: BP 132/89; PULSE 72; RESP 18; TEMP 36.9; O2SAT 97
--- NOTE | 2018-09-16 11:15 | ONC.CONS ---
History of Present Illness - Data of Consult Consult date: 09/16/18 Primary Care Provider: Abhinav Forte MD - Consult Narrative Narrative: Diagnosis: Thrombocytopenia and leukopenia History of present illness: Kristen Cho is a 68 year old female who is referred for further evaluation of a recently discovered cytopenias. The patient states that she has previously been fairly healthy. 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 Around the middle of July as she was ending the school year, she began to feel different. She noted some increasing fatigue and weakness. She had some dyspnea on exertion particularly when climbing stairs. She noticed some achiness in her back and legs. Her appetite was poor and she started to lose weight. She has lost probably 12-15 lb. She also noted some thinning of her hair. She has developed some headaches. Because of these symptoms, she was seen by her primary physician. She was was given prescriptions for cholesterol medication and for an anti anxiety drug. As she was waiting in the pharmacy, she suddenly developed some lightheadedness and then had a syncopal episode. She was transferred to the hospital here. At presentation, she was noted to have a white count of 2.8 with a hemoglobin of 13.2 hematocrit 38.2 [place] [address]. Over the next 2 days, her counts were generally pretty stable. She did not require any transfusion. She had some easy bruising but no bleeding. No infections. She has not had any fevers chills or night sweats. Since her hospital discharge, she has continued to feel fairly weak with poor appetite but has otherwise been stable. She denies any prior history of cytopenias. She has never required any transfusions. There is no family history of blood dyscrasias. Her past medical history is notable for breast cancer diagnosed about 10 years ago. She was treated with lumpectomy chemotherapy radiation and hormone therapy for about 5 years. While on tamoxifen, she did have a stroke or TIA. She has had high cholesterol and hypertension. Her family history is notable for heart disease but not for cancer or blood dyscrasias. Social history: She lives by herself on [address]. 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 She does not smoke. She does have about 1 drink per night. She has been quite active until just recently. Her medications include Zetia atenolol and alprazolam. She has not had any recent antibiotics. No recent med changes. CC: Edgar Walton MD Home Medications and Allergies Home Medications Medication Instructions Recorded Confirmed Type Calcium Tablet 1 tab PO DAILY 08/27/18 08/27/18 History Unknown Supplements 1 dose PO DAILY 08/27/18 08/27/18 History alprazolam 0.25 mg PO Q8H PRN 08/27/18 08/27/18 History atenolol 25 mg PO QPM 08/27/18 08/27/18 History ezetimibe [Zetia] 10 mg PO DAILY 08/27/18 08/27/18 History Allergies Allergy/AdvReac Type Severity Reaction Status Date / Time No Known Allergies Allergy Unknown Verified 08/28/18 09:05 [NO KNOWN ALLERGIES] Medical History - Medical, Surgical, Family History Medical History: Medical History (Updated 09/16/18 @ 11:19 by Edgar Walton MD) Hyperlipidemia (Acute) TIA (transient ischemic attack) (Acute) HTN (hypertension) (Acute) Breast cancer CVA (cerebrovascular accident) Neuropathy Sinus headache Surgical History: Surgical History (Updated 09/16/18 @ 11:19 by Edgar Walton MD) History of appendectomy History of bilateral cataract extraction No pertinent past surgical history S/P breast lumpectomy Family History: Family History (Updated 08/27/18 @ 23:42 by POOJA Lindsey) Father Coronary artery disease Mother Stroke Coronary artery disease Brother Coronary artery disease - Social History Smoking Status: Never smoker Review of Systems - Patient Self-Reported Symptoms SR Constitution: Weight loss/gain, Fatigue/Malaise SR respiratory issues: Shortness of breath SR Cardiovascular issues: Dizzy/lightheaded SR Gastrointestinal issues: Poor or no appetite SR Genitourinary issues: Blood in urine SR Neuro issues: Headache, Numbness or tingling Constitutional: weight loss, decreased activity level Eyes: no change in vision Ears, nose, mouth, throat: headaches, lightheadedness Cardiovascular: syncope, dyspnea on exertion, no chest pain, no palpitations Respiratory: no cough, no hemoptysis Gastrointestinal: change in appetite, no nausea Musculoskeletal: pain Integumentary: bleeding or bruising, no rash Hematologic/Lymphatic: no enlarged lymph nodes Exam Vital signs: Vital Signs Temp Pulse Resp BP Pulse Ox 07/31/19 10:41 98.4 F 72 18 132/89 97 Intake and Output 09/15/18 09/16/18 09/16/18 23:59 07:59 15:59 Other: Weight 67 kg Patient Weight 09/16/18 23:59 Weight 67 kg - Constitutional positive no acute distress, positive average body habitus - Routine HEENT Exam Head: Present: normocephalic, atraumatic Eye: Present: EOMI, PERRL. Absent: conjunctival icterus, scleral injection ENT: Present: mucous membranes moist, oropharynx clear, dentition normal - Routine Neck Exam Present: supple. Absent: lymphadenopathy, thyromegaly - Routine Chest/Breast/Axilla Exam Axillae: Absent: lymphadenopathy - Routine Respiratory Exam Present: Clear to auscultation bilaterally. Absent: rales, wheezes - Routine Cardiovascular Exam Present: RRR, S1, S2. Absent: murmur - Routine Abdominal Exam Present: soft, normoactive bowel sounds. Absent: tenderness, organomegaly, mass - Routine Extremities Exam Absent: cyanosis, clubbing, edema - Routine Back/Spine Exam Back/Spine: Absent: vertebral tenderness - Routine Skin Exam Present: intact. Absent: petechiae, rash - Routine Neurological Exam Present: alert, oriented X3 - Routine Psychiatric Exam Present: normal affect, normal thought process Assessment and Plan (1) Thrombocytopenia Current visit: Yes Status: Acute 68-year-old woman with leukopenia and thrombocytopenia that have recently been discovered. She is not on any medications that are likely to be offenders. There is no clinical history of any antecedent infection or viral syndromes. She does not have a history of liver disease or hypersplenism. She does have a history of breast cancer prior chemotherapy raising the possibility of a myelodysplasia. Autoimmune condition I think also would be a potential possibility. Her B12 level was normal although somewhat low. TSH was normal. We will plan on a bone marrow biopsy to further evaluate hopefully be able to arrive at a more definitive diagnosis.
--- NOTE | 2018-09-16 12:44 | P.PCN_ITS ---
Date of procedure: 09/16/18 Onc Bone Marrow: bone marrow aspiration(s) Procedure: Patient gave informed consent. She was placed in a prone position. Her left posterior iliac crest was prepped with Betadine and anesthetized with approximately 8 cc of 2% lidocaine. A small skin incision was made with a scalp el blade and a Jamshidi needle was used to obtain a bone marrow aspirate and core biopsy. Samples were sent for routine histology as well as flow cytometry and cytogenetics. The patient tolerated the procedure well without any complications. She return to clinic in about a week or so for follow-up to review results.
--- NOTE | 2018-09-16 14:10 | PC.NURSE ---
Received critical lab result platelets 30, Dr. Walton aware, no new orders received.
--- NOTE | 2018-09-21 09:16 | CM.SWNOTE ---
Late Entry: Visit 09/16/18 Description: New Pt Intro Activity: Met with pt and dtr to introduce myself as the ONC STATISTICAL SECRETARY/GINA, offer services card and establish initial rapport. Pt will also be having a bone marrow biopsy today, and will most likely have several f/u appts. STATISTICAL SECRETARY will f/u with emailing pt a medical [place] No other needs identified at this time.
--- NOTE | 2018-09-21 11:07 | ONC.MSW ---
Description: [place] Activity: Completed a medical priority boarding pass for pt due to multiple upcoming appointments. Scanned an emailed pt her patient copy. No further needs indicated at this time.
[2018-09-23 08:31] VITALS: BP 127/75; PULSE 78; RESP 20; TEMP 37; O2SAT 99
--- NOTE | 2018-09-23 09:05 | P.PNONC_ITS ---
PN -Subjective Interval history: Diagnosis: Myelodysplasia with excess blasts Interval history: The patient is a 68-year-old woman who returns today for follow-up. She was seen initially last week because of relatively rapid onset of fatigue, weakness, unusual bruising and decreased appetite with weight loss. Since her visit last week, she tolerated her bone marrow biopsy procedure without any difficulty. She has continued to struggle with a decreased appetite and has lost another lb. She has not had any epistaxis or gingival bleeding. She has noted some bruising on her arms. No fevers chills or sweats. She has had a little bit of a dry cough. She is having some pain in her back and in her legs. Strength and energy level have been getting progressively worse. She has not had any changes in her medications. - Patient Self-Reported Symptoms SR Constitution: Fatigue/Malaise SR respiratory issues: Shortness of breath SR Cardiovascular issues: Dizzy/lightheaded SR Gastrointestinal issues: Poor or no appetite SR Genitourinary issues: Blood in urine SR Neuro issues: Headache, Numbness or tingling SR Hematologic issues: Bleeding/bruising Home Medications and Allergies Home Medications Medication Instructions Recorded Confirmed Type Calcium Tablet 1 tab PO DAILY 08/27/18 09/16/18 History Unknown Supplements 1 dose PO DAILY 08/27/18 09/16/18 History alprazolam 0.25 mg PO Q8H PRN 08/27/18 09/16/18 History atenolol 25 mg PO QPM 08/27/18 09/16/18 History ezetimibe [Zetia] 10 mg PO DAILY 08/27/18 09/16/18 History Allergies Allergy/AdvReac Type Severity Reaction Status Date / Time No Known Allergies Allergy Unknown Verified 08/28/18 09:05 [NO KNOWN ALLERGIES] Exam Vital signs: Vital Signs Temp Pulse Resp BP Pulse Ox 09/23/18 08:31 98.6 F 78 20 127/75 99 Intake and Output 09/22/18 09/23/18 09/23/18 23:59 07:59 15:59 Other: Weight 66.5 kg Patient Weight 09/23/18 23:59 Weight 66.5 kg - Constitutional positive no acute distress, positive average body habitus Comments: She does have some ecchymoses on her arms. She is not further examined. Results - Labs Bone marrow biopsy results were reviewed. The showed a somewhat hypercellular marrow with relative erythroid hyperplasia. There was megakaryocytes dysplasia. There were increased in myeloid blast about 12% by flow cytometry in about 10% by immunohistochemistry. Cytogenetics and fish are pending. Assessment and Plan (1) Thrombocytopenia Current visit: Yes Status: Acute 68-year-old woman with a history of breast cancer previously treated with chem otherapy. She now has evidence of myelodysplasia. She does have low white count with an ANC that is less than 800, her platelet count is 30. Her hemoglobin is greater than 10. Her blast count is elevated and cytogenetics are pending. Based on the information available at this point, she is at least an intermediate risk by IPSS but is more likely to be high risk. This would predict median survival of less than 2 years and fairly high risk of progression to acute leukemia. She is relatively young and otherwise fairly healthy. I think that if she has a matched donor available, she might be a transplant candidate she does have 1 brother. I explained that if she did not want to pursue a transplant or if she did not have a donor available, standard therapy would be azacitidine. This co uld be given intravenously or subcutaneously for 7 days each month. He would have a response rate of about 40% with improvement in cytopenias, decreased risk for progression to acute leukemia and improvement in survival but was not curative. Some small studies have shown fairly high rate of response duration of response with the combination of azacitidine with venetoclax in elderly patients with AML. If trials with this combination or similar combinations are available, that might be a reasonable consideration. We will plan on checking a CBC today. She will have a referral to [facility] to see if transplant or clinical trials or an option for her. If those are not possible, she could potentially be treated with azacitidine here. She will follow up after her appointment in [place]. 25 minutes was spent with the patient the majority in counseling.
[2018-09-23 09:29] LABS: Add Manual Diff / Slide Review NO; Basophils Absolute Auto 0 /uL (0-100); Basophils Percent Auto 0.5 % (0-2); Eosinophils Absolute Auto 0 /uL (0-450); Eosinophils Percent Auto 1.4 % (2-4); Hematocrit 30.3 % (36-46); Hemoglobin 10.8 g/dL (12.0-16.0); Lymphocytes Absolute Auto 1300 /uL (1100-4500); Lymphocytes Percent Auto 63.5 % (25-40); Mean Corpuscular HGB Conc 35.8 % (30-36); Mean Corpuscular Hemoglobin 36.8 PG (26-34); Mean Corpuscular Volume 102.8 fL (80-100); Monocytes Absolute Auto 100 /uL (0-900); Monocytes Percent Auto 6.2 % (3-14); Neutrophils Absolute Auto 600 /uL (1500-7000); Neutrophils Percent Auto 28.4 % (50-75); Red Blood Cell Count 2.95 X10^6/uL (4.0-5.2); Red Cell Distribution Width 14.5 % (11.6-14.8)
[2018-09-23 09:31] LABS: Platelet Count 28 X10^3/uL (150-400)
[2018-09-23 10:16] LABS: RBC Morphology Normal Morphology
--- NOTE | 2018-09-23 12:12 | ONC.SCHED ---
Spoke with [facility] and they do not need prior auth to refer to [facility]. I'm faxing the info today for the referral.
--- NOTE | 2018-09-24 14:41 | ONC.MSW ---
Description: Check-in Activity: LAST CODE STRIPER called and left a message for pt checking in on how she was coping after having been given the results of her bone marrow bx, as well as inquired as to if she had been able to get an appt. scheduled at [facility]. Offered assistance and support, encouraged her to call anytime. Will continue to monitor pt's plan for treatment and support needs.
--- NOTE | 2018-10-20 08:32 | PC.NURSE ---
Venclexta approved by [employer]. Script faxed to [facility]. Dominik Miles [facility]
[2018-10-28] VITALS (8 sets, daily range): BP systolic 116–146; BP diastolic 58–87; PULSE 83–87; RESP 16–19; TEMP 36.7–36.9; O2SAT 100
[2018-10-28 09:59] LABS: Hemoglobin 8.4 g/dL (12.0-16.0); Mean Corpuscular Hemoglobin 38.4 PG (26-34); Mean Corpuscular Volume 109.7 fL (80-100); Red Blood Cell Count 2.18 X10^6/uL (4.0-5.2); Red Cell Distribution Width 16.2 % (11.6-14.8)
[2018-10-28 10:02] LABS: Add Manual Diff / Slide Review YES
[2018-10-28 10:08] LABS: Platelet Count 16 X10^3/uL (150-400); White Blood Cell Count 1.4 X10^3/uL (4.5-11.0)
[2018-10-28 10:11] LABS: Alanine Aminotransferase 22 IU/L (9-52); Albumin 4.5 g/dL (3.5-5.0); Albumin Globulin Ratio 1.7 (1.0-2.8); Alkaline Phosphatase 65 U/L (38-126); Aspartate Aminotransferase 25 IU/L (14-36); BUN Creatinine Ratio 21.4 (6-22); Bilirubin Total 0.6 mg/dL (0.2-1.3); Blood Urea Nitrogen 15 mg/dL (7-17); Calcium 9.7 mg/dL (8.4-10.2); Carbon Dioxide 26 mmol/L (22-32); Chloride 106 mmol/L (98-107); Estimated Glomerular Filt Rate > 60.0 mL/min (>60); Globulin 2.7 g/dL (1.7-4.1); Glucose 109 mg/dL (80-110); HEMOLYSIS < 15 (0-50); Phosphorous 4.1 mg/dL (2.8-4.1); Potassium 4.6 mmol/L (3.4-5.1); Sodium 142 mmol/L (137-145); Total Protein 7.2 g/dL (6.3-8.2); Uric Acid 4.7 mg/dL (2.5-6.2)
[2018-10-28 10:37] LABS: Anisocytosis 1+; Macrocytosis 2+; Neutrophils Absolute Manual 448 /uL (3000-5900); Total Cells Counted 50
[2018-10-28 10:38] LABS: Platelet Estimate Decreased on smear
--- NOTE | 2018-10-28 16:06 | PC.NURSE ---
Coordinated pt stay at [facility] for the night based on medical need and ferry schedule. Confirmation number, hotel address and phone number given to pt. Dr. Walton out to see pt at chair side and discuss plan for Vidaza and Venclexta starting Friday. Pt instructed to go to nursing floor on Friday for admission. Per Dr. Walton, hospitalist notified and agreed to admission on Friday. All pt's questions answered.
[2018-10-28] MEDS: diphenhydrAMINE 25 MG TABLET PO (21:02)
--- NOTE | 2018-10-28 21:07 | PC.NURSE ---
Addendum entered by Robert Turcios R.N. 10/28/18 21:39: Patient was responsive to Benadryl, reports itching has subsided some. Patient education done with Grand daughter and patient regarding other s/s of reactions and if developed to come to ED balta. Patient states understanding of instructions. VSS upon d/c, patient escorted out via WC down to personal vehicle. Original Note: Patient is A&O x4, pleasant. Patient is nearing completion of infusion of Platelets when during post infusion flush of Normal Saline and reported that for the last 30 mins she has been experiencing itching on he back, shoulders and scalp. Infusion was stopped and VS where captured, VSS, patient denies any SOB, LS are clear. Call placed to director of rehabilitation and wellness Oncology provider Dr. Lynne. Orders to stop infusion (which was already done) and to give Benadryl 25mg PO now. Upon inspection of patients skin there was no rash noted but patient did have a dime size wheel noted between her shoulder blades. Patient is unclear on if this was present prior to infusion starting or not. No other rash or skin markings were noted during skin assessment. Patient is to remain in room for 30mins post admin of Benadryl to see if s/s of pruritus resolve.
--- NOTE | 2018-11-05 09:38 | PC.NURSE ---
Per VO Dr. Lynne patient to receive Benadryl 50 mg IV, communicated to onc pharmacy and acute care floor.
--- NOTE | 2018-11-05 17:17 | PC.NURSE ---
PN WORSENING: Patient reported sensitivity in feet increasing in last two days of infusion. Reported to Dr. Lynne and proceeded with his order to give chemotherapy. Patient instructed that PN not a known side effect of Vidaza or venclexta but that is good that she reports any new or changing symptoms.
--- NOTE | 2018-11-11 16:50 | PC.NURSE ---
1630 patient was called on home and cell phone to inform that she should be coming in for her 7th dose of vidaza on 11/12. She was not reachable at either number but a message was left at both for her to call the infusion center by 5 tonight or in the am to inform us of when she can come. Research Project Manager Allison informed that she will be calling tomorrow or still tonight before 5.
[2018-11-12 09:59] VITALS: BP 125/71; PULSE 84; RESP 20; TEMP 36.5; O2SAT 100
[2018-11-12] MEDS: ONDANSETRON 16 MG in SODIUM CHLORIDE 0.9% 50 ML 232 ML IV (10:55)
[2018-11-12] MEDS: SODIUM CHLORIDE 0.9% 100 ML 21 ML IV (10:56)
[2018-11-12] MEDS: AZACITIDINE IV (11:57)
[2018-11-12] MEDS: SODIUM CHLORIDE 0.9% IV (11:57)
--- NOTE | 2018-11-12 12:16 | PC.NURSE ---
Pt c/o inability to sleep and shakiness. Discussed side effects of pt's pre med Dex. Per Dr. shabana cadet to hold dex today prior to Chemo, pt agreeable. This publications writer called in RX for Zofran to [facility] r/t nausea, pt aware.
--- NOTE | 2018-11-16 15:18 | PC.NURSE ---
PICC DRESSING SUPPLIES: IN ORDER TO SET UP DRESSING CHANGES FOR HOME HEALTH TO PATIENT THIS NURSE CALLED PATIENT TO VERIFY TYPE OF CATHETER. SHE STATED SHE HAS THE BLUE CATHETER RUNNING INTO HER UPPER ARM (GROSHONG). PATIENT WAS INFORMED THAT FOR THIS TYPE OF CATHETER FLUSHING ONCE PER WEEK WITH THE DRESSING CHANGE WILL BE SUFFICIENT.
--- NOTE | 2018-11-16 15:21 | PC.NURSE ---
FIRST POST CHEMO CALL: Patient called by this nurse tho confirm type of PICC and was asked also how she is doing. She stated to be doing fine.
[2018-11-17] VITALS (8 sets, daily range): BP systolic 98–146; BP diastolic 51–72; PULSE 82–98; RESP 16–20; TEMP 36.2–37; O2SAT 99
--- NOTE | 2018-11-17 08:22 | PC.NURSE ---
WEAK/SHAKY/ACHING/SOB ON EXERTION/NAUSEAU: PATIENT'S DAUGHTER CALLED IN REPORTING THESE SYMPTOMS. REPORT TO DR. HENNING MADE AND ORDER PUT IN FOR CBC TODAY, VITAL SIGNS AND NURSE EVAL. WILL BE DONE AND PROBABLE N/V PROTOKOLL. PATIENT AND DAUGHTER PREDICTING TO ARRIVE AT 1015 WITH FERR[facility]ela FROM [employer].
[2018-11-17 11:08] LABS: Hematocrit 23.5 % (36-46); Hemoglobin 8.4 g/dL (12.0-16.0); Mean Corpuscular HGB Conc 35.7 % (30-36); Mean Corpuscular Volume 98.1 fL (80-100); Red Blood Cell Count 2.39 X10^6/uL (4.0-5.2); Red Cell Distribution Width 18.4 % (11.6-14.8)
[2018-11-17 11:10] LABS: Add Manual Diff / Slide Review YES; Platelet Count 18 X10^3/uL (150-400); White Blood Cell Count 0.5 X10^3/uL (4.5-11.0)
[2018-11-17 11:31] LABS: Anisocytosis 2+; Neutrophils Absolute Manual 20 /uL (3000-5900); Total Cells Counted 100
--- NOTE | 2018-11-17 11:36 | PC.NURSE ---
Addendum entered by Randi Marks R.N. 11/17/18 12:15: pt with tremors which started this morning. on and off this past weekend. Dr. Walton informed. Meghna in lab called about having O+ platelets at the blood bank and pt being A+. Dr. Walton notified and ok'd O+ platelets for pt. Original Note: pt reports feeling too weak to stand, light headedness. fell x2 at home. daughter states pt close to passing out. pt pale and shakey. +ortho static laying to sitting.
[2018-11-17] MEDS: SODIUM CHLORIDE 0.9% 1,000 ML 1000 ML IV (11:41)
[2018-11-17] MEDS: ONDANSETRON 8 MG in SODIUM CHLORIDE 0.9% 50 ML 216 ML IV (12:28)
[2018-11-17 13:14] LABS: Alanine Aminotransferase 36 IU/L (9-52); Albumin Globulin Ratio 1.5 (1.0-2.8); Alkaline Phosphatase 60 U/L (38-126); Aspartate Aminotransferase 22 IU/L (14-36); BUN Creatinine Ratio 21.4 (6-22); Bilirubin Total 0.9 mg/dL (0.2-1.3); Blood Urea Nitrogen 15 mg/dL (7-17); Calcium 9.3 mg/dL (8.4-10.2); Carbon Dioxide 27 mmol/L (22-32); Chloride 102 mmol/L (98-107); Estimated Glomerular Filt Rate > 60.0 mL/min (>60); Globulin 2.6 g/dL (1.7-4.1); Glucose 114 mg/dL (80-110); HEMOLYSIS < 15 (0-50); Magnesium 2.1 mg/dL (1.6-2.3); Potassium 4.3 mmol/L (3.4-5.1); Sodium 137 mmol/L (137-145); Total Protein 6.6 g/dL (6.3-8.2)
--- NOTE | 2018-11-17 17:39 | PC.NURSE ---
Addendum entered by Ashleigh Villanueva R.N. 11/17/18 19:56: Platelet transfusion complete, no s/sx of transfusion reaction noted. VSS and afebrile. Assisted to for discharge home via private vehicle with daughter. Single lumen PICC line to [facility]. Next appointment with Dr. Walton on 11/30 Original Note: 1730: Received patient from infusion center for Platelet transfusion ordered by Dr. Walton. Patient awake, alert, and states feels tired. States feels much better than this morning, no trembling or shakiness noted, VSS and afebrile. Ambulated steady gait to bathroom, voided, daughter at bedside providing supportive care. Patient states she will not be going to [facility] for the night, will be staying in [place] and stay close to the hospital.
--- NOTE | 2018-11-19 09:31 | ONC.MSW ---
Description: T/C-Difficulty Coping, Care Planning Activity: LAMP INSPECTOR spoke with son twice and once with patient re: her need for placement in [facility] care. She is not coping well, feeling like she is getting worse, not better, and is growing frustrated with the ferry travel, having her PCP on [place], care in [place], and [facility] with [facility]. Primarily, pt is completely exhausted and feeling hopeless. LAMP INSPECTOR provided counseling for emotional and coping support, as well as explained that this LAMP INSPECTOR had two extensive conversations with her son, Vazquez, this morning providing information on resources for assisted living facilities here in [place], how the process of transferring her care would work if she/family decide to move her down to [place] to live with Vazquez and his , that she would need to get a new PCP down [facility], the roles of Home Health vs. hiring in-home caregivers, and that his plan was to make several calls to further clarify a plan to discuss with her/family later today. She expressed understanding and was good with this plan.
--- NOTE | 2018-11-25 10:48 | ONC.MSW ---
Description: Co-Pay Assistance for Venclexta Activity: Pt has been approved by the [employer] for a co-pay pat in the amount of $10,000, effective 10/20/18-10/20/2019. Please see the pharmacy details below: Pharmacy Card ID: [id number] Group: [id number] PC BIN: [id number] PC PCN: [id number] PC PROCESSOR: PDMI FUND: Acute Myeloid Leukemia-Medicare
--- NOTE | 2018-11-26 16:21 | PC.NURSE ---
WORSENING CONDITION: Daughter Valencia called in stating patient has been having fever and is shaking. Temp was up to 102 last night. Presently is 99. Patient eating and drinking very little, SOB and very weak with increased aching pain all over. This nurse told daughter to call 911 and get patient to ER. Daughter said I won't be able to get her to go by air. Nurse reinforced that at least 911 team can evaluate patient condition even if she refuses. She should at least get to ER by car and ferry.
--- NOTE | 2018-11-30 11:13 | ONC.MSW ---
Description: T/C to dtrValencia Activity: Left a message for dtr to please call and update this RESTRICTIVE PREPARATION OPERATOR re: current status of d/c plan.
--- NOTE | 2018-12-09 17:56 | P.PNONC_ITS ---
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 His probably treatment related. She started chemotherapy with azacitidine and venetoclax 5 weeks ago. She would have been due to start her 2nd cycle of azacitidine last week week. She has been holding the venetoclax. Over the last week, she has been troubled by waxing and waning mental status changes. She also had arrhythmia and an NSTEMI. Over the last day, she did have her morphine drip stopped for about 4 hours this morning. During that time, she became more agitated in appeared uncomfortable. Since then, she has been getting as needed morphine. She would not her head but was not verbal or following commands. She did have a low-grade fever during that time. She has otherwise been afebrile. There has been no unusual bleeding or bruising. She is not currently having any diarrhea. - Patient Self-Reported Symptoms SR Constitution: Fatigue/Malaise SR respiratory issues: Shortness of breath SR Cardiovascular issues: Dizzy/lightheaded SR Gastrointestinal issues: Poor or no appetite SR Genitourinary issues: Blood in urine SR Neuro issues: Headache, Numbness or tingling SR Hematologic issues: Bleeding/bruising Home Medications and Allergies Home Medications Medication Instructions Recorded Confirmed Type alprazolam 0.25 mg PO Q8H PRN 08/27/18 11/27/18 History atenolol 25 mg PO QPM 08/27/18 11/27/18 History ezetimibe [Zetia] 10 mg PO DAILY 08/27/18 11/27/18 History Venclexta See Rx Instructions .ROUTE 10/14/18 11/27/18 Rx .COMPLEX #120 tab acetaminophen 650 mg PO Q4HR PRN #30 tab 12/01/18 Rx acyclovir [Zovirax] 400 mg PO BID 10 Days #20 tab 12/01/18 Rx alum-mag hydroxide-simeth [Mag-Al 10 ml MUCOUS MEMBRANE Q4H PRN #7 ml 12/01/18 Rx Plus] alum-mag hydroxide-simeth [Mag-Al 30 ml PO Q6HR PRN 7 Days ml 12/01/18 Rx Plus] calcium carbonate 1,000 mg PO Q4HR PRN 7 Days tab 12/01/18 Rx diphenhydramine HCl [Allergy 25 mg PO Q6HR PRN 30 Days tab 12/01/18 Rx (diphenhydramine)] gabapentin 100 mg PO TID 7 Days #21 cap 12/01/18 Rx hydrocodone-acetaminophen 1 tab PO Q4HR PRN #10 tab 12/01/18 Rx lidocaine HCl [Lidocaine Viscous] 10 ml MUCOUS MEMBRANE Q4H PRN 7 12/01/18 Rx Days ml lorazepam 0.5 mg PO Q4HR PRN #30 tab 12/01/18 Rx meropenem [Merrem] 500 mg IV Q8H 7 Days each 12/01/18 Rx micafungin [Mycamine] 100 mg IV Q24H 7 Days each 12/01/18 Rx nystatin 1,000,000 unit MUCOUS MEMBRANE Q4H 12/01/18 Rx PRN 7 Days ml ondansetron HCl (PF) 4 mg IV Q8HR PRN 7 Days ml 12/01/18 Rx sodium chloride [Deep Sea Nasal] 1 spray INTRANASAL PRN PRN 7 Days 12/01/18 Rx ml vancomycin in dextrose 5 % 750 mg IV Q8H 7 Days #3150 ml 12/01/18 Rx Allergies Allergy/AdvReac Type Severity Reaction Status Date / Time No Known Allergies Allergy Unknown Verified 11/26/18 18:51 [NO KNOWN ALLERGIES] Exam - Constitutional Comments: She is somnolent but arousable. She does not follow commands. She is not further examined. Results - Labs Laboratory Last Values WBC 0.5 X10^3/uL (4.5-11.0) L* 11/17/18 11:00 RBC 2.39 X10^6/uL (4.0-5.2) L 11/17/18 11:00 Hgb 8.4 g/dL (12.0-16.0) L 11/17/18 11:00 Hct 23.5 % (36-46) L 11/17/18 11:00 MCV 98.1 fL (80-100) 11/17/18 11:00 MCH 35.0 PG (26-34) H 11/17/18 11:00 MCHC 35.7 % (30-36) 11/17/18 11:00 RDW 18.4 % (11.6-14.8) H 11/17/18 11:00 Plt Count 18 X10^3/uL (150-400) L* 11/17/18 11:00 Neut % (Auto) Not Reportable 11/17/18 11:00 Lymph % (Auto) Not Reportable 11/17/18 11:00 [place] % (Auto) Not Reportable 11/17/18 11:00 Eos % (Auto) Not Reportable 11/17/18 11:00 Baso % (Auto) Not Reportable 11/17/18 11:00 Neut # (Auto) 600 /uL (2049-4892) L 09/23/18 09:16 Lymph # (Auto) Not Reportable 11/17/18 11:00 [place] # (Auto) Not Reportable 11/17/18 11:00 Eos # (Auto) 0 /uL (0-450) 09/23/18 09:16 Baso # (Auto) Not Reportable 11/17/18 11:00 Total Counted 100 11/17/18 11:00 Seg Neutrophils % 4.0 % (38-70) L 11/17/18 11:00 Lymphocytes % (Manual) 88.0 % (25-45) H 11/17/18 11:00 Atypical Lymphs % 8.0 % (-0) H 11/17/18 11:00 Monocytes % (Manual) 2.0 % (2-11) 10/28/18 09:32 Neutrophils # (Manual) 20 /uL (1009-1919) L 11/17/18 11:00 Platelet Estimate Decreased on smear 10/28/18 09:32 RBC Morphology Not Reportable 11/17/18 11:00 Anisocytosis 2+ H 11/17/18 11:00 Macrocytosis 2+ H 10/28/18 09:32 Sodium 137 mmol/L (137-145) 11/17/18 11:00 Potassium 4.3 mmol/L (3.4-5.1) 11/17/18 11:00 Chloride 102 mmol/L (98-107) 11/17/18 11:00 Carbon Dioxide 27 mmol/L (22-32) 11/17/18 11:00 BUN 15 mg/dL (7-17) 11/17/18 11:00 Creatinine 0.70 mg/dL (0.52-1.04) 11/17/18 11:00 Estimated GFR > 60.0 mL/min (>60) 11/17/18 11:00 BUN/Creatinine Ratio 21.4 (6-22) 11/17/18 11:00 Glucose 114 mg/dL (80-110) H 11/17/18 11:00 Uric Acid 4.7 mg/dL (2.5-6.2) 10/28/18 09:32 Calcium 9.3 mg/dL (8.4-10.2) 11/17/18 11:00 Phosphorus 4.1 mg/dL (2.8-4.1) 10/28/18 09:32 Magnesium 2.1 mg/dL (1.6-2.3) 11/17/18 11:00 Total Bilirubin 0.9 mg/dL (0.2-1.3) 11/17/18 11:00 AST 22 IU/L (14-36) 11/17/18 11:00 ALT 36 IU/L (9-52) 11/17/18 11:00 Alkaline Phosphatase 60 U/L (38-126) 11/17/18 11:00 Total Protein 6.6 g/dL (6.3-8.2) 11/17/18 11:00 Albumin 4.0 g/dL (3.5-5.0) 11/17/18 11:00 Globulin 2.6 g/dL (1.7-4.1) 11/17/18 11:00 Albumin/Globulin Ratio 1.5 (1.0-2.8) 11/17/18 11:00 Blood Type A Positive 11/17/18 11:00 Antibody Screen Negative 11/17/18 11:00 Crossmatch See Detail 11/17/18 11:00 - Imaging Additional studies: Procedures Insertion of Infusion Device into Superior Vena Cava, Percutaneous Approach (11/26/18) Introduction of Nutritional Substance into Central Vein, Percutaneous Approach (11/26/18) Transfusion of Nonautologous Red Blood Cells into Peripheral Vein, Percutaneous Approach (11/26/18) Assessment and Plan (1) Thrombocytopenia Status: Acute 68-year-old woman with 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 This is probably treatment relat ed. She has had 1 cycle of by days a along with venetoclax. Her blood counts have dramatically improved. Her white cell count is about 25,000 today. Hemoglobin and hematocrit have been improving. Her platelet count is normal. I think it is likely that she is in remission. She has had a number of other health setbacks including her recent cardiovascular event and mental status changes. She was having quite a bit of mouth and throat pain previously. She has not been able to eat. Her family had a number of questions today regarding prognosis. Her with regards to her leukemia, the chemotherapy is design to induce remission and thereby improve quality of life. It is not a cure however. The median duration of remission seems to be about a year to year and a half and requires ongoing treatment. She would have been due for 2nd cycle of chemotherapy next week but obviously this will need to be delayed until she has recovered sufficiently. Typically, the toxicity associated with the induction regimen is substantially more than with subsequent cycles of chemotherapy. Her outcomes regarding her cardiovascular event and mental status changes are far less certain. I believe that her mental status changes may be related to medications, especially morphine and benzodiazepines. I cannot however exclude anoxic injury from her cardiovascular events. Typically, when patients with AML achieve remission, their health improves, often dramatically. Even patients with acute multi-system failure requiring intubation and dialysis have made full recoveries. I think it still perfectly reasonable to trying continue supporting the patient. However, if her family his certain that she would not desire aggressive therapies, it not be wrong to consider her supportive care. If the family wants to consider transfer to another hospital for 2nd opinions I think that would be reasonable as well.
--- NOTE | 2019-01-04 16:23 | PC.NURSE ---
Addendum entered by Deisy Chew R.N. 01/07/19 14:50: Informed Alyssa at [facility] that Dr. Walton suggested a referral closer to [place] for pt' and family convenience. He would also be happy to see them at [facility] as well, whichever they prefer. Alyssa informed this typewriter mechanic that this information would be passed on to family so they can discuss and decide. Original Note: Patient was Dc'd to [facility] in [facility] about one week ago as reported by Alyssa of that center. Alyssa states that family is wanting to know, 1) if a phone appt is possible with Dr. Walton (as [place] so far from [place]) or if a transfer of care to [facility] makes sense and in that case if the records can be sent over so that appt with [facility] can be made. Per Sarah patient will not be able to transfer back here for continued visits if she would return to her home on [place]. This nurse will call daughter and make this clear as well as make a request to Dr. Walton per this note of whether a phone appt is possible.
[2020-02-09] VITALS (7 sets, daily range): BP systolic 107–118; BP diastolic 59–67; PULSE 81–84; RESP 16–17; TEMP 36.3–37.1; O2SAT 100
[2020-02-09 15:08] LABS: Hemoglobin 7.7 g/dL (12.0-16.0); Mean Corpuscular HGB Conc 34.9 % (30-36); Mean Corpuscular Hemoglobin 31.5 PG (26-34); Mean Corpuscular Volume 90.2 fL (80-100); Red Blood Cell Count 2.44 X10^6/uL (4.0-5.2); Red Cell Distribution Width 21.9 % (11.6-14.8)
[2020-02-09 15:10] LABS: Add Manual Diff / Slide Review YES; Platelet Count 7 X10^3/uL (150-400); White Blood Cell Count 1.5 X10^3/uL (4.5-11.0)
[2020-02-09 15:39] LABS: Anisocytosis 2+; Neutrophils Absolute Manual 120 /uL (3000-5900); Total Cells Counted 50
--- NOTE | 2020-02-09 16:11 | PC.NURSE ---
LABS FAXED TO [facility] Pt labs from 02/09/20 faxed to [facility] ([phone]). Confirmation received.
--- NOTE | 2020-02-09 17:13 | PC.NURSE ---
Pt ambulated to ACU room 201, report was given to JOHN Orellana.
--- NOTE | 2020-02-09 17:15 | PC.NURSE ---
Addendum entered by Reyna Ortiz R.N. 02/09/20 21:40: PRBC's and plts completed. Pt ambulated off unit. Port de-accessed. Original Note: Pt arrived to from infusion clinic at 1705. Escorted to chair in room 201. PRBC's trans rate 150 ml/hr to port-a-cath. Dinner meal provided. Pt tolerating transfusion. Call light within reach. Pt verbalized she will call for needs.
[2020-02-16 15:36] VITALS: BP 123/75; PULSE 78; RESP 18; TEMP 36.6; O2SAT 100
--- NOTE | 2020-02-16 16:26 | P.PNONC_ITS ---
PN -Subjective Interval history: Ms. Cho is a very pleasant 69-year-old lady who presents today for local hematology follow-up for AML. She originally presented to Dr. Edgar beauchamp in August of 2018 with pancytopenia. Bone marrow examination at that time showed myelodysplastic syndrome, excess blasts 2 with complex karyotype and a P 53 mutation. She was referred to the [facility] and had a repeat bone marrow on October 02, 2018 that showed AML. She was started on treatment with 5 azacitidine and venetoclax for 1 cycle complicated by neutropenic sepsis requiring transfer to the [facility] for ICU management. Venetoclax was subsequently discontinued. She had a prolonged recovery from this. Bone marrow examination April 13 showed a morphologic remission with 4% blasts, a% by flow cytometry. She restarted 5 azacitidine in April of 2019 and received 1 cycle complicated by prolonged neutropenia. In May of 2019 bone marrow showed relapse with a% blast Dick by morphology. She started 5 azacitidine on June 23 and venetoclax on July 05, 2019. Treatment was given at 4 to 5 week intervals, delays due to neutropenia. In September of 2019 bone marrow showed no morphologic evidence of leukemia in her azacitidine cycles were lengthened to 8 weeks for patient convenience. She received treatment in October and another in December. She continued on venetoclax 100 mg daily. She developed worsening blood counts. On January 16 she had a hematocrit of 18%, platelets 7000 and ANC of 0.11. She was transfuse 1 unit of packed cells and 1 unit of platelets. She had a clinic visit in [place] on January 19 was found to have a white count of 0.62, hemoglobin 7[place] [address]. She was set up for a bone marrow examination which was done on January 25. This showed persistent involvement, 4.3% blasts by flow cytometry, cytogenetics showed a -7 and -5 mutation. She was counseled about treatment options including reducing 5 azacitidine intervals to every 4 weeks, continuing azacitidine in 8 weeks but decreasing venetoclax to 14 days instead of 28 days in an effort to decrease her transfusion requirements, and starting Inqovi and continuing venetoclax. She was initially interested in the last option of Inqovi and venetoclax and has a plan to start this on February 20. However, she has been informed that there is a significant co-pay associated with this which she is not sure she is going to be able to handle. She plans to discussed options with her care team at [facility] at the time of her visit on Friday. She comes here today to reestablish local hematology care so that we can be prepared to provide transfusion or other support in between her trips to [place]. She lives on [address] and has to access os with the [place] but it is a lot simpler than going to [place]. Today she reports anorexia although she is holding her weight steady. She has some shortness of breath and dizziness that is related to her level of hemoglobin. She has understandable anxiety about her situation but denies any pain, bleeding, localized weakness, fever, chills, nausea, vomiting, mouth sores, trouble swallowing, or cough. All other systems are negative. Past medical history 1. Her paternal aunt had breast cancer but family history is otherwise negative. 2. She had breast cancer diagnosed in 2010 treated at the [facility] with lumpectomy followed by radiation therapy and systemic chemotherapy with Adriamycin, Cytoxan and Taxol 3. History of a TIA 4. Hyperlipidemia 5. High blood pressure 6. Pneumonia 7. Previous surgeries include Swann placement and removal, Port-A-Cath placement, bilateral lumpectomies for breast cancer in 2010 and an appendectomy 8. 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 She is a nonsmoker and occasional drinker. She has a farm house on [address] and [place]. She has a son near [facility] in [place] and she stays with her son, [id number] and 2 grandchildren when she is in [place]. 9. No known drug allergies 10. Current medications include acyclovir 800 mg twice a day, Augmentin 875 mg twice a day, aspirin 81 mg daily, carvedilol 6.25 mg twice a day, dronabinol 2.5 mg 3 times a day, escitalopram 5 mg daily, as needed hydroxyzine, lisinopril 10 mg daily, voriconazole 200 mg twice a day, as needed Zofran, as needed Compazine, as needed scopolamine patch and rosuvastatin 10 mg daily - Patient Self-Reported Symptoms SR Constitution: Fatigue/Malaise SR respiratory issues: Shortness of breath SR Cardiovascular issues: Dizzy/lightheaded SR Skin issues: Dry skin SR Gastrointestinal issues: Poor or no appetite SR Genitourinary issues: Incontinence SR Neuro issues: Lightheaded/dizzy SR Hematologic issues: Bleeding/bruising Home Medications and Allergies Home Medications Medication Instructions Recorded Confirmed Type acyclovir 800 mg PO BID 02/16/20 02/16/20 History amoxicillin-pot clavulanate 875 mg BID 02/16/20 02/16/20 History aspirin [Aspir-81] 81 mg PO DAILY 02/16/20 02/16/20 History carvedilol 6.25 mg PO BID 02/16/20 02/16/20 History dronabinol 2.5 mg PO TID 02/16/20 02/16/20 History escitalopram oxalate 5 mg PO DAILY 02/16/20 02/16/20 History hydroxyzine HCl 25 mg PO BID PRN 02/16/20 02/16/20 History lisinopril 10 mg PO DAILY 02/16/20 02/16/20 History voriconazole 200 mg PO Q12H 02/16/20 02/16/20 History Allergies Allergy/AdvReac Type Severity Reaction Status Date / Time No Known Allergies Allergy Unknown Verified 11/26/18 18:51 [NO KNOWN ALLERGIES] Exam Vital signs: Vital Signs Temp Pulse Resp BP Pulse Ox 02/16/20 15:36 97.8 F 78 18 123/75 100 Intake and Output 02/16/20 02/16/20 02/16/20 07:59 15:59 23:59 Other: Weight 51.9 kg Patient Weight 02/16/20 23:59 Weight 51.9 kg Narrative: She was awake alert and oriented x3. She was fully ambulatory and in no acute distress. Results - Labs Laboratory Last Values WBC 1.5 X10^3/uL (4.5-11.0) L* 02/09/20 14:53 RBC 2.44 X10^6/uL (4.0-5.2) L 02/09/20 14:53 Hgb 7.7 g/dL (12.0-16.0) L 02/09/20 14:53 Hct 22.0 % (36-46) L 02/09/20 14:53 MCV 90.2 fL (80-100) 02/09/20 14:53 MCH 31.5 PG (26-34) 02/09/20 14:53 MCHC 34.9 % (30-36) 02/09/20 14:53 RDW 21.9 % (11.6-14.8) H 02/09/20 14:53 Plt Count 7 X10^3/uL (150-400) L* 02/09/20 14:53 Neut % (Auto) Not Reportable 02/09/20 14:53 Lymph % (Auto) Not Reportable 02/09/20 14:53 Rice % (Auto) Not Reportable 02/09/20 14:53 Eos % (Auto) Not Reportable 02/09/20 14:53 Baso % (Auto) Not Reportable 02/09/20 14:53 Neut # (Auto) 600 /uL (1883-9292) L 09/23/18 09:16 Lymph # (Auto) Not Reportable 02/09/20 14:53 Eos # (Auto) 0 /uL (0-450) 09/23/18 09:16 Rice # (Auto) Not Reportable 02/09/20 14:53 Baso # (Auto) Not Reportable 02/09/20 14:53 Total Counted 50 02/09/20 14:53 Seg Neutrophils % 8.0 % (38-70) L 02/09/20 14:53 Lymphocytes % (Manual) 76.0 % (25-45) H 02/09/20 14:53 Atypical Lymphs % 14.0 % (-0) H 02/09/20 14:53 Monocytes % (Manual) 2.0 % (2-11) 02/09/20 14:53 Neutrophils # (Manual) 120 /uL (9457-1012) L 02/09/20 14:53 Platelet Estimate Decreased on smear 10/28/18 09:32 Macrocytosis 2+ H 10/28/18 09:32 RBC Morphology Not Reportable 02/09/20 14:53 Anisocytosis 2+ H 02/09/20 14:53 Sodium 137 mmol/L (137-145) 11/17/18 11:00 Potassium 4.3 mmol/L (3.4-5.1) 11/17/18 11:00 Chloride 102 mmol/L (98-107) 11/17/18 11:00 Carbon Dioxide 27 mmol/L (22-32) 11/17/18 11:00 BUN 15 mg/dL (7-17) 11/17/18 11:00 Creatinine 0.70 mg/dL (0.52-1.04) 11/17/18 11:00 Estimated GFR > 60.0 mL/min (>60) 11/17/18 11:00 BUN/Creatinine Ratio 21.4 (6-22) 11/17/18 11:00 Glucose 114 mg/dL (80-110) H 11/17/18 11:00 Uric Acid 4.7 mg/dL (2.5-6.2) 10/28/18 09:32 Calcium 9.3 mg/dL (8.4-10.2) 11/17/18 11:00 Phosphorus 4.1 mg/dL (2.8-4.1) 10/28/18 09:32 Magnesium 2.1 mg/dL (1.6-2.3) 11/17/18 11:00 Total Bilirubin 0.9 mg/dL (0.2-1.3) 11/17/18 11:00 AST 22 IU/L (14-36) 11/17/18 11:00 ALT 36 IU/L (9-52) 11/17/18 11:00 Alkaline Phosphatase 60 U/L (38-126) 11/17/18 11:00 Total Protein 6.6 g/dL (6.3-8.2) 11/17/18 11:00 Albumin 4.0 g/dL (3.5-5.0) 11/17/18 11:00 Globulin 2.6 g/dL (1.7-4.1) 11/17/18 11:00 Albumin/Globulin Ratio 1.5 (1.0-2.8) 11/17/18 11:00 Blood Type A Positive 02/09/20 14:50 Antibody Screen Negative 02/09/20 14:50 Crossmatch See Detail 02/09/20 14:50 - Imaging Additional studies: Procedures Insertion of Infusion Device into Superior Vena Cava, Percutaneous Approach (11/26/18) Introduction of Nutritional Substance into Central Vein, Percutaneous Approach (11/26/18) Transfusion of Nonautologous Red Blood Cells into Peripheral Vein, Percutaneous Approach (11/26/18) Assessment and Plan (1) Thrombocytopenia Status: Acute 69-year-old woman with 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 This is probably treatment related. She has done remarkably well the past year, especially after her difficult for cycle of treatment. Her bone marrow indicates persistent involvement with AML and she will be starting a new treatment next week. She is not exactly sure what form that will take but will let us know. I told her that since she gets her counts done every Friday on [facility], if we know there being done we can look for them and arrange transfusion support if necessary. She will put our clinic on the list of recipient's for results and we will also follow-up with them by phone and fax as long as we know the counts are being done. We discussed typical transfusion threshold which would be hematocrit less than 26% and platelets less than 10,000. She is on anti microbial prophylaxis with acyclovir, voriconazole on Augmentin. I personally spent 40 minutes in today's [id number] visit with greater than 50% of the time spent in counseling regarding the issues outlined above. Impression: 1. Myelodysplastic syndrome quickly transforming to acute leukemia diagnosed September of 2018 2. Initial therapy with 5 azacitidine and venetoclax complicated by neutropenic sepsis with prolonged recovery 3. Bone marrow March of 2019 showed morphologic remission with 4% blasts, a% by flow cytometry 4. Five azacitidine restarted May 05, 2019 5. Bone marrow June 14, 2019 showed relapse with a% blasts by morphology 6. 5 azacitidine resumed on June 23, venetoclax resumed on July 05, 2019 and continued 7. 5 azacitidine at 4-5 week intervals in July, and August. Bone marrow in September 2019 showed no morphologic evidence of leukemia 5 azacitidine cycles were lengthened to every 8 weeks, given in October in December of 2019 8. Progressive pancytopenia requiring platelet and red cell transfusions noted in late December 2019. Bone marrow January 26, 2020 showed persistent involvement with AML, 4.3% blasts by flow cytometry 9. Patient will be starting back on therapy on February 20 Recommendations: 1. Patient will request that her weekly CBCs being done on [facility] be sent to us, as well 2. Transfusion support as needed with red cells planned if hematocrit is less than 26%, platelets planned if platelet count is less than 10,000 3. She will let us know what her final treatment plan is at her after her visit on February 20
--- NOTE | 2020-03-01 17:36 | PC.NURSE ---
ALEJANDRO (JARED [phone]) LEFT MESSAGE 03/01 AT 1538 REPORTING PLATELETS ON 02/27 WERE 11 AND PATIENT WILL NEED A UNIT OF PLATELETS AND WONDERING IF SHE COULD GET THIS WHEN SHE COMES IN FOR FILGRASTIM WHICH THEY ORDERED. NO ORDER FOR FILGRASTIM SCANNED INTO PATIENT'S CHART OF TODAY. THIS NURSE UNABLE TO COMPLETE THIS ORDER FOR FILGRASTIM OR PLATELETS ON 03/01. MESSAGE LEFT WITH THIS NOTE FOR TRIAGE OF NURSE OF 03/02 TO SCHEDULE.
--- NOTE | 2020-03-02 15:45 | ONC.MSW ---
Completed new priority boarding medical capricey pass for pt, provided it to her while she was in infusion.
[2020-03-02 16:29] VITALS: BP 107/57; PULSE 87; RESP 16; TEMP 36.9
[2020-03-02 16:47] VITALS: BP 110/59; PULSE 86; RESP 16; TEMP 36.6
[2020-03-02] MEDS: FILGRASTIM-AAFI 300 MCG/0.5 ML SYRINGE SUBCUT (17:06)
[2020-03-02 17:47] VITALS: BP 99/54; PULSE 89; RESP 16; TEMP 36.6
--- NOTE | 2020-03-03 13:47 | PC.NURSE ---
[facility] LABS WERE ADDED ON 12/30 PER [address] JORDAN FOR CBC, ORDERS WILL NEEDED TO BE VERIFIED AND CONTINUED PATIENT CONTINUING ON INQOVI AT [facility] AND FILGRASTIM HERE. THIS NURSE HAD UNFORTUNATELY NOT ADDED THE CBC ORDER FOR 12/31 SHE DID NOT SEE THE ENTERED ORDER OF 12/31 AND THAT PATIENT COMING IN. PATIENT DID COME IN FOR PLATELETS ON 12/31.
--- NOTE | 2020-03-03 13:50 | PC.NURSE ---
LABS: CALL TO PATIENT, SPOKE WITH TERRELL HER DAUGHTER RE [facility] LABS. TERRELL STATES PATIENT IS HAVING FRIDAY LABS DONE ON AND RESULTS ARE BEING SEEN BY [facility] ON TUESDAYS. PATIENT WILL COME HERE FOR CBC. DAUGHTER STATED THAT AT TIME OF CALL AND THIS WRITING THEY ARE ON THEIR WAY TO ER AT [facility] PATIENT NOT FEELING WELL.
--- NOTE | 2020-03-07 15:14 | ONC.MSW ---
*Sent bereavement card.
== END ==
PROVIDERS: Internal Medicine Medical Oncology; PCP Family Medicine; Visit Provider Internal Medicine
DX: C92.00 Acute myeloblastic leukemia, not having achieved remission (principal); D69.6 Thrombocytopenia, unspecified
CPT/HCPCS: 36415; 36430; 36591; 36592; 38220; 80053; 83735; 84100; 84550; 85007; 85025; 86850; 86900; 86901; 96360; 96372; 96374; 96375; 96413; 96523; 99000; 99205; 99214; 99215; 99232; P9016; J2405; J9025; P9035; Q5110

== ENCOUNTER 2020-03-03 17:09 | Inpatient (IN) | payer MEDICARE, OTHER, SELFPAY ==
[2018-11-26 22:15] VITALS: BMI 25.0
[2020-03-03] VITALS (13 sets, daily range): BP systolic 98–125; BP diastolic 50–69; PULSE 95–112; RESP 14–27; TEMP 37.1–38.4; O2SAT 94–100
--- NOTE | 2020-03-03 17:46 | DI.RAD.S_ITS ---
PROCEDURE: XR CHEST 1V INDICATIONS: Suspected sepsis TECHNIQUE: One view of the chest was acquired. COMPARISON: [facility], CR, XR CHEST 1V, 12/09/2018, 12:48. FINDINGS: Surgical changes and devices: Left chest wall surgical clips. Left chest wall port catheter terminates near the cavoatrial junction. Lungs and pleura: Lungs are clear. No pleural effusions or pneumothorax. Mediastinum: Mediastinal contours appear normal. Heart size is normal. Bones and chest wall: No suspicious bony lesions. Overlying soft tissues appear unremarkable. IMPRESSION: No acute finding. Dictated by: Artie Constantino M.D. on 03/03/2020 at 18:25 Approved by: Artie Constantino M.D. on 03/03/2020 at 18:27
[2020-03-03 17:55] LABS: COVID19 -Nasal RAPID Negative (Negative)
--- NOTE | 2020-03-03 17:59 | ED_ITS ---
HPI - Sepsis General Chief Complaint: Fever Mode of arrival: Wheelchair Source: patient and family Evaluation Sepsis Screen: No Definite Risk Sepsis Infection Criteria Present: None Associated Symptoms: fever, chills, cough, weakness, loss of appetite, nausea, vomiting and diarrhea Narrative: 69-year-old female nonsmoker with a diagnosis of AML and hypertension presents with family in the chief complaint of fever, chills, nausea, vomiting and diarrhea over the course of the day. She has been taking oral chemotherapy and just yesterday had a platelet transfusion and another chemotherapy inejction. Her symptoms started today. She denies runny nose or sore throat. She has a mild cough which is rather chronic for her. She denies any pain. Review of Systems Constitutional Constitutional: Reports chills, Reports fatigue, Reports fever(s), Denies frequent falls, Denies lethargy and Denies weakness Eyes Eyes: Denies change in vision, Denies eye discharge, Denies irritation and Denies loss of vision ENT Ears, Nose, Mouth, and Throat: Denies change in voice, Denies dizziness, Denies neck pain, Denies sore throat and Denies throat swelling Cardiovascular Cardiovascular: Denies chest pain, Denies irregular heart rhythm, Denies lightheadedness, Denies palpitations, Denies dyspnea, Denies dyspnea on exertion and Denies orthopnea Respiratory Respiratory: Denies cough, Denies dyspnea, Denies dyspnea on exertion and Denies wheezing Gastrointestinal Gastrointestinal: Denies abdominal pain, Denies change in bowel habits, Reports diarrhea, Reports nausea and Reports vomiting Musculoskeletal Musculoskeletal: Denies neck pain and Denies numbness Integumentary/Breasts Skin/Breast: Denies pruritus, Denies erythema, Denies rash and Denies wounds Neurologic Neurologic: Denies behavioral changes, Denies confusion, Denies dizziness, Denies frequent falls, Denies loss of vision, Denies numbness and Denies weakness Psychiatric Psychiatric: Denies anxiety, Denies behavioral changes, Denies confusion, Denies depression, Denies homicidal ideation and Denies suicidal ideation Endocrine Endocrine: Reports fatigue, Denies flushing and Denies palpitations Hematologic/Lymphatic Hematologic/Lymphatic: Denies easy bruising Allergic/Immunologic Allergic/Immunologic: Denies urticaria, Denies throat swelling and Denies whee zing Patient History Medical History (Updated 03/04/20 @ 03:24 by Philip Roque DO) Breast cancer CVA (cerebrovascular accident) HTN (hypertension) Hyperlipidemia Neuropathy Sinus headache TIA (transient ischemic attack) Surgical History History of appendectomy History of bilateral cataract extraction No pertinent past surgical history S/P breast lumpectomy Family History Father Coronary artery disease Mother Stroke Coronary artery disease Brother Coronary artery disease Social History household members: family, children and none Smoking Status: Never smoker alcohol intake: current Smoking Status: Never smoker alcohol intake frequency: holidays/special occasions only Substance Use Type: does not use Exam Narrative Exam Narrative: GENERAL: [69] year old patient appears older than stated age. Well-nourished, well-developed patient, in moderate distress. Obviously ill HEAD: Atraumatic. Normocephalic. EYES: Pupils equal round and reactive. Extraocular motions intact. No scleral icterus. Pale conjunctiva ENT: Nose without bleeding, purulent drainage. Throat without erythema, tonsillar hypertrophy or exudate. Airway patent. NECK: Trachea midline. Non tender CARDIOVASCULAR: Regular rate and rhythm without murmurs, gallops, or rubs. RESPIRATORY: Clear to auscultation. Breath sounds equal bilaterally. No wheezes, rales, or rhonchi. GASTROINTESTINAL: Abdomen soft, non-tender, nondistended. EXTREMITIES: No edema or joint tenderness. BACK: Nontender without deformity or crepitance. No flank tenderness. NEURO: No obvious focal neurologic findings. Awake and alert. SKIN: No rash or erythema of visible areas Initial Vital Signs Initial Vital Signs: Vital Signs Temperature 100.7 F H 03/03/20 17:12 Pulse Rate 95 H 03/03/20 17:12 Respiratory Rate 22 03/03/20 17:12 Blood Pressure 112/55 L 03/03/20 17:12 Pulse Oximetry 95 03/03/20 17:12 Course Course Course Narrative: Orders Ordered: ED Orders 03/03/20 20:16 Urinalysis and Microscopic Stat 03/03/20 20:55 GI Panel (Film Array) Stat Acetaminophen (Acetaminophen 325 Mg Tablet) 650 mg PO Q4HR [facility] Last Admin: 03/04/20 00:53 Dose: 650 mg Documented by: BILL Aspirin (Aspirin Ec 81 Mg Tablet) 81 mg PO DAILY [facility] Carvedilol (Carvedilol 12.5 Mg Tablet) 6.25 mg PO BIDWM [facility] Dronabinol (Dronabinol 2.5 Mg Capsule) 2.5 mg PO TID [facility] Enoxaparin Sodium (Enoxaparin 40 Mg/0.4 Ml Syringe) 40 mg SUBCUT DAILY [facility] Escitalopram Oxalate (Escitalopram 10 Mg Tablet) 5 mg PO DAILY [facility] Fidaxomicin (Fidaxomicin 200 Mg Tablet) 200 mg PO BID [facility] Sodium Chloride (Normal Saline 0.9%) 1,000 mls @ 100 mls/hr IV CONT [facility] Last Admin: 03/04/20 00:00 Dose: 100 mls/hr Documented by: BILL Piperacillin/Tazobactam/Dextrose (Zosyn) 4.5 gm in 100 mls @ 200 mls/hr IV Q6H [facility] Last Infusion: 03/04/20 01:20 Dose: 200 mls/hr Documented by: Admin: 03/04/20 00:50 Dose: 200 mls/hr Documented by: BILL Vancomycin HCl/Dextrose (Vancomycin) 750 mg in 150 mls @ 150 mls/hr IV Q8H [facility] Last Admin: 03/04/20 02:06 Dose: 150 mls/hr Documented by: GEORGIANA Ibuprofen (Ibuprofen 600 Mg Tablet) 600 mg PO Q6HR PRN PRN Reason: Fever/Mild Pain (1-3) Lisinopril (Lisinopril 10 Mg Tablet) 10 mg PO DAILY [facility] Naloxone HCl (Naloxone 0.4 Mg/Ml Vial) 0.2 mg IV Q2MIN PRN PRN Reason: Opiate Reversal Ondansetron HCl (Ondansetron 4 Mg/2 Ml Inj) 4 mg IV Q8HR PRN PRN Reason: Nausea And Vomiting Vancomycin HCl (Vancomycin Per Pharmacy) 1 request MISC NOW ONE Stop: 03/03/20 23:30 Vancomycin HCl (Vancomycin Trough) 1 request MISC NOW ONE Stop: 03/05/20 00:31 Voriconazole (Voriconazole 200 Mg Tablet) 200 mg PO Q12H [facility] Last Admin: 03/04/20 02:32 Dose: Not Given Documented by: [email or web address] Discontinued Medications Acetaminophen (Acetaminophen 325 Mg Tablet) 650 mg PO NOW ONE Stop: 03/03/20 19:44 Last Admin: 03/03/20 19:45 Dose: 650 mg Documented by: VIKA Sodium Chloride (Normal Saline 0.9%) 1,000 mls @ 1,000 mls/hr IV BOLUS ONE Stop: 03/03/20 18:45 Last Infusion: 03/03/20 19:20 Dose: 0 mls/hr Documented by: Admin: 03/03/20 18:16 Dose: 1,000 mls/hr Documented by: MARVIN Lactated Ringer's (Lactated Ringers) 1,551.3 mls @ 517.1 mls/hr 30 ml/kg infuse over 3 hr (1551.3 ml) IV NOW ONE Stop: 03/03/20 20:58 Last Infusion: 03/03/20 23:15 Dose: 0 mls/hr Documented by: Admin: 03/03/20 19:39 Dose: 517.1 mls/hr Documented by: VIKA Levofloxacin (Levaquin) 750 mg in 150 mls @ 100 mls/hr IV NOW ONE Stop: 03/03/20 23:02 Last Admin: 03/03/20 22:04 Dose: 100 mls/hr Documented by: MARVIN Potassium Chloride (Potassium Chloride 20 Meq/15 Ml Udc) 40 meq PO NOW ONE Stop: 03/03/20 18:50 Last Admin: 03/03/20 19:34 Dose: 40 meq Documented by: VIKA Prochlorperazine (Prochlorperazine 10 Mg/2 Ml Vial) 10 mg IV NOW ONE Stop: 03/03/20 18:00 Last Admin: 03/03/20 18:17 Dose: 10 mg Documented by: MARVIN Vancomycin HCl (Vancomycin 125 Mg Capsule) 125 mg PO Q6H [facility] Vital Signs Vital signs: Vital Signs - 8 hr 03/03/20 19:30 03/03/20 20:00 03/03/20 20:09 Temperature 100.6 F H Pulse Rate 106 H 96 H Respiratory Rate 23 Blood Pressure 107/52 L Pulse Oximetry 96 94 03/03/20 20:15 03/03/20 20:30 03/03/20 21:19 Temperature 101.2 F H 100.6 F H Pulse Rate 105 H 97 H Respiratory Rate 14 23 Blood Pressure 125/59 L 110/53 L Pulse Oximetry 96 97 MDM - Sepsis Lab Data Result diagrams: 03/03/20 17:50 03/03/20 17:50 Labs: Lab Results 03/03/20 03/03/20 03/03/20 Range/Units 17:33 17:50 17:50 WBC 0.3 L* (4.5-11.0) X10^3/uL RBC 2.26 L (4.0-5.2) X10^6/uL Hgb 7.0 L (12.0-16.0) g/dL Hct 19.8 L* (36-46) % MCV 87.8 (80-100) fL MCH 30.9 (26-34) PG MCHC 35.2 (30-36) % RDW 17.6 H (11.6-14.8) % Plt Count 40 L (150-400) X10^3/uL Neut % (Auto) 0.6 L (50-75) % Lymph % (Auto) 96.4 H (25-40) % Hyde % (Auto) 3.0 (3-14) % Eos % (Auto) 0.0 L (2-4) % Baso % (Auto) 0.0 (0-2) % Neut # (Auto) 0 L (1175-3853) /uL Lymph # (Auto) 300 L (2112-9426) /uL Hyde # (Auto) 0 (0-900) /uL Eos # (Auto) 0 (0-450) /uL Baso # (Auto) 0 (0-100) /uL PT 13.0 H (10.1-12.7) SECONDS INR 1.1 (0.9-1.3) APTT 28 (26.4-36.2) SECONDS Sodium (137-145) mmol/L Potassium (3.4-5.1) mmol/L Chloride (98-107) mmol/L Carbon Dioxide (22-32) mmol/L BUN (7-17) mg/dL Creatinine (0.52-1.04) mg/dL Estimated GFR (>60) mL/min BUN/Creatinine Ratio (6-22) Glucose (80-110) mg/dL Lactate (0.7-2.1) mmol/L Calcium (8.4-10.2) mg/dL Total Bilirubin (0.2-1.3) mg/dL AST (14-36) IU/L ALT (<35) IU/L Alkaline Phosphatase (38-126) U/L Total Protein (6.3-8.2) g/dL Albumin (3.5-5.0) g/dL Globulin (1.7-4.1) g/dL Albumin/Globulin Ratio (1.0-2.8) Lipase (23-300) U/L Procalcitonin (<0.5) ng/mL Urine Color Urine Appearance Urine pH (4.5-8.0) Ur Specific [place] (1.000-1.035) Urine Protein (Negative) Urine Glucose (UA) (Negative) g/dL Urine Ketones (NEGATIVE) Urine Occult Blood (Negative) Urine Nitrate (Negative) Urine Bilirubin (NEGATIVE) Urine Urobilinogen (0.2) E.U./dL Ur Leukocyte Esterase (NEGATIVE) Urine RBC (0-5/HPF) Urine WBC (0-5/HPF) Ur Squamous Epith Cells (0-5/HPF) Urine Bacteria (None) Hyaline Casts (None) Granular Casts (None) Urine Mucus (Negative) Ur Culture Indicated? Stl C. cayetanensis PCR (Not Detect) Stool Rotavirus (PCR) (Not Detect) Stool Adenovirus (PCR) (Not Detect) Stool Astrovirus (PCR) (Not Detect) Stool Cryptosporidium PCR (Not Detect) Stl E.coli Shiga Tox PCR (Not Detect) St Sh/Enteroin Ecoli PCR (Not Detect) Stool E coli O157 PCR Stl Enterotoxigenic E PCR (Not Detect) Stool EPEC (PCR) (Not Detect) Stl E. histolytica PCR (Not Detect) Stool Giardia Lamblia PCR (Not Detect) Stool Sapovirus (PCR) (Not Detect) Stl P. shigelloides PCR (Not Detect) St Y.enterocolitica PCR (Not Detect) Stool Vibrio (PCR) (Not Detect) Stl Vibrio cholerae PCR (Not Detect) Stl Enteroaggr Ecoli PCR (Not Detect) Stl Norovirus GI/GII PCR (Not Detect) Campylobacter (PCR) (Not Detect) C. difficile Tox (PCR) (Not Detect) SARS-CoV-2 (PCR) Negative (Negative) Salmonella (PCR) (Not Detect) Blood Type Antibody Screen Crossmatch 03/03/20 03/03/20 03/03/20 Range/Units 17:50 17:50 17:50 WBC (4.5-11.0) X10^3/uL RBC (4.0-5.2) X10^6/uL Hgb (12.0-16.0) g/dL Hct (36-46) % MCV (80-100) fL MCH (26-34) PG MCHC (30-36) % RDW (11.6-14.8) % Plt Count (150-400) X10^3/uL Neut % (Auto) (50-75) % Lymph % (Auto) (25-40) % Hyde % (Auto) (3-14) % Eos % (Auto) (2-4) % Baso % (Auto) (0-2) % Neut # (Auto) (5680-5161) /uL Lymph # (Auto) (3188-1767) /uL Hyde # (Auto) (0-900) /uL Eos # (Auto) (0-450) /uL Baso # (Auto) (0-100) /uL PT (10.1-12.7) SECONDS INR (0.9-1.3) APTT (26.4-36.2) SECONDS Sodium 136 L (137-145) mmol/L Potassium 2.6 L* (3.4-5.1) mmol/L Chloride 104 (98-107) mmol/L Carbon Dioxide 27 (22-32) mmol/L BUN 11 (7-17) mg/dL Creatinine 0.55 (0.52-1.04) mg/dL Estimated GFR > 60.0 (>60) mL/min BUN/Creatinine Ratio 20.0 (6-22) Glucose 129 H (80-110) mg/dL Lactate 1.6 (0.7-2.1) mmol/L Calcium 8.6 (8.4-10.2) mg/dL Total Bilirubin 0.9 (0.2-1.3) mg/dL AST 39 H (14-36) IU/L ALT 24 (<35) IU/L Alkaline Phosphatase 106 (38-126) U/L Total Protein 6.2 L (6.3-8.2) g/dL Albumin 3.7 (3.5-5.0) g/dL Globulin 2.5 (1.7-4.1) g/dL Albumin/Globulin Ratio 1.5 (1.0-2.8) Lipase 29 (23-300) U/L Procalcitonin 2.01 H (<0.5) ng/mL Urine Color Urine Appearance Urine pH (4.5-8.0) Ur Specific [place] (1.000-1.035) Urine Protein (Negative) Urine Glucose (UA) (Negative) g/dL Urine Ketones (NEGATIVE) Urine Occult Blood (Negative) Urine Nitrate (Negative) Urine Bilirubin (NEGATIVE) Urine Urobilinogen (0.2) E.U./dL Ur Leukocyte Esterase (NEGATIVE) Urine RBC (0-5/HPF) Urine WBC (0-5/HPF) Ur Squamous Epith Cells (0-5/HPF) Urine Bacteria (None) Hyaline Casts (None) Granular Casts (None) Urine Mucus (Negative) Ur Culture Indicated? Stl C. cayetanensis PCR (Not Detect) Stool Rotavirus (PCR) (Not Detect) Stool Adenovirus (PCR) (Not Detect) Stool Astrovirus (PCR) (Not Detect) Stool Cryptosporidium PCR (Not Detect) Stl E.coli Shiga Tox PCR (Not Detect) St Sh/Enteroin Ecoli PCR (Not Detect) Stool E coli O157 PCR Stl Enterotoxigenic E PCR (Not Detect) Stool EPEC (PCR) (Not Detect) Stl E. histolytica PCR (Not Detect) Stool Giardia Lamblia PCR (Not Detect) Stool Sapovirus (PCR) (Not Detect) Stl P. shigelloides PCR (Not Detect) St Y.enterocolitica PCR (Not Detect) Stool Vibrio (PCR) (Not Detect) Stl Vibrio cholerae PCR (Not Detect) Stl Enteroaggr Ecoli PCR (Not Detect) Stl Norovirus GI/GII PCR (Not Detect) Campylobacter (PCR) (Not Detect) C. difficile Tox (PCR) (Not Detect) SARS-CoV-2 (PCR) (Negative) Salmonella (PCR) (Not Detect) Blood Type Antibody Screen Crossmatch 03/03/20 03/03/20 03/03/20 Range/Units 17:50 20:16 20:55 WBC (4.5-11.0) X10^3/uL RBC (4.0-5.2) X10^6/uL Hgb (12.0-16.0) g/dL Hct (36-46) % MCV (80-100) fL MCH (26-34) PG MCHC (30-36) % RDW (11.6-14.8) % Plt Count (150-400) X10^3/uL Neut % (Auto) (50-75) % Lymph % (Auto) (25-40) % Hyde % (Auto) (3-14) % Eos % (Auto) (2-4) % Baso % (Auto) (0-2) % Neut # (Auto) (5765-2886) /uL Lymph # (Auto) (0935-9784) /uL Hyde # (Auto) (0-900) /uL Eos # (Auto) (0-450) /uL Baso # (Auto) (0-100) /uL PT (10.1-12.7) SECONDS INR (0.9-1.3) APTT (26.4-36.2) SECONDS Sodium (137-145) mmol/L Potassium (3.4-5.1) mmol/L Chloride (98-107) mmol/L Carbon Dioxide (22-32) mmol/L BUN (7-17) mg/dL Creatinine (0.52-1.04) mg/dL Estimated GFR (>60) mL/min BUN/Creatinine Ratio (6-22) Glucose (80-110) mg/dL Lactate (0.7-2.1) mmol/L Calcium (8.4-10.2) mg/dL Total Bilirubin (0.2-1.3) mg/dL AST (14-36) IU/L ALT (<35) IU/L Alkaline Phosphatase (38-126) U/L Total Protein (6.3-8.2) g/dL Albumin (3.5-5.0) g/dL Globulin (1.7-4.1) g/dL Albumin/Globulin Ratio (1.0-2.8) Lipase (23-300) U/L Procalcitonin (<0.5) ng/mL Urine Color Yellow Urine Appearance Clear Urine pH 6.0 (4.5-8.0) Ur Specific [place] 1.020 (1.000-1.035) Urine Protein 2+ H (Negative) Urine Glucose (UA) Negative (Negative) g/dL Urine Ketones Negative (NEGATIVE) Urine Occult Blood 2+ H (Negative) Urine Nitrate Negative (Negative) Urine Bilirubin Negative (NEGATIVE) Urine Urobilinogen 0.2 (0.2) E.U./dL Ur Leukocyte Esterase Negative (NEGATIVE) Urine RBC 1-5/hpf (0-5/HPF) Urine WBC 1-5/hpf (0-5/HPF) Ur Squamous Epith Cells 0-1 /hpf (0-5/HPF) Urine Bacteria Occasional (0-1) (None) Hyaline Casts 5-10/lpf (None) Granular Casts 1-5/lpf (None) Urine Mucus 1+ H (Negative) Ur Culture Indicated? Cult not indicated Stl C. cayetanensis PCR Not detected (Not Detect) Stool Rotavirus (PCR) Not detected (Not Detect) Stool Adenovirus (PCR) Not detected (Not Detect) Stool Astrovirus (PCR) Not detected (Not Detect) Stool Cryptosporidium PCR Not detected (Not Detect) Stl E.coli Shiga Tox PCR Not detected (Not Detect) St Sh/Enteroin Ecoli PCR Not detected (Not Detect) Stool E coli O157 PCR Not Reportable Stl Enterotoxigenic E PCR Not detected (Not Detect) Stool EPEC (PCR) Not detected (Not Detect) Stl E. histolytica PCR Not detected (Not Detect) Stool Giardia Lamblia PCR Not detected (Not Detect) Stool Sapovirus (PCR) Not detected (Not Detect) Stl P. shigelloides PCR Not detected (Not Detect) St Y.enterocolitica PCR Not detected (Not Detect) Stool Vibrio (PCR) Not detected (Not Detect) Stl Vibrio cholerae PCR Not detected (Not Detect) Stl Enteroaggr Ecoli PCR Not detected (Not Detect) Stl Norovirus GI/GII PCR Not detected (Not Detect) Campylobacter (PCR) Not detected (Not Detect) C. difficile Tox (PCR) Detected H (Not Detect) SARS-CoV-2 (PCR) (Negative) Salmonella (PCR) Not detected (Not Detect) Blood Type Cancelled Antibody Screen Cancelled Crossmatch See Detail Discharge Plan Departure Patient Disposition: Admitted As Inpatient Clinical Impression: Fever and neutropenia, Acute hypokalemia Admit Date/Time: 03/03/20 22:04 Admit Provider: Sophia Maravilla
[2020-03-03 18:14] LABS: Add Manual Diff / Slide Review NO; Basophils Absolute Auto 0 /uL (0-100); Eosinophils Absolute Auto 0 /uL (0-450); Lymphocytes Absolute Auto 300 /uL (1100-4500); Lymphocytes Percent Auto 96.4 % (25-40); Mean Corpuscular HGB Conc 35.2 % (30-36); Mean Corpuscular Hemoglobin 30.9 PG (26-34); Mean Corpuscular Volume 87.8 fL (80-100); Monocytes Absolute Auto 0 /uL (0-900); Neutrophils Absolute Auto 0 /uL (1500-7000); Neutrophils Percent Auto 0.6 % (50-75); Platelet Count 40 X10^3/uL (150-400); Red Blood Cell Count 2.26 X10^6/uL (4.0-5.2); Red Cell Distribution Width 17.6 % (11.6-14.8)
[2020-03-03] MEDS: SODIUM CHLORIDE 0.9% 1,000 ML 1000 ML IV (18:16)
[2020-03-03] MEDS: PROCHLORPERAZINE 10 MG/2 ML VIAL IV (18:17)
[2020-03-03 18:22] LABS: INR 1.1 (0.9-1.3)
[2020-03-03 18:25] LABS: PTT Partial Thromboplastin Tim 28 SECONDS (26.4-36.2)
[2020-03-03 18:27] LABS: Alanine Aminotransferase 24 IU/L (<35); Albumin 3.7 g/dL (3.5-5.0); Albumin Globulin Ratio 1.5 (1.0-2.8); Alkaline Phosphatase 106 U/L (38-126); Aspartate Aminotransferase 39 IU/L (14-36); Bilirubin Total 0.9 mg/dL (0.2-1.3); Blood Urea Nitrogen 11 mg/dL (7-17); Calcium 8.6 mg/dL (8.4-10.2); Carbon Dioxide 27 mmol/L (22-32); Chloride 104 mmol/L (98-107); Estimated Glomerular Filt Rate > 60.0 mL/min (>60); Globulin 2.5 g/dL (1.7-4.1); Glucose 129 mg/dL (80-110); HEMOLYSIS < 15 (0-50); Lactate (Lactic Acid) 1.6 mmol/L (0.7-2.1); Lipase 29 U/L (23-300); Sodium 136 mmol/L (137-145); Total Protein 6.2 g/dL (6.3-8.2)
[2020-03-03 18:37] LABS: Potassium 2.6 mmol/L (3.4-5.1); White Blood Cell Count 0.3 X10^3/uL (4.5-11.0)
[2020-03-03 18:38] LABS: Hematocrit 19.8 % (36-46)
[2020-03-03 18:54] LABS: Procalcitonin 2.01 ng/mL (<0.5)
[2020-03-03] MEDS: POTASSIUM CHLORIDE 20 MEQ/15 ML UDC 40 MEQ PO (19:34)
[2020-03-03] MEDS: LACTATED RINGERS 517.1 ML IV (19:39)
[2020-03-03] MEDS: ACETAMINOPHEN 325 MG TABLET 650 MG PO (19:45)
[2020-03-03 20:23] LABS: Appearance Urine UA CLEAR; Bilirubin Urine UA NEGATIVE (NEGATIVE); Color Urine UA YELLOW; Glucose Urine UA NEGATIVE (Negative); Ketones Urine UA NEGATIVE (NEGATIVE); Leukocyte Esterase Urine UA NEGATIVE (NEGATIVE); Nitrite Urine UA NEGATIVE (Negative); Occult Blood Urine UA 2+ (Negative); Protein Urine UA 2+ (Negative); Urobilinogen Urine UA 0.2 E.U./dL (0.2)
[2020-03-03 20:33] LABS: RBC Urine 1-5/HPF (0-5/HPF)
[2020-03-03 20:34] LABS: Bacteria Urine Occasional (0-1); Culture Indicated Urine Cult Not Indicated; Granular Casts Urine 1-5/LPF; Hyaline Casts Urine 5-10/LPF; Mucus Urine 1+ (Negative); Squamous Epithelial Cell Urine 0-1 /HPF (0-5/HPF); WBC Urine 1-5/HPF (0-5/HPF)
[2020-03-03] MEDS: levoFLOXacin 750 MG/150 ML PIGGYBACK 100 MG IV (22:04)
[2020-03-03 22:20] LABS: Adenovirus F 40/41 Not Detected (Not Detect); Astrovirus Not Detected (Not Detect); Campylobacter Not Detected (Not Detect); Clostridium difficile toxin AB Detected (Not Detect); Cryptosporidium Not Detected (Not Detect); Cyclospora cayetanensis Not Detected (Not Detect); Entamoeba histolytica Not Detected (Not Detect); Enteroaggregative E.coli Not Detected (Not Detect); Enteropathogenic E.coli Not Detected (Not Detect); Enterotoxigenic E.coli It/st Not Detected (Not Detect); Giardia lamblia Not Detected (Not Detect); Norovirus GI/GII Not Detected (Not Detect); Plesiomonsa shigelloides Not Detected (Not Detect); Rotavirus A Not Detected (Not Detect); Salmonella Not Detected (Not Detect); Sapovirus Not Detected (Not Detect); Shiga-like toxin-prod E.coli Not Detected (Not Detect); Shigella/Enteroinvasive E.coli Not Detected (Not Detect); Vibrio Not Detected (Not Detect); Vibrio cholerae Not Detected (Not Detect); Yersinia enterocolitica Not Detected (Not Detect)
[2020-03-04] VITALS (15 sets, daily range): BP systolic 91–130; BP diastolic 50–71; PULSE 90–122; RESP 16–20; TEMP 36.8–38.1; O2SAT 92–98; BMI 19.5
[2020-03-04] MEDS: PIPERACILLIN-TAZO 4.5 GM/100 ML FROZ.PIGGY IV ×4 (00:50→18:10)
[2020-03-04] MEDS: ACETAMINOPHEN 325 MG TABLET 650 MG PO ×5 (00:53→18:12)
[2020-03-04] MEDS: VANCOMYCIN 750 MG/150 ML FROZ.PIGGY 150 MG IV (02:06)
--- NOTE | 2020-03-04 02:24 | PC.NURSE ---
Addendum entered by Rosalba Sen R.N. 03/04/20 04:41: Blood transfusion completed at 0405. BP 130/68, 115, 16 100.1 oral temp. Original Note: A positive Blood product # [id number] was issued at 0135. Verification of Blood Product/ Patient identification completed by Maliha Montesinos RN and Xin Nieto RN. Exp. date on product was 03/29/2020. Blood product started at 0148 vitals at that time was 102/45, 110, 18, 100.3 oral and RA sats 95%. Second set of vitals @0210 was 104/46, 109. 16, 99.0 oral and 95% on RA. Signed Xin Nieto RN: I have read and approve the statement. Signed mikie LOPEZ
--- NOTE | 2020-03-04 03:02 | P.HP_ITS ---
History of Present Illness History of Present Illness Date Patient Seen: 03/03/20 Time Patient Seen: 23:00 Chief complaint: AML, neutropenic fever Narrative: Kristen Toro is a 69-year-old female who lives on [facility] with AML, hypertension, depression and today with a fever of 100.7 She is a patient of at the [facility] her at [place] and underwent bone marrow biopsy at the [facility] in September of 2019 that confirmed the AML. Today she developed nausea, vomiting, weakness, she became tachycardic and shaky. She also states she was constipated, but was followed by diarrhea thinking it was a side effect of the chemotherapy. She does state that she has been short of breath with exertion, denies chest pain, denies having difficulty swallowing her having mouth sores. Daughter in the room stated that she was constipated then had diarrhea and then subsequent vomiting. She said that her mom felt hot. Per the daughter she received a GCF injection yesterday. Emergency department provider informed me that he was going to start her on left IV Levaquin which was running when the patient arrived to the floor. Review of Dr. Valderrama's notes indicated a need for transfusing her with PRBC in the case her hematocrit dropped to below 26 and platelets if they drop below 10,000. Today her hematocrit is 19. T-max was 100.7? and it is currently 98.8, blood pressure 98/50, heart rate 108, respiratory rate 16, oxygen saturation 100% on room air, she weighs 51.7 kg with a BMI of 19.5. Her WBC is 0.3, RBC 2.26, hemoglobin 7.0, hematocrit 19.8, platelet count of 40, neutrophils 0, sodium 136, potassium 2.6, chloride 104, CO2 27, creatinine 0.55, BUN 11 with a GFR of greater than 60, glucose 129, calcium 8.6, magnesium 1.6, total bilirubin 0.9, AST 39, ALT 24, alk-phos 106, procalcitonin was elevated at 2.01, UA was negative for a UTI, COVID 19 PCR is negative, C difficile is positive. Patient History Medical History (Updated 03/04/20 @ 03:24 by Philip Roque DO) Breast cancer CVA (cerebrovascular accident) HTN (hypertension) Hyperlipidemia Neuropathy Sinus headache TIA (transient ischemic attack) Surgical History History of appendectomy History of bilateral cataract extraction No pertinent past surgical history S/P breast lumpectomy Family & Social History Family History Father Coronary artery disease Mother Stroke Coronary artery disease Brother Coronary artery disease Social History: household members family,children,none Prior Living Arrangements House Safety & Behavioral: Feels Safe in Current Yes Environment Been Physically Hurt or No Threatened By a Person Suicidal Ideation Description None Suicide Plan Description No Plan Tobacco & Substance use: Smoking Status Never smoker alcohol intake current alcohol intake frequency holiday/special occasion Substance Use Type does not use Meds Home Medications and Allergies Home Medications Medication Instructions Recorded Confirmed Type acyclovir 800 mg PO BID 02/16/20 02/16/20 History amoxicillin-pot clavulanate 875 mg BID 02/16/20 02/16/20 History aspirin [Aspir-81] 81 mg PO DAILY 02/16/20 02/16/20 History carvedilol 6.25 mg PO BID 02/16/20 02/16/20 History dronabinol 2.5 mg PO TID 02/16/20 02/16/20 History escitalopram oxalate 5 mg PO DAILY 02/16/20 02/16/20 History hydroxyzine HCl 25 mg PO BID PRN 02/16/20 02/16/20 History lisinopril 10 mg PO DAILY 02/16/20 02/16/20 History voriconazole 200 mg PO Q12H 02/16/20 02/16/20 History Allergies Allergy/AdvReac Type Severity Reaction Status Date / Time No Known Allergies Allergy Unknown Verified 11/26/18 18:51 [NO KNOWN ALLERGIES] Review of Systems Review of Systems ROS: Yes All systems reviewed with the patient and are negative except as otherwise documented Exam Vital Signs (past 8 hours): - 03/03/20 19:30 03/03/20 20:00 03/03/20 20:09 Temperature 100.6 F H Pulse Rate 106 H 96 H Respiratory Rate 23 Blood Pressure 107/52 L Pulse Oximetry 96 94 03/03/20 20:15 03/03/20 20:30 03/03/20 21:19 Temperature 101.2 F H 100.6 F H Pulse Rate 105 H 97 H Respiratory Rate 14 23 Blood Pressure 125/59 L 110/53 L Pulse Oximetry 96 97 03/03/20 23:52 Temperature 98.8 F Pulse Rate 108 H Respiratory Rate 16 Blood Pressure 98/50 L Pulse Oximetry 100 Oxygen Delivery Method Room Air Narrative Exam Narrative: Gen: Alert, oriented, cachectic appearing 69 y.o. female, ill and uncomfortable appearing HEENT: normocephalic, atraumatic, conjunctiva clear, sclera non-icteric, oral mucosa pink and moist Neck: supple, full ROM, no JVD, trachea is midline Resp: Lungs CTA, non-labored breathing CV: RRR, no murmur or rubs Abd: soft, non-tender, normoactive BTs Skin: no lesions or rashes, dry and intact, very pale Neuro: Alert and oriented X 4 w/no focal deficits. Speech clear and coherent. Extremities: moves all 4 extremities, is ambulatory, negative Laureen?s sign Psyche: normal mood and affect. Objective Labs Result Diagrams: 03/03/20 17:50 03/03/20 17:50 Labs: Laboratory Results - last 24 hr 03/03/20 03/03/20 03/03/20 17:33 17:50 17:50 WBC 0.3 L* RBC 2.26 L Hgb 7.0 L Hct 19.8 L* MCV 87.8 MCH 30.9 MCHC 35.2 RDW 17.6 H Plt Count 40 L Neut % (Auto) 0.6 L Lymph % (Auto) 96.4 H [place] % (Auto) 3.0 Eos % (Auto) 0.0 L Baso % (Auto) 0.0 Neut # (Auto) 0 L Lymph # (Auto) 300 L [place] # (Auto) 0 Eos # (Auto) 0 Baso # (Auto) 0 PT 13.0 H INR 1.1 APTT 28 Sodium Potassium Chloride Carbon Dioxide BUN Creatinine Estimated GFR BUN/Creatinine Ratio Glucose Lactate Calcium Total Bilirubin AST ALT Alkaline Phosphatase Total Protein Albumin Globulin Albumin/Globulin Ratio Lipase Procalcitonin Urine Color Urine Appearance Urine pH Ur Specific [place] Urine Protein Urine Glucose (UA) Urine Ketones Urine Occult Blood Urine Nitrate Urine Bilirubin Urine Urobilinogen Ur Leukocyte Esterase Urine RBC Urine WBC Ur Squamous Epith Cells Urine Bacteria Hyaline Casts Granular Casts Urine Mucus Ur Culture Indicated? Stl C. cayetanensis PCR Stool Rotavirus (PCR) Stool Adenovirus (PCR) Stool Astrovirus (PCR) Stool Cryptosporidium PCR Stl E.coli Shiga Tox PCR St Sh/Enteroin Ecoli PCR Stool E coli O157 PCR Stl Enterotoxigenic E PCR Stool EPEC (PCR) Stl E. histolytica PCR Stool Giardia Lamblia PCR Stool Sapovirus (PCR) Stl P. shigelloides PCR St Y.enterocolitica PCR Stool Vibrio (PCR) Stl Vibrio cholerae PCR Stl Enteroaggr Ecoli PCR Stl Norovirus GI/GII PCR Campylobacter (PCR) C. difficile Tox (PCR) SARS-CoV-2 (PCR) Negative Salmonella (PCR) Blood Type Antibody Screen Crossmatch 03/03/20 03/03/20 03/03/20 17:50 17:50 17:50 WBC RBC Hgb Hct MCV MCH MCHC RDW Plt Count Neut % (Auto) Lymph % (Auto) [place] % (Auto) Eos % (Auto) Baso % (Auto) Neut # (Auto) Lymph # (Auto) [place] # (Auto) Eos # (Auto) Baso # (Auto) PT INR APTT Sodium 136 L Potassium 2.6 L* Chloride 104 Carbon Dioxide 27 BUN 11 Creatinine 0.55 Estimated GFR > 60.0 BUN/Creatinine Ratio 20.0 Glucose 129 H Lactate 1.6 Calcium 8.6 Total Bilirubin 0.9 AST 39 H ALT 24 Alkaline Phosphatase 106 Total Protein 6.2 L Albumin 3.7 Globulin 2.5 Albumin/Globulin Ratio 1.5 Lipase 29 Procalcitonin 2.01 H Urine Color Urine Appearance Urine pH Ur Specific [place] Urine Protein Urine Glucose (UA) Urine Ketones Urine Occult Blood Urine Nitrate Urine Bilirubin Urine Urobilinogen Ur Leukocyte Esterase Urine RBC Urine WBC Ur Squamous Epith Cells Urine Bacteria Hyaline Casts Granular Casts Urine Mucus Ur Culture Indicated? Stl C. cayetanensis PCR Stool Rotavirus (PCR) Stool Adenovirus (PCR) Stool Astrovirus (PCR) Stool Cryptosporidium PCR Stl E.coli Shiga Tox PCR St Sh/Enteroin Ecoli PCR Stool E coli O157 PCR Stl Enterotoxigenic E PCR Stool EPEC (PCR) Stl E. histolytica PCR Stool Giardia Lamblia PCR Stool Sapovirus (PCR) Stl P. shigelloides PCR St Y.enterocolitica PCR Stool Vibrio (PCR) Stl Vibrio cholerae PCR Stl Enteroaggr Ecoli PCR Stl Norovirus GI/GII PCR Campylobacter (PCR) C. difficile Tox (PCR) SARS-CoV-2 (PCR) Salmonella (PCR) Blood Type Antibody Screen Crossmatch 03/03/20 03/03/20 03/03/20 17:50 20:16 20:55 WBC RBC Hgb Hct MCV MCH MCHC RDW Plt Count Neut % (Auto) Lymph % (Auto) [place] % (Auto) Eos % (Auto) Baso % (Auto) Neut # (Auto) Lymph # (Auto) [place] # (Auto) Eos # (Auto) Baso # (Auto) PT INR APTT Sodium Potassium Chloride Carbon Dioxide BUN Creatinine Estimated GFR BUN/Creatinine Ratio Glucose Lactate Calcium Total Bilirubin AST ALT Alkaline Phosphatase Total Protein Albumin Globulin Albumin/Globulin Ratio Lipase Procalcitonin Urine Color Yellow Urine Appearance Clear Urine pH 6.0 Ur Specific [place] 1.020 Urine Protein 2+ H Urine Glucose (UA) Negative Urine Ketones Negative Urine Occult Blood 2+ H Urine Nitrate Negative Urine Bilirubin Negative Urine Urobilinogen 0.2 Ur Leukocyte Esterase Negative Urine RBC 1-5/hpf Urine WBC 1-5/hpf Ur Squamous Epith Cells 0-1 /hpf Urine Bacteria Occasional (0-1) Hyaline Casts 5-10/lpf Granular Casts 1-5/lpf Urine Mucus 1+ H Ur Culture Indicated? Cult not indicated Stl C. cayetanensis PCR Not detected Stool Rotavirus (PCR) Not detected Stool Adenovirus (PCR) Not detected Stool Astrovirus (PCR) Not detected Stool Cryptosporidium PCR Not detected Stl E.coli Shiga Tox PCR Not detected St Sh/Enteroin Ecoli PCR Not detected Stool E coli O157 PCR Not Reportable Stl Enterotoxigenic E PCR Not detected Stool EPEC (PCR) Not detected Stl E. histolytica PCR Not detected Stool Giardia Lamblia PCR Not detected Stool Sapovirus (PCR) Not detected Stl P. shigelloides PCR Not detected St Y.enterocolitica PCR Not detected Stool Vibrio (PCR) Not detected Stl Vibrio cholerae PCR Not detected Stl Enteroaggr Ecoli PCR Not detected Stl Norovirus GI/GII PCR Not detected Campylobacter (PCR) Not detected C. difficile Tox (PCR) Detected H SARS-CoV-2 (PCR) Salmonella (PCR) Not detected Blood Type Cancelled Antibody Screen Cancelled Crossmatch See Detail Assessment & Plan Assessment & Plan narrative: Kristen Cho will be admitted as an inpatient for treatment of a neutropenic fever and C difficile. Discussed the case with the on-call oncologist at [facility] who recommended IV vancomycin and IV Zosyn on top of oral fidaxomicin for treatment of her C difficile infection. Neutropenic fever, acute, present on admission -she will be started on IV Zosyn 4.5 mg q.6 and vancomycin dosed per pharmacy -On-call oncologist at [facility] did not recommend that the patient receive any colony-stimulating factors despite the fact that the patient did receive a dose the day prior to admission -She will take alternating doses of tylenol and ibuprophen for fever C difficile, acute, present on admission -the patient states she has never had C difficile in the past -she started on oral Fidaxamicin AML anemia, acute with an HCT of 19 -patient is typed and screened for 2 units PRBC and is currently receiving her 1st unit -will we check her CBC in the morning after the 2nd unit Essential hypertension, chronic and currently hypotensive -she normally takes carvedilol 6.25 mg p.o. b.i.d. however this may need to be held for her morning dose due to soft blood pressures Generalized pain secondary to AML -patient takes dronabinol 2.5 mg po TID and may need to supply her own as this is not locally stocked Chemo prophylaxis Continue home dose of voriconazole 200 mg po q 12 hours, will need to take her own Continue home dose of acyclovir 800 mg po bid VTE prophylaxis: Wells risk score: 2.5 Bilateral SCDs Pharmacological anticoagulation contraindicated due to lack of platelets and severe anemia Consults: none Patient is admitted under inpatient status with expected length of stay greater than 2 midnights due to severity of presenting symptoms, risk of adverse event, and complexity of treatment plan. FEN: TKO w/iv medications , general diet, BMP and magnesium in the am. Dispo: probable disharge back to home Code Status: DNR/DNI as discussed with patient and daughter. Scores Wells' Criteria for PE Clinical signs and symptoms of DVT: No PE is #1 Dx or equally likely: No Heart rate > 100: Yes Immobilization at least 3 days or surg in previous 4 weeks: No History of PE or DVT: No Hemoptysis: No Malignancy w/Treatment within 6 months or palliative: Yes Wells' PE Score total: 2.5 Quality VTE Deep Vein Thrombosis/Pulmonary Embolism Present on Admission: No
[2020-03-04] MEDS: PROCHLORPERAZINE 10 MG/2 ML VIAL 5 MG IV (04:42)
--- NOTE | 2020-03-04 04:56 | PC.NURSE ---
Pt. admitted to the floor 03/03/20 @ 4843, oriented to her room admit assessment done. 1st unit of PRBC initiated @ 0148 & transfused @ 0405. Temp. 100.1 & vomited 50 cc yellowish emesis. Compazine 5 mg. IVP admin., states Zofran dose not work wasted 4 mg. of Zofran. Pt. was having rigors & C/O being cold prior to blood transfusion. Medicated with 650 mg. of Tylenol @ 0053 & reported it helped my shaking. Will cont. POC & monitor.
[2020-03-04 05:37] LABS: Blood Urea Nitrogen 9 mg/dL (7-17); Calcium 8.2 mg/dL (8.4-10.2); Carbon Dioxide 26 mmol/L (22-32); Chloride 107 mmol/L (98-107); Estimated Glomerular Filt Rate > 60.0 mL/min (>60); Glucose 128 mg/dL (80-110); HEMOLYSIS < 15 (0-50); Magnesium 1.4 mg/dL (1.6-2.3); Potassium 3.5 mmol/L (3.4-5.1); Sodium 138 mmol/L (137-145)
[2020-03-04 05:50] LABS: Hemoglobin 7.1 g/dL (12.0-16.0); Mean Corpuscular HGB Conc 34.6 % (30-36); Mean Corpuscular Hemoglobin 31.1 PG (26-34); Mean Corpuscular Volume 89.8 fL (80-100); Red Blood Cell Count 2.29 X10^6/uL (4.0-5.2); Red Cell Distribution Width 17.5 % (11.6-14.8)
[2020-03-04 07:04] LABS: Hematocrit 20.6 % (36-46)
[2020-03-04 07:05] LABS: Platelet Count 22 X10^3/uL (150-400); White Blood Cell Count 0.1 X10^3/uL (4.5-11.0)
[2020-03-04 07:06] LABS: Add Manual Diff / Slide Review SLIDE REVIEW
[2020-03-04 09:02] LABS: Acinetobacter baumannii Not Detected (Not Detect); Candida albicans Not Detected (Not Detect); Candida glabrata Not Detected (Not Detect); Candida krusei Not Detected (Not Detect); Candida parapsilosis Not Detected (Not Detect); Candida tropicalis Not Detected (Not Detect); E. coli Detected (Not Detect); Enterobacter cloacae complex Not Detected (Not Detect); Enterobacteriaceae species Detected (Not Detect); Enterococcus species Not Detected (Not Detect); Haemophilus influenzae Not Detected (Not Detect); KPC (carbapenem-resist gene) Not Detected (Not Detect); Listeria monocytogenes Not Detected (Not Detect); Neisseria meningitidis Not Detected (Not Detect); Proteus species Not Detected (Not Detect); Pseudomonas aeruginosa Not Detected (Not Detect); Serratia marcescens Not Detected (Not Detect); Staphylococcus species Not Detected (Not Detect); Streptococcus agalactiae (Gr B Not Detected (Not Detect); Streptococcus pneumonia Not Detected (Not Detect); Streptococcus pyogenes (Gr A) Not Detected (Not Detect); Streptococcus species Not Detected (Not Detect)
--- NOTE | 2020-03-04 09:06 | PC.NURSE ---
Addendum entered by Leah Oscar R.N. 03/04/20 13:14: 0800 Carvedilol held d/t soft pressures. aware. Lisinopril administered once pressure was WNL. Patient currently resting in bed with eyes closed. Mg+ infusing in port. Left forearm IV site dsg changed. Patent, saline locked. Earlier this AM patient c/o pain in left shoulder and back, Oxy prescribed and administered, patient fell asleep shortly there after. Patient has been up with SBA to use BSC. Denies dizziness, lightheadedness, headache, N/V. Tele on. Patient remains on Contact precautions, BM are loose and aleyda colored. Patient d/t void. Will continue to monitor. Lungs clear, patient @ 98% on RA, denies SOB with rest, increased WOB noted with activity, patient denies discomfort. Call light in reach. Original Note: Received call from lab regarding Ecoli in blood. notified.
[2020-03-04 09:33] LABS: RBC Morphology Normal Morphology
[2020-03-04] MEDS: ASPIRIN EC 81 MG TABLET PO (09:52)
[2020-03-04] MEDS: VORICONAZOLE 200 MG TABLET PO ×2 (09:53→21:39)
[2020-03-04] MEDS: FIDAXOMICIN 200 MG TABLET PO ×2 (09:53→21:38)
[2020-03-04] MEDS: GABAPENTIN 100 MG CAPSULE PO (09:53)
[2020-03-04] MEDS: MAGNESIUM SULFATE 2 GM/50 ML PIGGYBACK IV (09:57)
[2020-03-04] MEDS: ESCITALOPRAM 10 MG TABLET 5 MG PO (10:01)
[2020-03-04] MEDS: OXYCODONE IR 5 MG TABLET 2.5 MG PO (10:55)
[2020-03-04] MEDS: lisinopriL 10 MG TABLET PO (11:17)
[2020-03-04] MEDS: SODIUM CHLORIDE 0.9% 1,000 ML 100 ML IV ×2 (15:02)
--- NOTE | 2020-03-04 15:10 | CM.IDA ---
Initial DCP Assessment Note Patient is a 69 yo female, resident of [facility]. Patient presents w/ neutropenic fever and C difficile, PMH significant for AML, managed by at the [facility]. PCP: Abhinav Forte Payer: KATARINA/Louis Reviewed chart, patient lives w/family on [facility], dx w/AML by [facility] in Sep 2019, receiving chemotherapy at the [facility]. Patient has received 2 units of blood today, on IV abx and IVF, according to notes patient takes dronabinol 2.5 mg po TID and may need to supply her own as this is not locally stocked Attempted assessment this afternoon, patient and supportive dtr sleeping soundly in room. Spoke w/RN Leah who explained patient and dtr had a very difficult evening and best not to wake at this time. RN anticipates patient will return home w/family; r/o need for HH (?) Plan: DC likely home w/family, r/o need for ongoing IV abx and HH (?) JOVANY Discharge Planning/Care Management Advanced directive, confirm from FAMILY Start: 03/04/20 00:23 Freq: Q24H Status: Active Protocol: Document 03/04/20 00:23 ALTON (Rec: 03/04/20 14:30 ALTON [id number]) Advance Directive, confirm on record Time 14:30 Person contacted Daughter Copy received No CM Discharge Assessment Start: 03/04/20 15:06 Freq: Status: Active Protocol: Document 03/04/20 15:06 JOVANY (Rec: 03/04/20 15:10 [id number]) Discharge Planning Assessment Assigned Jira Developer RADHA Sandhu DPOA/Assigned Designee Name Valencia Cho dtr Contact Information [phone] Advance Directives? Yes Advance Directives on File No History Provided By Family Member,Medical Record Prior Living Arrangements House Household Members family,children,none Willing to Return to Facility? No Patient/Family Preference Home with Home Health Discharge Plan Home with Home Health Transportation Arrangement Dtr bedside and likely can provide transport back [facility].
--- NOTE | 2020-03-04 15:40 | PM.PN.1 ---
Subjective Subjective Date Patient Seen: 03/04/20 Time Patient Seen: 15:56 Interval history: Her platelets have dropped from 40 to 22. The hemoglobin has remained steady at 7.1 compared to 7.0. The white blood count has dropped from 300 to 100. Her stool C diff continues to be treated with Dificid. Her last GCSF was on 03/02. Her blood cultures are growing E coli. She explains to me that the scratch on her left face was caused by her puppy who was quite enthusiastic, jumping on the couch she was sitting on. She tends to relate episodes from 5-10 years ago when asked about current issues. Her daughter is present and is helpful. E coli is growing in her blood cultures. The UA on admission was normal. Her stool is beginning to solidify. Exam Vital Signs (past 8 hours): - 03/04/20 08:00 03/04/20 08:08 03/04/20 09:15 Temperature 98.3 F 98.5 F Pulse Rate 93 H 115 H 102 H Respiratory Rate 16 20 16 Blood Pressure 119/58 L 99/62 Pulse Oximetry 96 97 03/04/20 11:17 03/04/20 11:40 Temperature 98.5 F Pulse Rate 90 90 Respiratory Rate 16 Blood Pressure 120/71 120/71 Pulse Oximetry 98 Oxygen Delivery Method Room Air Oxygen Flow Rate 0 Narrative Exam Narrative: She is alert and oriented x3. Her explanations tend to be somewhat circuitous and she easily gets lost in the details. At 1 point she was telling me a story from 5 years ago to explain current questions. She does not have insight into this change in her mentation. Heart is regular rate and rhythm without murmur. Lungs are clear to auscultation bilaterally. Extremities have no ankle edema. Abdomen is soft, bowel sounds positive, nontender, with liver enlargement but no discernible spleen. There is a healing scratch on the left side of her cheek. Objective Labs Result Diagrams: 03/04/20 05:15 03/04/20 05:15 Labs: Laboratory Results - last 24 hr 03/03/20 03/03/20 03/03/20 17:33 17:40 17:50 WBC 0.3 L* RBC 2.26 L Hgb 7.0 L Hct 19.8 L* MCV 87.8 MCH 30.9 MCHC 35.2 RDW 17.6 H Plt Count 40 L Neut % (Auto) 0.6 L Lymph % (Auto) 96.4 H [place] % (Auto) 3.0 Eos % (Auto) 0.0 L Baso % (Auto) 0.0 Neut # (Auto) 0 L Lymph # (Auto) 300 L [place] # (Auto) 0 Eos # (Auto) 0 Baso # (Auto) 0 Platelet Estimate RBC Morphology PT INR APTT Sodium Potassium Chloride Carbon Dioxide BUN Creatinine Estimated GFR BUN/Creatinine Ratio Glucose Lactate Calcium Magnesium Total Bilirubin AST ALT Alkaline Phosphatase Total Protein Albumin Globulin Albumin/Globulin Ratio Lipase Procalcitonin Urine Color Urine Appearance Urine pH Ur Specific [place] Urine Protein Urine Glucose (UA) Urine Ketones Urine Occult Blood Urine Nitrate Urine Bilirubin Urine Urobilinogen Ur Leukocyte Esterase Urine RBC Urine WBC Ur Squamous Epith Cells Urine Bacteria Hyaline Casts Granular Casts Urine Mucus Ur Culture Indicated? Stl C. cayetanensis PCR Stool Rotavirus (PCR) Stool Adenovirus (PCR) Stool Astrovirus (PCR) Stool Cryptosporidium PCR Stl E.coli Shiga Tox PCR St Sh/Enteroin Ecoli PCR Stool E coli O157 PCR Stl Enterotoxigenic E PCR Stool EPEC (PCR) Stl E. histolytica PCR Stool Giardia Lamblia PCR Stool Sapovirus (PCR) Stl P. shigelloides PCR St Y.enterocolitica PCR Stool Vibrio (PCR) Stl Vibrio cholerae PCR Stl Enteroaggr Ecoli PCR Stl Norovirus GI/GII PCR A. baumannii (PCR) Not detected Campylobacter (PCR) Aby albicans (PCR) Not detected C. glabrata (PCR) Not detected C. krusei (PCR) Not detected C. parapsilosis (PCR) Not detected C. tropicalis (PCR) Not detected C. difficile Tox (PCR) SARS-CoV-2 (PCR) Negative Enterobacteriac sp PCR Detected H E. cloacae complex PCR Not detected Enterococcus sp PCR Not detected E. coli (PCR) Detected H H. influenzae (PCR) Not detected Klebsiella oxytoca PCR Not detected Klebsiella pneumoniae Not detected List. monocytogenes PCR Not detected N. meningitidis (PCR) Not detected Proteus species (PCR) Not detected Salmonella (PCR) Serratia marcescens PCR Not detected Staphylococcus sp PCR Not detected Staph aureus (PCR) Not detected mecA-Methicil Res Gene Not Reportable Streptococcus sp PCR Not detected Group A Strep (PCR) Not detected Strep agalactiae (PCR) Not detected Strep pneumoniae (PCR) Not detected P. aeruginosa (PCR) Not detected Live/B-Vanco Res Genes Not Reportable KPC-Carbap Res Gene PCR Not detected Blood Type Antibody Screen Crossmatch 03/03/20 03/03/20 03/03/20 17:50 17:50 17:50 WBC RBC Hgb Hct MCV MCH MCHC RDW Plt Count Neut % (Auto) Lymph % (Auto) [place] % (Auto) Eos % (Auto) Baso % (Auto) Neut # (Auto) Lymph # (Auto) [place] # (Auto) Eos # (Auto) Baso # (Auto) Platelet Estimate RBC Morphology PT 13.0 H INR 1.1 APTT 28 Sodium 136 L Potassium 2.6 L* Chloride 104 Carbon Dioxide 27 BUN 11 Creatinine 0.55 Estimated GFR > 60.0 BUN/Creatinine Ratio 20.0 Glucose 129 H Lactate Calcium 8.6 Magnesium Total Bilirubin 0.9 AST 39 H ALT 24 Alkaline Phosphatase 106 Total Protein 6.2 L Albumin 3.7 Globulin 2.5 Albumin/Globulin Ratio 1.5 Lipase 29 Procalcitonin 2.01 H Urine Color Urine Appearance Urine pH Ur Specific [place] Urine Protein Urine Glucose (UA) Urine Ketones Urine Occult Blood Urine Nitrate Urine Bilirubin Urine Urobilinogen Ur Leukocyte Esterase Urine RBC Urine WBC Ur Squamous Epith Cells Urine Bacteria Hyaline Casts Granular Casts Urine Mucus Ur Culture Indicated? Stl C. cayetanensis PCR Stool Rotavirus (PCR) Stool Adenovirus (PCR) Stool Astrovirus (PCR) Stool Cryptosporidium PCR Stl E.coli Shiga Tox PCR St Sh/Enteroin Ecoli PCR Stool E coli O157 PCR Stl Enterotoxigenic E PCR Stool EPEC (PCR) Stl E. histolytica PCR Stool Giardia Lamblia PCR Stool Sapovirus (PCR) Stl P. shigelloides PCR St Y.enterocolitica PCR Stool Vibrio (PCR) Stl Vibrio cholerae PCR Stl Enteroaggr Ecoli PCR Stl Norovirus GI/GII PCR A. baumannii (PCR) Campylobacter (PCR) Aby albicans (PCR) C. glabrata (PCR) C. krusei (PCR) C. parapsilosis (PCR) C. tropicalis (PCR) C. difficile Tox (PCR) SARS-CoV-2 (PCR) Enterobacteriac sp PCR E. cloacae complex PCR Enterococcus sp PCR E. coli (PCR) H. influenzae (PCR) Klebsiella oxytoca PCR Klebsiella pneumoniae List. monocytogenes PCR N. meningitidis (PCR) Proteus species (PCR) Salmonella (PCR) Serratia marcescens PCR Staphylococcus sp PCR Staph aureus (PCR) mecA-Methicil Res Gene Streptococcus sp PCR Group A Strep (PCR) Strep agalactiae (PCR) Strep pneumoniae (PCR) P. aeruginosa (PCR) Live/B-Vanco Res Genes KPC-Carbap Res Gene PCR Blood Type Antibody Screen Crossmatch 03/03/20 03/03/20 03/03/20 17:50 17:50 20:16 WBC RBC Hgb Hct MCV MCH MCHC RDW Plt Count Neut % (Auto) Lymph % (Auto) [place] % (Auto) Eos % (Auto) Baso % (Auto) Neut # (Auto) Lymph # (Auto) [place] # (Auto) Eos # (Auto) Baso # (Auto) Platelet Estimate RBC Morphology PT INR APTT Sodium Potassium Chloride Carbon Dioxide BUN Creatinine Estimated GFR BUN/Creatinine Ratio Glucose Lactate 1.6 Calcium Magnesium Total Bilirubin AST ALT Alkaline Phosphatase Total Protein Albumin Globulin Albumin/Globulin Ratio Lipase Procalcitonin Urine Color Yellow Urine Appearance Clear Urine pH 6.0 Ur Specific [place] 1.020 Urine Protein 2+ H Urine Glucose (UA) Negative Urine Ketones Negative Urine Occult Blood 2+ H Urine Nitrate Negative Urine Bilirubin Negative Urine Urobilinogen 0.2 Ur Leukocyte Esterase Negative Urine RBC 1-5/hpf Urine WBC 1-5/hpf Ur Squamous Epith Cells 0-1 /hpf Urine Bacteria Occasional (0-1) Hyaline Casts 5-10/lpf Granular Casts 1-5/lpf Urine Mucus 1+ H Ur Culture Indicated? Cult not indicated Stl C. cayetanensis PCR Stool Rotavirus (PCR) Stool Adenovirus (PCR) Stool Astrovirus (PCR) Stool Cryptosporidium PCR Stl E.coli Shiga Tox PCR St Sh/Enteroin Ecoli PCR Stool E coli O157 PCR Stl Enterotoxigenic E PCR Stool EPEC (PCR) Stl E. histolytica PCR Stool Giardia Lamblia PCR Stool Sapovirus (PCR) Stl P. shigelloides PCR St Y.enterocolitica PCR Stool Vibrio (PCR) Stl Vibrio cholerae PCR Stl Enteroaggr Ecoli PCR Stl Norovirus GI/GII PCR A. baumannii (PCR) Campylobacter (PCR) Aby albicans (PCR) C. glabrata (PCR) C. krusei (PCR) C. parapsilosis (PCR) C. tropicalis (PCR) C. difficile Tox (PCR) SARS-CoV-2 (PCR) Enterobacteriac sp PCR E. cloacae complex PCR Enterococcus sp PCR E. coli (PCR) H. influenzae (PCR) Klebsiella oxytoca PCR Klebsiella pneumoniae List. monocytogenes PCR N. meningitidis (PCR) Proteus species (PCR) Salmonella (PCR) Serratia marcescens PCR Staphylococcus sp PCR Staph aureus (PCR) mecA-Methicil Res Gene Streptococcus sp PCR Group A Strep (PCR) Strep agalactiae (PCR) Strep pneumoniae (PCR) P. aeruginosa (PCR) Live/B-Vanco Res Genes KPC-Carbap Res Gene PCR Blood Type Cancelled Antibody Screen Cancelled Crossmatch See Detail 03/03/20 03/04/20 03/04/20 20:55 05:15 05:15 WBC 0.1 L* D RBC 2.29 L Hgb 7.1 L Hct 20.6 L* MCV 89.8 MCH 31.1 MCHC 34.6 RDW 17.5 H Plt Count 22 L* Neut % (Auto) Not Reportable Lymph % (Auto) Not Reportable [place] % (Auto) Not Reportable Eos % (Auto) Not Reportable Baso % (Auto) Not Reportable Neut # (Auto) Lymph # (Auto) Not Reportable [place] # (Auto) Not Reportable Eos # (Auto) Baso # (Auto) Not Reportable Platelet Estimate RBC Morphology Normal morphology PT INR APTT Sodium 138 Potassium 3.5 Chloride 107 Carbon Dioxide 26 BUN 9 Creatinine 0.45 L Estimated GFR > 60.0 BUN/Creatinine Ratio 20.0 Glucose 128 H Lactate Calcium 8.2 L Magnesium 1.4 L Total Bilirubin AST ALT Alkaline Phosphatase Total Protein Albumin Globulin Albumin/Globulin Ratio Lipase Procalcitonin Urine Color Urine Appearance Urine pH Ur Specific [place] Urine Protein Urine Glucose (UA) Urine Ketones Urine Occult Blood Urine Nitrate Urine Bilirubin Urine Urobilinogen Ur Leukocyte Esterase Urine RBC Urine WBC Ur Squamous Epith Cells Urine Bacteria Hyaline Casts Granular Casts Urine Mucus Ur Culture Indicated? Stl C. cayetanensis PCR Not detected Stool Rotavirus (PCR) Not detected Stool Adenovirus (PCR) Not detected Stool Astrovirus (PCR) Not detected Stool Cryptosporidium PCR Not detected Stl E.coli Shiga Tox PCR Not detected St Sh/Enteroin Ecoli PCR Not detected Stool E coli O157 PCR Not Reportable Stl Enterotoxigenic E PCR Not detected Stool EPEC (PCR) Not detected Stl E. histolytica PCR Not detected Stool Giardia Lamblia PCR Not detected Stool Sapovirus (PCR) Not detected Stl P. shigelloides PCR Not detected St Y.enterocolitica PCR Not detected Stool Vibrio (PCR) Not detected Stl Vibrio cholerae PCR Not detected Stl Enteroaggr Ecoli PCR Not detected Stl Norovirus GI/GII PCR Not detected A. baumannii (PCR) Campylobacter (PCR) Not detected Aby albicans (PCR) C. glabrata (PCR) C. krusei (PCR) C. parapsilosis (PCR) C. tropicalis (PCR) C. difficile Tox (PCR) Detected H SARS-CoV-2 (PCR) Enterobacteriac sp PCR E. cloacae complex PCR Enterococcus sp PCR E. coli (PCR) H. influenzae (PCR) Klebsiella oxytoca PCR Klebsiella pneumoniae List. monocytogenes PCR N. meningitidis (PCR) Proteus species (PCR) Salmonella (PCR) Not detected Serratia marcescens PCR Staphylococcus sp PCR Staph aureus (PCR) mecA-Methicil Res Gene Streptococcus sp PCR Group A Strep (PCR) Strep agalactiae (PCR) Strep pneumoniae (PCR) P. aeruginosa (PCR) Live/B-Vanco Res Genes KPC-Carbap Res Gene PCR Blood Type Antibody Screen Crossmatch 03/04/20 05:15 WBC RBC Hgb Hct MCV MCH MCHC RDW Plt Count Neut % (Auto) Lymph % (Auto) [place] % (Auto) Eos % (Auto) Baso % (Auto) Neut # (Auto) Lymph # (Auto) [place] # (Auto) Eos # (Auto) Baso # (Auto) Platelet Estimate RBC Morphology PT INR APTT Sodium Potassium Chloride Carbon Dioxide BUN Creatinine Estimated GFR BUN/Creatinine Ratio Glucose Lactate Calcium Magnesium Total Bilirubin AST ALT Alkaline Phosphatase Total Protein Albumin Globulin Albumin/Globulin Ratio Lipase Procalcitonin Urine Color Urine Appearance Urine pH Ur Specific [place] Urine Protein Urine Glucose (UA) Urine Ketones Urine Occult Blood Urine Nitrate Urine Bilirubin Urine Urobilinogen Ur Leukocyte Esterase Urine RBC Urine WBC Ur Squamous Epith Cells Urine Bacteria Hyaline Casts Granular Casts Urine Mucus Ur Culture Indicated? Stl C. cayetanensis PCR Stool Rotavirus (PCR) Stool Adenovirus (PCR) Stool Astrovirus (PCR) Stool Cryptosporidium PCR Stl E.coli Shiga Tox PCR St Sh/Enteroin Ecoli PCR Stool E coli O157 PCR Stl Enterotoxigenic E PCR Stool EPEC (PCR) Stl E. histolytica PCR Stool Giardia Lamblia PCR Stool Sapovirus (PCR) Stl P. shigelloides PCR St Y.enterocolitica PCR Stool Vibrio (PCR) Stl Vibrio cholerae PCR Stl Enteroaggr Ecoli PCR Stl Norovirus GI/GII PCR A. baumannii (PCR) Campylobacter (PCR) Aby albicans (PCR) C. glabrata (PCR) C. krusei (PCR) C. parapsilosis (PCR) C. tropicalis (PCR) C. difficile Tox (PCR) SARS-CoV-2 (PCR) Enterobacteriac sp PCR E. cloacae complex PCR Enterococcus sp PCR E. coli (PCR) H. influenzae (PCR) Klebsiella oxytoca PCR Klebsiella pneumoniae List. monocytogenes PCR N. meningitidis (PCR) Proteus species (PCR) Salmonella (PCR) Serratia marcescens PCR Staphylococcus sp PCR Staph aureus (PCR) mecA-Methicil Res Gene Streptococcus sp PCR Group A Strep (PCR) Strep agalactiae (PCR) Strep pneumoniae (PCR) P. aeruginosa (PCR) Live/B-Vanco Res Genes KPC-Carbap Res Gene PCR Blood Type A Positive Antibody Screen Negative Crossmatch See Detail [facility] Medical History (Updated 03/04/20 @ 03:24 by Philip Roque DO) Breast cancer CVA (cerebrovascular accident) HTN (hypertension) Hyperlipidemia Neuropathy Sinus headache TIA (transient ischemic attack) Surgical History History of appendectomy History of bilateral cataract extraction No pertinent past surgical history S/P breast lumpectomy Family History Father Coronary artery disease Mother Stroke Coronary artery disease Brother Coronary artery disease Social History household members: family, children and none Smoking Status: Never smoker alcohol intake: current Assessment & Plan Assessment & Plan narrative: Kristen Cho was discussed on the day of admission with the on-call oncologist at [facility] who recommended IV vancomycin and IV Zosyn on top of oral fidaxomicin for treatment of her C difficile infection. Neutropenic fever, acute, present on admission -03/03 WBC 0.3, 03/04 WBC 0.1 -continue IV Zosyn 4.5 mg q.6 for E.coli bacteremia (no UC done as the admitting UA was normal) -Vanco was held today based on the E.coli blood culture results -On-call oncologist at [facility] did not recommend that the patient receive any colony-stimulating factors despite the fact that the patient did receive a dose the day prior to admission -The patient and her daughter understand that the platelets and hemoglobin may take several days or weeks to respond. She apparently had a similar admission with a total of 6 weeks of hospital stay a year ago. They also understand that this disease could be fatal for her on any given day. -She will take alternating doses of tylenol and ibuprofen for fever E.Coli Bacteremia -Continue IV Zosyn C difficile, acute, present on admission -C.diff Toxin serology is positive -03/05 she reports decreasing amounts of liquid stool. -the patient states she has never had C difficile in the past -continue oral Fidaxamicin AML anemia, acute with an HCT of 19 -given 2 units Prbc on admission -03/04 hgb 7.1 -daily CBC and plan ongoing transfusion support AML thrombocytopenia, acute, present on admission -Platelets dropped from 40 to 22 on 03/04 -Daily CBC and plan ongoing transfusion support Essential hypertension, chronic and currently hypotensive -she normally takes carvedilol 6.25 mg p.o. b.i.d. however this may need to be held for her morning dose due to soft blood pressures Generalized pain secondary to AML -patient takes dronabinol 2.5 mg po TID and may need to supply her own as this is not locally stocked Chemo prophylaxis Continue home dose of voriconazole 200 mg po q 12 hours, will need to take her own Continue home dose of acyclovir 800 mg po bid VTE prophylaxis: Wells risk score: 2.5 Bilateral SCDs Pharmacological anticoagulation contraindicated due to lack of platelets and severe anemia FEN: TKO w/iv medications , general diet, BMP and magnesium in the am. Dispo: probable disharge back to home Code Status: DNR/DNI as discussed with patient and daughter Quality VTE Deep Vein Thrombosis/Pulmonary Embolism Present on Admission: No
[2020-03-04] MEDS: carvediloL 12.5 MG TABLET 6.25 MG PO (19:27)
[2020-03-04] MEDS: GABAPENTIN 300 MG CAPSULE PO (21:39)
[2020-03-05] VITALS (15 sets, daily range): BP systolic 119–169; BP diastolic 57–95; PULSE 98–174; RESP 10–37; TEMP 32–38.8; O2SAT 64–94
[2020-03-05] MEDS: ACETAMINOPHEN 325 MG TABLET 650 MG PO
[2020-03-05] MEDS: PIPERACILLIN-TAZO 4.5 GM/100 ML FROZ.PIGGY IV ×2 (00:50→07:02)
[2020-03-05] MEDS: SODIUM CHLORIDE 0.9% 1,000 ML 100 ML IV (02:37)
--- NOTE | 2020-03-05 04:45 | PC.NURSE ---
Up to the BSC the second time this shift, this time she C/O dyspnea. Auscultated her lungs noted slight wheezing throughout posterior & anterior lobes. RA sat. 88-89%, placed her in 2 liters / SPO2 94-95%. 2 episodes of diarrhea so far this shift. POOJA Maravilla notified ordered to discontinue her IVF of NS @ 100 cc/hr. Order implemented & heplocked her port. Will cont. POC & monitor.
[2020-03-05 05:12] LABS: Hematocrit 25.9 % (36-46); Hemoglobin 8.9 g/dL (12.0-16.0); Mean Corpuscular HGB Conc 34.4 % (30-36); Mean Corpuscular Volume 90.1 fL (80-100); Red Blood Cell Count 2.87 X10^6/uL (4.0-5.2); Red Cell Distribution Width 16.8 % (11.6-14.8)
[2020-03-05 05:32] LABS: BUN Creatinine Ratio 14.9 (6-22); Blood Urea Nitrogen 10 mg/dL (7-17); Calcium 8.3 mg/dL (8.4-10.2); Carbon Dioxide 24 mmol/L (22-32); Chloride 103 mmol/L (98-107); Estimated Glomerular Filt Rate > 60.0 mL/min (>60); Glucose 111 mg/dL (80-110); HEMOLYSIS < 15 (0-50); Magnesium 1.8 mg/dL (1.6-2.3); Potassium 3.2 mmol/L (3.4-5.1); Sodium 133 mmol/L (137-145)
[2020-03-05 06:10] LABS: Platelet Count 13 X10^3/uL (150-400); White Blood Cell Count 0.1 X10^3/uL (4.5-11.0)
[2020-03-05 06:11] LABS: Add Manual Diff / Slide Review SLIDE REVIEW
[2020-03-05] MEDS: SODIUM CHLORIDE 0.9% FLUSH 10 ML IV (07:03)
[2020-03-05 08:41] LABS: Platelet Estimate Decreased on smear; RBC Morphology Normal Morphology
--- NOTE | 2020-03-05 08:48 | DI.RAD.S_ITS ---
PROCEDURE: XR CHEST 1V INDICATIONS: resp distress TECHNIQUE: One view of the chest was acquired. COMPARISON: [facility], CR, XR CHEST 1V, 12/04/2018, 10:32. [facility], CR, XR CHEST 1V, 12/03/2018, 12:22. [facility], CR, XR CHEST 1V, 12/09/2018, 12:48. [facility], CR, XR CHEST 1V, 03/03/2020, 18:17. FINDINGS: Surgical changes and devices: There is a stable left-sided chest port. Bilateral axillary clips are seen. Lungs and pleura: There is new consolidation seen within the left lung, with air bronchograms. There is a small, , potential pneumothorax. Mediastinum: Mediastinal contours appear normal. Heart size is normal. Bones and chest wall: No suspicious bony lesions. Age-appropriate bony degenerative changes are seen. Mild dextroconvex scoliotic curvature is seen. Overlying soft tissues appear unremarkable. IMPRESSION: There is new left consolidation seen, with air bronchograms. There is a small potential pneumothorax. Note: Case discussed by telephone with Dr. Jha at 8:02 a.m. [place] time on March 04, 2020. Dictated by: Cholo Villar M.D. on 03/05/2020 at 8:00 Approved by: Cholo Villar M.D. on 03/05/2020 at 8:03
[2020-03-05] MEDS: VANCOMYCIN 750 MG/150 ML FROZ.PIGGY 150 MG IV (09:02)
--- NOTE | 2020-03-05 09:08 | P.PN_ITS ---
Subjective Subjective Date Patient Seen: 03/05/20 Interval history: The patient developed abrupt onset hypoxia, fever, confusion , tachycardia and respiratory distress this morning. Her oxygen saturation was 65%, Fever to 101 and she was very pale. Rapid Response was called. Patient also noted to be tachycardic with a heart rate of 135. She is awake and responsive. She is DNR but wishes medical treatment and concurs with ICU transfer. Exam Vital Signs (past 8 hours): - 03/05/20 04:00 03/05/20 04:20 Temperature 98.6 F Pulse Rate 98 H Respiratory Rate 20 Blood Pressure 119/57 L Pulse Oximetry 93 93 Oxygen Delivery Method Room Air Oxygen Flow Rate 0 Narrative Exam Narrative: Ill appearing female pale and in extremis HEENT: NC/AT PERRAL, EOMI, oropharynx clear Lungs decreased breaths sounds on the right CV: tachycardic, RRR Nl Sl S2 Abd: Soft/ non tender/ non distended Ext: warm no 1+ bilateral pitting edema Skin: no lesions identified Objective Labs Result Diagrams: 03/05/20 04:50 03/05/20 04:50 Labs: Laboratory Results - last 24 hr 03/04/20 03/04/20 03/05/20 05:15 05:15 04:50 WBC RBC Hgb Hct MCV MCH MCHC RDW Plt Count Neut % (Auto) Lymph % (Auto) [place] % (Auto) Eos % (Auto) Baso % (Auto) Lymph # (Auto) [place] # (Auto) Baso # (Auto) Platelet Estimate RBC Morphology Normal morphology Sodium 133 L Potassium 3.2 L Chloride 103 Carbon Dioxide 24 BUN 10 Creatinine 0.67 Estimated GFR > 60.0 BUN/Creatinine Ratio 14.9 Glucose 111 H Calcium 8.3 L Magnesium 1.8 Crossmatch See Detail 03/05/20 04:50 WBC 0.1 L* RBC 2.87 L Hgb 8.9 L Hct 25.9 L MCV 90.1 MCH 31.0 MCHC 34.4 RDW 16.8 H Plt Count 13 L* Neut % (Auto) Not Reportable Lymph % (Auto) Not Reportable [place] % (Auto) Not Reportable Eos % (Auto) Not Reportable Baso % (Auto) Not Reportable Lymph # (Auto) Not Reportable [place] # (Auto) Not Reportable Baso # (Auto) Not Reportable Platelet Estimate Decreased on smear RBC Morphology Normal morphology Sodium Potassium Chloride Carbon Dioxide BUN Creatinine Estimated GFR BUN/Creatinine Ratio Glucose Calcium Magnesium Crossmatch [facility] Medical History (Updated 03/04/20 @ 03:24 by Philip Roque DO) Breast cancer CVA (cerebrovascular accident) HTN (hypertension) Hyperlipidemia Neuropathy Sinus headache TIA (transient ischemic attack) Surgical History History of appendectomy History of bilateral cataract extraction No pertinent past surgical history S/P breast lumpectomy Family History Father Coronary artery disease Mother Stroke Coronary artery disease Brother Coronary artery disease Social History household members: family, children and none Smoking Status: Never smoker alcohol intake: current Assessment & Plan Assessment & Plan narrative: Impression : 69 y.o female with known AML S/P chemo presented with Neutropenic Fevers. Blood Cultures growing ECOLI, on Zosyn -Severe Sepsis -secondary to neutropenia/gram negative bacteremia (Ecoli) -Patient is hypoxic, oxygenation 65% of non rebreather, non tolerating high flow oxygen, now on BIpap ( will watch closely given PTX) -Chest Xray: multiple consolidations of the left lung with a small pneumothorax -SOFA score 7 ( due to oxygenation, thrombocytopenia, [place] Coma Score) -platelet count 13K, - recheck Blood Cultures, Resp Panel, Covid-19, MRSA nasal Swab ( vanco if swab +) -d/c Zosyn, start meropenem, continue Diflucan -Fever to 101, HR 123 -Transfer to ICU Acute Hypoxic Respiratory Failure-due to -Multilobar Pneumonia/small PTX -Secondary to ECOLI -Bipap --Follow up Chest Xray for Pneumothoraxi progression -Patient OK with High Flow oxygen/Bipap -Does not want intubation, DNR/DNI Neutropenia -Secondary to Chemo -WBC 0.1, plts 13K, H/ H 8.9/25 -will transfuse 2 units irradiated blood today Cdiff Coliitis -Continue rifamyxin Hypertension -continue lisinopril hyperlipidemia -hold statin for now, resume when off bipap Depression -escitalopram on hold for now Neuropathy -gaapentin on hold DVT- SCD's given thrombocytopenia Acute Myelogenous Leukemia -s/p Chemotherapy Patients prognosis is poor. Based on Sofa Score Mortality at around 33% Will discuss with the daughter DNR/DNI 45 minutes Critical Care time Spent Quality VTE Deep Vein Thrombosis/Pulmonary Embolism Present on Admission: No
[2020-03-05] MEDS: MEROPENEM 2 GM in SODIUM CHLORIDE 0.9% 100 ML 200 ML IV (09:22)
[2020-03-05] MEDS: DEXTROSE 5%-LACTATED RINGERS 1,000 ML 150 ML IV (09:23)
[2020-03-05 09:44] LABS: Creatine Kinase 58 U/L (30-135)
[2020-03-05 09:46] LABS: COVID19 -Nasal RAPID Negative (Negative)
[2020-03-05 09:55] LABS: NT-proBNP (BNP-Adult 18+) 17600 pg/mL (<125); Troponin I 0.076 ng/mL (0.01-0.034)
[2020-03-05 09:58] LABS: BUN Creatinine Ratio 16.9 (6-22); Blood Urea Nitrogen 11 mg/dL (7-17); Calcium 8.3 mg/dL (8.4-10.2); Carbon Dioxide 23 mmol/L (22-32); Chloride 105 mmol/L (98-107); Estimated Glomerular Filt Rate > 60.0 mL/min (>60); Glucose 120 mg/dL (80-110); HEMOLYSIS < 15 (0-50); Sodium 135 mmol/L (137-145)
[2020-03-05 10:01] LABS: pH ABG 7.32 (7.35-7.45)
[2020-03-05 10:02] LABS: HCO3 ABG 19 mmol/L (22-26); PO2 ABG 48 mmHg (80-100); TCO2 ABG 20 mmol/L (21-31)
[2020-03-05 10:03] LABS: Fractionated Inspired Oxygen 80; Oxygen Saturation ABG 80 % (95-100)
--- NOTE | 2020-03-05 10:27 | DI.RAD.S_ITS ---
PROCEDURE: XR CHEST 1V INDICATIONS: follow-up on pneumo TECHNIQUE: One view of the chest was acquired. COMPARISON: [facility], CR, XR CHEST 1V, 12/04/2018, 10:32. [facility], CR, XR CHEST 1V, 12/03/2018, 12:22. [facility], CR, XR CHEST 1V, 12/09/2018, 12:48. [facility], CR, XR CHEST 1V, 03/03/2020, 18:17. [facility], CR, XR CHEST 1V, 03/05/2020, 8:50. FINDINGS: Surgical changes and devices: Bilateral axillary clips are seen. There is a stable left-sided chest port. Lungs and pleura: There is a potential left-sided pneumothorax, which is not increased in size compared to the prior examination. Dense consolidation can be seen in the left lung, with air bronchograms. Mediastinum: Cardiac and mediastinal silhouettes are partially obscured, yet are regarded to be stable. Bones and chest wall: No suspicious bony lesions. Age-appropriate bony degenerative changes are seen. Overlying soft tissues appear unremarkable. IMPRESSION: Potential left-sided pneumothorax, which is not enlarged compared to the prior examination. This apparent pneumothorax may simply be related to artifact, however. If clinically appropriate, a dedicated right lateral cubitus position radiograph could be considered for further evaluation. Dense left lung consolidation. Dictated by: Cholo Villar M.D. on 03/05/2020 at 9:48 Approved by: Cholo Villar M.D. on 03/05/2020 at 9:50
[2020-03-05 10:33] LABS: Procalcitonin 20.84 ng/mL (<0.5)
[2020-03-05] MEDS: FLUCONAZOLE 200 MG/100 ML PIGGYBACK 100 MG IV (10:38)
[2020-03-05 10:42] LABS: HCO3 ABG 20 mmol/L (22-26); PCO2 ABG 41.8 mmHg (35-45); PO2 ABG 60 mmHg (80-100); TCO2 ABG 21 mmol/L (21-31); pH ABG 7.28 (7.35-7.45)
[2020-03-05 10:43] LABS: Fractionated Inspired Oxygen 100; Oxygen Saturation ABG 87 % (95-100)
[2020-03-05] MEDS: ACETAMINOPHEN 650 MG SUPP PR (10:45)
[2020-03-05 11:23] LABS: Adenovirus Not Detected (Not Detect); Bordetella pertussis Not Detected (Not Detect); Chlamydophila pneumoniae Not Detected (Not Detect); Coronavirus 229E Not Detected (Not Detect); Coronavirus HKU1 Not Detected (Not Detect); Coronavirus NL 63 Not Detected (Not Detect); Coronavirus OC43 Not Detected (Not Detect); Human Metapneumovirus Not Detected (Not Detect); Human Rhinovirus/Enterovirus Not Detected (Not Detect); Influenza A Not Detected (Not Detect); Influenza B Not Detected (Not Detect); Mycoplasma pneumoniae Not Detected (Not Detect); Parainfluenza Virus 1 Not Detected (Not Detect); Parainfluenza Virus 2 Not Detected (Not Detect); Parainfluenza Virus 3 Not Detected (Not Detect); Parainfluenza Virus 4 Not Detected (Not Detect); Respiratory Syncytial Virus Not Detected (Not Detect); SARS- CoV-2 Not Detected (Not Detecte)
--- NOTE | 2020-03-05 11:35 | PC.NURSE ---
Addendum entered by Margaret Garner R.N. 03/05/20 14:27: At about 1200 pt noted to be having runs of afib up to the 150s and then 180s (SVT). Dr. Jha notified and order received for metoprolol which was effective - rate decreased to 110s-120s, ST with frequent PACs/PVCs. Valencia Grant arrived at 1245, updated and Dr. Jha notified of arrival. While Dr. Jha speaking with daughter, pt's HR noted to be in the 40s, pt unresponsive. Dr. Jha immediately to room, no pulse palpated and no respirations noted. Time of was 1253. Daughter remains in room at pt's bedside. SonVazquez, updated and in room as well. Original Note: Transfer Note Patient received to room 228 from room 214 at 0915 following a rapid response. Report received from Leah LOPEZ. Pt awake and responsive, following directions. Transferred on 15L HFNC and 15L NRB, SpO2 low to mid 80s. RTs Sanchez and Bushra in room, heated HFNC attempted and maxed (60L and 100% FiO2) with no improvement in SpO2. RT placed on bipap after discussion with Dr. Jha, 01/24 with FiO2 currently at 90%. SpO2 90-93%. HR in the 140s on arrival, temp axillary 102 F and rectal supp given. HR now in the 120s, ST with frequent PACs and PVCs. Hypertensive with SBP in the 130s-160s. Denies pain, reports brething improved with bipap mask although reports bipap mask as uncomfortable and attempts to remove on occasion, able to reorient to bipap need. Alfred placed per MD order by Dequan LOPEZ, draining small amount yellow urine, sample sent to lab. Oriented pt to room and call light within reach, bed alarm on for safety. 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 Valencia Grant, updated by Leah LOPEZ and is on her way to see patient.
[2020-03-05] MEDS: POTASSIUM CHLORIDE 40 MEQ in DEXTROSE 5%-LACTATED RINGERS 1,000 ML 75 MEQ IV (12:13)
--- NOTE | 2020-03-05 12:25 | PC.NURSE ---
Late entry. At 0730 this RN assumed care of patient, patient resting in bed with eyes closed, NC on @ 2L, breathing unlabored, left chest port patent, ABX infusing per MD order. At 0830 patient responsive to touch and voice but pale, noted increased WOB, PT tachyphea @ 36, NC @ 2L O2 on, pulse ox reading 67%, bumped to 5L and RT called. Pulses equal bilaterally. Patient tachy in the 120's-130's. MD made aware. Rapid response initiated. NS initially opened to 999cc/hr per MD instructions, dropped to 150 cc with start of vancomycin. Patient transferred to ICU at 0915, report given to Margaret LOPEZ. Daughter Valencia called and made aware of PTs transfer, will be coming to visit.
[2020-03-05] MEDS: METOPROLOL TARTRATE 5 MG/5 ML INJ IV (12:31)
--- NOTE | 2020-03-05 12:52 | RT ---
BIPAP TREATMENT STOPPED PER VERBAL ORDER BY DR. BO.
--- NOTE | 2020-03-05 14:45 | CM.DANOTE ---
DCP/continued: Reviewed chart. Patient had rapid response called this AM. Patient is DNR and transferred to room #228. Spoke with RN and she reports that patient at approximately 1:00pm today. At RN's request placed call to on-call candy bar attendant (Andrews). Andrews reports that he will touch base with family this afternoon. RN updated. P: Patient today. RADHA Vieyra
--- NOTE | 2020-03-05 17:33 | P.DN_ITS ---
Discharge Summary Hospital Course Date of Admission: 03/03/20 22:04 Date of : 03/05/20 Primary care provider: Abhinav Forte MD Consults: 03/03/20 23:18 Consult to Discharge Planning Routine Comment: Daughter wishes to speak to someone re: insurance Discharge provider: Dr. Asia Jha Discharge Diagnosis: 1. Severe sepsis secondary to E coli bacteremia 2. Acute respiratory failure secondary to 3. Multi lobar pneumonia 4. Neutropenia 5. AML 6. Hypertension 7. Neuropathy 8. Hyper lipidemia 9. C difficile infection 10. Hypokalemia Hospital Course: The patient is a 69-year-old female who was admitted to the hospital for neutropenic fever. She has known AML and completed a cycle of chemotherapy. The patient is on oral chemotherapy. She developed neutropenia with fever and was instructed to go to the hospital. In the emergency room the patient was given levofloxacin. She was admitted to the hospital placed on IV Zosyn and vancomycin. Patient was also noted be C diff positive And was treated with fidaxomicin. The patient had blood cultures which were positive for E coli. Her vancomycin was discontinued. On the morning of the patient developed abrupt onset of acute hypoxic respiratory failure. Her oxygen saturation dropped to 65% on room air. Rapid response was called and the filomena ent was quickly placed on a non-rebreather mask. She was given IV hydration. She was found to be tachycardic with sinus tachycardia in the 130s. She was febrile to 101. The patient was transferred to the ICU. Patient was then placed on meropenem. She continued continued on fidaxomicin. Vancomycin was added back to her regimen. Patient continued to be tachycardic and hypoxic. She was ultimately placed on BiPAP. Patient was given IV hydration, to include potassium. She was given 5 mg of IV Lopressor for new onset atrial fibrillation. She remained hypertensive throughout the course. Her daughter was notified and arrived. The patient then became agonal, heart rate dropped, she then lost her heart rate and was pronounced . Patient was DNR DNI. Her wishes were followed. Objective Labs Result Diagrams: 03/05/20 04:50 03/05/20 09:05 Labs: Laboratory Results - last 24 hr 03/04/20 03/05/20 03/05/20 05:15 04:50 04:50 WBC 0.1 L* RBC 2.87 L Hgb 8.9 L Hct 25.9 L MCV 90.1 MCH 31.0 MCHC 34.4 RDW 16.8 H Plt Count 13 L* Neut % (Auto) Not Reportable Lymph % (Auto) Not Reportable [place] % (Auto) Not Reportable Eos % (Auto) Not Reportable Baso % (Auto) Not Reportable Lymph # (Auto) Not Reportable [place] # (Auto) Not Reportable Baso # (Auto) Not Reportable Platelet Estimate Decreased on smear RBC Morphology Normal morphology ABG pH ABG pCO2 ABG pO2 ABG HCO3 ABG Total CO2 ABG O2 Saturation ABG Base Excess FiO2 Sodium 133 L Potassium 3.2 L Chloride 103 Carbon Dioxide 24 BUN 10 Creatinine 0.67 Estimated GFR > 60.0 BUN/Creatinine Ratio 14.9 Glucose 111 H Calcium 8.3 L Magnesium 1.8 Total Creatine Kinase CK-MB (CK-2) CK-MB (CK-2) Rel Index Troponin I NT-Pro-B Natriuret Pep Procalcitonin Nasal Screen MRSA (PCR) Chlamy pneumoniae PCR Adenovirus (PCR) B.parapertussis DNA PCR Coronavirus OC43 (PCR) Coronavirus HKU1 (PCR) Coronavirus 229E (PCR) SARS-CoV-2 (PCR) Coronavirus NL63 (PCR) Human Metapneumovir PCR Influenza Type A (PCR) Influenza Type B (PCR) M. pneumoniae (PCR) Parainfluenza 1 (PCR) Parainfluenza 2 (PCR) Parainfluenza 3 (PCR) Parainfluenza 4 (PCR) RSV (PCR) Entero/Rhino (PCR) Crossmatch See Detail 03/05/20 03/05/20 03/05/20 08:49 09:00 09:05 WBC RBC Hgb Hct MCV MCH MCHC RDW Plt Count Neut % (Auto) Lymph % (Auto) [place] % (Auto) Eos % (Auto) Baso % (Auto) Lymph # (Auto) [place] # (Auto) Baso # (Auto) Platelet Estimate RBC Morphology ABG pH 7.32 L ABG pCO2 37.0 ABG pO2 48 L* ABG HCO3 19 L ABG Total CO2 20 L ABG O2 Saturation 80 L* ABG Base Excess -7.0 L FiO2 80 Sodium Potassium Chloride Carbon Dioxide BUN Creatinine Estimated GFR BUN/Creatinine Ratio Glucose Calcium Magnesium Total Creatine Kinase 58 CK-MB (CK-2) TNP CK-MB (CK-2) Rel Index TNP Troponin I 0.076 H NT-Pro-B Natriuret Pep 88223 H Procalcitonin Nasal Screen MRSA (PCR) Negative for mrsa Chlamy pneumoniae PCR Adenovirus (PCR) B.parapertussis DNA PCR Coronavirus OC43 (PCR) Coronavirus HKU1 (PCR) Coronavirus 229E (PCR) SARS-CoV-2 (PCR) Coronavirus NL63 (PCR) Human Metapneumovir PCR Influenza Type A (PCR) Influenza Type B (PCR) M. pneumoniae (PCR) Parainfluenza 1 (PCR) Parainfluenza 2 (PCR) Parainfluenza 3 (PCR) Parainfluenza 4 (PCR) RSV (PCR) Entero/Rhino (PCR) Crossmatch 03/05/20 03/05/20 03/05/20 09:05 09:05 09:15 WBC RBC Hgb Hct MCV MCH MCHC RDW Plt Count Neut % (Auto) Lymph % (Auto) [place] % (Auto) Eos % (Auto) Baso % (Auto) Lymph # (Auto) [place] # (Auto) Baso # (Auto) Platelet Estimate RBC Morphology ABG pH ABG pCO2 ABG pO2 ABG HCO3 ABG Total CO2 ABG O2 Saturation ABG Base Excess FiO2 Sodium 135 L Potassium 3.0 L Chloride 105 Carbon Dioxide 23 BUN 11 Creatinine 0.65 Estimated GFR > 60.0 BUN/Creatinine Ratio 16.9 Glucose 120 H Calcium 8.3 L Magnesium Total Creatine Kinase CK-MB (CK-2) CK-MB (CK-2) Rel Index Troponin I NT-Pro-B Natriuret Pep Procalcitonin 20.84 H Nasal Screen MRSA (PCR) Chlamy pneumoniae PCR Adenovirus (PCR) B.parapertussis DNA PCR Coronavirus OC43 (PCR) Coronavirus HKU1 (PCR) Coronavirus 229E (PCR) SARS-CoV-2 (PCR) Negative Coronavirus NL63 (PCR) Human Metapneumovir PCR Influenza Type A (PCR) Influenza Type B (PCR) M. pneumoniae (PCR) Parainfluenza 1 (PCR) Parainfluenza 2 (PCR) Parainfluenza 3 (PCR) Parainfluenza 4 (PCR) RSV (PCR) Entero/Rhino (PCR) Crossmatch 03/05/20 03/05/20 09:31 10:34 WBC RBC Hgb Hct MCV MCH MCHC RDW Plt Count Neut % (Auto) Lymph % (Auto) [place] % (Auto) Eos % (Auto) Baso % (Auto) Lymph # (Auto) [place] # (Auto) Baso # (Auto) Platelet Estimate RBC Morphology ABG pH 7.28 L* ABG pCO2 41.8 ABG pO2 60 L ABG HCO3 20 L ABG Total CO2 21 ABG O2 Saturation 87 L ABG Base Excess -7.0 L FiO2 100 Sodium Potassium Chloride Carbon Dioxide BUN Creatinine Estimated GFR BUN/Creatinine Ratio Glucose Calcium Magnesium Total Creatine Kinase CK-MB (CK-2) CK-MB (CK-2) Rel Index Troponin I NT-Pro-B Natriuret Pep Procalcitonin Nasal Screen MRSA (PCR) Chlamy pneumoniae PCR Not detected Adenovirus (PCR) Not detected B.parapertussis DNA PCR Not detected Coronavirus OC43 (PCR) Not detected Coronavirus HKU1 (PCR) Not detected Coronavirus 229E (PCR) Not detected SARS-CoV-2 (PCR) Not detected Coronavirus NL63 (PCR) Not detected Human Metapneumovir PCR Not detected Influenza Type A (PCR) Not detected Influenza Type B (PCR) Not detected M. pneumoniae (PCR) Not detected Parainfluenza 1 (PCR) Not detected Parainfluenza 2 (PCR) Not detected Parainfluenza 3 (PCR) Not detected Parainfluenza 4 (PCR) Not detected RSV (PCR) Not detected Entero/Rhino (PCR) Not detected Crossmatch
== END 2020-03-05 18:00 | disposition expired | DRG 808 ==
LOC: ED 17:58 → AC 22:05 → ICU 03-05 09:24
PROVIDERS: Emergency Medicine; Family Medicine; Internal Medicine; Admitting Provider Nurse Practitioner Family; Emergency Provider Emergency Medicine; PCP Family Medicine; Referring Provider Emergency Medicine; Visit Provider Nurse Practitioner Family
DX: D70.1 Agranulocytosis secondary to cancer chemotherapy (principal); A41.51 Sepsis due to Escherichia coli [E. coli]; J15.5 Pneumonia due to Escherichia coli; J96.01 Acute respiratory failure with hypoxia; R65.20 Severe sepsis without septic shock; A04.72 Enterocolitis due to Clostridium difficile, not specified as recurrent; C92.00 Acute myeloblastic leukemia, not having achieved remission; D69.6 Thrombocytopenia, unspecified; I10 Essential (primary) hypertension; F32.9 Major depressive disorder, single episode, unspecified; Z66 Do not resuscitate; E78.5 Hyperlipidemia, unspecified; E87.6 Hypokalemia; R52 Pain, unspecified; Z20.822 Contact with and (suspected) exposure to COVID-19; Z85.3 Personal history of malignant neoplasm of breast
CPT/HCPCS: 36415; 36430; 36591; 36600; 71045; 80048; 80053; 81001; 82550; 82805; 83605; 83690; 83735; 83880; 84145; 84484; 85025; 85610; 85730; 86850; 86900; 86901; 87040; 87086; 87150; 87186; 87205; 87507; 87633; 87635; 87797; 93005; 93010; 94660; 94762; 96361; 96372; 96374; 99283; 99284; C9803; P9016; J0780; J1450; J1956; J2185; J2543; J3370; J3475; J3480; J7121; P9035; Q5110